=== PATIENT | female | born 1990 | race Caucasian/White ===

== ENCOUNTER → 2020-08-13 08:23 | Outpatient (CLI) | payer OTHER, SELFPAY ==
--- NOTE | 2020-08-13 08:38 | RAD_ITS ---
STUDY: X-RAY - ESOPHAGUS (BARIUM SWALLOW) WITH FLUOROSCOPY REASON FOR EXAM: Female, 29 years old. DYSPHAGIA -- feels like food gets stuck in thyroid area 6 months -- hx reflux meds have helped TECHNIQUE: AP view(s) of the esophagus were obtained following swallowing of barium. FLUOROSCOPY TIME (if supplied): (0:31) minutes/seconds COMPARISON: None. FINDINGS: There is no demonstrated esophageal foreign body. There is no demonstrated stricture or mucosal abnormality. Normal gastroesophageal junction, without a demonstrated hiatal hernia. The patient ingested a 12 mm tablet of barium without any difficulty. Normal visualized aortic arch and descending thoracic aorta. Normal visualized pulmonary parenchyma. Normal visualized osseous structures of the thorax. RAD/Esophagus Dual Contrast IMPRESSION: Normal plain film x-ray examination (barium swallow) of the esophagus. Electronically Signed: Jose Cantu MD at 9:09 EST , Service support ,
== END ==
PROVIDERS: PCP Family Medicine; Visit Provider Otolaryngology
DX: R13.10 Dysphagia, unspecified (principal)
CPT/HCPCS: 74221

== ENCOUNTER → 2023-01-02 | Outpatient (CLI) | payer OTHER, SELFPAY ==
[2023-01-05 05:07] LABS: Chlamydia By Nucleic Acid AMP Negative (Negative); Gonococcus By Nucleic Acid AMP Negative (Negative)
[2023-01-05 09:09] LABS: HPV APTIMA, High Risk Negative (Negative)
== END | disposition home or self-care (01) ==
LOC: LABSPEC 16:18
PROVIDERS: Obstetrics & Gynecology; PCP Nurse Practitioner Primary Care; Referring Provider Registered Nurse; Visit Provider Registered Nurse
DX: Z34.90 Encounter for supervision of normal pregnancy, unspecified, unspecified trimester (principal); Z3A.00 Weeks of gestation of pregnancy not specified
CPT/HCPCS: 87086; 87491; 87591; 87624; 88175; G0145

== ENCOUNTER → 2023-01-19 | Outpatient (CLI) | payer OTHER, SELFPAY ==
[2023-01-19 16:27] LABS: Absolute Lymphocyte Count 1.25 X10^3/uL (0.83-4.51); Absolute Neutrophil Count 5.1 X10^3/uL (2.0-7.7); Basophil# 0.04 X10^3/uL; Basophil% 0.6 % (0-1); Eosinophils% 4.2 % (0-5); Hematocrit 33.3 % (37-47); Hemoglobin 11.7 g/dL (12.0-15.0); Lymphocyte # 1.25 X10^3/ul (0.83-4.51); Lymphocyte % 17.5 % (19-41); Mean Corp Hgb Conc 35.1 g/dL (32-36); Mean Corpuscular Hgb 29.9 pg (27.0-32.0); Mean Corpuscular Volume 85.2 fL (81-99); Mean Platelet Vol. 10.7 fl (6.2-12.0); Monocyte# 0.42 X10^3/uL; Monocyte% 5.9 % (0-10); NRBC Flagged by Analyzer 0 % (0-5); Neutrophil # 5.12 X10^3/uL (2.7-7.7); Neutrophil % 71.5 % (47-70); Platelet Count 266 K/mm3 (150-450); RBC Distribution Width CV 12.4 % (11.6-14.6); RBC Distribution Width SD 38.3 fl (35.1-43.9); Red Blood Count 3.91 M/mm3 (4.2-5.4); White Blood Count 7.2 K/mm3 (4.4-11.0)
[2023-01-19 17:38] LABS: HIV - WCH Non-Reactive (Nonreactive); Hepatitis B Surface Antigen Non-Reactive (Nonreactive); Hepatitis C Antibody Non-Reactive (Nonreactive); Rubella IgG Reactive (Nonreactive); Syphilis Antibodies Non-reactive
== END | disposition home or self-care (01) ==
LOC: LABSPEC 15:18
PROVIDERS: PCP Nurse Practitioner Primary Care; Referring Provider Obstetrics & Gynecology; Visit Provider Obstetrics & Gynecology
DX: Z34.90 Encounter for supervision of normal pregnancy, unspecified, unspecified trimester (principal)
CPT/HCPCS: 36415; 85025; 86703; 86762; 86780; 86803; 86850; 86900; 86901; 87340

== ENCOUNTER → 2023-05-10 | Outpatient (CLI) | payer OTHER, SELFPAY ==
[2023-05-10 10:22] LABS: Absolute Lymphocyte Count 0.84 X10^3/uL (0.83-4.51); Absolute Neutrophil Count 9.1 X10^3/uL (2.0-7.7); Basophil# 0.03 X10^3/uL; Basophil% 0.3 % (0-1); Eosinophil# 0.14 X10^3/uL; Eosinophils% 1.3 % (0-5); Hematocrit 32.9 % (37-47); Hemoglobin 10.6 g/dL (12.0-15.0); Lymphocyte # 0.84 X10^3/ul (0.83-4.51); Lymphocyte % 7.8 % (19-41); Mean Corp Hgb Conc 32.2 g/dL (32-36); Mean Corpuscular Hgb 28.4 pg (27.0-32.0); Mean Corpuscular Volume 88.2 fL (81-99); Mean Platelet Vol. 11.1 fl (6.2-12.0); Monocyte# 0.61 X10^3/uL; Monocyte% 5.7 % (0-10); NRBC Flagged by Analyzer 0 % (0-5); Neutrophil # 9.12 X10^3/uL (2.7-7.7); Neutrophil % 84.4 % (47-70); Platelet Count 257 K/mm3 (150-450); RBC Distribution Width CV 12.6 % (11.6-14.6); RBC Distribution Width SD 40.2 fl (35.1-43.9); Red Blood Count 3.73 M/mm3 (4.2-5.4); White Blood Count 10.8 K/mm3 (4.4-11.0)
[2023-05-10 10:56] LABS: Glucose Challenge Gest 1H 50g 105 mg/dL (70-140)
[2023-05-10 12:36] LABS: HIV - WCH Non-Reactive (Nonreactive); Syphilis Antibodies Non-reactive
== END | disposition home or self-care (01) ==
LOC: LAB 09:08
PROVIDERS: PCP Nurse Practitioner Primary Care; Referring Provider Obstetrics & Gynecology; Visit Provider Obstetrics & Gynecology
DX: O09.90 Supervision of high risk pregnancy, unspecified, unspecified trimester (principal); Z3A.00 Weeks of gestation of pregnancy not specified
CPT/HCPCS: 36415; 82950; 85025; 86703; 86780

== ENCOUNTER → 2023-06-09 | Outpatient (CLI) | payer OTHER, SELFPAY ==
[2023-06-09 07:56] LABS: Absolute Lymphocyte Count 1.21 X10^3/uL (0.83-4.51); Absolute Neutrophil Count 7.9 X10^3/uL (2.0-7.7); Basophil# 0.03 X10^3/uL; Basophil% 0.3 % (0-1); Eosinophil# 0.24 X10^3/uL; Eosinophils% 2.4 % (0-5); Hematocrit 32.4 % (37-47); Hemoglobin 10.6 g/dL (12.0-15.0); Lymphocyte # 1.21 X10^3/ul (0.83-4.51); Lymphocyte % 11.9 % (19-41); Mean Corp Hgb Conc 32.7 g/dL (32-36); Mean Corpuscular Hgb 28.3 pg (27.0-32.0); Mean Corpuscular Volume 86.4 fL (81-99); Monocyte# 0.67 X10^3/uL; Monocyte% 6.6 % (0-10); NRBC Flagged by Analyzer 0 % (0-5); Neutrophil # 7.91 X10^3/uL (2.7-7.7); Neutrophil % 77.9 % (47-70); Platelet Count 222 K/mm3 (150-450); RBC Distribution Width CV 13.1 % (11.6-14.6); RBC Distribution Width SD 40.5 fl (35.1-43.9); Red Blood Count 3.75 M/mm3 (4.2-5.4); White Blood Count 10.2 K/mm3 (4.4-11.0)
== END | disposition home or self-care (01) ==
PROVIDERS: Referring Provider Registered Nurse; Visit Provider Registered Nurse
DX: O99.019 Anemia complicating pregnancy, unspecified trimester (principal); Z3A.26 26 weeks gestation of pregnancy
CPT/HCPCS: 36415; 85025

== ENCOUNTER → 2023-06-21 | Outpatient (CLI) | payer OTHER, SELFPAY ==
--- NOTE | 2023-06-21 09:27 | US_ITS ---
EXAM: US , LIMITED CLINICAL INDICATION: growth TECHNIQUE: Real-time limited ultrasound of the maternal uterus with image documentation. COMPARISON: No relevant prior studies available. FINDINGS: FETUS: There is an intrauterine gestation. GESTATIONAL AGE: Gestational age is 34 weeks 1 day. BLAINE: BLAINE 08/01/2023. EFW: Estimated weight is 2709 g. BPD: Biparietal diameter is 9.4 cm age 38 weeks 2 days, 99 percentile. HC: Head circumference is 33.5 cm age 38 weeks 3 days, 97th percentile. AC: Abdominal circumference is 31.7 cm age 35 weeks 4 days, 89th percentile. FL: Femur length is 6.7 cm age 34 weeks 2 days, 44th percentile. POSITION: The fetus is in cephalic position. HEART RATE: heart rate is 143 bpm. PLACENTA: Placenta is anterior. AMNIOTIC FLUID: RIDDHI is 21 cm. The largest fluid pocket is 7.0 x 3.2. CERVIX: Cervix measures 3.7 cm. US/OB Limited With Biometrics IMPRESSION: Intrauterine gestation with an average ultrasound age of 37 weeks 0 days and ultrasound estimated due date 07/12/2023. heart rate is 143 bpm. Electronically Signed: Dave Roblero MD at 23:54 EST ,
--- OUTSIDE RECORDS SUMMARY | 2023-06-21 10:43 | XMS RPT_ITS | CCD ---
Author Name Unknown Address [email or web address] [place] [address] Organization [facility] Care Team Providers Care Resident Caregiver Name Role Phone JOAN OLIVIER, JEFF Maddox Primary Care Physician Aurea PT, Valencia Unavailable Unavailable LOLY PAN Attending Ruthann FRANCO MD., DR. JEFF Maddox Primary Care Ruthann LAM PRIMARY CAREMD Primary Care Unavailable ROSALINDA MONTERO Attending Unavailable ZAK GARAY Referring Unavailabl e Medications Current Medications Medication Drug Class(es) Dates Sig (Normalized) Sig (Original) acetaminophen 250 mg / aspirin 250 mg / caffeine 65 mg oral tablet (1 source) Platelet Aggregation Inhibitor, Nonsteroidal Anti-inflammatory Drug, Central Nervous System Stimulant, Methylxanthine Start: 01-16-2020 take 1 tablet by mouth every six hours as needed for headache Excedrin Extra Strength oral tab (250/250/65) Dose = 1 tab(s), Oral, q6h, PRN for headache, 0 Refill(s) Start Date: 01/16/20 Status: Ordered Albuterol (Eqv-ProAir HFA) 90 mcg/inh inhalation aerosol (1 source) Start: 04-15-2021 take 1 dose by inhalation every four hours Albuterol (Eqv-ProAir HFA) 90 mcg/inh inhalation aerosol Dose = 2 puff(s), Inhalation, q4h, # 3 EA, 3 Refill(s), Pharmacy: [facility]/pharmacy #[id number], 164.2, cm, 04/15/21 16:39:00 EDT, Height, kg, 04/15/21 16:39:00 EDT, Dosing Weight Start Date: 04/15/21 Status: Ordered escitalopram 10 mg oral tablet (1 source) Serotonin Reuptake Inhibitor Start: 03-21-2022 End: 03-16-2023 escitalopram 10 mg oral tablet Dose : 10 mg = 1 tab(s), Oral, qDay, # 90 tab(s), 3 Refill(s), Pharmacy: [facility]/pharmacy #[id number], 161, cm, 03/21/22 16:37:00 EDT, Height Start Date: 03/21/22 Stop Date: 03/16/23 Status: Ordered montelukast 10 mg oral tablet (1 source) Leukotriene Receptor Antagonist Start: 07-23-2021 Singulair 10 mg oral tablet Dose : 10 mg = 1 tab(s), Oral, qDay, # 90 tab(s), 3 Refill(s), Pharmacy: [facility], 164.2, cm, 04/15/21 16:39:00 EDT, Height, kg, 04/15/21 16:39:00 EDT, Dosing Weight Start Date: 07/23/21 Status: Ordered Problems Problem Classification Problem Date Documented Da te Episodic/Chronic Anxiety disorders (4 sources) Generalized anxiety disorder; Translations: [Obsessive-compulsi ve disorder] Onset: 04-21-2022 03-21-2022 Chronic Results Test Name Value Interpretation Reference Range Facil ity Encounters Encounter Date Encounter Type Care Provider Facility Start: 03-14-2023 End: 03-14-2023 ambulatory MD [facility]IMARY [facility] Start: 04-21-2022 End: 04-26-2022 ambulatory LOLY RENE APRN-KOJO Facility:B Start: 04-21-2022 End: 04-25-2022 Outreach Lab LOLY RENE APRN-KOJO [facility] Payers Date Payer Category Payer Unknown [id number] 1990 Unknown [id number] 1990 Unknown [id number] Social History Date Type Detail Facility Start: 12-30-2019 Tobacco smoking status Never s moked tobacco (finding) [facility] Sex Assigned At Sex [facility] Progress note 08-09-2021 Note Date & Type Note Facility 08-09-2021 Note HNO ID: [id number] Author: Gita Ureña APRN.SIGN ERECTOR Service: ? Author Type: Nurse Practitioner Type: Progress Notes Filed: 08/09/2021 9:54 AM Note Text: Florina is a 30 year old who presents for an annual gynecologic exam without complaints. Menses: cycles every 25-30 days and 4 days of flow. 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 Comments: Sexual Activity: Yes; Male Contraception: Condom PAST MEDICAL HISTORY Diagnosis Date - Asthma PAST SURGICAL HISTORY Procedure Laterality Date - PAST SURGICAL HISTORY OF surgery on fingers for finger tips being cut off - PAST SURGICAL HISTORY OF Bilateral multiple breast lumpectomies FAMILY HISTORY Problem Relation Age of Onset - Asthma Father - Prostate Cancer Father SOCIAL HISTORY Social History Tobacco Use - Smoking status: Never Smoker - Smokeless tobacco: Never Used Vaping Use - Vaping Use: Never used Substance Use Topics - Alcohol use: No - Drug use: Never REVIEW OF SYSTEMS Abdomen: No abdominal pain, nausea, vomiting, diarrhea, or constipation. No bloating, early satiety, indigestion, or increased flatulence. Bladder: No dysuria, gross hematuria, urinary frequency, urinary urgency, or incontinence. Breast: No breast lumps, nipple d/c, overlying skin changes, redness or skin retraction and +fibroadenomos. Allergies and current medication updated:Yes EXAM: Ht 5' 4 (1.63m) Wt 154 lb (69.9kg) LMP 07/29/2021 BMI 26.42 kg/(m2). GENERAL: pleasant, female in no apparent distress HEENT: Normocephalic, atraumatic, mucus membranes moist and no lesions NECK: Supple, full range of motion, no adenopathy and thyroid normal DERMATOLOGY: Normal, without lesions, non-icteric and non-hirsute BREAST: soft, non-tender, symmetric, no dominant mass, normal nipple-areolar complex, no lymphadenopathy and no nipple discharge CHEST: Normal inspiratory effort ABDOMEN: soft, non-tender and no masses PELVIC: external genitalia normal, normal Bartholin's glands, urethra, [place]'s glands, no vulvar lesions, no cervical lesions, good vaginal support, physiologic discharge present, normal appearing perineal body and perianal region BIMANUAL: uterus normal size, shape and consistency, no adnexal masses and non-tender RECTOVAGINAL: deferred. NEURO: alert and oriented x3,exam grossly non-focal EXTREMITIES: normal ASSESSMENT/PLAN: 1) Health maintenance: Pap/HPV up to date. Mammogram starting age 40. Nutrition, exercise and routine health maintenance exams reviewed. Calcium/Vitamin D supplementation information provided. 2) Contraception: condoms. Contraceptive options reviewed and information provided. 3) STD screening: Declined STD check. 4) Follow up one year or sooner as needed Gita Ureña APRN.CNP [facility] Evaluation + Plan note Note Date & Type Note Facility Evaluation + Plan note Future Appointments Appointment Date:05/16/2022 04:30:00 PM Scheduled Provider:LOLY RENE Location:P [facility] Appointment Type:PC OV Follow Up [facility] Hospital course Narrative Note Date & Type Note Facility Hospital course Narrative No data available for this section [facility] Hospital Discharge instructions Note Date & Type Note Facility Hospital Discharge instructions No data available for this section [facility] Progress note Note Date & Type Note Facility Progress note No data available for this section [facility] Summary Purpose Family History No Family History Records FoundNo Family History Records FoundNo Family History Records Found Advance Directives No Advanced Directives Records FoundNo Advanced Directives Records FoundNo Advanced Directives Records Found Additional Source Comments INFORMATION SOURCE (unrecogn ized section and content) DATE CREATED AUTHOR AUTHOR'S ORGANIZ ATION 04/26/2022 [facility] ([place]) DATE CREATED AUTHOR AUTHOR'S ORGANIZ ATION 03/22/2023 [facility] Care Team (unrecognized sect ion and content) Care Team Personnel Name: Jyoti Villar Clerbuck [place] PT Position: P3 Scheduling - Gear Nicker Advanced Member Role: Other Name: JEFF FRANCO MD Position: P4 Physician - Primary Care Member Role: Primary Care Physician Address: Address: [address] [place] [id number] Care Team Related Persons Name: JARRED KULKARNI Address: Home [address] [place] [phone] Address: [address] [phone] FOR RECORDS PERTAINING TO PATIENTS WHO ARE OR HAVE BEEN ENROLLED IN A CHEMICAL DEPENDENCY/SUBSTANCEABUSE PROGRAM, SOME INFORMATION MAY BE OMITTED. This clinical summary was aggregated from multiple sources. Caution should be exercised in using it in the provision of clinical care. This summary normalizes information from multiple sources, and as a consequence, information in this document may materially change the coding, format and clinical context of patient data. In addition, data may be omitted in some cases. CLINICAL DECISIONS SHOULD BE BASED ON THE PRIMARY CLINICAL RECORDS. [facility] [employer] [facility]. provides no warranty or guarantee of the accuracy or completeness of information in this document.
== END | disposition home or self-care (01) ==
LOC: US 09:27
PROVIDERS: Referring Provider Obstetrics & Gynecology; Visit Provider Obstetrics & Gynecology
DX: O99.519 Diseases of the respiratory system complicating pregnancy, unspecified trimester (principal); J45.909 Unspecified asthma, uncomplicated; Z3A.00 Weeks of gestation of pregnancy not specified
CPT/HCPCS: 76816

== ENCOUNTER 2023-07-03 10:55 | Outpatient (CLI) | payer OTHER, SELFPAY ==
[2023-07-03] VITALS (7 sets, daily range): BP systolic 118–133; BP diastolic 74–87; PULSE 92–107; TEMP 37.4; O2SAT 97; BMI 37.8
--- OUTSIDE RECORDS SUMMARY | 2023-07-03 11:31 | XMS RPT_ITS | CCD ---
Author Name Unknown Address [address] [place] [address] Organization [facility] Care Team Providers Care Government Services Professional Name Role Phone JOAN OLIVIER, JEFF Maddox [...] q4h, # 3 EA, 3 Refill(s), Pharmacy: [facility]/pharmacy #[id number], 164.2, cm, 04/15/21 16:39:00 EDT, Height, kg, 04/15/21 16:39:00 EDT, Dosing Weight Start Date: 04/15/21 Status: Ordered escitalopram 10 mg oral tablet (1 source) Serotonin Reuptake Inhibitor Start: 03-21-2022 End: 03-16-2023 escitalopram 10 mg oral tablet Dose : 10 mg = 1 tab(s), Oral, qDay, # 90 tab(s), 3 Refill(s), Pharmacy: [facility]/pharmacy #[id number], 161, cm, 03/21/22 16:37:00 EDT, Height Start Date: 03/21/22 Stop Date: 03/16/23 Status: Ordered montelukast 10 mg oral tablet (1 source) Leukotriene Receptor Antagonist Start: 07-23-2021 Singulair 10 mg oral tablet Dose : 10 mg = 1 tab(s), Oral, qDay, # 90 tab(s), 3 Refill(s), [facility], 164.2, cm, 04/15/21 16:39:00 EDT, [...] End: 03-14-2023 ambulatory MD LAM [facility]IMARY [facility] Start: 04-21-2022 End: 04-26-2022 ambulatory LOLY RENE APRN-KOJO Facility:B Start: 04-21-2022 End: 04-25-2022 Outreach Lab LOLY RENE APRN-KOJO [facility] Payers Date Payer Category Payer Unknown [id number] 1990 Unknown [id number] 1990 Unknown [id number] Social History Date Type Detail Facility Start: 12-30-2019 Tobacco smoking status Never s moked tobacco (finding) [facility] Sex Assigned At Sex [facility] Progress note 08-09-2021 Note Date & Type Note Facility 08-09-2021 Note HNO ID: [id number] Author: Gita Ureña APRN.PROOF COINS INSPECTOR Service: ? 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: Sexual Activity: Yes; Male Contraception: [...] external genitalia normal, normal Bartholin's glands, urethra, [place]'s glands, no vulvar lesions, no cervical lesions, [...] or sooner as needed Gita Ureña APRN.CNP [facility] Evaluation + Plan note Note Date & Type Note Facility Evaluation + Plan note Future Appointments Appointment Date:05/16/2022 04:30:00 PM Scheduled Provider:LOLY RENE Location:P [facility] Appointment Type:PC OV Follow Up [facility] Hospital course Narrative Note Date & Type Note Facility Hospital course Narrative No data available for this section [facility] Hospital Discharge instructions Note Date & Type Note Facility Hospital Discharge instructions No data available for this section [facility] Progress note Note Date & Type Note Facility Progress note No data available for this section [facility] Summary Purpose Family History No Family History Records FoundNo Family History Records FoundNo Family History Records Found Advance Directives No Advanced Directives Records FoundNo Advanced Directives Records FoundNo Advanced Directives Records Found Additional Source Comments INFORMATION SOURCE (unrecogn ized section and content) DATE CREATED AUTHOR AUTHOR'S ORGANIZ ATION 04/26/2022 [facility] ([place]) DATE CREATED AUTHOR AUTHOR'S ORGANIZ ATION 03/22/2023 [facility] Care Team (unrecognized sect ion and content) Care Team Personnel Name: Jyoti Villar Clerbuck [place] PT Position: P3 Scheduling - Certified Performance Technologist Advanced Member Role: Other Name: JEFF FRANCO MD Position: P4 Physician - Primary Care Member Role: Primary Care Physician Address: Address: [address] [place] [id number] Care Team Related Persons Name: JARRED KULKARNI Address: Home [address] [place] [phone] Address: [address] [phone] FOR RECORDS PERTAINING TO PATIENTS WHO ARE [...] BE BASED ON THE PRIMARY CLINICAL RECORDS. [facility] [employer] [facility]. provides no warranty or guarantee of the accuracy or completeness of information in this document.
[2023-07-03 11:43] LABS: Protein, Urine (Random) 36.1 mg/dL (<11.9); Protein:Creat Ratio 242 mg/g CRE (0-200)
[2023-07-03 11:46] LABS: Hematocrit 31.3 % (37-47); Hemoglobin 10.3 g/dL (12.0-15.0); Mean Corp Hgb Conc 32.9 g/dL (32-36); Mean Corpuscular Hgb 28.5 pg (27.0-32.0); Mean Corpuscular Volume 86.7 fL (81-99); Platelet Count 189 K/mm3 (150-450); RBC Distribution Width CV 13.6 % (11.6-14.6); RBC Distribution Width SD 42.5 fl (35.1-43.9); Red Blood Count 3.61 M/mm3 (4.2-5.4); White Blood Count 8.5 K/mm3 (4.4-11.0)
[2023-07-03 11:59] LABS: AST(SGOT) 15 U/L (15-37); Alanine Aminotransfer ALT/SGPT 24 U/L (13-56); Creatinine, Serum 0.61 mg/dL (0.55-1.02); EST Glomerular Filtration Rate 121 mL/min (>60); Est Glom Filt Rate - Afr Amer 146 mL/min (>60); Estimated Creatinine Clearance 153.44 ml/min; Uric Acid 4.4 mg/dL (2.6-6.0)
--- NOTE | 2023-07-03 12:59 | OB.TRI.HP_ITS ---
HPI - General General Date of Admission: 07/03/23 HPI Narrative GASTON KULKARNI, is a 32 F who presents at 35.6 for elevated BP in office with trace proteins. denied headaches, RUQ pain but did have some occasional floaters/sparkles . Maternal Data Information BLAINE Calculator Estimated Delivery Date Method Current WG Current Estimate 08/01/23 LMP (Certain) 35w 6d PFSH PFSH Medical History Family history of breast cancer Home Medications albuterol sulfate 90 mcg/actuation aerosol inhaler 2 puff inhalation Q6H PRN shortness of breath or wheezing 12/27/22 [History Last Taken Unknown] montelukast 10 mg tablet (Singulair) 10 mg PO DAILY 12/27/22 [History Last Taken 07/02/23 20:00] multivitamin no.47-iron fum 27 mg-folate no.1 1 mg-dha 300 mg capsule (PNV-DHA) cap PO 12/27/22 [History Last Taken 07/02/23 20:00] famotidine 20 mg tablet (Pepcid) 20 mg PO DAILY #90 tabs 04/28/23 [Rx Last Taken Unknown] fluticasone 250 mcg-salmeterol 50 mcg/dose blistr powdr for inhalation (Advair Diskus) 1 inh inhalation BID 04/28/23 [History Last Taken 07/03/23 07:00] iron fum,pscplx 125 mg-folic acid 1 mg-vit C 40 mg-niacin 3 mg capsule (Integra F) 1 cap PO DAILY #30 caps 06/09/23 [Rx Last Taken 07/02/23 20:00] Allergy/AdvReac Type Severity Reaction Status Date / Time No Known Allergies Allergy Verified 07/03/23 11:50 Family History Grandmother Breast cancer, Onset Age: 60 Paternal Diabetes Maternal CAD (coronary artery disease) Maternal Father Prostate cancer, Onset Age: 57 Surgical History History of lumpectomy of both breasts [place] teeth extracted Social History adopted: No household members: significant other and other details: BF Mother current occupational status: employed 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 current occupational exposures/hazards: No pets and animals: Yes pets and animals: dog(s) history of recent travel: Yes (- November) out of state: Yes out of country: No sexually active: Yes Smoking Status: Never smoker alcohol intake: never substance use type: does not use well-balanced diet: about half the time caffeine: No eating out: 1-3 times/week during the past year weight has: remained stable what type of physical activity do you participate in: walking frequency: 1-2 times per week duration: 30-45 minutes/day hilaria/adventist: None seatbelt use: always do you feel safe at home: Yes additional 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 History 1 Elective abortions Hx Para 0 Spontaneous abortions Hx # Term Pregnancies Ectopic pregnancies Hx # Pregnancies Multiple births # of living children 0 Visit Details Expected Delivery Route/Plan Labor Preferences- CB/BF classes: yes labor support person: Juan Jose labor intervention preferences: [] pain management options preferred: epidural cut cord/dad catch: yes : yes PP control planned: discussed discussed possible routes of delivery and associated risks: [] special requests: [] Plans Covid status: unvax Flu vaccine: declines Tdap vaccine:given Rhogam: NA LARC form signed: yes movement and labor precautions reviewed. Problem list reviewed and updated with the most current plan of care details and appropriate orders placed. Relevant counseling for the gestational age provided. Continue routine care and follow up unless otherwise noted in visit notes/problem list details OB Flowsheet Initial Weight: 168 lb Date -?-?-?-?-?-?-?-?-?-?-?-?- EGA Weight BP Urine Prot -?-?-?-?-?-?-?-?-?-?-?-?- Glucose FHR FuHt Pres Dilation -?-?-?-?-?-?-?-?-?-?-?-?- Effaced St Visit Note 01/02/23 -?-?-?-?-?-?-?-?-?-?-?-?- 9w 6d 168 lb 8 oz (+8 oz) 132/79 -?-?-?-?-?-?-?-?-?-?-?-?- 165 -?--?-?-?-?-?-?-?-?-?-?-?- LC- CRL 28.9mm c /w LMP. BLAINE 08/01/2023 LC- CRL 28.9mm c/w LMP. BLAINE 08/01/2023. 01/31/23 -?-?-?-?-?-?-?-?-?-?-?-?- 14w 0d 174 lb 4 oz (+6 lb 4 oz) 124/78 Negative -?-?-?-?-?-?-?-?-?-?-?-?- Negative 153 -?-?-?-?-?-?-?-?-?-?-?-?- MH-NO VB. Nausea improving. Reviewed PN labs. Brief US to confirm FHT 02/27/23 -?-?-?-?-?-?-?-?-?-?-?-?- 17w 6d 181 lb (+13 lb) 117/73 Negative -?-?-?-?-?-?-?-?-?-?-?-?- Negative 150 -?-?-?-?-?-?-?-?-?-?-?-?- SM- no vb crampi ng nausea improving, having headaches. SM- no vb cramping nausea im proving, having headaches. discussed starting pepcid for nausea and heartburn, reviewed EDMOND treatment OTC 03/30/23 -?-?-?-?-?-?-?-?-?-?-?-?- 22w 2d 190 lb 2 oz (+22 lb 2 oz) 128/82 Negative -?-?-?-?-?-?-?-?-?-?-?-?- Negative 145 22 -?-?-?-?-?-?-?-?-?-?-?-?- KW- no vb/lof/ct x. good fm. feeling SOB and having increased coughing and using albuterol inhaler 3 times a week. encouraged chiropractor for hip pain. KW- no vb/lof/ctx. good fm. feeling SOB and having increased coughing and using albuterol inhaler 3 times a week, recommended seeing PCP for change in meds. encouraged chiropractor for hip pain. 04/28/23 -?-?-?-?-?-?-?-?-?-?-?-?- 26w 3d 196 lb (+28 lb) 108/76 Negative -?-?-?-?-?-?-?-?-?-?-?-?- Negative 140 27 -?-?-?-?-?-?-?-?-?-?-?-?- KW- no vb/lof/ct x. good fm. added Advair and feeling much better. Pepcid reordered. 28 week labs reviewed and ordered. 05/10/23 -?-?-?-?-?-?-?-?-?-?-?-?- 28w 1d 198 lb 4 oz (+30 lb 4 oz) 118/72 Trace -?-?-?-?-?-?-?-?-?-?-?-?- Negative 132 29 -?-?-?-?-?-?-?-?-?-?-?-?- MH-No VB, LOF. G ood FM. 28 wk labs, larc. Considering tdap 05/22/23 -?-?-?-?-?-?-?-?-?-?-?-?- 29w 6d 203 lb (+35 lb) 118/83 Negative -?-?-?-?-?-?-?-?-?-?-?-?- Negative 130 31 -?-?-?-?-?-?-?-?-?-?-?-?- SM- no vb lof go od fm n oregular ctx 06/09/23 -?-?-?-?-?-?-?-?-?-?-?-?- 32w 3d 208 lb 2 oz (+40 lb 2 oz) 107/77 Negative -?-?-?-?-?-?-?-?-?-?-?-?- Negative 150 32 -?-?-?-?-?-?-?-?-?-?-?-?- JV- asthma a lit tle worse and is working with pcp and now on advair. will order growth ultrasound. adding integra to medication list as hg did not change with otc iron. JV- asthma a little worse an d is working with pcp and now on advair. will order growth ultrasound. adding integra to medication list as hg did not change with otc iron. Discussed weight gain (40 lbs already) and healthy eating. ok to walk in 06/21/23 -?-?-?-?-?-?-?-?-?-?-?-?- 34w 1d 214 lb (+46 lb) 116/84 Negative -?-?-?-?-?-?-?-?-?-?-?-?- Negative 143 34 -?-?-?-?-?-?-?-?-?-?-?-?- LC- no vb/ctx/lo f. good fm. had growth scan today.asthma slightly better on advair. 07/03/23 -?-?-?-?-?-?-?-?-?-?-?-?- 35w 6d 218 lb 8 oz (+50 lb 8 oz) 142/90 Trace -?-?-?-?-?-?-?-?-?-?-?-?- Negative 144 37.5 -?-?-?-?-?-?-?-?-?-?-?-?- LC- no vb/ctx/lo f. good fm. elevated BP in office. having sparkle vision occassionally. no headaches. sending to for PEC labs/monitoring. Physical Exam Const alert, oriented x3 and no apparent distress Resp normal respiratory effort, normal air movement, no retractions and no use of accessory muscles Cardio regular rate and regular rhythm GI soft to palpation and non-tender Inspection: Palpation: soft Rectal Exam: deferred Extremity normal to inspection and full ROM Neuro Motor Exam: strength 5/5 throughout and muscle tone normal throughout Deep Tendon Reflexes: Rt Patellar (L4): 2+ and Lt Patellar (L4): 2+ NST FHR Rate Baby A Baseline: 135 Variability:: Moderate Accelerations:: 15 x 15 Decelerations:: None NST Reactive:: Yes FHR Category:: Category I Assessment & Plan (1) Elevated blood pressure reading: COMMENT: negative PEC labs. P:C 160. d/c home, c/w Dr. Gamez agreed not PEC today. PEC s/sx provided. PLAN: Patient presents for triage evaluation secondary to elevated BP in office FHT: Moderate variability reactive no decelerations category I tracing Combined Locks: no Contractions Assessment and plan: Reactive NST, reassuring maternal and status patient discharged to home to follow-up in office next week, PEC handout provided. See problem list details for additional plan information. Charges/Coding Procedures Urinary/Genital 52xxx-59xxx: 70778-50 non-stress test Interp Multi Select Codes Visit Charges Office Visit/Consults: 75076 OV L3 Est 20min Urinary/Genital Urinary/Genital CPT Codes: 73447-32 non-stress test Interp
== END 2023-07-03 12:31 | disposition home or self-care (01) ==
LOC: WPOUT 11:01 → WP 11:01
PROVIDERS: Referring Provider Registered Nurse; Visit Provider Registered Nurse
DX: O99.891 Other specified diseases and conditions complicating pregnancy (principal); R10.11 Right upper quadrant pain; R03.0 Elevated blood-pressure reading, without diagnosis of hypertension; Z3A.00 Weeks of gestation of pregnancy not specified
CPT/HCPCS: 36415; 59025; 59050; 82565; 82570; 84156; 84450; 84460; 84550; 85027; 87081; 99221; G0378

== ENCOUNTER 2023-07-13 18:15 | Inpatient (IN) | payer OTHER, SELFPAY ==
[2023-07-13] VITALS (29 sets, daily range): BP systolic 115–150; BP diastolic 66–93; PULSE 89–156; TEMP 36.7–37.1; O2SAT 85–99; BMI 38.4
[2023-07-13 16:00] LABS: Hematocrit 32.3 % (37-47); Hemoglobin 10.7 g/dL (12.0-15.0); Mean Corp Hgb Conc 33.1 g/dL (32-36); Mean Corpuscular Hgb 28.5 pg (27.0-32.0); Mean Corpuscular Volume 85.9 fL (81-99); Mean Platelet Vol. 12.6 fl (6.2-12.0); Platelet Count 193 K/mm3 (150-450); RBC Distribution Width CV 13.7 % (11.6-14.6); RBC Distribution Width SD 42.6 fl (35.1-43.9); Red Blood Count 3.76 M/mm3 (4.2-5.4); White Blood Count 9.2 K/mm3 (4.4-11.0)
[2023-07-13 16:12] LABS: AST(SGOT) 24 U/L (15-37); Alanine Aminotransfer ALT/SGPT 33 U/L (13-56); Creatinine, Serum 0.67 mg/dL (0.55-1.02); EST Glomerular Filtration Rate 109 mL/min (>60); Est Glom Filt Rate - Afr Amer 132 mL/min (>60); Uric Acid 4.4 mg/dL (2.6-6.0)
[2023-07-13 17:47] LABS: Protein:Creat Ratio 393 mg/g CRE (0-200)
--- OUTSIDE RECORDS SUMMARY | 2023-07-13 18:21 | XMS RPT_ITS | CCD ---
Author Name Unknown Address [address] [place] [address] Organization [facility] Care Team Providers Care Lapping Machine Tender Name Role Phone JOAN OLIVIER, JEFF Maddox [...] q4h, # 3 EA, 3 Refill(s), Pharmacy: [facility]/pharmacy #[id number], 164.2, cm, 04/15/21 16:39:00 EDT, Height, kg, 04/15/21 16:39:00 EDT, Dosing Weight Start Date: 04/15/21 Status: Ordered escitalopram 10 mg oral tablet (1 source) Serotonin Reuptake Inhibitor Start: 03-21-2022 End: 03-16-2023 escitalopram 10 mg oral tablet Dose : 10 mg = 1 tab(s), Oral, qDay, # 90 tab(s), 3 Refill(s), Pharmacy: [facility]/pharmacy #[id number], 161, cm, 03/21/22 16:37:00 EDT, Height Start Date: 03/21/22 Stop Date: 03/16/23 Status: Ordered montelukast 10 mg oral tablet (1 source) Leukotriene Receptor Antagonist Start: 07-23-2021 Singulair 10 mg oral tablet Dose : 10 mg = 1 tab(s), Oral, qDay, # 90 tab(s), 3 Refill(s), [facility], 164.2, cm, 04/15/21 16:39:00 EDT, [...] End: 03-14-2023 ambulatory MD [facility] Start: 04-21-2022 End: 04-26-2022 ambulatory LOLY RENE APRN-KOJO Facility:B Start: 04-21-2022 End: 04-25-2022 Outreach Lab LOLY RENE APRN-KOJO [facility] Payers Date Payer Category Payer Unknown [id number] 1990 Unknown [id number] 1990 Unknown [id number] Social History Date Type Detail Facility Start: 12-30-2019 Tobacco smoking status Never s moked tobacco (finding) [facility] Sex Assigned At Sex [facility] Progress note 08-09-2021 Note Date & Type Note Facility 08-09-2021 Note HNO ID: [id number] Author: Gita Ureña APRN.IT INFRASTRUCTURE MANAGER Service: ? 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 Hospital course Narrative Note Date & Type Note Facility Hospital course Narrative No data available for this section [facility] Hospital Discharge instructions Note Date & Type Note Facility Hospital Discharge instructions No data available for this section [facility] Progress note Note Date & Type Note Facility Progress note No data available for this section [facility] Summary Purpose Family History No Family History Records FoundNo Family History Records FoundNo Family History Records Found Advance Directives No Advanced Directives Records FoundNo Advanced Directives Records FoundNo Advanced Directives Records Found Additional Source Comments INFORMATION SOURCE (unrecogn ized section and content) DATE CREATED AUTHOR AUTHOR'S ORGANIZ ATION 04/26/2022 [facility] ([place]) DATE CREATED AUTHOR AUTHOR'S ORGANIZ ATION 03/22/[address] [facility] Care Team (unrecognized sect ion and content) Care Team Personnel Name: Jyoti Villar Cler[place] PT Position: P3 Scheduling - Licensed Guide Advanced Member Role: Other Name: JEFF FRANCO MD Position: P4 Physician - Primary Care Member Role: Primary Care Physician Address: Address: [address] [place] [id number] Care Team Related Persons Name: JARRED KULKARNI Address: Home [address] [place] [id number] Address: [address] [phone] FOR RECORDS PERTAINING TO PATIENTS WHO ARE [...] BE BASED ON THE PRIMARY CLINICAL RECORDS. [facility] [employer] [facility]. provides no warranty or guarantee of the accuracy or completeness of information in this document.
[2023-07-13] MEDS: Lactated Ringers 1,000 ML 50 ML IV (19:41)
[2023-07-13 19:49] LABS: Syphilis Antibodies Non-reactive
[2023-07-13] MEDS: 0.9% Normal Saline Single 100 ML IV.SOLN. INTRA-UTER (20:26)
--- NOTE | 2023-07-13 22:15 | HP.PCM.OB_ITS ---
HPI - General General Date of Admission: 07/13/23 HPI Narrative GASTON KULKARNI, is a 32 F who presents due to elevated bps, upon evaluation she has preeclampsia. co edema no vb lof admits good fm. no regular ctx Maternal Data Information BLAINE Calculator Estimated Delivery Date Method Current WG Current Estimate 08/01/23 LMP (Certain) 37w 2d PFSH PFSH Medical History (Updated 07/13/23 @ 22:[address] Lindsay Grijalva MD) Anxiety Asthma Family history of breast cancer Home Medications albuterol sulfate 90 mcg/actuation aerosol inhaler 2 puff inhalation Q6H PRN shortness of breath or wheezing 12/27/22 [History Last Taken Unknown] montelukast 10 mg tablet (Singulair) 10 mg PO DAILY 12/27/22 [History Last Taken 07/12/23 20:00 10 mg] multivitamin no.47-iron fum 27 mg-folate no.1 1 mg-dha 300 mg capsule (PNV-DHA) 1 cap PO DAILY 12/27/22 [History Last Taken 07/12/23 20:00 1 cap] famotidine 20 mg tablet (Pepcid) 20 mg PO DAILY #90 tabs 04/28/23 [Rx Last Taken 07/12/23 20:00 20 mg] fluticasone 250 mcg-salmeterol 50 mcg/dose blistr powdr for inhalation (Advair Diskus) 1 inh inhalation BID 04/28/23 [History Last Taken 07/13/23 08:00 1 inh] iron fum,pscplx 125 mg-folic acid 1 mg-vit C 40 mg-niacin 3 mg capsule (Integra F) 1 cap PO DAILY #30 caps 06/09/23 [Rx Last Taken 07/13/23 08:00 1 cap] Allergy/AdvReac Type Severity Reaction Status Date / Time No Known Allergies Allergy Verified 07/13/23 17:12 Family History Grandmother Breast cancer, Onset Age: 60 Paternal Diabetes Maternal CAD (coronary artery disease) Maternal Father Prostate cancer, Onset Age: 57 Surgical History (Updated 07/13/23 @ 18:37 by David López) History of lumpectomy of both breasts History of surgery [place] teeth extracted Social History adopted: No household members: significant other and other details: BF Mother current occupational status: employed 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 current occupational exposures/hazards: No pets and animals: Yes pets and animals: dog(s) history of recent travel: Yes (- November) out of state: Yes out of country: No sexually active: Yes Smoking Status: Never smoker alcohol intake: never substance use type: does not use well-balanced diet: about half the time caffeine: No eating out: 1-3 times/week during the past year weight has: remained stable what type of physical activity do you participate in: walking frequency: 1-2 times per week duration: 30-45 minutes/day hilaria/confucianism: None seatbelt use: always do you feel safe at home: Yes 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 History 1 Elective abortions Hx Para 0 Spontaneous abortions Hx # Term Pregnancies Ectopic pregnancies Hx # Pregnancies Multiple births # of living children 0 Visit Details Expected Delivery Route/Plan Labor Preferences- CB/BF classes: yes labor support person: Juan Jose labor intervention preferences: [] pain management options preferred: epidural cut cord/dad catch: yes : yes PP control planned: discussed discussed possible routes of delivery and associated risks: [] special requests: [] Plans Covid status: unvax Flu vaccine: declines Tdap vaccine:given Rhogam: NA LARC form signed: yes movement and labor precautions reviewed. Problem list reviewed and updated with the most current plan of care details and appropriate orders placed. Relevant counseling for the gestational age provided. Continue routine care and follow up unless otherwise noted in visit notes/problem list details OB Flowsheet Initial Weight: 168 lb Date -?-?--?-?-?-?-?-?-?-?-?-?- EGA Weight BP Urine Prot -?-?-?-?-?-?-?-?-?-?-?-?- Glucose FHR FuHt Pres Dilation -?-?-?-?-?-?-?-?-?-?-?-?- Effaced St Visit Note 01/02/23 -?-?-?-?-?-?-?-?-?-?-?-?- 9w 6d 168 lb 8 oz (+8 oz) 132/79 -?-?-?-?-?-?-?-?-?-?-?-?- 165 -?-?-?-?-?-?-?-?-?-?-?-?- LC- CRL 28.9mm c /w LMP. BLAINE 08/01/2023 LC- CRL 28.9mm c/w LMP. BLAINE 08/01/2023. 01/31/23 -?-?-?-?-?-?-?-?-?-?-?-?- 14w 0d 174 lb 4 oz (+6 lb 4 oz) 124/78 Negative -?-?-?-?-?-?-?-?-?-?-?-?- Negative 153 -?--?-?-?-?-?-?-?-?-?-?-?- MH-NO VB. Nausea improving. Reviewed PN labs. Brief US to confirm FHT 02/27/23 -?-?-?-?-?-?-?-?-?-?-?-?- 17w 6d 181 lb (+13 lb) 117/73 Negative -?-?-?-?-?-?-?-?-?-?-?-?- Negative 150 -?-?-?-?-?-?-?-?-?-?-?-?- SM- no vb crampi ng nausea improving, having headaches. SM- no vb cramping nausea im proving, having headaches. discussed starting pepcid for nausea and heartburn, reviewed EDMOND treatment OTC 03/30/23 -?-?-?-?-?-?-?-?-?-?-?-?- 22w 2d 190 lb 2 oz (+22 lb 2 oz) 128/82 Negative -?-?-?-?-?-?-?-?-?-?-?-?- Negative 145 22 -?-?-?-?-?-?-?-?-?-?-?-?- KW- no vb/lof/ct x. good fm. feeling SOB and having increased coughing and using albuterol inhaler 3 times a week. encouraged chiropractor for hip pain. KW- no vb/lof/ctx. good fm. feeling SOB and having increased coughing and using albuterol inhaler 3 times a week, recommended seeing PCP for change in meds. encouraged chiropractor for hip pain. 04/28/23 -?-?-?-?-?-?-?-?-?-?-?-?- 26w 3d 196 lb (+28 lb) 108/76 Negative -?-?-?-?-?-?-?-?-?-?-?-?- Negative 140 27 -?-?-?-?-?-?-?-?-?-?-?-?- KW- no vb/lof/ct x. good fm. added Advair and feeling much better. Pepcid reordered. 28 week labs reviewed and ordered. 05/10/23 -?-?-?-?-?-?-?-?-?-?-?-?- 28w 1d 198 lb 4 oz (+30 lb 4 oz) 118/72 Trace -?-?-?-?-?-?-?-?-?-?-?-?- Negative 132 29 -?-?-?-?-?-?-?-?-?-?-?-?- MH-No VB, LOF. G ood FM. 28 wk labs, larc. Considering tdap 05/22/23 -?-?-?-?-?-?-?-?-?-?-?-?- 29w 6d 203 lb (+35 lb) 118/83 Negative -?-?-?-?-?-?-?-?-?-?-?-?- Negative 130 31 -?-?-?-?-?-?-?-?-?-?-?-?- SM- no vb lof go od fm n oregular ctx 06/09/23 -?-?-?-?-?-?-?-?-?-?-?-?- 32w 3d 208 lb 2 oz (+40 lb 2 oz) 107/77 Negative -?-?-?-?-?-?-?-?-?-?-?-?- Negative 150 32 -?-?-?-?-?-?-?-?-?-?-?-?- JV- asthma a lit tle worse and is working with pcp and now on advair. will order growth ultrasound. adding integra to medication list as hg did not change with otc iron. JV- asthma a little worse an d is working with pcp and now on advair. will order growth ultrasound. adding integra to medication list as hg did not change with otc iron. Discussed weight gain (40 lbs already) and healthy eating. ok to walk in 06/21/23 -?-?-?-?-?--?-?-?-?-?-?-?- 34w 1d 214 lb (+46 lb) 116/84 Negative -?-?-?-?-?-?-?-?-?-?-?-?- Negative 143 34 -?-?-?-?-?-?-?-?-?-?-?-?- LC- no vb/ctx/lo f. good fm. had growth scan today.asthma slightly better on advair. 07/03/23 -?-?-?-?-?-?-?-?-?-?-?-?- 35w 6d 218 lb 8 oz (+50 lb 8 oz) 142/90 Trace -?-?-?-?-?-?-?-?-?-?-?-?- Negative 144 37.5 -?-?-?-?-?-?-?-?-?-?-?-?- LC- no vb/ctx/lo f. good fm. elevated BP in office. having sparkle vision occassionally. no headaches. sending to for PEC labs/monitoring. NST FHR Rate Baby A Baseline: 130 Variability:: Moderate Accelerations:: 15 x 15 Decelerations:: None NST Reactive:: Yes FHR Category:: Category I Uterine Activity:: irregular ROS Constitutional Constitutional: Reports systems reviewed and no addt'l complaints, except as documented Eyes Eyes: Denies change in vision ENT HEENT: Reports systems reviewed and no addt'l complaints, except as documented; Denies headache(s) Cardiovascular Cardiovascular: Reports systems reviewed and no addt'l complaints, except as documented; Denies chest pain or dyspnea Respiratory/Chest Respiratory/Chest: Reports systems reviewed and no addt'l complaints, except as documented Gastrointestinal Gastrointestinal: Reports systems reviewed and no addt'l complaints, except as documented; Denies abdominal pain Genitourinary Genitourinary: Reports systems reviewed and no addt'l complaints, except as documented, contractions Details: present (irregular) and movement Details: present; Denies dysuria or genital lesions Musculoskeletal Musculoskeletal: Reports systems reviewed and no addt'l complaints, except as documented Neurologic Neurologic: Reports systems reviewed and no addt'l complaints, except as documented Endocrine Endocrinology: Reports systems reviewed and no addt'l complaints, except as documented Vital Signs Vital Signs Vital Signs: 07/13/23 15:55 07/13/23 15:55 07/13/23 15:58 Temperature Temperature Source Pulse Rate 95 97 Blood Pressure 141/90 H BP Systolic 141 BP Diastolic 90 Pulse Ox 07/13/23 15:58 07/13/23 15:45 07/13/23 15:45 Temperature Temperature Source Tympanic Pulse Rate Blood Pressure BP Systolic BP Diastolic Pulse Ox 99 99 07/13/23 15:45 07/13/23 16:06 07/13/23 16:06 Temperature 98.1 F Temperature Source Pulse Rate 97 Blood Pressure 134/82 H BP Systolic 134 BP Diastolic 82 Pulse Ox 07/13/23 16:21 07/13/23 16:21 07/13/23 16:36 Temperature Temperature Source Pulse Rate 105 H Blood Pressure 132/85 H 131/89 H BP Systolic 132 131 BP Diastolic 85 89 Pulse Ox 07/13/23 16:36 07/13/23 16:52 07/13/23 16:52 Temperature Temperature Source Pulse Rate 99 100 Blood Pressure 135/82 H BP Systolic 135 BP Diastolic 82 Pulse Ox 07/13/23 17:06 07/13/23 17:06 07/13/23 17:38 Temperature Temperature Source Pulse Rate 109 H Blood Pressure 141/85 H 136/89 H BP Systolic 141 136 BP Diastolic 85 89 Pulse Ox 07/13/23 17:38 07/13/23 17:54 07/13/23 17:54 Temperature Temperature Source Pulse Rate 114 H 106 H Blood Pressure 145/84 H BP Systolic 145 BP Diastolic 84 Pulse Ox 07/13/23 18:08 07/13/23 18:08 07/13/23 18:23 Temperature Temperature Source Pulse Rate 116 H Blood Pressure 150/90 H 143/85 H BP Systolic 150 143 BP Diastolic 90 85 Pulse Ox 07/13/23 18:23 07/13/23 18:38 07/13/23 18:38 Temperature Temperature Source Pulse Rate 110 H 107 H Blood Pressure 142/92 H BP Systolic 142 BP Diastolic 92 Pulse Ox 07/13/23 18:53 07/13/23 18:53 07/13/23 19:08 Temperature Temperature Source Pulse Rate 111 H Blood Pressure 132/75 H 128/76 H BP Systolic 132 128 BP Diastolic 75 76 Pulse Ox 07/13/23 19:08 07/13/23 19:24 07/13/23 19:24 Temperature Temperature Source Pulse Rate 105 H 109 H Blood Pressure 141/81 H BP Systolic 141 BP Diastolic 81 Pulse Ox 07/13/23 19:24 07/13/23 19:24 07/13/23 19:24 Temperature Temperature Source Temporal Pulse Rate 105 H Blood Pressure BP Systolic BP Diastolic Pulse Ox 96 07/13/23 19:24 07/13/23 19:24 07/13/23 19:43 Temperature 98.7 F Temperature Source Pulse Rate 110 H Blood Pressure BP Systolic BP Diastolic Pulse Ox 98 07/13/23 19:43 07/13/23 19:48 07/13/23 19:48 Temperature Temperature Source Pulse Rate 108 H Blood Pressure BP Systolic BP Diastolic Pulse Ox 97 97 07/13/23 19:53 07/13/23 19:53 07/13/23 19:58 Temperature Temperature Source Pulse Rate 114 H 106 H Blood Pressure BP Systolic BP Diastolic Pulse Ox 97 07/13/23 19:58 07/13/23 20:03 07/13/23 20:03 Temperature Temperature Source Pulse Rate 111 H Blood Pressure BP Systolic BP Diastolic Pulse Ox 97 96 07/13/23 20:55 07/13/23 20:56 07/13/23 20:56 Temperature Temperature Source Temporal Pulse Rate 90 Blood Pressure 132/83 H BP Systolic 132 BP Diastolic 83 Pulse Ox 07/13/23 20:56 07/13/23 20:55 07/13/23 21:45 Temperature 98.4 F Temperature Source Pulse Rate 92 Blood Pressure BP Systolic BP Diastolic Pulse Ox 97 07/13/23 21:45 07/13/23 21:50 07/13/23 21:50 Temperature Temperature Source Pulse Rate 98 Blood Pressure 135/93 H BP Systolic 135 BP Diastolic 93 Pulse Ox 98 07/13/23 21:50 07/13/23 21:50 07/13/23 21:50 Temperature 98.2 F Temperature Source Temporal Pulse Rate Blood Pressure BP Systolic BP Diastolic Pulse Ox 98 Weight Weight: 223 lb 15.834 oz Body Mass Index (BMI) 38.4 Physical Exam Const alert, oriented x3, no apparent distress and healthy appearing HEENT normocephalic and moist oral mucous membranes Head and Scalp: atraumatic Neck full ROM, no lymphadenopathy, supple and thyroid normal General: trachea midline Lymph Lymphatic: no lymphadenopathy noted Chest inspection of chest normal Resp normal respiratory effort Cardio regular rate GI normal to inspection, nondistended, normoactive bowel sounds, soft to palpation and non-tender Inspection: gravid external exam normal Manual OB Exam: estimated gestational size appropriate, presentation cephalic, dilated, effaced and station Extremity normal to inspection General Extremity: Negative for edema Skin no rashes or lesions noted Neuro no focal motor deficits and deep tendon reflexes 2+ bilaterally Motor Exam: strength 5/5 throughout and clonus absent Psych mental status grossly normal Labs Labs Labs: Blood Type A POSITIVE Antibody Screen NEGATIVE Hct 32.3 % (37-47) L Hgb 10.7 g/dL (12.0-15.0) L Obstetrics Ultrasound Syphilis Total Ab Non-reactive Rubella IgG Antibody Reactive (Nonreactive) Hep Bs Antigen Non-Reactive (Nonreactive) Hepatitis C Antibody Non-Reactive (Nonreactive) Chlamydia DNA (NOREEN) Negative (Negative) N.gonorrhoeae DNA (NOREEN) Negative (Negative) HIV 1&2 Antibody Non-Reactive (Nonreactive) Glucose 1 Hr 50 gm 105 mg/dL (70-140) Assessment & Plan (1) Pre-eclampsia affecting puerperium: COMMENT: proceed with IOL pit/fb (2) Anemia affecting : COMMENT: rpt CBC in4 wks (3) Family history of congenital heart defect: COMMENT: nephew born with VSD, had surgery. offered echo. per MFM if murmur recommend echo after (4) Supervision of high-risk : QUALIFIERS: Trimester: second trimester Qualified Code(s): O09.92 - Supervision of high risk , unspecified, second trimester COMMENT: [id number], BLAINE 08/01/22 surprise BF Juan Jose (5) : QUALIFIERS: Weeks of gestation: 35 weeks Qualified Code(s): Z3A.35 - 35 weeks gestation of COMMENT: gbs negative. declined genetic & carrier testing. declines ntd screen. nl anatomy, 34wk nl growth (6) Abnormal Pap smear of cervix: COMMENT: 2020 epithelial cells (7) Anxiety: COMMENT: no meds, encouraged counseling; stable (8) Asthma: QUALIFIERS: Asthma severity: unspecified severity Asthma persistence: unspecified Asthma complication type: unspecified Qualified Code(s): J45.909 - Unspecified asthma, uncomplicated COMMENT: Referred to PCP 03/30 for increase in meds. on singulair and albuterol but not well controlled now PLAN: Plan Patient presents IOL, plan management for with fb and pitocin then AROM. Pain management: plans epidural. GBS negative. Management of any complications: preeclampsia I have reviewed the [facility] and made any clinically relevant updates.
[2023-07-13] MEDS: Oxytocin 15 Units/NS 250ml 15 UNITS/250 ML IV.SOLN 2 UNITS IV (22:45)
[2023-07-13] MEDS: LACTATED RINGERS 500 ML 999 ML IV (23:25)
[2023-07-14] VITALS (49 sets, daily range): BP systolic 103–138; BP diastolic 57–92; PULSE 93–140; RESP 16; TEMP 36.2–37.7; O2SAT 94–99
[2023-07-14] MEDS: fentaNYL-bupivacaine (epidural) 100 ML BAG EPIDURAL ×3 (00:41→10:11)
--- NOTE | 2023-07-14 02:07 | PCM.PN.BLA ---
Progress Note arom pink tinged fluid 5 cm internals placed, cat I tracing. pit per protocol.
[2023-07-14] MEDS: LACTATED RINGERS 500 ML 999 ML IV ×2 (02:16→11:39)
[2023-07-14] MEDS: Lactated Ringers 1,000 ML 200 ML IV ×2 (03:28→08:31)
--- NOTE | 2023-07-14 07:52 | PCM.PN.OB ---
Subjective Subjective comfortable with epidural Objective Data Objective Data Vital Signs: Vital Signs Temp Pulse BP Pulse Ox 98.3 F 118 H 138/75 H 97 07/14/23 07:23 07/14/23 07:23 07/14/23 07:23 07/14/23 07:23 Weight: 223 lb 15.834 oz Body Mass Index (BMI) 38.4 Intake & Output: Intake and Output for Last 24 Hours 07/12/23 07/13/23 07/14/23 23:59 23:59 23:59 Intake Total 688.17 / 688.17 1098.56 / 1098.56 Output Total 150 / 150 500 / 500 Balance 538.17 / 538.17 598.56 / 598.56 Lab / Micro Data 07/13/23 15:50 07/13/23 15:50 Labs: Laboratory Results - last 24 hr 07/13/23 15:50: WBC 9.2, RBC 3.76 L, Hgb 10.7 L, Hct 32.3 L, MCV 85.9, MCH 28.5, MCHC 33.1, RDW Std Deviation 42.6, RDW Coeff of Hemal 13.7, Plt Count 193, MPV 12.6 H, Creatinine 0.67, Est GFR (MDRD) Af Amer 132, Est GFR (MDRD) Non-Af 109, Uric Acid 4.4, AST 24, ALT 33, Syphilis Total Ab Non-reactive, Blood Type A POSITIVE, Antibody Screen NEGATIVE 07/13/23 17:25: U Random Total Protein 44.0 H, Urine Creatinine 112.00, Protein/Creatinin Ratio 393 H Physical Exam Const alert and no apparent distress Resp normal respiratory effort, normal air movement and no retractions Cardio regular rate and regular rhythm GI Inspection: gravid Extremity normal to inspection Skin no rashes or lesions noted NST FHR Rate Baby A Baseline: 140 Accelerations:: 15 x 15 Decelerations:: None NST Reactive:: Yes FHR Category:: Category I Uterine Activity:: q3-4 Assessment & Plan (1) Pre-eclampsia affecting puerperium: COMMENT: proceed with IOL pit/fb PLAN: BP stable. (2) Encounter for induction of labor: COMMENT: garcia bulb/pitocin currently at 20mu- reassuring maternal/ status PLAN: recheck in 2 hours.
[2023-07-14] MEDS: Ondansetron 4 MG/2 ML Vial IV ×2 (10:03→14:21)
[2023-07-14] MEDS: Methylergonovine 0.2 MG/ML Ampul 0.200000000000000011 MG IM (13:36)
[2023-07-14] MEDS: Oxytocin 15 Units/NS 250ml 15 UNITS/250 ML IV.SOLN 999 UNITS IV (13:40)
--- NOTE | 2023-07-14 13:49 | EX.PCM.OBRPT ---
Assessment & Plan (1) Encounter for induction of labor: COMMENT: garcia bulb/pitocin currently at 20mu- reassuring maternal/ status (2) Pre-eclampsia affecting puerperium: COMMENT: proceed with IOL pit/fb (3) Anemia affecting : COMMENT: rpt CBC in4 wks (4) Family history of congenital heart defect: COMMENT: nephew born with VSD, had surgery. offered echo. per MFM if murmur recommend echo after (5) Supervision of high-risk : QUALIFIERS: Trimester: second trimester Qualified Code(s): O09.92 - Supervision of high risk , unspecified, second trimester COMMENT: CDSS6W5, BLAINE 08/01/22 surprise BF Juan Jose (6) : QUALIFIERS: Weeks of gestation: 35 weeks Qualified Code(s): Z3A.35 - 35 weeks gestation of COMMENT: gbs negative. declined genetic & carrier testing. declines ntd screen. nl anatomy, 34wk nl growth (7) Abnormal Pap smear of cervix: COMMENT: 2020 epithelial cells (8) Anxiety: COMMENT: no meds, encouraged counseling; stable (9) Asthma: QUALIFIERS: Asthma severity: unspecified severity Asthma persistence: unspecified Asthma complication type: unspecified Qualified Code(s): J45.909 - Unspecified asthma, uncomplicated COMMENT: Referred to PCP 03/30 for increase in meds. on singulair and albuterol but not well controlled now Maternal Data Information BLAINE Calculator Estimated Delivery Date Method Current WG Current Estimate 08/01/23 LMP (Certain) 37w 3d Final BLAINE: 08/01/23 Gestational age: 37 weeks 3 days [place] Doctor Who Attended Delivery: Memo Piña Vaginal Delivery Maternal Presentation Maternal Presentation: Medically Indicated Induction Type of Induction: Pitocin and Amniotomy Medical Reason for Induction: Preeclampsia, eclampsia Operative Information Date of Procedure: 07/14/23 Pre-Operative Diagnosis: 37 weeks, pre-eclampsia, , failure to descend Post-Operative Diagnosis: 37 weeks, pre-eclampsia, , failure to descend Surgery / Procedure Performed: Vacuum Assisted Vaginal Delivery Type of Anesthesia: Epidural Drain: Garcia to straight drain Estimated Blood Loss: 500cc Time of Delivery: 13:28 Findings Description of Procedure: indings: Viable male , scores PENDING. Weight PENDING Details of delivery: This is a 32 year old woman who was admitted to labor and delivery for induction of labor at 37 weeks for pre-eclampsia. The decision was made to perform a vacuum extraction due to [pushing for 3 hours and making little progress with descent of the head. The risk benefits and alternatives of the procedure were discussed with the patient and verbal consent was obtained. The infant was noted to be at a +2 station x 3 hours, the cervix was completely dilated. The 's head was noted to be in the right occiput anterior presentation. The vacuum was placed in the correct placement in front of the posterior fontanelle. This was confirmed digitally. With the patient's next contraction, the vacuum was inflated and a gentle downward pressure was used to assist with bringing the baby's head to a +3 station. A small medolateral right episiotomy was performed. With 3 pull and 2 pop offs. The head was delivered atraumatically. No nuchal cord was noted. The anterior shoulder followed by the posterior shoulder were delivered without difficulty. The arm also delivering at the same time. The was handed off to the patient's chest. The infant was found to be vigorous and crying and moving of all 4 extremities. The mouth and nares were bulb suctioned. After 60 second delay the cord was clamped and cut and the infant was handed off to the awaiting nurses for further assessment after the baby stopped crying as vigorously and noted to have fluid in the lungs. The placenta was delivered with gentle traction and uterine massage. Inspection of the vagina cervix and perineum was performed. There were no lacerations to the vagina or to the cervix. The peritoneum was found to have a 3rd degree perineal laceration. The perineal laceration was closed using a 3-0 Vicryl in the usual sterile fashion. The patient tolerated the procedure well sponge lap and needle counts were correct x2 and she is now recovering in stable condition. Presentation: Vertex Amniotic Fluid Description: Clear Placental Delivery Description: Spontaneous Placenta Disposition: [facility] Cord Vessel Description: 3 Vessels Cord Entanglement: None Infant A Gender: Male Delayed Cord Clamping: Yes Post Vaginal Delivery Medications Given After Delivery: IV Pitocin and IM [place]her[place] Episiotomy Description: Right Mediolateral Laceration: 3rd degree Complication Complications: None Multi Select Codes Urinary/Genital Urinary/Genital CPT Codes: 18525 Vaginal Delivery global pkg (with vacuum extraction )
[2023-07-14] MEDS: Oxytocin 15 Units/NS 250ml 15 UNITS/250 ML IV.SOLN 83 UNITS IV (13:53)
[2023-07-14] MEDS: Acetaminophen 500 MG Tablet 1000 MG PO ×2 (14:26→21:40)
[2023-07-14] MEDS: 0.9% Saline Lock 10 ML Syringe IV (16:59)
[2023-07-14] MEDS: Senna/Docusate Sodium 1 Tablet PO (16:59)
--- NOTE | 2023-07-14 18:03 | DCINST_ITS ---
Discharge Instructions Diet Discharge Diet: No restrictions Activity Discharge Activity: Return to Normal Activity, May Not Drive (while taking narcotic pain medications.) and May Shower May resume sexual activity in: 4-6 weeks Dressing / Incision Call your doctor if your incision/area has: Continuous Slow Oozing, Sudden Increased Bleeding, Increased Pain/ Swelling, Increased Redness and Foul Smelling Discharge Follow Up Care Please Follow Up With: Tatiana Sue DO When: Call [phone] to make an appointment with your doctor in 6 weeks. If you had elevated blood pressure or 4th degree laceration, you will need to be seen in 2 weeks. Test Results: Test results from this visit will be discussed in further detail at your follow- up appointment, if applicable. Discharge Plan Admission Admit Date/Time: 07/13/23 18:15 Primary Reason for Your Visit: vaginal delivery Attending Provider: Tatiana Sue Primary Care Provider: ANNMARIE LUNA Discharge Orders/Prescriptions Prescriptions: New ibuprofen 800 mg tablet 800 mg PO Q8H PRN (Reason: pain) Qty: 30 0RF docusate sodium [Colace] 100 mg capsule 100 mg PO DAILY 30 Days Qty: 30 0RF Continued PNV-DHA 27 mg iron-1 mg -300 mg capsule 1 cap PO DAILY montelukast [Singulair] 10 mg tablet 10 mg PO DAILY albuterol sulfate 90 mcg/actuation HFA aerosol inhaler 2 puff inhalation Q6H PRN (Reason: shortness of breath or wheezing) fluticasone propion-salmeterol [Advair Diskus] 250-50 mcg/dose blister with device 1 inh inhalation BID famotidine [Pepcid] 20 mg tablet 20 mg PO DAILY Qty: 90 3RF Integra F 125-1-40-3 mg capsule 1 cap PO DAILY Qty: 30 6RF Rx Instructions: administer between meals Referrals / Follow Up: ANNMARIE LUNA CRNP [Primary Care Provider] - Disposition Disposition (needs filled in before D/C Order can be placed): Home, Self Care
[2023-07-14] MEDS: Naproxen 500 MG Tablet PO (18:32)
[2023-07-14] MEDS: Benzocaine/Lanolin/Aloe Vera 1 SPRAY EACH TOPICAL (19:25)
[2023-07-15 00:37] VITALS: BP 119/87; PULSE 84; RESP 16; TEMP 36.5
[2023-07-15 03:45] VITALS: BP 124/87; PULSE 88; RESP 18; TEMP 36.3
[2023-07-15] MEDS: Naproxen 500 MG Tablet PO ×2 (03:45→12:33)
[2023-07-15 10:01] VITALS: BP 122/86; PULSE 94; RESP 16; TEMP 36.3; O2SAT 98
--- NOTE | 2023-07-15 10:12 | PCM.PN.OB ---
Subjective Subjective Patient doing well without complaints. Tolerating PO. Ambulating and voiding without difficulty. Feeding well. Denies chest pain, shortness of breath, calf pain/swelling, fevers, chills, lightheadedness. Objective Data Objective Data Vital Signs: Vital Signs Temp Pulse Resp BP Pulse Ox O2 Del Method 97.4 F L 94 16 122/86 H 98 Room Air 07/15/23 10:07/15/23 10:07/15/23 10:07/15/23 10:07/15/23 10:07/15/23 10:01 Oxygen Delivery Method Room Air Weight: 223 lb 15.834 oz Body Mass Index (BMI) 38.4 Intake & Output: Intake and Output for Last 24 Hours 07/13/23 07/14/23 07/15/23 23:59 23:59 23:59 Intake Total 688.17 / 688.17 4998.68 / 4998.68 Output Total 150 / 150 2300 / 2300 Balance 538.17 / 538.17 2698.68 / 2698.68 Lab / Micro Data 07/13/23 15:50 07/13/23 15:50 Physical Exam Const alert, oriented x3 and no apparent distress Neck full ROM Chest inspection of chest normal Resp normal respiratory effort, normal air movement and no retractions Cardio regular rate and regular rhythm GI normal to inspection, nondistended, normoactive bowel sounds Uterus Palpation: uterus fundus firm Extremity full ROM Extremity Narrative: pedal edema, non pitting Skin no rashes or lesions noted Assessment & Plan (1) Status post vacuum-assisted vaginal delivery: (2) Anxiety: COMMENT: no meds, encouraged counseling; stable (3) Asthma: QUALIFIERS: Asthma severity: unspecified severity Asthma persistence: unspecified Asthma complication type: unspecified Qualified Code(s): J45.909 - Unspecified asthma, uncomplicated COMMENT: Referred to PCP 03/30 for increase in meds. on singulair and albuterol but not well controlled now PLAN: Plan s/p PPD # 1 1. routine post delivery care 2. breast feeding- support given 3. rh positive 4. rubella immune 5. desires d/c home today
[2023-07-15] MEDS: Senna/Docusate Sodium 1 Tablet PO (10:16)
[2023-07-15] MEDS: Acetaminophen 500 MG Tablet 1000 MG PO (10:17)
[2023-07-15] MEDS: Dibucaine 30 GM Tube 1 APPLIC TOPICAL (10:18)
== END 2023-07-15 14:05 | disposition home or self-care (01) | DRG 768 ==
LOC: WPOUT 18:19 → WP 18:19
PROVIDERS: Admitting Provider Obstetrics & Gynecology; PCP Nurse Practitioner Adult Health; Referring Provider Obstetrics & Gynecology; Visit Provider Obstetrics & Gynecology
DX: O14.94 Unspecified pre-eclampsia, complicating childbirth (principal); Z37.0 Single live birth; O70.20 Third degree perineal laceration during delivery, unspecified; J45.909 Unspecified asthma, uncomplicated; O99.52 Diseases of the respiratory system complicating childbirth; Z79.51 Long term (current) use of inhaled steroids; Z3A.37 37 weeks gestation of pregnancy
CPT/HCPCS: 59025; 59050; 82565; 82570; 84156; 84450; 84460; 84550; 85027; 86780; 86850; 86900; 86901; 99221; J7120; A4216; G0378; J2405

== ENCOUNTER → 2024-11-15 | Outpatient (CLI) | payer OTHER, SELFPAY ==
--- NOTE | 2024-11-15 09:07 | US_ITS ---
PROCEDURE: BREAST LIMITED UNILATERAL 11/15/2024 REASON FOR EXAM: LEFT BREAST LUMP TECHNIQUE: Targeted left breast ultrasound. COMPARISON: Prior outside sonogram dated September 05, 2023. FINDINGS: Left breast ultrasound was targeted to the outer lower quadrant of the left breast.. The palpable lump corresponds to a 2.3 cm x 2.6 cm 1.7 cm well-defined hypoechoic solid nodule at the 4 o'clock position of the breast at 6 cm from the nipple. A tissue clip marker is seen within it in keeping with history of prior biopsy. This most likely represents a fibroadenoma. US/Breast Limited Unilateral IMPRESSION: Impression: Well-defined hypoechoic 2.3 cm 2.6 cm 1.7 cm nodule at the 4 o'cloc k position of the breast at 6 cm from the nipple. A tissue clip marker is seen within it. This corresponds with the patient's pa lpable lump. This most likely represents a fibroadenoma. Birads: BI-RADS 2: BENIGN. RECOMMEND ANNUAL MAMMOGRAPHIC SCREENING. Reading Location: [place] [id number]
== END | disposition home or self-care (01) ==
LOC: OPBI 09:06
PROVIDERS: PCP Nurse Practitioner Adult Health; Referring Provider Nurse Practitioner Family; Visit Provider Nurse Practitioner Family
DX: N63.23 Unspecified lump in the left breast, lower outer quadrant (principal)
CPT/HCPCS: 76642

== ENCOUNTER 2024-12-17 11:04 | Day surgery (SDC) | payer OTHER, SELFPAY ==
[2024-12-17] VITALS (9 sets, daily range): BP systolic 108–120; BP diastolic 67–83; PULSE 86–97; RESP 16; TEMP 36.3–36.8; O2SAT 96–100; BMI 32.1
[2024-12-17] MEDS: Lactated Ringers 1,000 ML 15 ML IV (11:36)
[2024-12-17 11:59] LABS: Hematocrit 35.1 % (37-47); Hemoglobin 12.0 g/dL (12.0-15.0); Mean Corp Hgb Conc 34.2 g/dL (32-36); Mean Corpuscular Volume 81.8 fL (81-99); Mean Platelet Vol. 10.6 fl (6.2-12.0); Platelet Count 281 K/mm3 (150-450); RBC Distribution Width CV 12.8 % (11.6-14.6); RBC Distribution Width SD 38.0 fl (35.1-43.9); Red Blood Count 4.29 M/mm3 (4.2-5.4); White Blood Count 7.0 K/mm3 (4.4-11.0)
--- NOTE | 2024-12-17 12:05 | PRE.ANES_ITS ---
ASA Classification* ASA Classification ASA Classification: 3 Assessment & Plan Anesthesia* Anesthesia Assessment Anesthesia Assessment: Discussed sedation and/or anesthesia options, risks, benefits, and alternatives with patient/parents/legal guardian/POA. Questions invited. The patient/parents/legal guardian/POA seems to understand and agrees to proceed with anesthesia plan. Reviewed the physical assessment, medical history, allergy history and patient home medications list prior to surgery/procedure/anesthetic and documented any changes. Performed airway and anesthesia risk assessments. Anesthesia Type Anesthesia Type: MAC History Source History Obtained from:: Patient and Chart Anesthesia Focused Assessment* Temperature: 97.4 F Pulse Rate: 92 Blood Pressure: 120/83 Respiratory Rate: 16 Pulse Ox: 100 Oxygen Delivery Method: Room Air Airway Assessment Mouth opens: >3 cm Mallampati Score: II Teeth Condition: Intact Neck Range of motion (ROM): Full ROM Labs Anesthesia Preop lab: CBC WBC 7.0 K/mm3 (4.4-11.0) 12/17/24 11:12/17/24 RBC 4.29 M/mm3 (4.2-5.4) 12/17/24 11:25 12/17/24 Hgb 12.0 g/dL (12.0-15.0) 12/17/24 11:25 12/17/24 Hct 35.1 % (37-47) L 12/17/24 11:25 12/17/24 Plt Count 281 K/mm3 (150-450) 12/17/24 11:25 12/17/24 CHEMISTRY Creatinine 0.67 mg/dL (0.55-1.02) 07/13/23 15:50 07/13/23 COAG Urine Test Negative Negative 04/23/15 07:30 04/23/15 Pre-Assessment Diagnosis/Proposed Procedure Planned Operative Procedure(s): Dilation and Curettage, Suction Anesthesia History Anesthesia History - contact lens blocker and cutter: Anesthesia History - contact lens blocker and cutter Hx Hospitalization No 12/16/24 14:27 Any Problems With Anesthesia No 12/16/24 14:27 Cholinesterase deficiency No 12/16/24 14:27 You/Your Family Experience No 12/16/24 14:27 fever (hyperthermia) with Relationship Recent Exposure to Contagious No 12/17/24 11:38 Disease Does patient have nerve No 12/16/24 14:27 stimulator Patient instructed to have device shut off --Does patient have Pacemaker No 12/17/24 11:38 or ICD? When Was Last Pacemaker Check QUESTION #4 FULL TEXT: You/Your Family Experience fever (hyperthermia) with Anesthesia Last Oral Intake Last Oral intake: Last Oral Intake NPO since 21:00 12/17/24 11:38 Meds taken in AM with sips of Yes 12/17/24 11:38 water? Meds patient instructed to doxy 12/17/24 11:38 take am of surgery PONV PONV - contact lens blocker and cutter: PONV - contact lens blocker and cutter Female Yes 12/16/24 14:27 HX of Motion Sickness No 12/16/24 14:27 HX of N/V After Surgery No 12/16/24 14:27 Non-Smoker Yes 12/16/24 14:27 Duration of Surgery greater No 12/16/24 14:27 than 60 minutes Number of Risk Factors 2 12/16/24 14:27 PONV Score Moderate Risk 12/16/24 14:27 Height & Weight Height & Weight: Anesthesia: Height & Weight Height 5 ft 4 in 12/17/24 11:38 Weight: 85 kg 12/17/24 11:38 Body Mass Index (BMI) 32.1 12/17/24 11:38 Respiratory Assessment Respiratory Assessment - contact lens blocker and cutter: Respiratory Tract Infection Hx - contact lens blocker and cutter Hx Respiratory Tract Infection No 12/16/24 14:27 STOP Sleep Apnea STOP Sleep Apnea - contact lens blocker and cutter: STOP Sleep Apnea - contact lens blocker and cutter Hx Hypertension No 12/16/24 14:27 Hx Sleep Apnea No 12/16/24 14:27 CPAP No 12/16/24 14:27 BIPAP No 12/16/24 14:27 Do you snore loudly (louder No 12/16/24 14:27 than talking or can be heard Do you often feel tired/ No 12/16/24 14:27 fatigued/ sleepy during daytime? Has anyone observed you stop No 12/16/24 14:27 breathing during sleep? STOP Results Negative 12/16/24 14:27 QUESTION #5 FULL TEXT : Do you snore loudly (louder than talking or can be heard through closed doors)? 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 Specify any problems Hx of Preganancy in last 3 Yes 12/16/24 14:27 Months Nurse Filling Out Transfusion VCHRISTIN 12/16/24 14:27 & Questions: Date: 12/16/24 12/16/24 14:27 Time: 14:28 12/16/24 14:27 Patient unable to answer at this time (ie. confused, unrespo /Reproduction History /Reproductive History - contact lens blocker and cutter: /Reproductive Hx- contact lens blocker and cutter Hx Now Yes 12/16/24 14:27 Gestational Age (in weeks): EDC: Hx Hx Para Hx Section SAB No 12/16/24 14:27 Active Medications Active Medications: Current Medications Generic Name Dose Route Start Last Admin Trade Name Freq PRN Reason Stop Dose Admin Doxycycline Monohydrate 100 mg 12/17/24 15:45 12/17/24 11:35 Doxycycline 100 Mg Capsule PO 100 mg PREOP WAYNE Administration Lactated Ringer's 1,000 mls @ 15 mls/hr 12/17/24 11:15 12/17/24 11:36 IV 15 mls/hr .Q48H WAYNE Administration PFSH Medical History (Updated 12/16/24 @ 14:27 by Marcie Pierre) Anemia Non-smoker Status post vacuum-assisted vaginal delivery Asthma Anxiety Family history of breast cancer Home Medications ?Medication ?Instructions ?Recorded ?Last Taken ?Type albuterol sulfate 90 mcg/actuation 2 puff inhalation Q 6H PRN 12/27/22 Unknown History aerosol inhaler shortness of breath or wheez ing montelukast 10 mg tablet 10 mg PO DAILY 12/27/2211/18 History (Singulair) multivitamin no.47-iron fum 27 1 cap PO DAILY 11/29/24 12/16/24 History mg-folate no.1 1 mg-dha 300 mg capsule (PNV-DHA) fluticasone 100 mcg-salmeterol 50 1 inh inhalation BID #60 ea 12/13/24 12/13/24 Rx mcg/dose blistr powdr for inhalation (Wixela Inhub) escitalopram oxalate 10 mg tablet 10 mg PO DAILY 12/1612/15/24 History (Lexapro) Allergy/AdvReac Type Severity Reaction Status Date / Time No Known Allergies Allergy Verified 12/17/24 11:27 Family History Grandmother Breast cancer, Onset Age: 60 Paternal Diabetes Maternal CAD (coronary artery disease) Maternal Father Prostate cancer, Onset Age: 57 Surgical History History of surgery [place] teeth extracted History of lumpectomy of both breasts Social History adopted: No household members: significant other and other details: BF Mother housing: house number of children: 1 current occupational status: employed 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 current occupational exposures/hazards: No pets and animals: Yes pets and animals: dog(s) history of recent travel: No (- November) sexually active: Yes Smoking Status: Never smoker alcohol intake: never substance use type: does not use well-balanced diet: about half the time caffeine: Yes Type: carbonated beverages Number of servings: 2 eating out: 1-3 times/week during the past year weight has: remained stable what type of physical activity do you participate in: walking frequency: 1-2 times per week duration: 30-45 minutes/day hilaria/congregation: None seatbelt use: always do you feel safe at home: Yes additional social history: BF- [employer]- [employer] Review of Systems (Anesthesia) ROS Narrative System reviewed and no additional complaints, except as documented. Physical Exam Const alert and oriented x3 Neck full ROM Resp normal respiratory effort, normal air movement and clear to auscultation bilaterally Cardio regular rate and regular rhythm Skin Rashes: no rashes Neuro oriented x3 and moves all extremities
--- NOTE | 2024-12-17 12:30 | POC_PTH ---
PATIENT: GASTON KULKARNI LOC: [facility] U#:[id number] AGE/SX: 34/F ROOM: RE12/17/[address]: Dr. Tatiana Sue DO : 1990 BED: DIS: 12/17/2024 SPEC #: [id number] RECD: 12/17/24 15:37 STATUS: ADAMA JEFFREY #: [id number] LEON: 12/17/24 12:[address]: Tatiana Sue DEPT: SURGICAL PATHOLOGY RECD BY: Nabeel Hill ENTERED: 12/18/24 10:37 SP TYPE: PROD CONC OTHR DR: DELIO EDDY Tissues: A - Product of conception, NOS Procedures: Surgery Specimen Level IV HEADER OPERATION: Dilation and curettage, suction PRE-OP DIAGNOSIS: Missed TISSUE SUBMITTED: Products of conception MICROSCOPIC DIAGNOSIS A. Products of conception, dilation and curettage: * Inflamed and degenerating decidua with chorionic villi consistent with intrauterine products of conception MICROSCOPIC DESCRIPTION Slides are reviewed. GROSS DESCRIPTION A. Received in formalin labeled with the patient's name and date of . Designated as products of conception is a 46.3 g, 8.4 x 8.4 x 1.7 cm aggregate of lópez-purple to red soft tissue fragments, blood clot and papilliferous tissue fragments (suspicious for chorionic villi). parts are not present. Grain Unloader sections are submitted in 2 cassettes. MD 12/18/2024 CPT:21044
--- NOTE | 2024-12-17 12:44 | HP.PCM_ITS ---
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 Required: No Is patient in pain?: No Allergies No Known Allergies Allergy (Verified 12/13/24 08:46) Medications ?Medication ?Instructions ?Recorded ?Confirmed ?Type albuterol sulfate 90 mcg/actuation 2 puff inhalation Q6H PRN 12/27/2212/13 History aerosol inhaler shortness of breath or wheezing montelukast 10 mg tablet 10 mg PO DAILY 12/27/22 12/13/24 History (Singulair) multivitamin no.47-iron fum 27 cap PO 11/29/24 12/13/24 History mg-folate no.1 1 mg-dha 300 mg capsule (PNV-DHA) fluticasone 100 mcg-salmeterol 50 1 inh inhalation BID #60 ea 12/13/24 Rx mcg/dose blistr powdr for inhalation (Wixela Inhub) Last Menstrual Period: 10/08/24 : No Have you fallen in the past year?: No PFSH PFSH Medical History Status post vacuum-assisted vaginal delivery Asthma Anxiety Family history of breast cancer Surgical History History of surgery [place] teeth extracted History of lumpectomy of both breasts Family History Grandmother Breast cancer, Onset Age: 60 Paternal Diabetes Maternal CAD (coronary artery disease) MaternalFather Prostate cancer, Onset Age: 57 Social History adopted: No household members: significant other and other details: BF Mother housing: house number of children: 1 current occupational status: employed 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 current occupational exposures/hazards: No pets and animals: Yes pets and animals: dog(s) history of recent travel: No (- November) sexually active: Yes Smoking Status: Never smoker alcohol intake: never substance use type: does not use well-balanced diet: about half the time caffeine: Yes Type: carbonated beverages Number of servings: 2 eating out: 1-3 times/week during the past year weight has: remained stable what type of physical activity do you participate in: walking frequency: 1-2 times per week duration: 30-45 minutes/day hilaria/catholic: None seatbelt use: always do you feel safe at home: Yes additional 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 Date Name GA/Weeks Outcome Route Bth Weight Infant Gen Labor Lgth Anesthesia Del Locatn Provider FOB 07/14/23 Mac 37 live - full term vacuum 8lbs 9o z Male epidural [facility] Delivery Date: 07/14/23 Last Updated by: Barbara Cowan Anemia, Pre E [facility]-respiratory issues x5 days HPI *EST* NOB LMP 10/08, BLAINE 07/15 Details: GASTON KULKARNI is a 34 year old @ 9 weeks gestation who presents for a suction D&C due to missed . On exam, ultrasound is showing a 7-8 week fetus without heart tones. OB Visit BLAINE Calculator Estimated Delivery Date Method Current WG Current Estimate 07/15/25 LMP (Certain) 9w 3d Comments: HIV: Urine Culture: Sequential Screen: NIPT Screen: Estimated Due Date: 07/15/25 Initial Weight: Not Recorded Date -?-?-?-?-?-?-?-?-?-?-?-?- EGA Weight BP Urine Prot -?-?-?-?-?-?-?-?-?-?-?-?- Glucose FHR FuHt Pres Dilation -?-?-?-?-?-?-?-?-?-?-?-?- Effaced St Visit Note 12/13/24-?-?-?-?-?-?-?-?-?-?-?-?- 9w 3d 191 lb 2 oz 131/85 -?-?-?-?-?-?-?-?-?-?-?-?- -?-?-?-?-?-?-?-?-?-?-?-?- LC- no FHR, CRL at 8.1 weeks. JV consulted and confirmed SAB. consented for D&C, emotional support provided. Menstrual History Last Menstrual Period: 10/08/24 Antepartum Record Genetic Screening: Congenital Heart Defect: Other, Neural Tube Defect: Other, Hemoglobinopathy Or Carrier: Other, Cystic Fibrosis: Other, Chromosome Abnormal ity: Other, Fredrick-Sachs: Other, Hemophilia: Other, Intellectual Disability/Autism: Other, Recurrent Loss/Stillbirth: Other, Other Structural Defect: Other, Other Genetic Disease: Other and Maternal Metabolic Disorder: Other Infection History: Live with someone with TB or Exposed to TB: No, Patient or Partner has history of Genital Herpes: No, Rash or Viral illness since last mentrual period: No, Prior GBS-Infected child: No, History of STD: No, HIV Infection: No, History of Hepatitis: No, Recent travel outside of [place]: No, Concern for hepatitis exposure: No, Varicella immune: Yes (immune-virus) and Covid Vaccinated: No Medical History Medical History: Positive: Pulmonary (e.g.,TB,Asthma) (asthma) and Negative: Diabetes, Hypertension, Heart disease, Auto-immune disorder, Kidney disease/UTI, Neurologic/epilepsy, Psychiatric, Depression/ depression, Hepatitis/liver disease, Varicosities/phlebitis, Thyroid dysfunction, Trauma/domestic violence, History of blood transfusions, D (Rh) Sensitized, Seasonal allergies, Drug/latex allergies/reactions, Breast, Marketing Communications Leader surgery, Operations/hospitalizations, Anesthetic complications, History of abnormal pap, Uterine anomaly/miriam, Infertility, Anti-retroviral treatment, Relevant family history and Other ACOG First Trimester First Trimester: Desire for , Alcohol, Tobacco Cessation, Illicit/Recreational Drug/Substance Use, Intimate Partner Violence, Barriers to care, Unstable Housing, Communication Barriers, Environmental/Work Hazards, Anticipated Course of Care, Nurtrition and weight gain, Toxoplasmosis Precations, Use of Any medications, Sexual activity, Exercise, Dental Care, Sauna/Hot tub use, Seat Belt use, Childbirth classes/Hospital facilities, Travel, Indications for Ultrasound and Screening for Aneuploidy; Discussed Second Trimester Second Trimester: Signs and Symptoms of Labor, Selecting a care provider, Depression/Anxiety and Intimate Partner Violence; Discussed Tobacco Cessation Third Trimester Third Trimester: Pain Management Plans, Labor support person(s), Immediate Larc, Circumcision preference, Signs and Symptoms of Preeclampsia, Feeding No and Family Medical Leave or Disability Forms ROS Const Denies anorexia, Denies body aches, Denies chills, Denies excessive sweating, Denies fatigue, Denies headache(s) and Denies lethargy ENT Denies headache(s) GI Denies abdominal pain, Denies coffee ground emesis, Reports constipation, Denies cramping and Reports nausea Denies sexual dysfunction, Reports urinary frequency, Denies urinary incontinence, Denies urinary hesitancy, Denies urinary urgency, Denies vaginal discharge, Denies vaginal dryness, Denies vaginal odor and Denies vaginal pruritus Skin/Breast Details: breast discomfort Neuro No headache(s) Endo Denies cold intolerance, Denies deepening of the voice, Denies excessive sweating, Denies fatigue, Denies flushing, Denies heat intolerance, Denies polydipsia and Denies polyphagia Exam Const General: cooperative, healthy appearing, comfortable and no acute distress Neck Neck: normal visual inspection, full ROM and no lymphadenopathy Thyroid: thyroid normal Chest Chest palpation & inspection: normal inspection of the chest Breast inspection: normal inspection of the breasts and normal inspection of the axillae Resp Effort & Inspection: normal respiratory effort, able to speak in complete sentences and symmetric chest movement GI Inspection: normal to inspection Palpation: soft External Female Exam: normal external appearance and normal appearance of the urethra Urethra: normal appearance of the urethra Speculum Exam - Vagina: normal appearance of the vagina Speculum Exam - Cervix: normal appearance of the cervix Bimanual Exam- Vagina & Uterus: uterine size normal (consistent with dates of ) OB/External & Speculum: no bleeding Skin General: rashes and/or lesions noted Neuro General: patient alert, patient awake and patient oriented x3 Psych Appearance: grossly normal and well kempt Coding Level of Care Code OB Routine Diagnoses Missed with demise before 20 completed weeks of gestation O02.1 Supervision of high-risk O09.90 9 weeks gestation of Z3A.09 Weeks of gestation: 9 weeks Hx of pre-eclampsia in prior , currently O09.299 H/O delivery by vacuum extraction, currently O09.299 Cystocele with rectocele N81.10; N81.6 Asthma J45.909 CATRACHO (stress urinary incontinence, female) N39.3 Breast lump on left side at 4 o'clock position N63.23 Breast lump N63.0 Anxiety F41.9 Comment miscarriage management with NOB Assessment and Plan Assessment and Plan (1) Missed with demise before 20 completed weeks of gestation: Status: Acute Comment: After discussing the patient's diagnosis and treatment plan options, patient wishes to proceed with surgical management. I have discussed with the patient the risks, benefits, and alternatives of the procedure which include but are not limited to risks of anesthesia, bleeding, infection, possible damage to bowel, bladder, or surrounding vasculature which could lead to additional surgery to evaluate any complications. Patient agrees to procedure and wishes to proceed. ACOG/uptodate references given for additional information regarding procedure. consented for D&C - elephant basket provided for emotional support. declined genetic screening on embryo (2) Supervision of high-risk : Status: Acute Comment: , BLAINE 07/15/25, PC Morgan, CHIRAG Guerrero (3) : Status: Acute Qualifiers: Weeks of gestation: 9 weeks Qualified Code(s): Z3A.09 - 9 weeks gestation of Comment: discussed NIPT & Carrier testing-declined (4) Hx of pre-eclampsia in prior , currently : Status: Acute (5) H/O delivery by vacuum extraction, currently : Status: Acute (6) Cystocele with rectocele: Status: Acute (7) Asthma: Status: Acute Comment: rescue inhaler PRN, Wixela BID (8) CATRACHO (stress urinary incontinence, female): Status: Acute (9) Breast lump on left side at 4 o'clock position: Status: Acute (10) Breast lump: Status: Acute Comment: previous with clip (11) Anxiety: Status: Acute
--- NOTE | 2024-12-17 12:47 | PCM.DC ---
Discharge Instructions Diet Discharge Diet: No restrictions DC O2, CPAP, BIPAP needs Home O2 Discharge instructions: No Dressing / Incision Discharge Activity: Return to Normal Activity, May Shower and May Take a Tub Bath (after 1 week) May resume sexual activity in: 1-2 weeks Weight Bearing Status: Weight bearing as tolerated Lifting Restrictions: none Dressing / Incision Call your doctor if you observe: Fever of 101 or Higher, Using more than 1 pad per hour, Shortness of breath and Uncontrolled pain Follow Up Care Please Follow Up With: Tatiana Sue DO When: Call [phone] to schedule appointment. Test Results: Test results from this visit will be discussed in further detail at your follow-up appointment, if applicable. Discharge Plan Admission Primary Reason for Your Visit: suction D&C Attending Provider: Tatiana Sue Primary Care Provider: ANNMARIE LUNA Instructions Print Language: Mozambican Discharge Orders/Prescriptions Prescriptions: New ibuprofen 800 mg tablet 800 mg PO Q8H PRN (Reason: pain) Qty: 20 0RF oxycodone-acetaminophen [Percocet] 5-325 mg tablet 1 tab PO Q4H PRN (Reason: pain) 3 Days Qty: 5 0RF Continued montelukast [Singulair] 10 mg tablet 10 mg PO DAILY albuterol sulfate 90 mcg/actuation HFA aerosol inhaler 2 puff inhalation Q6H PRN (Reason: shortness of breath or wheezing) PNV-DHA 27 mg iron-1 mg -300 mg capsule 1 cap PO DAILY fluticasone propion-salmeterol [Wixela Inhub] 100-50 mcg/dose blister with device 1 inh inhalation BID Qty: 60 12RF escitalopram oxalate [Lexapro] 10 mg tablet 10 mg PO DAILY Referrals / Follow Up: ANNMARIE LUNA CRNP [Primary Care Provider] - Disposition Disposition (needs filled in before D/C Order can be placed): Home, Self Care
--- NOTE | 2024-12-17 13:41 | OP.PCM_ITS ---
Problems Associated Problem List Diagnoses (1) Missed with demise before 20 completed weeks of gestation: Multi Select Codes Urinary/Genital Urinary/Genital CPT Codes: 13133 Surg Trtmt missed Ab 1TM Operative Report (Standard) Operative Information Date of Procedure: 12/17/24 Pre-Operative Diagnosis: 9 weeks, measuring 8 weeks missed Post-Operative Diagnosis: 9 weeks, measuring 8 weeks missed Surgery/Procedure Performed: suction dilation and curettage rate quoting operator: No Type of Anesthesia: MAC/Supplemental RN Documented Start/Stop Times: Operation Date: 12/17/24 12:30 Case Time Into Pre-Op 12/17/24 11:09 Procedure Start Time: 13:51 Procedure Stop Time: 14:02 Select all DRAINS/GRAFTS/IMPLANTS that apply: None Special Medications: methergine Estimated Blood Loss: 30cc Specimen collected: Yes Description of specimen(s) removed: endometrial curetting's/products of conception Description of surgery: Patient was taken to the operating room and placed under MAC local anesthesia. She was prepped and draped in the normal sterile fashion the dorsal lithotomy position. Bladder was drained of clear urine and anterior lip of the cervix was grasped and the uterus sounded to 12cm. Cervix was progressively dilated to allow passage of a size 9 suction curette. Progressive passes were made removing the retained products of conception without complication. Sharp curettage confirmed complete removal of the retained products. All instruments were removed from the vagina and excellent hemostasis was noted and the patient was taken to recovery in stable condition. IM methergine was given to help contract the uterus. Surgical Findings: moderate amount of products of conception removed. Complications Complications: No Admit VTE Documentation VTE Present on Admission: No VTE Mechan Device Prophylaxis: SCD's VTE Pharm Prophylaxis ordered?: No
[2024-12-17] MEDS: Lidocaine 1% (20 ml mdv) 20 ML Vial (13:52)
--- NOTE | 2024-12-17 14:14 | PCM.POST.ANE ---
Anesthesia: Postop Eval I Current Vital Signs Temperature: 97.3 F Pulse Rate: 88 Blood Pressure: 116/77 Respiratory Rate: 16 Pulse Ox: 98 Oxygen Delivery Method: Room Air Assessment Airway patent: Yes Spontaneous unlabored respirations: Yes Mental status: Awake and Calm nausea: No Vomiting: No Anesthesia Complication: No Fluid Hydration Crystalloid volume administer (ml): 600 Total IV fluid infused: 600 Progress Note Anesthesia document: Postop Eval 1 completed: Yes
--- NOTE | 2024-12-17 15:37 | POSTOPAN2_ITS ---
Anesthesia Postop Eval I Sum Postop Eval Completion status Anesthesia document: Postop Eval 1 completed: Yes Anesthesia Postop Eval I Summary Anesthesia Postop Eval I Summary: Anesthesia Postop Eval I: Assessment Summary Airway patent Yes 12/17/24 14:15 FIELD TALENT QUALIFICATION SPECIALIST.SKOBY Spontaneous unlabored Yes 12/17/24 14:15 FIELD TALENT QUALIFICATION SPECIALIST.FREDDY respirations Mental status Awake,Calm 12/17/24 14:15 FIELD TALENT QUALIFICATION SPECIALIST.JOIOBKarol nausea No 12/17/24 14:15 FIELD TALENT QUALIFICATION SPECIALIST.JOIOBKarol Vomiting No 12/17/24 14:15 FIELD TALENT QUALIFICATION SPECIALIST.JOIOBKarol Anesthesia Postop Eval I: Fluid Summary Crystalloid volume administer 600 12/17/24 14:15 FIELD TALENT QUALIFICATION SPECIALIST.JOIOBY (ml) Colloids volume administered ( ml) Blood Product volume administered (ml) Total IV fluid infused 600 12/17/24 14:15 FIELD TALENT QUALIFICATION SPECIALIST.FREDDY Anesthesia Postop Eval I: Summary Notes Anesthesia Complication No 12/17/24 14:15 FIELD TALENT QUALIFICATION SPECIALIST.FREDDY Anesthesia Complication Comment: Post-operative progress note Anesthesia: Postop Eval II Evaluation Mental status: Awake and Calm Pain Level: 2 nausea: No Vomiting: No Complications Anesthesia Complication: No
--- NOTE | 2024-12-17 15:37 | PCM.POSTANE2 ---
Anesthesia Postop Eval I Sum Postop Eval Completion status Anesthesia document: Postop Eval 1 completed: Yes Anesthesia Postop Eval I Summary Anesthesia Postop Eval I Summary: Anesthesia Postop Eval I: Assessment Summary Airway patent Yes 12/17/24 14:15 SUPERINTENDENT GEOPHYSICAL LABORATORY.SKOBY Spontaneous unlabored Yes 12/17/24 14:15 SUPERINTENDENT GEOPHYSICAL LABORATORY.FREDDY respirations Mental status Awake,Calm 12/17/24 14:15 SUPERINTENDENT GEOPHYSICAL LABORATORY.JOIOBKarol nausea No 12/17/24 14:15 SUPERINTENDENT GEOPHYSICAL LABORATORY.JOIOBKarol Vomiting No 12/17/24 14:15 SUPERINTENDENT GEOPHYSICAL LABORATORY.JOIOBKarol Anesthesia Postop Eval I: Fluid Summary Crystalloid volume administer 600 12/17/24 14:15 SUPERINTENDENT GEOPHYSICAL LABORATORY.JOIOBY (ml) Colloids volume administered ( ml) Blood Product volume administered (ml) Total IV fluid infused 600 12/17/24 14:15 SUPERINTENDENT GEOPHYSICAL LABORATORY.FREDDY Anesthesia Postop Eval I: Summary Notes Anesthesia Complication No 12/17/24 14:15 SUPERINTENDENT GEOPHYSICAL LABORATORY.FREDDY Anesthesia Complication Comment: Post-operative progress note Anesthesia: Postop Eval II Evaluation Mental status: Awake and Calm Pain Level: 2 nausea: No Vomiting: No Complications Anesthesia Complication: No
== END 2024-12-17 15:51 | disposition home or self-care (01) ==
LOC: SDC 11:07 → AC 11:08
PROVIDERS: PCP Nurse Practitioner Adult Health; Referring Provider Obstetrics & Gynecology; Visit Provider Obstetrics & Gynecology
PROC: (CPT 59820; principal; 2024-12-17 12:15)
DX: O02.1 Missed abortion (principal); N81.10 Cystocele, unspecified; N81.6 Rectocele; J45.909 Unspecified asthma, uncomplicated; F41.9 Anxiety disorder, unspecified
CPT/HCPCS: 59820; 01965; 85027; 86850; 86900; 86901; 88305; J2405

== ENCOUNTER 2025-03-26 18:00 | Outpatient (RCR) | payer OTHER, SELFPAY ==
--- NOTE | 2024-11-27 14:36 | HP.PTEVAL_ITS ---
Patient's Visit Information Visit Information Visit Information: FLORINA KULKARNI is a 34 year old F referred to Physical Therapy by SONIDO Patterson with a diagnosis of N81.4 uterovaginal prolapse, M62.89 Other specified disorders of the muscle. Date of Evaluation: 11/27/24 Physical Therapist: Betty Grace Visit Plan Frequency: 1x/Week Duration: 3 Months Plan: Florina would benefit from skilled PT intervention to address her concerns and her control with holding back gas and managing bowel movements. She is currently 7 weeks so we will hold on internal vaginal exam until potentially later in her and with doctor approval. In the meantime, will work on pelvic floor strengthening and education regarding management of her prolapses. We will educate on proper breathing mechanics to help lessen pressure down thru her pelvic floor. We will also educate on techniques and splinting to manage her bowel movements. She is 7 weeks so no vaginal work. Add week 2 next visit. Check lumbar, pelvic alignment. Check breathing mechanics next visit and educate in pressure management. Subjective Subjective: She just found out she is 7 weeks . She had a 3rd degree tear with her first delivery. Baby born 2023. She had episiotomy and then she also tore. She did vacuum assisted delivery. She pushed for 3 hours. Sometimes if she sneezes she has gas escape at the same time. Getting up, coughing, sneezing, laughing, straining can also cause gas leakage (no urine leakage). Rox reported stage 2 cystocele and rectocele. She can't stop flatulence and she doesn't know it is happening until it happens. No urinary incontinence. She has a lot of steps where she lives. When she really has the urge for a bowel movement, she is really clenching to get there soon enough. Sometimes feels like something is coming out rectally if she has urgency. She always feels like she is wiping a lot after bowel movements. She feels like she has more frequent bowel movements 3-4 x day (used to be 1-2 x day). She doesn't think she is emptying completely all the time. She doesn't feel she can insert tampons anymore. Tampons hurt now when they are in. She used to wear a thong and she doesn't wear a thong anymore as it's more sensitive. More tender to touch with wiping. She isn't sure if she has hemorrhoids. 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 No pain with intercourse. No low back pain. Objective Objective: DID NOT COMPLETE AN INTERNAL VAGINAL EXAM DUE TO AT THIS TIME gaping introitus on exam, inability to see a contraction or anal wink no tenderness in pelvic floor palpation externally around perineal body, rectum with cues to perform a pelvic floor contraction, she was judith glutes She gave consent for internal rectal exam No tenderness with palpation rectally No evidence of tightness or restriction in sphincters No contraction felt with cues to contract rectally Goals Goal 1:: Florina will be able to hold back gas without any gas leakage. Goal Time Frame: 4-6 Weeks Goal 2:: Florina will be able to delay using the restroom by 5 minutes when she feels the urge to have a bowel movement without feeling uncomfortable or anxious about her ability to control. Goal Time Frame: 8-12 Weeks Goal 3:: Florina will be able to cough, sneeze, laugh without gas escaping and causing embarrassment. Goal Time Frame: 8-12 Weeks Goal 4:: Florina will be independent in splinting techniques for bowel movements to help her manage the rectocele. Goal Time Frame: 2 Weeks Rehabilitation Potential Physical Therapy Diagnosis: Rectocele, Cystocele Rehabilitation Potential: Good Anticipated Interventions Patient/Client Instruction: Educate patient on: Condition and Plan of Care For the Purpose of:: To improve muscle performance and motor function, To improve performance and independence with ADL's, To improve health and function, To improve self management and To improve tolerance to ADL's Therapeutic Exercise to Include: Strength training and Neuromotor development For the Purpose of:: To improve muscle performance and motor function, To improve health and function, To improve self management and To improve tolerance to ADL's Manual Therapy Techniques to Include: Trigger point massage and Mobilization For the Purpose of:: To improve health and function Text: Thank you for the opportunity to evaluate your patient. For Medicare and Medicare HMO plans, please review the plan of care and approve it. It will need to be FAXED BACK to us at [phone] for Medicare purposes. For Medicare only, by signing this I certify the plan of care. Please let me know if there are questions or concerns regarding this plan of care. Physician S ignature: Date:
--- NOTE | 2025-03-26 19:06 | HP.PTDCSUM_ITS ---
Discharge Summary D/C summary: It has been my pleasure to treat FLORINA KULKARNI referred by Rox Reese, ZOE- C, with the diagnosis of N81.4 uterovaginal prolapse, M62.89 Other specified disorders of the muscle for a total of 9 visit(s). Discharge Date: 03/26/25 Please see the following information for a summary of their discharge status. Subjective Subjective: She is able to hold back gas now and she doesn't struggle with any leaking with coughing, sneezing, standing up, etc. 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 She feels ready for discharge. She plans to continue the exercises at home. She is pleased with her results in PT. Overall Improvement % Improvement: 70 Objective Objective/Function: Overall Florina did well in PT. Her symptoms with leaking gas improved and her ability to hold her bowel movements during her work day accomplished. No significant change in her rectocele or cystocele but likely due to third degree tear with delivery. Her pelvic floor contraction ability remains limited but improved. She is knowledgeable in how to manage and lessen pressure down thru her pelvic floor with functional activities to allow for management of her prolapses. Goals Goal 1:: Florina will be able to hold back gas without any gas leakage. Goal Progress: Goal Met Goal 2:: Florina will be able to delay using the restroom by 5 minutes when she feels the urge to have a bowel movement without feeling uncomfortable or anxious about her ability to control. Goal Progress: Goal Met Goal 3:: Florina will be able to cough, sneeze, laugh without gas escaping and causing embarrassment. Goal Progress: Goal Met Goal 4:: Florina will be independent in splinting techniques for bowel movements to help her manage the rectocele. Goal Progress: Goal Met Plan Plan: D/C from PT and closing her chart. D/C Information Discharge Comments: Florina met her PT goals 100%. d/c sentence: If there are questions or concerns regarding this patient's physical therapy, please feel free to call me at [phone]. Thank you for the referral of this patient. Sincerely, Betty Grace Balance/Gait/Functional tests Improvement % Improvement: 70
== END 2025-03-26 19:00 | disposition home or self-care (01) ==
LOC: PT 18:00
PROVIDERS: PCP Nurse Practitioner Adult Health; Referring Provider Nurse Practitioner Family; Visit Provider Nurse Practitioner Family
DX: M62.89 Other specified disorders of muscle (principal); N39.3 Stress incontinence (female) (male); N81.4 Uterovaginal prolapse, unspecified
CPT/HCPCS: 97110; 97112; 97140; 97162; 97530

== ENCOUNTER → 2025-05-26 | Outpatient (CLI) | payer OTHER, SELFPAY ==
[2025-05-26 17:40] LABS: hCG Titer Quant., Serum 9388 mIU/mL (<9 non-preg)
--- OUTSIDE RECORDS SUMMARY | 2025-05-26 17:45 | XMS RPT_ITS | CCD ---
Author Organization [facility] Care Team Providers Care Digester Cook Name Role Phone JOAN OLIVIER, JEFF Maddox Primary Care Physician [phone] Aurea PT, Valencia Unavailable Unavailable ANJU RETAIL CASHIER-PAPER NOVELTY MAKER, LOLY Attending Ruthann FRANCO MD., DR. JEFF Maddox Primary Care Ruthann Rene MIXER OPERATOR RAW SALT, MIXER OPERATOR RAW SALT-C Loly Primary Care Provider Anju MIXER OPERATOR RAW SALT, MIXER OPERATOR RAW SALT-C Loly Referring Provider [phone] BENNETT Haro Attending Provider [phone] NO PRIMARY CARE, Primary Care Unavailable ROSALINDA MONTERO Attending Unavailable LINDSAY GARAY Referring Unavailabl elvie Rene MIXER OPERATOR RAW SALT, MIXER OPERATOR RAW SALT-C Loly Primary Care Provider Anju MIXER OPERATOR RAW SALT, MIXER OPERATOR RAW SALT-C Loly Referring Provider [phone] Krupa ENRIQUEZ, MIXER OPERATOR RAW SALT-C Aline Attending Provider [phone] Dr. Lindsay Garay Attending Provider [phone] BENNETT Manuel Attending Provider [phone] Anju MIXER OPERATOR RAW SALT, MIXER OPERATOR RAW SALT-C Loly Primary Care Provider Anju MIXER OPERATOR RAW SALT, MIXER OPERATOR RAW SALT-C Loly Referring Provider [phone] Krupa MIXER OPERATOR RAW SALT, MIXER OPERATOR RAW SALT-C Aline Attending Provider [phone] Dr. Tatiana Sue Attending Provider [phone] Care Physician, Ebony Primary Primary Care Provider Unavailable BENNETT Haro Attending Provider [phone] Anju MIXER OPERATOR RAW SALT, MIXER OPERATOR RAW SALT-C Loly Primary Care Provider Anju MIXER OPERATOR RAW SALT, MIXER OPERATOR RAW SALT-C Loly Referring Provider [phone] Dr. Lindsay Garay Attending Provider [phone] BENNETT Haro Referring Provider BENNETT Haro Other Provider DELIO TREJO Primary Care Provider Dr. Lindsay Garay Admit Provider [phone] Dr. Lindsay Garay Referring Provider [phone] Dr. Lindsay Garay Other Provider [phone] Tatiana Sue Referring Provider [phone] Dr. Tatiana Sue Other Provider Unavailable Primary Care Provider UnavailEDWARD Garcia Attending Unavailable EDWARD BARRY Admitting Unavailable Jeff Franco Primary Care Provider [phone] JEFF FRANCO Primary Care Unavailab le NAUMJEFF CARMICHAEL Primary Care Unavailab le MAST PORTER MARINA, NOEMI Primary Care Provider [phone] MAST NOEMI KEBEDE Referring Provider [phone] Hugh MIXER OPERATOR RAW SALT-CRox Attending Provider [phone] Hugh MIXER OPERATOR RAW SALT-CRox Referring Provider [phone] Luz Maria Haro CNM Attending Provider [phone] Dr. Tatiana Sue DO Attending Provider Dr. Tatiana Sue DO Referring Provider Dr. Tatiana Sue DO Other Provider [phone] MAST RETAIL CASHIER-PAPER NOVELTY MAKER, NOEMI Primary Care Physician [phone] MAST RETAIL CASHIER-PAPER NOVELTY MAKER, NOEMI Primary Care Unavailabl elvie ZELAYA RETAIL CASHIER-PAPER NOVELTY MAKER, BEATRICE Saldivar Attending Tatiana Mann Referring Unavailabl e Tatiana Sue Attending Unavailabl e Tatiana Sue Consulting Unavailabl e MAST, NOEMI Primary Care Unavailable Tatiana Sue Referring Unavailabl e Tatiana Sue Attending Unavailabl e MAST, NOEMI Primary Care Unavailable Rox Reese Attending Unavailable MAST, NOEMI Primary Care Unavailable Rox Reese Referring Unavailable Rox Reese Attending Unavailable MAST, NOEMI Primary Care Unavailable Rox Reese Referring Unavailable Luz Maria Haro Attending Unavailable MAST, NOEMI Primary Care Unavailable MAST, NOEMI Referring Unavailable Rox Reese Attending Unavailable MAST, NOEMI Primary Care Unavailable MAST, NOEMI Referring Unavailable MAST, NOEMI Referring Unavailable Tatiana Sue Attending Unavailabl e MAST, NOEMI Primary Care Unavailable MAST PORTER MARINA, NOEMI Primary Care Physician Dr. Tatiana Sue DO Attending Physician Dr. Tatiana Sue DO Nurse Practitioner MAST NOEMI KEBEDE Referring Provider [phone] Rox Chakrbaorty Attending Physician [phone] Rox Chakraborty Referring Provider [phone] Medications Current Medications Medication Drug Class(es) Dates [...] 0 Refill(s) Start Date: 01/16/20 Status: Ordered [id number] 200 actuat albuterol 0.09 mg/actuat metered dose inhaler (12 sources) beta2-Adrenergic Agonist Start: 12-27-2022 Start: 12-27-2022 take 1 puff(s) by in halation every six hours Albuterol Sulfate Active 2 PUFF INHALATION EVERY 6 HOURS December 26, 2022 11:00pm albuterol sulfat e 90 mcg/actuation aebs Inhale as instructed. 0 Active Comment on above: Inhale as instructed . Albuterol (Eqv-ProAir HFA) 90 mcg/inh inhalation aerosol (1 source) Start: 04-15-20 take 1 dose by inhalation every four hours Albuterol (Eqv-ProAir HFA) 90 mcg/inh inhalation aerosol Dose = 2 puff(s), Inhalation, q4h, # 3 EA, 3 Refill(s), [id number], 164.2, cm, 04/15/21 16:39:00 EDT, Height, kg, 04/15/21 16:39:00 EDT, Dosing Weight Start Date: 04/15/21 Status: Ordered doxycycline hyclate 100 mg oral tablet (1 source) Tetracycline-class Drug Start: 01-21-20 End: 01-31-20 doxycycline hyclate 100 mg oral tablet Dose : 100 mg = 1 tab(s), Oral, BID, X 10 day(s), # 20 tab(s), 0 Refill(s), 01/30/25 6:15:00 PM EDT, Pharmacy: [id number], Persistent fever Headache, 163, cm, 01/20/25 11:21:00 EDT, Height, 84.3, kg, 01/20/25 11:21:00 EDT, Dosing Weight Start Date: 01/20/25 Stop Date: 01/30/25 Status: Ordered Quantity: 20.0 Unit: tab(s) Repeat number: 1 Indications: Headache, unspecified; Fever, unspecified; escitalopram 10 mg oral tablet (20 sources) Serotonin Reuptake Inhibitor Start: 12-17-19 take 1 tablet by mouth once daily Start: 07-24-2023 End: 11-29-2024 take 1 tablet by mouth once daily Escitalopram Oxalate (Lexapro) 20 mg tablet Discontinued 20 mg PO DAILY 90 October 31, 2024 10:02am November 29, 2024 3:04pm Start: 03-21-2022 End: 03-16-2023 escitalopram 10 mg oral tabl et Dose : 10 mg = 1 tab(s), Oral, qDay, # 90 tab(s), 3 Refill(s), [id number], 161, cm, 03/21/22 16:37:00 EDT, Height Start Date: 03/21/22 Stop Date: 03/16/23 Status: Ordered furosemide 20 mg oral tablet (2 sources) Loop Diuretic Start: 07-17-2023 End: 07-22-2023 take 1 tablet by mouth once daily furosemide (Lasix) 20 MG tablet Take 1 tablet (20 mg) by mouth daily for 5 days. 5 tablet 0 07/17/2023 07/22/2023 Active montelukast 10 mg oral tablet (16 sources) Leukotriene Receptor Antagonist Start: 07-23-2021 End: 02-27-2025 take 1 tablet by mouth once daily Montelukast Sodi um (SINGULAIR PO) Take by mouth. 0 Active Multivitamins with Vitamin B Complex, Vitamin C, Minerals and L-Methylfolate oral capsule (1 source) Start: 04-03-2023 take 1 capsule by mouth once daily Multivitamins with Vitamin B Complex, Vitamin C, Minerals and L-Methylfolate oral capsule Dose = 1 cap(s), Oral, Daily, 0 Refill(s) Start Date: 04/03/23 Status: Ordered Repeat number: 1 Vit-Fe Fumarate-FA ( 1+1 PO) (2 sources) Vit-Fe Fumarate-FA ( 1+1 PO) Take by mouth. 0 Active Completed/Discontinued Medications Medication Drug Class(es) Dates Sig (Normalized) Sig (Original) acetaminophen 325 mg / oxyCODONE hydrochloride 5 mg oral tablet (13 sources) Opioid Agonist Start: 12-17-2024 End: 12-30-2024 Oxycodone-Acetaminoph en (Percocet) 5-325 mg tablet Discontinued 1 {tbl} PO Q4H as needed for pain 5 3 0 December 17, 2024 December 30, 2024 10:23am Status post dilation and curettage Other specified postprocedural states Start: 04-23-2015 End: 12-27-2022 Oxycodone-Acetaminophen 1 TA BLET tablet Discontinued 1 - 2 {tbl} PO EVERY 6 HOURS NEEDED as needed for Pain April 23, 2015 1:00am December 27, 2022 9:45am Start: 04-23-2015 End: 12-27-2022 take 1 tablet by mouth every six hours as needed Oxycodone-Acetaminophen Discontinued 1 - 2 TABLET PO EVERY 6 HOURS NEEDED April 23, 2015 12:00am December 27, 2022 8:45am amoxicillin 500 mg oral tablet (14 sources) Penicillin-class Antibacterial Start: 01-31-2024 End: 10-16-2024 take 1 tablet by mouth three times daily Amoxicillin 500 mg tablet Discontinued 500 mg PO THREE TIMES A DAY January 31, 2024 12:00am October 16, 2024 10:00am Start: 04-19-2023 End: 04-26-2023 take 1 tablet by mouth three times daily Amoxicillin 500 mg tablet Discontinued 500 mg PO THREE TIMES A DAY 7 April 19, 2023 12:00am April 25, 2023 1:00am April 26, 2023 1:04am ascorbic acid 40 mg / ferrous fumarate 62.5 mg / folic acid 1 mg / niacin 3 mg / polysaccharide iron complex 62.5 mg oral capsule (8 sources) Nicotinic Acid, Vitamin C Start: 06-09-2023 End: 08-21-2023 Iron Fum,Ps Ihlzdr-Kv-Bqs C-B3 (Integra F) 125-1-40-3 mg capsule Discontinued 1 NMA PO DAILY 16 12June 09, 2023 1:00am August 21, 2023 4:11pm administer between meals docusate sodium 100 mg oral capsule (6 sources) Start: 07-14-2023 End: 08-21-2023 take 1 capsule by mouth once daily Docusate Sodium (Colace) 100 mg capsule Discontinued 100 mg PO DAILY 30 July 14, 2023 1:00am August 21, 2023 4:11pm Norgestimate-Ethinyl Estradiol (10 sources) Progestin, Estrogen Start: 04-20-2015 End: 12-27-2022 Norgestimate-Ethiny l Estradiol (Sprintec 28 Day Tablet) 1 EACH tablet Discontinued 1 NMA PO DAILY April 20, 2015 1:00am December 27, 2022 9:45am Start: 04-20-2015 End: 12-27-2022 Norgestimate-Ethinyl Estradi ol (Sprintec 28 Day Tablet) 1 EACH tablet Discontinued 1 EACH PO DAILY April 20, 2015 12:00am December 27, 2022 8:45am Start: 04-20-2015 End: 12-27-2022 Norgestimate-Ethinyl Estradi ol (Sprintec 28 Day Tablet) 1 EACH tablet Discontinued 1 EACH PO DAILY April 20, 2015 1:00am December 27, 2022 9:45am famotidine 20 mg oral tablet (18 sources) Histamine-2 Receptor Antagonist Start: 02-27-2023 End: 08-21-2023 take 1 tablet by mouth once daily Famotidine (Pepcid) 20 mg tablet Discontinued 20 mg PO DAILY 90 April 28, 2023 10:44am August 21, 2023 4:11pm fluticasone propionate 0.05 mg/actuat metered dose nasal spray (1 source) Corticosteroid Start: 04-18-2023 End: 05-02-2023 take 1 dose nasal route twice daily Flonase 50 mcg/inh nasal spray Dose = 1 spray(s), Nostril, each, BID, # 16 gram(s), 0 Refill(s), Pharmacy: [id number], Rhinosinusitis, 162.6, cm, 04/18/23 9:03:00 EDT, Height, kg, 04/18/23 9:03:00 EDT, Dosing Weight Start Date: 04/18/23 Stop Date: 05/02/23 Status: Ordered Quantity: 16.0 Unit: g Repeat number: 1 Indications: Chronic sinusitis, unspecified; Fluticasone Propion-Salmeterol (19 sources) Corticosteroid, beta2-Adrenergic Agonist Start: 12-13-2024 End: 12-30-2024 Fluticasone Propion-Salmeterol (Wixela Inhub) 100-50 mcg/dose blister with device Discontinued 1 NMA INHALATION TWICE A DAY 60 December 13, 2024 9:02am December 30, 2024 10:22am Start: 12-13-2024 Fluticasone Pr opion-Salmeterol (Wixela Inhub) 100-50 mcg/dose blister with device Active 1 NMA INHALATION TWICE A DAY 60 December 13, 2024 9:02am Start: 12-13-2024 Fluticasone Pr opion-Salmeterol (Wixela Inhub) 100-50 mcg/dose blister with device Active 1 NMA INHALATION TWICE A DAY December 13, 2024 9:02am Start: 11-29-2024 End: 12-13-2024 Fluticasone Propion-Salmeter ol (Wixela Inhub) 100-50 mcg/dose blister with device Discontinued 1 NMA INHALATION TWICE A DAY November 29, 2024 12:00am December 13, 2024 9:02am Start: 04-28-2023 End: 08-21-2023 Fluticasone Propion-Salmeter ol (Advair Diskus) 250-50 mcg/dose blister with device Discontinued 1 NMA INHALATION TWICE A DAY April 28, 2023 1:00am August 21, 2023 4:11pm Start: 04-28-2023 Fluticasone Pr opion-Salmeterol (Advair Diskus) 250-50 mcg/dose blister with device Active 1 INH INHALATION TWICE A DAY April 28, 2023 12:00am take 2 puff(s) by in halation in the morning fluticasone-salmeterol (Advair) 115-21 MCG/ACT inhaler Inhale 2 puffs in the morning and 2 puffs in the evening. Rinse mouth with water after use to reduce aftertaste and incidence of candidiasis. Do not swallow.. 0 Active ibuprofen 800 mg oral tablet (11 sources) Nonsteroidal Anti-inflammatory Drug Start: 12-17-2024 End: 12-30-2024 take 1 tablet by mouth every eight hours as needed for pain Ibuprofen 800 mg tablet Discontinued 800 mg PO Q8H as needed for pain 20 0 December 17, 2024 12:00am December 30, 2024 10:22am Start: 07-14-2023 End: 08-21-2023 take 1 tablet by mouth every eight hours as needed for pain Ibuprofen 800 mg tablet Discontinued 800 mg PO Q8H as needed for pain 30 0 July 14, 2023 1:00am August 21, 2023 4:11pm ibuprofen 800 MG tablet Take 400 mg by mouth every 6 hours as needed for mild pain (1-3). 0 Active Multivit 32-Ugup-Yxzres 1-Dh a (Pnv-Dha) 27 mg iron-1 mg -300 mg capsule (14 sources) Start: 11-29-2024 End: 12-30-2024 Multivit 31-Cjyc-Rjnvkm 1-Dh a (Pnv-Dha) 27 mg iron-1 mg -300 mg capsule Discontinued 1 NMA PO DAILY November 29, 2024 12:00am December 30, 2024 10:23am Start: 11-29-2024 Multivit 47-Ir on-Folate 1-Dha (Pnv-Dha) 27 mg iron-1 mg -300 mg capsule Active 1 NMA PO DAILY November 29, 2024 12:00am Start: 11-29-2024 Multivit 47-Ir on-Folate 1-Dha (Pnv-Dha) 27 mg iron-1 mg -300 mg capsule Active NMA PO November 29, 2024 12:00am Start: 12-27-2022 End: 10-16-2024 Multivit 88-Rkhy-Jldxsn 1-Dh a (Pnv-Dha) 27 mg iron-1 mg -300 mg capsule Discontinued 1 NMA PO DAILY December 27, 2022 12:00am October 16, 2024 10:00am Start: 12-27-2022 End: 10-16-2024 Multivit 73-Zchp-Gzcxns 1-Dh a (Pnv-Dha) 27 mg iron-1 mg -300 mg capsule Discontinued 1 NMA PO DAILY December 27, 2022 12:00am October 16, 2024 10:00am Start: 12-27-2022 take 1 capsule by mo [facility] once daily Multivit 57-Eznp-Ewxjpk 1-Dha (Pnv-Dha) 27 mg iron-1 mg -300 mg capsule Active 1 CAP PO DAILY December 26, 2022 11:00pm Start: 12-27-2022 Multivit 47-Ir on-Folate 1-Dha (Pnv-Dha) 27 mg iron-1 mg -300 mg capsule Active CAP PO December 26, 2022 11:00pm Start: 12-27-2022 Multivit 47-Ir on-Folate 1-Dha (Pnv-Dha) 27 mg iron-1 mg -300 mg capsule Active CAP PO December 27, 2022 12:00am Problems Active Problems Problem Classification Problem Date Documented Da te Episodic/Chronic Anxiety disorders (20 sources) Generalized anxiety disorder; Translations: [Obsessive-compulsiv e disorder] Onset: 04-21-2022 03-21-2022 Chronic Comment on above: lexapro no meds, encouraged counseling; stable Asthma (20 sources) Asthma; Translations: [Unspecified asthma, uncomplicated] 01-02-2023 Chronic Comment on above: Referred to PCP 03/19 for increase in meds. on singulair and albuterol but not well controlled now rescue inhaler PRN, Wixela BID Genitourinary symptoms and ill-defined conditions (13 sources) Female stress incontinence; Translations: [Stress incontinence (female) (male)] Onset: 03-28-2025 10-16-2024 Chronic Hypertension complicating ; childbirth and the puerperium (7 sources) pre-eclampsia; Translations: [Unspecified pre-eclampsia, complicating the puerperium] 07-14-2023 Episodic Comment on above: proceed with IOL pit /fb Other bone disease and musculoskeletal deformities (1 source) Costal chondritis 03-04-2024 Episodic Other circulatory disease (6 sources) Elevated blood pressure; Translations: [Elevated blood-pressure reading, without diagnosis of hypertension] 07-13-2023 Episodic Comment on above: negative PEC labs. P :C 242. d/c home, c/w Dr. Gamez agreed not PEC today. PEC s/sx provided. Other circulatory disease (1 source) Elevated blood-pressure reading, without diagnosis of hypertension; Translations: [Elevated blood pressure reading without diagnosis of hypertension] 07-03-2023 Episodic Other complications of (9 sources) Anemia of ; Translations: [Anemia complicating , unspecified trimester] 05-10-2023 Chronic Comment on above: rpt CBC in4 wks Other complications of (12 sources) Anemia complicating , unspecified trimester; Translations: [Anemia of mother, unspecified as to episode of care or not applicable] 05-22-2023 Chronic Other complications of (17 sources) High risk ; Translations: [Supervision of high risk , unspecified, unspecified trimester] 12-27-2022 Episodic Comment on above: [id number], BLAINE 08/01/22 surprise BF Macartaustin , BLAINE 07/15/25, P C Morgan, BF Cesar Other complications of (7 sources) History of pre-eclampsia; Translations: [Supervision of with other poor reproductive or obstetric history, unspecified trimester] 11-29-2024 Episodic Other complications of (7 sources) H/O: previous delivery by vacuum extraction; Translations: [Supervision of with other poor reproductive or obstetric history, unspecified trimester] 11-29-2024 Episodic Other complications of (8 sources) Missed miscarriage; Translations: [Missed ] 12-13-2024 Episodic Comment on above: consented for D&C af ter r/b/a reviewed by JV. elephant basket provided for emotional support. declined genetic screening on embryo Other connective tissue disease (1 source) Muscle pain 03-04-2024 Episodic Other connective tissue disease (1 source) Other specified disorders of muscle; Translations: [Other specified disorders of muscle] Onset: 03-28-2025 Episodic Other lower respiratory disease (1 source) Cough 04-03-2023 Episodic Other lower respiratory disease (1 source) Dyspnea 04-03-2023 Episodic Other and delivery including normal (20 sources) ; Translations: [Encounter for supervision of normal , unspecified, unspecified trimester] 01-02-2023 Episodic Comment on above: garcia bulb/pitocincu rrently at 20mu- reassuring maternal/ status gbs negative. declin ed genetic & carrier testing. declines ntd screen. 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 offered echo. per MFM if murmur recommend echo after Residual codes; unclassified (20 sources) Family history of other congenital malformations, deformations and chromosomal abnormalities; Translations: [Family history of congenital anomalies] 02-27-2023 Episodic Residual codes; unclassified (6 sources) History of past delivery; Translations: [Personal history of other complications of , childbirth and the puerperium] 07-14-2023 Episodic Comment on above: VAVD 3 degree lac LC /JV. 37 wk. 07/14/23 Boy Mac to [facility] NICU resp issues X 5 days. Residual codes; unclassified (1 source) Personal history of other complications of , childbirth and the puerperium; Translations: [Personal history of other genital system and obstetric disorders] 07-15-2023 Episodic Unclassified (2 sources) Follow-up; Translations: [ Follow-up] Onset: 07-17-2023 Unclassified (2 sources) NEGATIVE MEDICAL HISTORY Onset: 08-09-2021 08-09-2021 Unclassified (4 sources) M62.89 - Other specified disorders of muscle,N39.3 - Stress incontinence (female) (male),N81.4 - Uterovaginal prolapse, unspecified Unclassified (2 sources) Pelvic floor dysfunction in female Unclassified (2 sources) Stress incontinence of urine Past or Other Problems Problem Classification Problem Date Documented Date Episodic/Chronic Nonmalignant breast conditions (20 sources) Breast lump; Translations: [Unspecified lump in the left breast, lower outer quadrant] Onset: 11-21-2024 08-22-2023 Episodic Comment on above: previous with clip Other complications of (20 sources) Supervision of high risk , unspecified, unspecified trimester; Translations: [Supervision of unspecified high-risk ] Onset: 12-13-2024 01-02-2023 Episodic Other complications of (1 source) Missed ; Translations: [Missed ] Onset: 12-27-2024 Episodic Other complications of (1 source) Supervision of with other poor reproductive or obstetric history, unspecified trimester; Translations: [Supervision of with other poor reproductive or obstetric history, unspecified trimester] Onset: 12-13-2024 Episodic Residual codes; unclassified (1 source) Other specified postprocedural states; Translations: [Other specified postprocedural states] Onset: 12-27-2024 Episodic Results Test Name Value Interpretation Reference Range Facility PT D/C Summary (1) 025 PT D/C Summary (1) [facility] Physical Therapy [facility] [place] [address] / REHABILITATION SERVICES DISCHARGE SUMMARY MR#: [id number] Acct: [id number] Name: GASTON MANZO Rep #: [id number] : 1990 34 From: Betty Grace Referring Dr.: SONIDO Reese Status: REG RCR Insurance: [facility] SELF PAY INSURANCE Discharge Summary D/C summary: It has been my pleasure to treat GASTON MANZO referred by SONIDO Patterson, with the diagnosis of N81.4 uterovaginal prolapse, M62.89 Other specified disorders of the muscle for a total of 9 visit(s). Discharge Date: 03/26/25 Please see the following information for a summary of their discharge status. Subjective Subjective: She is able to hold back gas now and she doesn't struggle with any leaking with coughing, sneezing, standing up, etc. 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 She feels ready for discharge. She plans to continue the exercises at home. She is pleased with her results in PT. Overall Improvement % Improvement: 70 Objective Objective/Function: Overall Gaston did well in PT. Her symptoms with leaking gas improved and her ability to hold her bowel movements during her work day accomplished. No significant change in her rectocele or cystocele but likely due to third degree tear with delivery. Her pelvic floor contraction ability remains limited but improved. She is knowledgeable in how to manage and lessen pressure down thru her pelvic floor with functional activities to allow for management of her prolapses. Goals Goal 1:: Gaston will be able to hold back gas without any gas leakage. Goal Progress: Goal Met Goal 2:: Gaston will be able to delay using the restroom by 5 minutes when she feels the urge to have a bowel movement without feeling uncomfortable or anxious about her ability to control. Goal Progress: Goal Met Goal 3:: Gaston will be able to cough, sneeze, laugh without gas escaping and causing embarrassment. Goal Progress: Goal Met Goal 4:: Gaston will be independent in splinting techniques for bowel movements to help her manage the rectocele. Goal Progress: Goal Met Plan Plan: D/C from PT and closing her chart. D/C Information Discharge Comments: Gaston met her PT goals 100%. d/c sentence: If there are questions or concerns regarding this patient's physical therapy, please feel free to call me at [phone]. Thank you for the referral of this patient. Sincerely, Betty Grace Balance/Gait/Functio nal tests Improvement % Improvement: 70 03/26/25 190 CC: SONIDO Reese; DELIO EDDY MG Signed Normal [facility] LMERLYon 01-21-2025 Lyme Total Antibody CHRISSY Negative Normal Negative A [facility] Comment on above: Result Comment: Lyme antibodies not detected. Reflex testing is not indicated. No laboratory evidence of infection with B. burgdorferi (Lyme disease). Negative results may occur in patients recently infected (less than or equal to 14 days) with B. burgdorferi. If recent infection is suspected, repeat testing on a new sample collected in 7 to 14 days is recommended. Performed At: [facility] [address] [id number] Rama Santos PhD Ph:[phone] Performed By: #### G FR, MONO, CMP, ANEU, [id number], ADIFF, CBC #### [address] [address] .Auto Diffon 01-20-2025 Basophil, Absolute 0.0 10 3/mcL Normal 0.0-0.3 [facility] Comment on above: Performed By: #### G FR, MONO, CMP, ANEU, [id number], ADIFF, CBC #### [address] [address] Basophils/100 WBC (Bld) 0.8 % Normal 0.0-2.5 [facility] Comment on above: Performed By: #### G FR, MONO, CMP, ANEU, [id number], ADIFF, CBC #### [place] [id number] Eosinophil, Absolute 0.3 10 3/mcL Normal 0.0-0.7 [facility] Comment on above: Performed By: #### G FR, MONO, CMP, ANEU, [id number], ADIFF, CBC #### [address] [address] Eosinophils/100 WBC (Bld) 5.7 % Normal 0.0-6.0 [facility] Comment on above: Performed By: #### G FR, MONO, CMP, ANEU, [id number], ADIFF, CBC #### [address] [address] Lymphocyte, Absolute 1.9 10 3/mcL Normal 0.9-4.3 [facility] Comment on above: Performed By: #### G FR, MONO, CMP, ANEU, [id number], ADIFF, CBC #### [address] [address] Lymphocytes/100 WBC (Bld) 32.6 % Normal 20.0-40.0 [facility] Comment on above: Performed By: #### G FR, MONO, CMP, ANEU, [id number], ADIFF, CBC #### [address] [address] Monocyte, Absolute 0.6 10 3/mcL Normal 0.1-1.4 [facility] Comment on above: Performed By: #### G FR, MONO, CMP, ANEU, [id number], ADIFF, CBC #### [address] [address] Monocytes/100 WBC (Bld) 10.3 % Normal 2.0-13.0 [facility] Comment on above: Performed By: #### G FR, MONO, CMP, ANEU, [id number], ADIFF, CBC #### [address] [address] Neutrophils/100 WBC (Bld) 50.6 % Normal 50.0-75.0 [facility] Comment on above: Performed By: #### G FR, MONO, CMP, ANEU, [id number], ADIFF, CBC #### [address] [address] .GFRon 01-20-2025 Estimated Glomerular Filtration Rate 109 ml/min/1.73sqm Normal [facility] Comment on above: Result Comment: Stages of Chronic Kidney Disease (CKD) Stage Description eGFR(ml/min/1.73 sq.m.) CKD 1 Normal kidney function or >=90 normal kindney function with possible kidney damage (ex. Proteinuria) CKD 2 Kidney damage with mild loss 60-89 of kidney function CKD 3a Mild to moderate loss of kidney 45-59 function CKD 3b Moderate to severe loss of 30-44 of kindey function CKD 4 Severe loss of kidney function 15-29 CKD 5 Kidney failure <15 Note: (go live 2024) the eGFR calculation was updated to the 2020 CKD-EPI creatinine equation without a race factor to calculate the eGFR results. Performed By: #### G FR, MONO, CMP, ANEU, [id number], ADIFF, CBC #### [place] [address] .NEUABSon 01-20-2025 Neutrophil, Absolute 2.9 10 3/mcL Normal 2.3-8.1 [facility] Comment on above: Performed By: #### G FR, MONO, CMP, ANEU, 486805, ADIFF, CBC #### [place] [address] CBCon 01-20-2025 Erythrocyte distribution width (RBC) [Ratio] 13.3 % Normal 11.5-15.5 [facility] Comment on above: Performed By: #### G FR, MONO, CMP, ANEU, 490874, ADIFF, CBC #### [place] [address] Hematocrit (Bld) [Volume fraction] 37.6 % Normal 34.0-46.0 [facility] Comment on above: Performed By: #### G FR, MONO, CMP, ANEU, [id number], ADIFF, CBC #### [place] [address] Hgb 12.6 G/dL Normal 12.0-16.0 [facility] Comment on above: Performed By: #### G FR, MONO, CMP, ANEU, 657243, ADIFF, CBC #### [address] [address] MCH (RBC) [Entitic mass] 27.3 pg Normal 27.0-33.0 [facility] Comment on above: Performed By: #### G FR, MONO, CMP, ANEU, [id number], ADIFF, CBC #### [address] [address] MCHC 33.4 G/dL Normal 32.0-36.0 [facility] Comment on above: Performed By: #### G FR, MONO, CMP, ANEU, [id number], ADIFF, CBC #### [place] [address] MCV (RBC) [Entitic vol] 81.8 fL Normal 80.0-99.0 [facility] Comment on above: Performed By: #### G FR, MONO, CMP, ANEU, 005981, ADIFF, CBC #### [place] [address] Platelet 255 10 3/mcL Normal 150-450 [facility] Comment on above: Performed By: #### G FR, MONO, CMP, ANEU, [id number], ADIFF, CBC #### [place] [address] Platelet mean volume (Bld) [Entitic vol] 8.7 fL Normal 6.6-10.5 [facility] Comment on above: Performed By: #### G FR, MONO, CMP, ANEU, 889347, ADIFF, CBC #### [address] [address] RBC 4.60 10 6/mcL Normal 4.10-5.30 [facility] Comment on above: Performed By: #### G FR, MONO, CMP, ANEU, [id number], ADIFF, CBC #### [place] [address] WBC 5.8 10 3/mcL Normal 4.5-10.8 [facility] Comment on above: Performed By: #### G FR, MONO, CMP, ANEU, 817212, ADIFF, CBC #### [address] [address] CMPon 01-20-2025 Albumin Level 3.7 G/dL Normal 3.5-5.0 [facility] Comment on above: Performed By: #### G FR, MONO, CMP, ANEU, 997614, ADIFF, CBC #### [place] [address] Albumin/Globulin [Mass ratio] 0.9 {ratio} Low 1.1-2.5 [facility] Comment on above: Performed By: #### G FR, MONO, CMP, ANEU, 328937, ADIFF, CBC #### [place] [address] ALP [Catalytic activity/Vol] 105 U/L Normal 40-135 [facility] Comment on above: Performed By: #### G FR, MONO, CMP, ANEU, 458956, ADIFF, CBC #### [place] [address] ALT [Catalytic activity/Vol] 46 U/L Normal 14-59 [facility] Comment on above: Performed By: #### G FR, MONO, CMP, ANEU, 706349, ADIFF, CBC #### [place] [address] AST [Catalytic activity/Vol] 14 U/L Normal 10-40 [facility] Comment on above: Performed By: #### G FR, MONO, CMP, ANEU, 411994, ADIFF, CBC #### [place] [address] Bili Total 0.3 mg/dL Normal 0.2-1.0 [facility] Comment on above: Result Comment: Use of this assay is not recommended for patients undergoing treatment with eltrombopag due to the potential for falsely elevated results. Performed By: #### G FR, MONO, CMP, ANEU, [id number], ADIFF, CBC #### [place] [address] BUN/Creatinine Ratio 14 ratio Normal 7-27 [facility] Comment on above: Performed By: #### G FR, MONO, CMP, ANEU, [id number], ADIFF, CBC #### [address] [address] Calcium [Mass/Vol] 8.9 mg/dL Normal 8.4-10.2 [facility] Comment on above: Performed By: #### G FR, MONO, CMP, ANEU, 463231, ADIFF, CBC #### [address] [address] Chloride [Moles/Vol] 105 mmol/L Normal 98-107 [facility] Comment on above: Performed By: #### G FR, MONO, CMP, ANEU, 470483, ADIFF, CBC #### [place] [address] CO2 [Moles/Vol] 24 mmol/L Normal 22-29 [facility] Comment on above: Performed By: #### G FR, MONO, CMP, ANEU, 023319, ADIFF, CBC #### [address] [address] Creatinine [Mass/Vol] 0.74 mg/dL Normal 0.51-0.95 [facility] Comment on above: Performed By: #### G FR, MONO, CMP, ANEU, 336045, ADIFF, CBC #### [address] [address] Electrolyte Balance 10.0 mEq/L Normal 4.0-15.0 [facility] Comment on above: Performed By: #### G FR, MONO, CMP, ANEU, 225725, ADIFF, CBC #### [address] [address] Globulin 3.9 G/dL Normal 2.7-4.4 [facility] Comment on above: Performed By: #### G FR, MONO, CMP, ANEU, 263178, ADIFF, CBC #### [address] [address] Glucose [Mass/Vol] 115 mg/dL High 70-105 [facility] Comment on above: Performed By: #### G FR, MONO, CMP, ANEU, 214452, ADIFF, CBC #### [address] [address] Potassium [Moles/Vol] 4.0 mmol/L Normal 3.5-5.1 [facility] Comment on above: Performed By: #### G FR, MONO, CMP, ANEU, 549615, ADIFF, CBC #### [address] [address] Sodium [Moles/Vol] 139 mmol/L Normal 136-145 [facility] Comment on above: Performed By: #### G FR, MONO, CMP, ANEU, 416685, ADIFF, CBC #### [address] [address] Total Protein 7.6 G/dL Normal 6.4-8.2 [facility] Comment on above: Performed By: #### G FR, MONO, CMP, ANEU, 329948, ADIFF, CBC #### [address] [address] Urea nitrogen [Mass/Vol] 10 mg/dL Normal 7-18 [facility] Comment on above: Performed By: #### G FR, MONO, CMP, ANEU, 150243, ADIFF, CBC #### [address] [address] LABORATORYOrdered By: SYSTEM SYSTEM on 01-20-2025 Albumin BCP dye [Mass/Vol] 3.7 G/dL Normal 3.5 - 5.0 G/dL AO ADM SS Albumin/Globulin [Mass ratio] 0.9 {ratio} Low 1.1 - 2.5 ratio AO ADM SS ALP [Catalytic activity/Vol] 105 U/L Normal 40 - 135 U/L AO ADM SS ALT With P-5'-P [Catalytic activity/Vol] 46 U/L Normal 14 - 59 U/L AO ADM SS AST With P-5'-P [Catalytic activity/Vol] 14 U/L Normal 10 - 40 U/L AO ADM SS Basophils (Bld) [#/Vol] 0.0 103/mcL Normal 0.0 - 0.3 10^3/mcL AO Workflow SS Basophils/100 WBC (Bld) 0.8 % Normal 0.0 - 2.5 % AO Workflow SS Bilirubin [Mass/Vol] 0.3 mg/dL Normal 0.2 - 1 .0 mg/dL AO ADM SS Comment on above: Interpretive Data: U se of this assay is not recommended for patients undergoing treatment with eltrombopag due to the potential for falsely elevated results. Calcium [Mass/Vol] 8.9 mg/dL Normal 8.4 - 10. 2 mg/dL AO ADM SS Chloride [Moles/Vol] 105 mmol/L Normal 98 - 10 7 mmol/L AO ADM SS CO2 [Moles/Vol] 24 mmol/L Normal 22 - 29 mmol/L AO ADM SS Creatinine [Mass/Vol] 0.74 mg/dL Normal 0.51 - 0.95 mg/dL AO ADM SS Electrolyte Balance 10.0 mEq/L Normal 4.0 - 15 .0 mEq/L AO ADM SS Eosinophil, Absolute 0.3 103/mcL Normal 0.0 - 0 .7 10^3/mcL AO Workflow SS Eosinophils/100 WBC (Bld) 5.7 % Normal 0.0 - 6.0 % AO Workflow SS Erythrocyte distribution width (RBC) [Ratio] 13.3 % Normal 11.5 - 15.5 % AO Workflow SS Estimated Glomerular Filtration Rate 109 ml/min/1.73sqm Invalid Interpretation Code AO Chemistry S Comment on above: Interpretive Data: Stages of Chronic Kidney Disease (CKD) Stage Description eGFR(ml/min/1.73 sq.m.) CKD 1 Normal kidney function or >=90 normal kindney function with possible kidney damage (ex. Proteinuria) CKD 2 Kidney damage with mild loss 60-89 of kidney function CKD 3a Mild to moderate loss of kidney 45-59 function CKD 3b Moderate to severe loss of 30-44 of kindey function CKD 4 Severe loss of kidney function 15-29 CKD 5 Kidney failure <15 Note: (go live 2024) the eGFR calculation was updated to the 2020 CKD-EPI creatinine equation without a race factor to calculate the eGFR results. Globulin 3.9 G/dL Normal 2.7 - 4.4 G/dL AO ADM SS Glucose [Mass/Vol] 115 mg/dL High 70 - 105 mg/dL AO ADM SS Hematocrit (Bld) [Volume fraction] 37.6 % Normal 34.0 - 46.0 % AO Workflow SS Hemoglobin (Bld) [Mass/Vol] 12.6 G/dL Normal 12.0 - 16.0 G/dL AO Workflow SS Lymphocytes (Bld) [#/Vol] 1.9 103/mcL Normal 0.9 - 4.3 10^3/mcL AO Workflow SS Lymphocytes/100 WBC (Bld) 32.6 % Normal 20.0 - 40.0 % AO Workflow SS MCH (RBC) [Entitic mass] 27.3 pg Normal 27. 0 - 33.0 pg AO Workflow SS MCHC 33.4 G/dL Normal 32.0 - 36.0 G/dL AO Workflow SS MCV (RBC) [Entitic vol] 81.8 fL Normal 80.0 - 99.0 fL AO Workflow SS Monocytes (Bld) [#/Vol] 0.6 103/mcL Normal 0.1 - 1.4 10^3/mcL AO Workflow SS Monocytes/100 WBC (Bld) 10.3 % Normal 2.0 - 13.0 % AO Workflow SS Neutrophils (Bld) [#/Vol] 2.9 103/mcL Normal 2.3 - 8.1 10^3/mcL AO Workflow SS Neutrophils/100 WBC (Bld) 50.6 % Normal 50.0 - 75.0 % AO Workflow SS Platelet mean volume (Bld) [Entitic vol] 8.7 fL Normal 6.6 - 10.5 fL AO Workflow SS Platelets (Bld) [#/Vol] 255 103/mcL Normal 150 - 450 10^3/mcL AO Workflow SS Potassium [Moles/Vol] 4.0 mmol/L Normal 3.5 - 5.1 mmol/L AO ADM SS Protein [Mass/Vol] 7.6 G/dL Normal 6.4 - 8.2 G/dL AO ADM SS RBC (Bld) [#/Vol] 4.60 106/mcL Normal 4.10 - 5.3 0 10^6/mcL AO Workflow SS Sodium [Moles/Vol] 139 mmol/L Normal 136 - 145 mmol/L AO ADM SS Urea nitrogen [Mass/Vol] 10 mg/dL Normal 7 - 18 mg/d L AO ADM SS Urea nitrogen/Creatinine [Mass ratio] 14 ratio Normal 7 - 27 ratio AO ADM SS WBC (Bld) [#/Vol] 5.8 103/mcL Normal 4.5 - 10.8 10^3/mcL AO Workflow SS LABORATORYOrdered By: Jareth foss on 01-20-2025 Heterophile Ab LA Ql (S) Negative (01/20/25 12:13 PM) Normal AO Rapid Testing SS MONOon 01-20-2025 Mononucleosis Negative Normal Negative [facility] Comment on above: Performed By: #### G FR, MONO, CMP, ANEU, [id number], ADIFF, CBC #### [place] [id number] [place], [place] [address] Registered Dental Assistant Office Visit Reporton 12-30-2024 Registered Dental Assistant Office Visit Report [facility] [address], [address] [place] [address] OFFICE VISIT Date of Service: 12/30/24 MR#: [id number] Acct: [id number] Name: GASTON MANZO LORI Rep #: [id number] : 1990 Provider: Dr. 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 Payment Required: No Is patient in pain?: No Allergies No Known Allergies Allergy (Verified 12/30/24 10:18) Medications ???Medication ???Instructions ???Recorded ???Confirmed ???Type albuterol sulfate 90 mcg/actuation 2 puff inhalation Q6H PRN 12/30/24 History aerosol inhaler shortness of breath or wheezing montelukast 10 mg tablet 10 mg PO DAILY 12/27/22 12/30/24 H istory (Singulair) escitalopram oxalate 10 mg tablet 10 mg PO DAILY 12/16/24 12/30/24 History (Lexapro) Post menopausal: No Patient : No : No PFSH Medical History Anemia Non-smoker Status post vacuum-assisted vaginal delivery Asthma Anxiety Family history of breast cancer Surgical History History of surgery [place] teeth extracted History of lumpectomy of both breasts Family History Grandmother Breast cancer, Onset Age: 60 Paternal Diabetes Maternal CAD (coronary artery disease) Maternal Father Prostate cancer, Onset Age: 57 Social History adopted: No household members: significant other and other details: BF Mother housing: house number of children: 1 current occupational status: employed 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 current occupational exposures/hazards: No pets and animals: Yes pets and animals: dog(s) history of recent travel: No (- November) sexually active: Yes Smoking Status: Never smoker alcohol intake: never substance use type: does not use well-balanced diet: about half the time caffeine: Yes Type: carbonated beverages Number of servings: 2 eating out: 1-3 times/week during the past year weight has: remained stable what type of physical activity do you participate in: walking frequency: 1-2 times per week duration: 30-45 minutes/day hilaria/islam: None seatbelt use: always do you feel safe at home: Yes additional social history: - [employer]- 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 pathology is unavailable to review at this time. She stopped bleeding over the last 24 hours. Her and her are still deciding when to try again. History 2 Elective abortions Hx Para 1 Spontaneous abortions 1 Hx # Term Pregnancies 1 Ectopic pregnancies Hx # Pregnancies Multiple births # of living children 1 Past Pregnancies Del. Date Name GA/Weeks Outcome Route Bth Weight Gen Labor Lgth Anesthesia Del Locatn Provider FOB 07/14/23 Mac 37 live - full term vacuum 8lbs 9oz Male epidural KIERSTEN Rubio/KEENAN Ingram 12/17/24 8 spontaneous Delivery Date: 07/14/23 Last Updated by: aBrbara Saldivar Camryn Anemia, Pre E ACH-respiratory issues x5 days Delivery Date: 12/17/24 Last Updated by: STEVE Grace C w/KEENAN...9wks measuring at 8weeks ROS ENT ENT: Reports system reviewed and no additional complaints, except as documented Cardio Card: Reports system reviewed and no additional complaints, except as documented Resp Resp: Denies cough, dyspnea or dyspnea on exertion GI GI: Denies abdominal pain, bloating or change in bowel habits : Denies vaginal odor or vaginal pruritus Musc Musc: Reports system reviewed and no additional complaints, except as documented Exam Const General: cooperative, healthy appearing and comfortable Resp Effort Inspection: normal respiratory effort Extrem General: no edema Coding Level of Care Code Off vis,est,level 3 Diagnoses Status post dilation and curettage Z98.890 Assessment and Plan Assessment and Plan (1) Status post dilation and curettage: Status: Acute Comment: 12/17/24 JV: endy Rubio Plan: ok to resume exercise, swimming, physical therapy, and intercourse call when has another pos test for quants and early ultrasound. 12/30/24 1101 Date Tatiana Sue DO [facility] Signature: Date (if applicable) CC: Normal [facility] CBC-Complete Blood Cnt No Di ffon 12-17-2024 Erythrocyte distribution width (RBC) [Ratio] 12.8 % Normal 11.6-14.6 [facility] Comment on above: Performed By: #### B TSPAT, L100.0500 #### [facility] [address] [place], [place], [id number] Hematocrit (Bld) [Volume fraction] 35.1 % Low 37-47 [facility] Comment on above: Performed By: #### B TSPAT, L100.0500 #### [facility] [address] [place], [place], [id number] Hemoglobin (Bld) [Mass/Vol] 12.0 g/dL Normal 12.0-15.0 [facility] Comment on above: Performed By: #### B TSPAT, L100.0500 #### [facility] [address] [place], [address] MCH (RBC) [Entitic mass] 28.0 pg Normal 27.0-32.0 [facility] Comment on above: Performed By: #### B TSPAT, L100.0500 #### [facility] [address] [place], [address] MCHC (RBC) [Mass/Vol] 34.2 g/dL Normal 32-36 [facility] Comment on above: Performed By: #### B TSPAT, L100.0500 #### [facility] [address] [place], [address] MCV (RBC) [Entitic vol] 81.8 fL Normal 81-99 [facility] Comment on above: Performed By: #### Jacobo TSPAT, L100.0500 #### [facility] [address] [place], [address] Platelet mean volume (Bld) [Entitic vol] 10.6 fL Normal 6.2-12.0 [facility] Comment on above: Performed By: #### B TSPAT, L100.0500 #### [facility] [address] [place], [address] Platelets (Bld) [#/Vol] 281 10*3/uL Normal 150-450 [facility] Comment on above: Performed By: #### B TSPAT, L100.0500 #### [facility] [address] [place], [address] RBC (Bld) [#/Vol] 4.29 10*6/uL Normal 4.2-5.4 [facility] Comment on above: Performed By: #### B TSPAT, L100.0500 #### [facility] [address] [place], [address] RDW SD 38.0 fl Normal 35.1-43.9 [facility] Comment on above: Performed By: #### B TSPAT, L100.0500 #### [facility] [address] [place], [address] WBC (Bld) [#/Vol] 7.0 10*3/uL Normal 4.4-11.0 [facility] Comment on above: Performed By: #### B TSPAT, L100.0500 #### [facility] [address] [place], [address] Discharge Instructionon 07-0 Discharge Instruction [facility] Medical Records Department [address] [place] [address] Instructions for Home/Discharge Instructions 12/17/24 1247 MR#: [id number] Acct: [id number] Name: GASTON MANZO Rep #: [id number] : 1990 34 From: Tatiana Sue DO PCP: DELIO EDDY Status:REG [facility] Discharge Instructions Diet Discharge Diet: No restrictions DC O2, CPAP, BIPAP needs Home O2 Discharge instructions: No Dressing / Incision Discharge Activity: Return to Normal Activity, May Shower and May Take a Tub Bath (after 1 week) May resume sexual activity in: 1-2 weeks Weight Bearing Status: Weight bearing as tolerated Lifting Restrictions: none Dressing / Incision Call your doctor if you observe: Fever of 101 or Higher, Using more than 1 pad per hour, Shortness of breath and Uncontrolled pain Follow Up Care Please Follow Up With: Tatiana Sue DO When: Call [phone] to schedule appointment. Test Results: Test results from this visit will be discussed in further detail at your follow-up appointment, if applicable. Discharge Plan Admission Primary Reason for Your Visit: suction D C Attending Provider: Tatiana Sue Primary Care Provider: NOEMI TREJO Print Language: Czech Discharge Orders/Prescriptions Prescriptions: New ibuprofen 800 mg tablet 800 mg PO Q8H PRN (Reason: pain) Qty: 20 0RF oxycodone-acetaminop hen [Percocet] 5-325 mg tablet 1 tab PO Q4H PRN (Reason: pain) 3 Days Qty: 5 0RF Continued montelukast [Singulair] 10 mg tablet 10 mg PO DAILY albuterol sulfate 90 mcg/actuation HFA aerosol inhaler 2 puff inhalation Q6H PRN (Reason: shortness of breath or wheezing) PNV-DHA 27 mg iron-1 mg -300 mg capsule 1 cap PO DAILY fluticasone propion-salmeterol [Wixela Inhub] 100-50 mcg/dose blister with device 1 inh inhalation BID Qty: 60 12RF escitalopram oxalate [Lexapro] 10 mg tablet 10 mg PO DAILY Referrals / Follow Up: NOEMI TREJO CRNP [Primary Care Provider] - Disposition Disposition (needs filled in before D/C Order can be placed): Home, Self Care 12/17/24 1250 Tatiana Sue DO CC: DELIO EDDY Signed Normal [facility] Erythrocyte distribution wid th ratioOrdered By: Tatiana Bey on 12-17-2024 Erythrocyte distribution width (RBC) [Ratio] 12.8 % 11.6-14.6 [facility] Erythrocyte distribution wid th standard deviationOrdered By: Tatiana Bey on 12-17-2024 Erythrocyte distribution width (RBC) [Ratio] 38.0 fl 35.1-43.9 [facility] Hematocrit Auto (Bld) [Volum e fraction]Ordered By: Tatiana Bey on 12-17-2024 Hematocrit (Bld) [Volume fraction] 35.1 % Low 37-47 [facility] Hemoglobin measurementOrdere d By: Tatiana Bey on 12-17-2024 Hemoglobin (Bld) [Mass/Vol] 12.0 g/dL 12.0-15.0 [facility] MCV (mean corpuscular volume ) determinationOrdered By: Tatiana Bey on 12-17-2024 MCV (RBC) [Entitic vol] 81.8 fL 81-99 [facility] MR/POSTOP.ANEotf 12-17-2024 MR/POSTOP.[facility] Medical Records Department [address] [place] [address] Anesthesia Postop Eval I 12/17/24 1414 MR#: [id number] Acct: [id number] Name: JEOVANYlCintGASTON LORI Rep #: [id number] : 1990 34 From: Amada Louis CRNA PCP: DELIO EDDY Status:REG SDC Y Race: C Location: [place] [address] Anesthesia: Postop Eval I Current Vital Signs Temperature: 97.3 F Pulse Rate: 88 Blood Pressure: 116/77 Respiratory Rate: 16 Pulse Ox: 98 Oxygen Delivery Method: Room Air Assessment Airway patent: Yes Spontaneous unlabored respirations: Yes Mental status: Awake and Calm nausea: No Vomiting: No Anesthesia Complication: No Fluid Hydration Crystalloid volume administer (ml): 600 Total IV fluid infused: 600 Progress Note Anesthesia document: Postop Eval 1 completed: Yes 12/17/24 1415 Date Amada Louis HEEL SEWER Cosigner Signature: Date CC: Signed Normal [facility]/[id number] 12-17-2024 [facility] Medical Records Department [facility] [place] [address] Anesthesia Postop Eval II 12/17/24 1537 MR#: [id number] Acct: [id number] Name: JEOVANYLAI JaramilloGASTONKELLY SANDOVAL Rep #: [id number] : 1990 34 From: Alirio Betancourt MD PCP: DELIO EDDY Status:REG SDC Y Race: C Location: [place] [address] Anesthesia Postop Eval I Sum Postop Eval Completion status Anesthesia document: Postop Eval 1 completed: Yes Anesthesia Postop Eval I Summary Anesthesia Postop Eval I Summary: Anesthesia Postop Eval I: Assessment Summary Airway patent Yes 12/17/24 14:15 HEEL [email or web address] Spontaneous unlabored Yes 12/17/24 14:15 HEEL [email or web address] respirations Mental status Awake,Calm 12/17/24 14:15 HEEL [email or web address].SKOBY nausea No 12/17/24 14:15 HEEL SEWER.SKOBY Vomiting No 12/17/24 14:15 HEEL [email or web address].SKOBY Anesthesia Postop Eval I: Fluid Summary Crystalloid volume administer 600 12/17/24 14:15 HEEL [email or web address].SKOBY (ml) Colloids volume administered ( ml) Blood Product volume administered (ml) Total IV fluid infused 600 12/17/24 14:15 HEEL [email or web address].SKOBY Anesthesia Postop Eval I: Summary Notes Anesthesia Complication No 12/17/24 14:15 HEEL [email or web address].SKOBY Anesthesia Complication Comment: Post-operative progress note Anesthesia: Postop Eval II Evaluation Mental status: Awake and Calm Pain Level: 2 nausea: No Vomiting: No Complications Anesthesia Complication: No 12/17/24 1537 Date Alirio Betancourt MD Cosigner Signature: Date CC: Signed Normal [facility] Mean corpuscular hemoglobin (MCH) determinationOrdered By: Tatiana Bey on 12-17-2024 MCH (RBC) [Entitic mass] 28.0 pg 27.0-32.0 [facility] Mean corpuscular hemoglobin concentration (MCHC) determinationOrdered By: Tatiana Bey on 12-17-2024 MCHC (RBC) [Mass/Vol] 34.2 g/dL 32-36 [facility] Mean platelet volume determi nationOrdered By: Tatiana Bey on 12-17-2024 Platelet mean volume (Bld) [Entitic vol] 10.6 fL 6.2-12.0 [facility] Operative Reporton Operative Report [facility] Medical Records Department [address] [place] [address] Operative Report 12/17/24 1341 MR#: [id number] Acct: [id number] Name: GASTON MANZO Rep #: [id number] : 1990 34 From: Tatiana Sue DO PCP: DELIO EDDY Status:REG [facility] Location: [place] [address]- Problems Associated Problem List Diagnoses (1) Missed with demise before 20 completed weeks of gestation: Multi Select Codes Urinary/Genital Urinary/Genital CPT Codes: 57025 Surg Trtmt missed Ab 1TM Operative Report (Standard) Operative Information Date of Procedure: 12/17/24 Pre-Operative Diagnosis: 9 weeks, measuring 8 weeks missed Post-Operative Diagnosis: 9 weeks, measuring 8 weeks missed Surgery/Procedure Performed: suction dilation and curettage financial sales assistant: No Type of Anesthesia: MAC/Supplemental RN Documented Start/Stop Times: Operation Date: 12/17/24 12:30 Case Time Into Pre-Op 12/17/24 11:09 Procedure Start Time: 13:51 Procedure Stop Time: 14:02 Select all DRAINS/GRAFTS/IMPLAN TS that apply: None Special Medications: methergine Estimated Blood Loss: 30cc Specimen collected: Yes Description of specimen(s) removed: endometrial curetting's/products of conception Description of surgery: Patient was taken to the operating room and placed under MAC local anesthesia. She was prepped and draped in the normal sterile fashion the dorsal lithotomy position. Bladder was drained of clear urine and anterior lip of the cervix was grasped and the uterus sounded to 12cm. Cervix was progressively dilated to allow passage of a size 9 suction curette. Progressive passes were made removing the retained products of conception without complication. Sharp curettage confirmed complete removal of the retained products. All instruments were removed from the vagina and excellent hemostasis was noted and the patient was taken to recovery in stable condition. IM methergine was given to help contract the uterus. Surgical Findings: moderate amount of products of conception removed. Complications Complications: No Admit VTE Documentation VTE Present on Admission: No VTE Mechan Device Prophylaxis: SCD's VTE Pharm Prophylaxis ordered?: No 12/17/24 9512 Cosigner Signature (if applicable): CC: Dr. Tatiana Sue DO; DELIO EDDY Signed Normal [facility] Platelet countOrdered By: Clint Bey on 12-17-2024 Platelets (Bld) [#/Vol] 281 10*3/uL 150-450 [facility] RBC Auto (Bld) [#/Vol]Ordere d By: Tatiana Bey on 12-17-2024 RBC (Bld) [#/Vol] 4.29 10*6/uL 4.2-5.4 [facility] Surgery Specimen Level Ryan 12-17-2024 Surgery Specimen Level IV Patient Age/Sex Location Account Attending Physician GASTON MANZO 34/F [facility] [id number] Abelino Prado Specimen: [id number] Received: 12/17/24 Status: ADAMA Kumar Num: [id number] Spec Type: PROD CONC Subm Dr: Dr. Tatiana Sue DO HEADER OPERATION: Dilation and curettage, suction PRE-OP DIAGNOSIS: Missed TISSUE SUBMITTED: Products of conception MICROSCOPIC DIAGNOSIS A. Products of conception, dilation and curettage: * Inflamed and degenerating decidua with chorionic villi consistent with intrauterine products of conception MICROSCOPIC DESCRIPTION Slides are reviewed. GROSS DESCRIPTION A. Received in formalin labeled with the patient's name and date of . Designated as products of conception is a 46.3 g, 8.4 x 8.4 x 1.7 cm aggregate of rich-purple to red soft tissue fragments, blood clot and papilliferous tissue fragments (suspicious for chorionic villi). parts are not present. Instructor Apparel Manufacture sections are submitted in 2 cassettes. IN 12/18/2024 [facility]:[id number] Patient Age/Sex Location Account Attending Physician GASTON MANZO 34/ [facility] [id number] Abelino Prado Signed (signature on file) Dr. Shazia Holcomb, DO 12/27/24 1601 Normal [facility] Comment on above: Performed By: #### P SUIV #### [facility] Laboratory [address] [place], [place], [address] Type AND Screen - PAT ONLYon 12-17-2024 Ab SCREEN GEL Negative Normal [facility] Comment on above: Order Comment: Reaso n for Laboratory Test PRE-OP [id number] Yes N N S Dilation and Curettage, Suction Performed By: #### B TSPAT, L100.0500 #### [facility] [address] [place], [place], [address] White blood cell (WBC) count Ordered By: Tatiana Bey on 12-17-2024 WBC (Bld) [#/Vol] 7.0 10*3/uL 4.4-11.0 [facility] Registered Dental Assistant Office Visit Reporton 12-13-2024 Registered Dental Assistant Office Visit Report [facility] [address], [address] [place] [address] OFFICE VISIT Date of Service: 12/13/24 MR#: [id number] Acct: [id number] Name: GASTON MANZO LORI Rep #: [id number] : 1990 Provider: BENNETT velazquez Age/Sex: 34/F [place] [facility] [place]: Signed Intake Vital Signs 04/30/25 09:56 12/13/24 08:48 Height 5 ft 4 in 5 ft 4 in Weight: 184 lb 8 oz 191 lb 2 oz BMI 31.6 32.8 BP 121/83 H 131/85 H Intake Visit Reasons: *EST* NOB LMP 10/08, BLAINE 07/15 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 Payment Required: No Is patient in pain?: No Allergies No Known Allergies Allergy (Verified 12/13/24 08:46) Medications ???Medication ???Instructions ???Recorded ???Confirmed ???Type albuterol sulfate 90 mcg/actuation 2 puff inhalation Q6H PRN 12/13/24 History aerosol inhaler shortness of breath or wheezing montelukast 10 mg tablet 10 mg PO DAILY 12/27/22 12/13/24 H istory (Singulair) multivitamin no.47-iron fum 27 cap PO 11/29/24 12/13/24 History mg-folate no.1 1 mg-dha 300 mg capsule (PNV-DHA) fluticasone 100 mcg-salmeterol 50 1 inh inhalation BID #60 ea 12/1312/13/24 Rx mcg/dose blistr powdr for inhalation (Wixela Inhub) Last Menstrual Period: 10/08/24 : No Have you fallen in the past year?: No PFSH PFSH Medical History Status post vacuum-assisted vaginal delivery Asthma Anxiety Family history of breast cancer Surgical History History of surgery [place] teeth extracted History of lumpectomy of both breasts Family History Grandmother Breast cancer, Onset Age: 60 Paternal Diabetes Maternal CAD (coronary artery disease) Maternal Father Prostate cancer, Onset Age: 57 Social History adopted: No household members: significant other and other details: BF Mother housing: house number of children: 1 current occupational status: employed 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 current occupational exposures/hazards: No pets and animals: Yes pets and animals: dog(s) history of recent travel: No (- November) sexually active: Yes Smoking Status: Never smoker alcohol intake: never substance use type: does not use well-balanced diet: about half the time caffeine: Yes Type: carbonated beverages Number of servings: 2 eating out: 1-3 times/week during the past year weight has: remained stable what type of physical activity do you participate in: walking frequency: 1-2 times per week duration: 30-45 minutes/day hilaria/islam: None seatbelt use: always do you feel safe at home: Yes 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 Date Name GA/Weeks Outcome Route Bth Weight Gen Labor Lgth Anesthesia Del Locatn Provider FOB 07/14/23 Mac 37 live - full term vacuum 8lbs 9oz Male epidural [facility] L C/[facility]V [facility] Delivery Date: 07/14/23 Last Updated by: Barbara Cowan Anemia, Pre E ACH-respiratory issues x5 days HPI *EST* NOB LMP 10/08, BLAINE 07/15 Details: GASTON MANZO is a 34 year old who presents for New OB visit. OB Visit BLAINE Calculator Estimated Delivery Date Method Current WG Current Estimate 07/15/25 LMP (Certain) 9w 3d Comments: HIV: Urine Culture: Sequential Screen: NIPT Screen: Estimated Due Date: 07/15/25 Initial Weight: Not Recorded Date -???-???-???-???-??? -???-???-???-???-??? -???-???- EGA Weight BP Urine Prot -???-???-???-???-??? -???-???-???-???-??? -???-???- Glucose FHR FuHt Pres Dilation -???-???-???-???-??? -???-???-???-???-??? -???-???- Effaced St Visit Note 12/13/24 -???-???-???-???-??? -???-???-???-???-??? -???-???- 9w 3d 191 lb 2 oz 131/85 -???-???-???-???-??? -???-???-???-???-??? -???-???- -???-???-???-???-??? -???-???-???-???-??? -???-???- LC- no FHR, CRL at 8.1 weeks. JV consulted and confirmed SAB. consented for D C, emotional support provided. Menstrual History Last Menstrual Period: 10/08/24 Antepartum Record Genetic Screening: Congenital Heart Defect: Other, Neural Tube Defect: Other, Hemoglobinopathy Or Carrier: Other, Cystic Fibrosis: Other, Chromosome Abnormality: Other, Fredrick-Sachs: Other, Hemophilia: Other, Intellectual Disability/Autism: Other, Recurrent Loss/Stillbirth: Other, Other Structural Defect: Other, Other Genetic Disease: Other and Maternal Metabolic Disorder: Other Infection History: Live with someone with (more content not included)... Normal [facility] Inital Evaluation (1) - PTon 11-27-2024 Inital Evaluation (1) - PT [facility] Physical Therapy Health[address] [place] [address] / REHABILITATION SERVICES INITIAL EVALUATION MR#: [id number] Acct: [id number] Name: GASTON MANZO Rep #: [id number] : 1990 34 From: Betty Grace Referring Dr.: SONIDO Patterson Status: REG RCR Insurance: [facility] SELF PAY INSURANCE Patient's Visit Information Visit Information Visit Information: GASTON MANZO is a 34 year old F referred to Physical Therapy by SONIDO Patterson with a diagnosis of N81.4 uterovaginal prolapse, M62.89 Other specified disorders of the muscle. Date of Evaluation: 11/27/24 Physical Therapist: Betty Grace Visit Plan Frequency: 1x/Week Duration: 3 Months Plan: Gaston would benefit from skilled PT intervention to address her concerns and her control with holding back gas and managing bowel movements. She is currently 7 weeks so we will hold on internal vaginal exam until potentially later in her and with doctor approval. In the meantime, will work on pelvic floor strengthening and education regarding management of her prolapses. We will educate on proper breathing mechanics to help lessen pressure down thru her pelvic floor. We will also educate on techniques and splinting to manage her bowel movements. She is 7 weeks so no vaginal work. Add week 2 next visit. Check lumbar, pelvic alignment. Check breathing mechanics next visit and educate in pressure management. Subjective Subjective: She just found out she is 7 weeks . She had a 3rd degree tear with her first delivery. Baby born 2023. She had episiotomy and then she also tore. She did vacuum assisted delivery. She pushed for 3 hours. Sometimes if she sneezes she has gas escape at the same time. Getting up, coughing, sneezing, laughing, straining can also cause gas leakage (no urine leakage). Rox reported stage 2 cystocele and rectocele. She can't stop flatulence and she doesn't know it is happening until it happens. No urinary incontinence. She has a lot of steps where she lives. When she really has the urge for a bowel movement, she is really clenching to get there soon enough. Sometimes feels like something is coming out rectally if she has urgency. She always feels like she is wiping a lot after bowel movements. She feels like she has more frequent bowel movements 3-4 x day (used to be 1-2 x day). She doesn't think she is emptying completely all the time. She doesn't feel she can insert tampons anymore. Tampons hurt now when they are in. She used to wear a thong and she doesn't wear a thong anymore as it's more sensitive. More tender to touch with wiping. She isn't sure if she has hemorrhoids. 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 No pain with intercourse. No low back pain. Objective Objective: DID NOT COMPLETE AN INTERNAL VAGINAL EXAM DUE TO AT THIS TIME gaping introitus on exam, inability to see a contraction or anal wink no tenderness in pelvic floor palpation externally around perineal body, rectum with cues to perform a pelvic floor contraction, she was judith glutes She gave consent for internal rectal exam No tenderness with palpation rectally No evidence of tightness or restriction in sphincters No contraction felt with cues to contract rectally Goals Goal 1:: Gaston will be able to hold back gas without any gas leakage. Goal Time Frame: 4-6 Weeks Goal 2:: Gaston will be able to delay using the restroom by 5 minutes when she feels the urge to have a bowel movement without feeling uncomfortable or anxious about her ability to control. Goal Time Frame: 8-12 Weeks Goal 3:: Gaston will be able to cough, sneeze, laugh without gas escaping and causing embarrassment. Goal Time Frame: 8-12 Weeks Goal 4:: Gaston will be independent in splinting techniques for bowel movements to help her manage the rectocele. Goal Time Frame: 2 Weeks Rehabilitation Potential Physical Therapy Diagnosis: Rectocele, Cystocele Rehabilitation Potential: Good Anticipated Interventions Patient/Client Instruction: Educate patient on: Condition and Plan of Care For the Purpose of:: To improve muscle performance and motor function, To improve performance and independence with ADL's, To improve health and function, To improve self management and To improve tolerance to ADL's Therapeutic Exercise to Include: Strength training and Neuromotor development For the Purpose of:: To improve muscle performance and motor function, To improve health and function, To improve self management and To improve tolerance to ADL's Manual Therapy Techniques to Include: Trigger point massage and Mobilization For the Purpose of:: To improve health and function Text: Thank you for the opportunity to evaluate your patient. For Medicar (more content not included)... Normal [facility] Breast Limited Unilateralon 11-15-2024 Breast Limited Unilateral [facility] Services [address] [place] [address] Breast Limited Unilateral MR#: [id number] Acct: [id number] Name: GASTON MANZO LORI Rep #: [id number] : 1990 F 34 From: Jose moss MD PCP: DELIO EDDY Status: REG CLI Study: Breast Limited Unilateral Date of Exam: Exam# [id number] Ordering Dr: Rox Reese PROCEDURE: BREAST LIMITED UNILATERAL 11/15/2024 REASON FOR EXAM: LEFT BREAST LUMP TECHNIQUE: Targeted left breast ultrasound. COMPARISON: Prior outside sonogram dated September 05, 2023. FINDINGS: Left breast ultrasound was targeted to the outer lower quadrant of the left breast.. The palpable lump corresponds to a 2.3 cm x 2.6 cm 1.7 cm well-defined hypoechoic solid nodule at the 4 o'clock position of the breast at 6 cm from the nipple. A tissue clip marker is seen within it in keeping with history of prior biopsy. This most likely represents a fibroadenoma. US/Breast Limited Unilateral IMPRESSION: Impression: Well-defined hypoechoic 2.3 cm 2.6 cm 1.7 cm nodule at the 4 o'clock position of the breast at 6 cm from the nipple. A tissue clip marker is seen within it. This corresponds with the patient's palpable lump. This most likely represents a fibroadenoma. Birads: BI-RADS 2: BENIGN. RECOMMEND ANNUAL MAMMOGRAPHIC SCREENING. Reading Location: [facility] CC: SONIDO Reese; DELIO EDDY Machine Stripper Cutter: Signed Normal [facility] Registered Dental Assistant Office Visit Reporton 10-16-2024 Registered Dental Assistant Office Visit Report [facility] [address], [address] [place] [address] OFFICE VISIT Date of Service: 10/16/24 MR#: [id number] Acct: [id number] Name: GASTON MANZO LORI Rep #: [id number] : 1990 Provider: SONIDO Reyes Age/Sex: 34/F [place] 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: Annual Vice President Payment Required: No Is patient in pain?: No Allergies No Known Allergies Allergy (Verified 10/16/24 09:54) Medications ???Medication ???Instructions ???Recorded ???Confirmed ???Type albuterol sulfate 90 mcg/actuation 2 puff inhalation Q6H PRN 10/16/24 History aerosol inhaler shortness of breath or wheezing montelukast 10 mg tablet 10 mg PO DAILY 12/27/22 10/16/24 H istory (Singulair) escitalopram oxalate 20 mg tablet 20 mg PO DAILY #90 tabs 08/05/24 10/16/24 Rx (Lexapro) Is last menstrual period known: Yes Last Menstrual Period: 10/09/24 Post menopausal: No PFSH Medical History Asthma Anxiety Family history of breast cancer Surgical History History of surgery [place] teeth extracted History of lumpectomy of both breasts Family History Grandmother Breast cancer, Onset Age: 60 Paternal Diabetes Maternal CAD (coronary artery disease) Maternal Father Prostate cancer, Onset Age: 57 Social History adopted: No household members: significant other and other details: BF Mother current occupational status: employed 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 current occupational exposures/hazards: No pets and animals: Yes pets and animals: dog(s) history of recent travel: Yes (- November) out of state: Yes out of country: No sexually active: Yes Smoking Status: Never smoker alcohol intake: never substance use type: does not use well-balanced diet: about half the time caffeine: No eating out: 1-3 times/week during the past year weight has: remained stable what type of physical activity do you participate in: walking frequency: 1-2 times per week duration: 30-45 minutes/day hilaria/islam: None seatbelt use: always do you feel safe at home: Yes additional social history: BF- [employer]- 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 Date Name GA/Weeks Outcome Route Bth Weight Infant Gen Labor Lgth Anesthesia Del Garrickatilya Provider FOB 07/14/23 Mac 37 live - full term vacuum 8lbs 9oz Male epidural [facility] Delivery Date: 07/14/23 Last Updated by: Barbara Cowan Anemia, Pre E ACH-respiratory issues x5 days HPI Encounter for routine gynecological examination Details: GASTON MANZO is a 34 year old who presents for annual exam. She reports no issues or concerns today. She does have history of breast lump; biopsy prior at [facility] that were benign with clip placed. She re ports she feels like a tampon does not fit in vagina after having children. Does feel stool trapping. She reports urinary incontinence with coughing, sneezing. Has done kegals at home. Last PAP: 2022- Normal History of abnormal PAP: None Last mammogram: Patient states had in 08/2023, breast US, biopsies followed non concerning lumps History of abnormal mammogram: yes Colon cancer screening: None. Other preventative health care screenings: PCP: Noemi Trejo Female Reproductive History Last Menstrual Period: 10/09/24 Cycle Length: 21-35 Bleeding Duration: 5 Questions: metorrhagia: No, sexually active: Yes, dyspareunia: No and PCB: No ROS Const Constitutional: Denies chills, fatigue, fever(s), headache(s) or weight loss Eyes Eyes: Denies change in vision ENT ENT: Denies dizziness Resp Resp: Denies cough GI GI: Denies abdominal pain, constipation or nausea : Reports prolapse symptoms and urinary incontinence; Denies difficulty voiding, dysuria, hematuria, nipple discharge, pelvic pain, urinary frequency, urinary urgency, vaginal discharge, vaginal dryness, vaginal odor or vaginal pruritus Skin Skin/Breast: Reports breast mass (clip in place.); Denies alopecia, rash, breast pain, breast skin changes or nipple discharge Neuro (more content not included)... Normal [facility] DBT Breast - bilateral diagn ostic for implanton 09-05-2023 [facility] DIAG W TRINI BILon 2023 [facility] OPAL May TRINI TOREY * * *Final Report* * * DATE OF EXAM: Sep 05 2023 12:01PM WRW 0627 - [facility] OPAL May TRINI TOREY / PROCEDURE REASON: N63.0, N63.23 * * * * Physician Interpretation * * * * RESULT: #[id number] - [facility] OPAL May TRINI TOREY #[id number] - [facility] US BREAST LTD LT BILATERAL DIGITAL DIAGNOSTIC MAMMOGRAM TOMOSYNTHESIS WITH CAD: 09/05/2023 HISTORY: Lump lt dr found 2 wks ago pt had multiple 3 sx on rt 1 sx lt breast 1 bx lt no paid discomfort post pardom 7 wks N63.0, N63.23 N63.0. RESULT: TECHNIQUE: The study was acquired using full field digital technology and interpreted from soft copy. Digital Breast Tomosynthesis (DBT) images were obtained and used to assist in the interpretation of this examination. Current study was also evaluated with a Computer Aided Detection (CAD). No prior exams were available for comparison. The breasts are extremely dense, which lowers the sensitivity of mammography. There is a 3 cm round focal asymmetry in the left breast at 3 o'clock middle depth. This correlates as palpated. There is a biopsy clip associated with the focal asymmetry. No other significant masses, calcifications, or other findings are seen in either breast. IMPRESSION: INCOMPLETE: NEEDS ADDITIONAL IMAGING EVALUATION The 3 cm round focal asymmetry in the left breast is indeterminate. An ultrasound is recommended. LIMITED ULTRASOUND OF LEFT BREAST: 09/05/2023 RESULT: No prior exams were available for comparison. Color flow and real-time ultrasound of the left breast upper outer quadrant were performed. Rich scale images of the real-time examination were reviewed. There is a stable benign 2.7 cm x 2.6 cm x 1.7 cm oval mass with a circumscribed margin in the left breast at 3 o'clock middle depth. This oval mass is hypoechoic. This correlates as palpated and with mammography findings. There is an associated biopsy clip. IMPRESSION: BENIGN FINDING There is no sonographic evidence of malignancy. The stable 2.7 cm x 2.6 cm x 1.7 cm oval mass in the left breast is benign. Daniel gongora/ana:09/05/2023 12:49:20 Multiple national specialty organizations have released breast cancer screening guidelines for women at average risk for developing breast cancer - guidelines that are based on both evidence and opinion, yet differ on when to start and how often to screen for breast cancer. With representation from Breast Imaging, Internal Medicine, Women's Health, Family Medicine, and Medical/Surgical Oncology, the [facility] has carefully reviewed the data and reached the following consensus: 1) All women should engage in shared decision-making with their providers to decide when to start and how often to screen; 2) All women should have the opportunity to start screening mammography at age 40; 3) For women ages 45-55, we recommend annual screening mammograms; 4) For women ages 55 and over, we support both the transition from an annual to a biennial interval if this aligns more with patient's values and preferences, or continuation with annual screening; 5) All women should discuss with their providers when to stop screening mammograms. Lockstitch Front Edge Tape Sewer(s): Kelly Greene, [facility]; RT Alise(R)(M), [facility] OVERALL STUDY BIRADS: 2 Benign finding Machine Stripper Cutter: Ana Transcribe Date/Time: Sep 05 2023 11:35A Dictated by: DANIEL ESPINO MD This examination was interpreted and the report reviewed and electronically signed by: DANIEL ESPNIO MD on Sep 05 2023 12:49PM EST [id number] CN Normal [facility] US BREAST LTD LTon 09-04 [facility] US BREAST LTD LT * * *Final Report* * * DATE OF EXAM: Sep 05 2023 12:10PM WRU [id number] - [facility] US BREAST LTD LT / PROCEDURE REASON: n63.0 * * * * Physician Interpretation * * * * #[id number] - [facility] DIAG W TRINI TOREY #[id number] - [facility] US BREAST LTD LT BILATERAL DIGITAL DIAGNOSTIC MAMMOGRAM TOMOSYNTHESIS WITH CAD: 09/05/2023 HISTORY: Lump lt dr found 2 wks ago pt had multiple 3 sx on rt 1 sx lt breast 1 bx lt no paid discomfort post pardom 7 wks N63.0, N63.23 N63.0. RESULT: TECHNIQUE: The study was acquired using full field digital technology and interpreted from soft copy. Digital Breast Tomosynthesis (DBT) images were obtained and used to assist in the interpretation of this examination. Current study was also evaluated with a Computer Aided Detection (CAD). No prior exams were available for comparison. The breasts are extremely dense, which lowers the sensitivity of mammography. There is a 3 cm round focal asymmetry in the left breast at 3 o'clock middle depth. This correlates as palpated. There is a biopsy clip associated with the focal asymmetry. No other significant masses, calcifications, or other findings are seen in either breast. IMPRESSION: INCOMPLETE: NEEDS ADDITIONAL IMAGING EVALUATION The 3 cm round focal asymmetry in the left breast is indeterminate. An ultrasound is recommended. LIMITED ULTRASOUND OF LEFT BREAST: 09/05/2023 RESULT: No prior exams were available for comparison. Color flow and real-time ultrasound of the left breast upper outer quadrant were performed. Rich scale images of the real-time examination were reviewed. There is a stable benign 2.7 cm x 2.6 cm x 1.7 cm oval mass with a circumscribed margin in the left breast at 3 o'clock middle depth. This oval mass is hypoechoic. This correlates as palpated and with mammography findings. There is an associated biopsy clip. IMPRESSION: BENIGN FINDING There is no sonographic evidence of malignancy. The stable 2.7 cm x 2.6 cm x 1.7 cm oval mass in the left breast is benign. Daniel gongora/ana:09/05/2023 12:49:20 Multiple national specialty organizations have released breast cancer screening guidelines for women at average risk for developing breast cancer - guidelines that are based on both evidence and opinion, yet differ on when to start and how often to screen for breast cancer. With representation from Breast Imaging, Internal Medicine, Women's Health, Family Medicine, and Medical/Surgical Oncology, the [facility] has carefully reviewed the data and reached the following consensus: 1) All women should engage in shared decision-making with their providers to decide when to start and how often to screen; 2) All women should have the opportunity to start screening mammography at age 40; 3) For women ages 45-55, we recommend annual screening mammograms; 4) For women ages 55 and over, we support both the transition from an annual to a biennial interval if this aligns more with patient's values and preferences, or continuation with annual screening; 5) All women should discuss with their providers when to stop screening mammograms. Lockstitch Front Edge Tape Sewer(s): Kelly Greene, [facility]; RT Alise(Rajni)(Hollie), [facility] OVERALL STUDY BIRADS: 2 Benign finding Machine Stripper Cutter: Ana Transcribe Date/Time: Sep 05 2023 11:35A Dictated by : DANIEL ESIPNO MD This examination was interpreted and the report reviewed and electronically signed by: DANIEL ESPINO MD on Sep 05 2023 12:49PM EST [id number] CN Normal [facility] US Breast - left limitedon 0 09-05-2023 [facility] ECG 12-LEADon 07-18-2023 ECG 12-LEAD IMPRESSION: Sinus rhythm Electronically Signed On 07-18-2023 11:28:30 EST by Roma Reid Normal [facility] CBC (HEMOGRAM)on 07-17-2023 Erythrocyte distribution width (RBC) [Ratio] 14.8 % High 11.5-14.5 [facility] Comment on above: Performed By: #### L [id number] #### Sales Agent [employer] Insurance: ML MAYNARD ([id number]) [facility]) [address] [place] [address] ERYTHROCYTE MEAN CORPUSCULAR HEMOGLOBIN CONCENTRATION (G/DL) BY AUTOMATED 33.6 % Normal 32.0-36.0 [facility] Comment on above: Performed By: #### L [id number] #### Sales Agent [employer] Insurance: ML MAYNARD ([id number]) [facility] ([facility]) [address] [place] [address] Hematocrit (Bld) [Volume fraction] 27.3 % Low 35.0-47.0 [facility] Comment on above: Performed By: #### L [id number] #### Sales Agent [employer] Insurance: ML MAYNARD ([id number]) [facility]) [address] [place] [address] Hemoglobin (Bld) [Mass/Vol] 9.2 g/dL Low 11.7-16.0 [facility] Comment on above: Performed By: #### L [id number] #### Sales Agent [employer] Insurance: ML MAYNARD ([id number]) [facility] ([facility]) [address] [place] [address] MCH (RBC) [Entitic mass] 29.2 pg Normal 26.0-34.0 [facility] Comment on above: Performed By: #### L [id number] #### Sales Agent [employer] Insurance: ML MAYNARD ([id number]) [facility] ([facility]) [address] [place] [address] MCV (RBC) [Entitic vol] 86.9 fL Normal 80.0-98.0 [facility] Comment on above: Performed By: #### L [id number] #### Sales Agent [employer] Insurance: ML MAYNARD ([id number]) [facility] ([facility]) [address] [place] [address] Platelet mean volume (Bld) [Entitic vol] 9.4 fL Normal 7.4-12.4 [facility] Comment on above: Performed By: #### L [id number] #### Sales Agent [employer] Insurance: ML MAYNARD ([id number]) [facility] ([facility]) [address] [place] [address] Platelets (Bld) [#/Vol] 220 10*3/uL Normal 140-440 [facility] Comment on above: Performed By: #### L [id number] #### Sales Agent [employer] Insurance: ML MAYNARD ([id number]) [facility]) [address] [place] [address] RBC (Bld) [#/Vol] 3.14 10*6/uL Low 3.8-5.20 [facility] Comment on above: Performed By: #### L [id number] #### Sales Agent [employer] Insurance: ML MAYNARD ([id number]) [facility]) [address] [place] [address] WBC (Bld) [#/Vol] 9.8 10*3/uL Normal 3.6-10.7 [facility] Comment on above: Performed By: #### L [id number] #### Sales Agent [employer] Insurance: ML MAYNARD ([id number]) [facility] ([facility]) [address] [place] [address] CBC panel Auto (Bld)Ordered By: Radha Sorto on 07-17-2023 Erythrocyte distribution width (RBC) [Ratio] 14.8 % High 11.5 - 14.5 % [facility] Hematocrit (Bld) [Volume fraction] 27.3 % Low 35.0 - 47.0 % [facility] Hemoglobin (Bld) [Mass/Vol] 9.2 g/dL Low 11.7 - 16.0 g/dL [facility] Interpretation and review of laboratory results Abnormal [facility] MCH (RBC) [Entitic mass] 29.2 pg 26. 0 - 34.0 pg [facility] MCHC (RBC) [Mass/Vol] 33.6 % 32.0 - 36.0 % [facility] MCV (RBC) [Entitic vol] 86.9 fL 80.0 - 98.0 fL [facility] Platelet mean volume (Bld) [Entitic vol] 9.4 fL 7.4 - 12.4 fL [facility] Platelets (Bld) [#/Vol] 220 10*3/uL 140 - 440 10*3/uL [facility] RBC (Bld) [#/Vol] 3.14 10*6/uL Low 3.8 - 5.20 10*6/uL [facility] WBC (Bld) [#/Vol] 9.8 10*3/uL 3.6 - 10.7 10*3/uL [facility] COMPREHENSIVE METABOLIC PANE Eric 07-17-2023 Albumin [Mass/Vol] 3.7 g/dL Normal 3.5-5.0 [facility] Comment on above: Performed By: #### L [id number] #### Sales Agent [employer] Insurance: ML MAYNARD ([id number]) [facility] ([facility]) [address] [place] [address] ALP [Catalytic activity/Vol] 200 U/L High 38-126 [facility] Comment on above: Performed By: #### L [id number] #### Sales Agent [employer] Insurance: ML MAYNARD ([id number]) [facility] ([facility]) [address] [place] [address] [place] ALT [Catalytic activity/Vol] 49 U/L High 0-34 [facility] Comment on above: Performed By: #### L [id number] #### Sales Agent [employer] Insurance: ML MAYNARD ([id number]) [facility] ([facility]) [address] [place] [address] Anion gap [Moles/Vol] 8 mmol/L Normal 3-13 [facility] Comment on above: Performed By: #### L [id number] #### Sales Agent Marine Insurance: ML MAYNARD ([id number]) [facility] ([facility]) [address] [place] [address] [place] AST [Catalytic activity/Vol] 56 U/L High 15-46 [facility] Comment on above: Performed By: #### L [id number] #### Sales Agent [employer] Insurance: ML MAYNARD ([id number]) [facility] ([facility]) [address] [place] [address] Bilirubin [Mass/Vol] 0.5 mg/dL Normal 0.2-1.3 [facility] Comment on above: Performed By: #### L [id number] #### Sales Agent Marine Insurance: ML MAYNARD ([id number]) [facility] ([facility]) [address] [place] [address] [place] Calcium [Mass/Vol] 9.5 mg/dL Normal 8.4-10.4 [facility] Comment on above: Performed By: #### L [id number] #### Sales Agent [employer] Insurance: ML MAYNARD ([id number]) [facility]) [address] [place] [address] [place] Chloride [Moles/Vol] 108 mmol/L High 98-107 [facility] Comment on above: Performed By: #### L [id number] #### Sales Agent [employer] Insurance: ML MAYNARD ([id number]) [facility] ([facility]) [address] [place] [address] [place] CO2 [Moles/Vol] 23 mmol/L Normal 22-30 [facility] Comment on above: Performed By: #### L [id number] #### Sales Agent [employer] Insurance: ML MAYNARD ([id number]) [facility] ([facility]) [address] [place] [address] Creatinine [Mass/Vol] 0.72 mg/dL Normal 0.52-1.04 [facility] Comment on above: Performed By: #### L [id number] #### Sales Agent [employer] Insurance: ML MAYNARD ([id number]) [facility] ([facility]) [address] [place] [address] GLOMERULAR FILTRATION RATE ML/MIN/1.73 SQ M.PREDICTED >90.0 Normal >60.0 [facility] Comment on above: Result Comment: Calc ulation based on the Chronic Kidney Disease Epidemiology Collaboration (CKD-EPI) equation refit without adjustment for race Performed By: #### L [id number] #### Sales Agent [employer] Insurance: ML MAYNARD ([id number]) [facility] ([facility]) [address] [place] [address] Glucose [Mass/Vol] 99 mg/dL Normal 70-100 [facility] Comment on above: Performed By: #### L [id number] #### Sales Agent Marine Insurance: ML MAYNARD ([id number]) [facility] ([facility]) [address] [place] [address] [place] Potassium [Moles/Vol] 3.9 mmol/L Normal 3.5-5.1 [facility] Comment on above: Performed By: #### L [id number] #### Sales Agent [employer] Insurance: ML MAYNARD ([id number]) [facility] ([facility]) [address] [place] [address] Protein [Mass/Vol] 6.7 g/dL Normal 6.3-8.2 [facility] Comment on above: Performed By: #### L [id number] #### Sales Agent [employer] Insurance: ML MAYNARD ([id number]) [facility] ([facility]) [address] [place] [address] [place] Sodium [Moles/Vol] 139 mmol/L Normal 135-145 [facility] Comment on above: Performed By: #### L [id number] #### Sales Agent Marine Insurance: ML MAYNARD ([id number]) [facility] ([facility]) [address] [place] [address] [place] Urea nitrogen [Mass/Vol] 10 mg/dL Normal 7-17 [facility] Comment on above: Performed By: #### L [id number] #### Sales Agent [employer] Insurance: ML MAYNARD ([id number]) [facility] ([facility]) [address] [place] [address] CREATININE, URINE, RANDOMon 07-17-2023 CREATININE, URINE 74.9 mg/dL Normal No Range [facility] Comment on above: Performed By: #### L [id number], [id number] #### Sales Agent [employer] Insurance: ML MAYNARD ([id number]) [facility] ([facility]) [address] [place] [address] Comprehensive metabolic 1998 panelon 07-17-2023 Albumin [Mass/Vol] 3.7 g/dL 3.5 - 5.0 g/dL [facility] ALP [Catalytic activity/Vol] 200 U/L High 38 - 126 U/L [facility] ALT [Catalytic activity/Vol] 49 U/L High 0 - 34 U/L [facility] Anion gap [Moles/Vol] 8 mmol/L 3 - 13 mmol/L [facility] AST [Catalytic activity/Vol] 56 U/L High 15 - 46 U/L [facility] Bilirubin [Mass/Vol] 0.5 mg/dL 0.2 - 1 .3 mg/dL [facility] Calcium [Mass/Vol] 9.5 mg/dL 8.4 - 10. 4 mg/dL [facility] Chloride [Moles/Vol] 108 mmol/L High 98 - 10 7 mmol/L [facility] CO2 [Moles/Vol] 23 mmol/L 22 - 30 mmol/L [facility] Creatinine [Mass/Vol] 0.72 mg/dL 0.52 - 1.04 mg/dL [facility] GFR/1.73 sq M.predicted MDRD (S/P/Bld) [Vol rate/Area] - PINF [facility] Comment on above: Calculation based on the Chronic Kidney Disease Epidemiology Collaboration (CKD-EPI) equation refit without adjustment for race Glucose [Mass/Vol] 99 mg/dL 70 - 100 mg/dL [facility] Interpretation and review of laboratory results Abnormal [facility] Potassium [Moles/Vol] 3.9 mmol/L 3.5 - 5.1 mmol/L [facility] Protein [Mass/Vol] 6.7 g/dL 6.3 - 8.2 g/dL [facility] Sodium [Moles/Vol] 139 mmol/L 135 - 145 mmol/L [facility] Urea nitrogen [Mass/Vol] 10 mg/dL 7 - 17 mg/d L [facility] Creatinine (U) [Mass/Vol]on 07-17-2023 CREATININE, URINE 74.9 mg/dL No Range [facility] - Urinalysison Protein (U) [Mass/Vol] 17 mg/dL High 0 - 12 mg/dL [facility] No Panel Informationon 07-17 Interpretation and review of laboratory results Abnormal [facility] PROTEIN, URINE, RANDOMon Protein (U) [Mass/Vol] 17 mg/dL High 0-12 [facility] Comment on above: Performed By: #### L [id number], [id number] #### Sales Agent [employer] Insurance: ML MAYNARD ([id number]) [facility] ([facility]) [address] [place] [address] Progress Noteon 07-17-2023 Progress Note Attestation signed by Edward Barry DO at 07/17/2023 10:40 PM Hospital Care (Independent): I independently saw and evaluated the patient. I agree with the findings and plan of care as documented in the resident's note. Given increased swelling and associated discomfort, history of preeclampsia without severe features, will plan to dc home with Lasix 20mg PO x 5 days. Return precautions provided to the patient. She will hopefully be returning home later this week as her baby is improving. Department of Obstetrics and Gynecology Labor and Delivery Triage Note CHIEF COMPLAINT: Palpitations, Swelling PreE HISTORY OF PRESENT ILLNESS: The patient is a 32 y.o. OB History 1 Para 1 Term 1 AB Living 1 SAB IAB Ectopic Multiple Live Births 1 Patient presents with a chief complaint as above. Patient is PPD#3 from a VAVD complicated by a 3rd degree laceration in [place]. Reports complicated by PreEwoSF, states she never received magnesium and is not on BP meds. Reports light lochia. Denies EDMOND, vision changes, chest pain, SOB, RUQ pain. States she came in for palpitations, swelling, and feeling like her BP is elevated. PAST MEDICAL HISTORY: Past Medical History: Diagnosis Date Preeclampsia, severe, third trimester PAST SURGICAL HISTORY: TONGUE AND QUARTER STITCHER is required. Please contact your telecommunications administrator to configure this SmartLink. SOCIAL HISTORY: Social History Socioeconomic History Marital status: Not on file Spouse name: Not on file Number of children: Not on file Years of education: Not on file Highest education level: Not on file Occupational History Not on file Tobacco Use Smoking status: Never Smokeless tobacco: Never Substance and Sexual Activity Alcohol use: Not Currently Drug use: Not Currently Sexual activity: Not on file Other Topics Concern Not on file Social History Narrative Not on file Social Determinants of Health Financial Resource Strain: Not on file Food Insecurity: Not on file Transportation Needs: Not on file Physical Activity: Not on file Stress: Not on file Social Connections: Not on file Intimate Partner Violence: Not on file Housing Stability: Not on file MEDICATIONS: No current facility-administere d medications for this encounter. CARE: Complicated by: PreEwoSF VAVD 3rd Degree Lac REVIEW OF SYSTEMS: Pertinent items are noted in HPI. APPEARANCE: Pain: no PHYSICAL EXAM: Vital Signs: Elevated BPs/Respirations normal effort Vitals: 07/17/23 1522 07/17/23 1524 07/17/23 1632 BP: 140/88 140/88 134/90 BP Location: Left arm Patient Position: Sitting Pulse: 100 Resp: 16 Temp: 37 ?C (98.6 ?F) TempSrc: Oral SpO2: 98% Heart: S1 and S2 normal, no murmur, click, gallop or rub Lungs: clear, equal breath sounds. No accessory muscle use. Abdomen: soft, nontender, no organomegaly or masses LE Edema: trace, nontender, b/l calves 44.5cm RESULTS: GENERAL LABS: Recent Results (from the past 24 hour(s)) Protein, urine, random Collection Time: 07/17/23 4:15 PM Result Value Ref Range TOTAL PROTEIN, UR 17 (H) 0 - 12 mg/dL Creatinine, urine, random Collection Time: 07/17/23 4:15 PM Result Value Ref Range CREATININE, URINE 74.9 No Range mg/dL Comprehensive metabolic panel Collection Time: 07/17/23 4:23 PM Result Value Ref Range SODIUM 139 135 - 145 mmol/L POTASSIUM 3.9 3.5 - 5.1 mmol/L CHLORIDE 108 (H) 98 - 107 mmol/L CARBON DIOXIDE 23 22 - 30 mmol/L ANION GAP 8 3 - 13 mmol/L UREA NITROGEN 10 7 - 17 mg/dL CREATININE 0.72 0.52 - 1.04 mg/dL GLUCOSE 99 70 - 100 mg/dL CALCIUM 9.5 8.4 - 10.4 mg/dL AST (SGOT) 56 (H) 15 - 46 U/L ALT 49 (H) 0 - 34 U/L ALKALINE PHOSPHATASE 200 (H) 38 - 126 U/L ALBUMIN 3.7 3.5 - 5.0 g/dL BILIRUBIN, TOTAL 0.5 0.2 - 1.3 mg/dL TOTAL PROTEIN 6.7 6.3 - 8.2 g/dL eGFR >90.0 >60.0 mL/min/1.73m*2 CBC Collection Time: 07/17/23 4:23 PM Result Value Ref Range Auto WBC 9.8 3.6 - 10.7 10*3/uL RBC 3.14 (L) 3.8 - 5.20 10*6/uL Hemoglobin 9.2 (L) 11.7 - 16.0 g/dL Hematocrit 27.3 (L) 35.0 - 47.0 % MCV 86.9 80.0 - 98.0 fL MCH 29.2 26.0 - 34.0 pg MCHC 33.6 32.0 - 36.0 % RDW 14.8 (H) 11.5 - 14.5 % Platelets 220 140 - 440 10*3/uL MPV 9.4 7.4 - 12.4 fL ECG 12 lead Collection Time: 07/17/23 5:33 PM Result Value Ref Range Heart Rate 75 bpm QRSD Interval 86 ms QT Interval 367 ms QTC Interval 410 ms P [place] 24 degrees QRS [place] -1 degrees T Wave [place] 29 degrees MD Interval 156 ms TRIAGE COURSE: Pt presented with above. Bps mild range while in triage. Physical exam benign. CBC wnl. CMP demonstrated elevated AST and ALT, less than 2x upper limit of normal. EKG demonstrated s (more content not included)... Normal [facility] Basophil percentageOrdered B y: Lindsay Garay on 07-13-2023 Hemoglobin (Bld) [Mass/Vol] 10.7 g/dL 12.0-15.0 [facility] WBC (Bld) [#/Vol] 9.2 10*3/uL 4.4-11.0 [facility] Determination of erythrocyte mean corpuscular volume (MCV)Ordered By: Lindsay Garay on 07-13-2023 MCV (RBC) [Entitic vol] 85.9 fL 81-99 [facility] Erythrocyte distribution wid th ratioOrdered By: Lindsay Garay on 07-13-2023 Erythrocyte distribution width (RBC) [Ratio] 13.7 % 11.6-14.6 [facility] Erythrocyte distribution wid th standard deviationOrdered By: Lindsay Garay on 07-13-2023 Erythrocyte distribution width (RBC) [Entitic vol] 42.6 fL 35.1-43.9 [facility] Hematocrit Auto (Bld) [Volum e fraction]Ordered By: Lindsay Garay on 07-13-2023 Hematocrit (Bld) [Volume fraction] 32.3 % 37-47 [facility] Laboratory - Chemistry and C hemistry - challengeOrdered By: Lindsay Garay on 07-13-2023 ALT [Catalytic activity/Vol] 33 U/L 13-56 [facility] Laboratory - Hematology and Cell countsOrdered By: Lindsay Garay on 07-13-2023 MCH (RBC) [Entitic mass] 28.5 pg 27.0-32.0 [facility] MCHC (RBC) [Mass/Vol] 33.1 g/dL 32-36 [facility] Platelets (Bld) [#/Vol] 193 10*3/uL 150-450 [facility] No Panel InformationOrdered By: Lindsay Garay on 07-13-2023 Estimated GFR (MDRD) Amer 132 mL/min >60 [facility] Comment on above: GFR Calc Estimated GFR (MDRD) Non-Af Amer 109 mL/min >60 [facility] Comment on above: Non- GFR Calc Platelet mean volume Philipp-Ec ker (Bld) [Entitic vol]Ordered By: Lindsay Garay on 07-13-2023 Platelet mean volume (Bld) [Entitic vol] 12.6 fL 6.2-12.0 [facility] RBC Auto (Bld) [#/Vol]Ordere d By: Lindsay Garay on 07-13-2023 RBC (Bld) [#/Vol] 3.76 10*6/uL 4.2-5.4 [facility] Serum Treponema species anti body detectionOrdered By: Lindsay Garay on 07-13-2023 Treponema sp Ab Ql (S) Non-Reactive [facility] Serum or plasma creatinine m easurement (mass/volume)Ordered By: Lindsay Garay on 07-13-2023 Creatinine [Mass/Vol] 0.67 mg/dL 0.55-1.02 [facility] Comment on above: The validity of the calculated GFR & GFRAA in patients over 70 years has not been determined. Clinical correlation is essential. Serum or plasma uric acid me asurement (mass/volume)Ordered By: Lindsay Garay on 07-13-2023 Urate [Mass/Vol] 4.4 mg/dL 2.6-6.0 [facility] Comment on above: The drugs N-Acetylcy steine and Metamizole may falsely depress this assay. Thin prep Papanicolaou smear with manual screeningOrdered By: Lindsay Garay on 07-13-2023 Protein (U) [Mass/Vol] 44.0 mg/dL 0.0-11.8 [facility] Thin prep Papanicolaou smear with manual screening 24 U/L 15-37 [facility] Urine creatinine measurement (mass/volume)Ordered By: Lindsay Garay on 07-13-2023 Creatinine (U) [Mass/Vol] 112.00 mg/dL NO RANGE EST. [facility] Urine protein/creatinine mas s ratioOrdered By: Lindsay Garay on 07-13-2023 Protein/Creatinine (U) [Mass ratio] 393 mg/g CRE 0-200 [facility] Basophil percentageOrdered B y: Luz Maria Haro on 07-03-2023 WBC (Bld) [#/Vol] 8.5 10*3/uL 4.4-11.0 [facility] Blood erythrocytes count (nu mber/volume)Ordered By: Luz Maria Haro on 07-03-2023 RBC (Bld) [#/Vol] 3.61 10*6/uL 4.2-5.4 [facility] Blood hemoglobin measurement (mass/volume)Ordered By: Luz Maria Haro on 07-03-2023 Hemoglobin (Bld) [Mass/Vol] 10.3 g/dL 12.0-15.0 [facility] Blood platelet mean volumeOr dered By: Luz Maria Haro on 07-03-2023 Platelet mean volume (Bld) [Entitic vol] 12.0 fL 6.2-12.0 [facility] Determination of erythrocyte mean corpuscular volume (MCV)Ordered By: Luz Maria Haro on 07-03-2023 MCV (RBC) [Entitic vol] 86.7 fL 81-99 [facility] Hematocrit Auto (Bld) [Volum e fraction]Ordered By: Luz Maria Haro on 07-03-2023 Hematocrit (Bld) [Volume fraction] 31.3 % 37-47 [facility] Laboratory - Chemistry and C hemistry - challengeOrdered By: Luz Maria Haro on 07-03-2023 ALT [Catalytic activity/Vol] 24 U/L 13-56 [facility] Laboratory - Chemistry and C hemistry - challengeon 07-03-2023 Glucose Ql (U) Negative [facility] Laboratory - Hematology and Cell countsOrdered By: Luz Maria Haro on 07-03-2023 Erythrocyte distribution width (RBC) [Entitic vol] 42.5 fL 35.1-43.9 [facility] Erythrocyte distribution width (RBC) [Ratio] 13.6 % 11.6-14.6 [facility] MCH (RBC) [Entitic mass] 28.5 pg 27.0-32.0 [facility] Laboratory - Urinalysison Protein Ql (U) Trace [facility] Comment on above: Office Urine Protein previously reported as Negative MCHC Auto (RBC) [Mass/Vol]Or dered By: Luz Maria Haro on 07-03-2023 MCHC (RBC) [Mass/Vol] 32.9 g/dL [facility] No Panel InformationOrdered By: Luz Maria Haro on 07-03-2023 Group B Streptococcus Culture Group B Beta Streptococcus is not isolated. [facility] Estimated Creatinine Clearance Calc 153.44 ml/min [facility] Estimated GFR (MDRD) Amer 146 mL/min >60 [facility] Comment on above: GFR Calc Estimated GFR (MDRD) Non-Af Amer 121 mL/min >60 [facility] Comment on above: Non- GFR Calc Platelets bldOrdered By: Sarah Haro on 07-03-2023 Platelets (Bld) [#/Vol] 189 10*3/uL 150-450 [facility] Serum or plasma creatinine m easurement (mass/volume)Ordered By: Luz Maria Haro on 07-03-2023 Creatinine [Mass/Vol] 0.61 mg/dL 0.55-1.02 [facility] Comment on above: The validity of the calculated GFR & GFRAA in patients over 70 years has not been determined. Clinical correlation is essential. Serum or plasma uric acid me asurement (mass/volume)Ordered By: Luz Maria Haro on 07-03-2023 Urate [Mass/Vol] 4.4 mg/dL 2.6-6.0 [facility] Comment on above: The drugs N-Acetylcy steine and Metamizole may falsely depress this assay. Thin prep Papanicolaou smear with manual screeningOrdered By: Luz Maria Haro on 07-03-2023 Thin prep Papanicolaou smear with manual screening 15 U/L [facility] Urine creatinine measurement (mass/volume)Ordered By: Luz Maria Haro on 07-03-2023 Creatinine (U) [Mass/Vol] 149.00 mg/dL NO RANGE EST. [facility] Urine protein measurement (m ass/volume)Ordered By: Luz Maria Haro on 07-03-2023 Protein (U) [Mass/Vol] 36.1 mg/dL 0.0-11.8 [facility] Urine protein/creatinine mas s ratioOrdered By: Luz Maria Haro on 07-03-2023 Protein/Creatinine (U) [Mass ratio] 242 mg/g CRE 0-200 [facility] Laboratory - Chemistry and C hemistry - challengeon 06-21-2023 Glucose Ql (U) Negative [facility] Laboratory - Urinalysison Protein Ql (U) Negative [facility] Absolute lymphocyte countOrd ered By: Luz Maria Haro on 06-09-2023 Lymphocytes Auto (Unsp spec) [#/Vol] 1.21 10*3/uL 0.83-4.51 [facility] Basophil percentageOrdered B y: Luz Maria Haro on 06-09-2023 Basophils/100 WBC (Bld) 0.3 % 0-1 [facility] Eosinophils/100 WBC (Bld) 2.4 % 0-5 [facility] Neutrophils (Bld) [#/Vol] 7.9 10*3/uL 2.0-7.7 [facility] Neutrophils/100 WBC (Bld) 77.9 % 47-70 [facility] WBC (Bld) [#/Vol] 10.2 10*3/uL 4.4-11.0 [facility] Blood erythrocytes count (nu mber/volume)Ordered By: Luz Maria Haro on 06-09-2023 RBC (Bld) [#/Vol] 3.75 10*6/uL 4.2-5.4 [facility] Blood hemoglobin measurement (mass/volume)Ordered By: Luz Maria Haro on 06-09-2023 Hemoglobin (Bld) [Mass/Vol] 10.6 g/dL 12.0-15.0 [facility] Blood lymphocytes/100 leukoc ytesOrdered By: Luz Maria Haro on 06-09-2023 Lymphocytes/100 WBC (Bld) 11.9 % 19-41 [facility] Blood monocytes/100 leukocyt esOrdered By: Luz Maria Haro on 06-09-2023 Monocytes/100 WBC (Bld) 6.6 % 0-10 [facility] Blood platelet mean volumeOr dered By: Luz Maria Haro on 06-09-2023 Platelet mean volume (Bld) [Entitic vol] 11.0 fL 6.2-12.0 [facility] Determination of erythrocyte mean corpuscular volume (MCV)Ordered By: Luz Maria Haro on 06-09-2023 MCV (RBC) [Entitic vol] 86.4 fL 81-99 [facility] Hematocrit Auto (Bld) [Volum e fraction]Ordered By: Luz Maria Haro on 06-09-2023 Hematocrit (Bld) [Volume fraction] 32.4 % 37-47 [facility] Laboratory - Chemistry and C hemistry - challengeon 06-09-2023 Glucose Ql (U) Negative [facility] Laboratory - Hematology and Cell countsOrdered By: Luz Maria Haro on 06-09-2023 Erythrocyte distribution width (RBC) [Entitic vol] 40.5 fL 35.1-43.9 [facility] Erythrocyte distribution width (RBC) [Ratio] 13.1 % 11.6-14.6 [facility] Immature granulocytes/100 WBC (Bld) 0.900 % 0.0-0.9 [facility] Comment on above: IG% - Immature Granu locytes (promyelocytes, myelocytes and metamyelocytes) > 1% indicates that a LEFT SHIFT is Present. MCH (RBC) [Entitic mass] 28.3 pg 27.0-32.0 [facility] Nucleated RBC/100 WBC (Bld) [Ratio] 0 % 0-5 [facility] Laboratory - Urinalysison Protein Ql (U) Negative [facility] MCHC Auto (RBC) [Mass/Vol]Or dered By: Luz Maria Haro on 06-09-2023 MCHC (RBC) [Mass/Vol] 32.7 g/dL 32-36 [facility] Platelets bldOrdered By: Sarah Haro on 06-09-2023 Platelets (Bld) [#/Vol] 222 10*3/uL 150-450 [facility] Laboratory - Chemistry and C hemistry - challengeon 05-22-2023 Glucose Ql (U) Negative [facility] Laboratory - Urinalysison Protein Ql (U) Negative [facility] Absolute lymphocyte countOrd ered By: Tatiana Bey on 05-10-2023 Lymphocytes Auto (Unsp spec) [#/Vol] 0.84 10*3/uL 0.83-4.51 [facility] Basophil percentageOrdered B y: Tatiana Bey on 05-10-2023 Basophils/100 WBC (Bld) 0.3 % 0-1 [facility] Eosinophils/100 WBC (Bld) 1.3 % 0-5 [facility] Neutrophils (Bld) [#/Vol] 9.1 10*3/uL 2.0-7.7 [facility] Neutrophils/100 WBC (Bld) 84.4 % 47-70 [facility] WBC (Bld) [#/Vol] 10.8 10*3/uL 4.4-11.0 [facility] Blood erythrocytes count (nu mber/volume)Ordered By: Tatiana Bey on 05-10-2023 RBC (Bld) [#/Vol] 3.73 10*6/uL 4.2-5.4 [facility] Blood hemoglobin measurement (mass/volume)Ordered By: Tatiana Bey on 05-10-2023 Hemoglobin (Bld) [Mass/Vol] 10.6 g/dL 12.0-15.0 [facility] Blood lymphocytes/100 leukoc ytesOrdered By: Tatiana Bey on 05-10-2023 Lymphocytes/100 WBC (Bld) 7.8 % 19-41 [facility] Blood monocytes/100 leukocyt esOrdered By: Tatiana Bey on 05-10-2023 Monocytes/100 WBC (Bld) 5.7 % 0-10 [facility] Blood platelet mean volumeOr dered By: Tatiana Bey on 05-10-2023 Platelet mean volume (Bld) [Entitic vol] 11.1 fL 6.2-12.0 [facility] Determination of erythrocyte mean corpuscular volume (MCV)Ordered By: Tatiana Bey on 05-10-2023 MCV (RBC) [Entitic vol] 88.2 fL 81-99 [facility] Gestational diabetes screen 1-hour screen with 50g oral glucose loadOrdered By: Tatiana Bey on 05-10-2023 Glucose 1 Hr post 50 g glucose PO [Mass/Vol] 105 mg/dL 70-140 [facility] HIV 1 and HIV-2 antibody ass ay with HIV-1 p24 antigen detectionOrdered By: Tatiana Bey on 05-10-2023 HIV 1+2 Ab+HIV1 p24 Ag IA Ql Non-Reactive Nonreactive [facility] Hematocrit Auto (Bld) [Volum e fraction]Ordered By: Tatiana Bey on 05-10-2023 Hematocrit (Bld) [Volume fraction] 32.9 % 37-47 [facility] Laboratory - Chemistry and C hemistry - challengeon 05-10-2023 Glucose Ql (U) Negative [facility] Laboratory - Hematology and Cell countsOrdered By: Tatiana Bey on 05-10-2023 Erythrocyte distribution width (RBC) [Entitic vol] 40.2 fL 35.1-43.9 [facility] Erythrocyte distribution width (RBC) [Ratio] 12.6 % 11.6-14.6 [facility] Immature granulocytes/100 WBC (Bld) 0.500 % 0.0-0.9 [facility] Comment on above: IG% - Immature Granu locytes (promyelocytes, myelocytes and metamyelocytes) > 1% indicates that a LEFT SHIFT is Present. MCH (RBC) [Entitic mass] 28.4 pg 27.0-32.0 [facility] Nucleated RBC/100 WBC (Bld) [Ratio] 0 % 0-5 [facility] Laboratory - Urinalysison Protein Ql (U) Trace [facility] MCHC Auto (RBC) [Mass/Vol]Or dered By: Tatiana Bey on 05-10-2023 MCHC (RBC) [Mass/Vol] 32.2 g/dL 32-36 [facility] Platelets bldOrdered By: Mariam Bey on 05-10-2023 Platelets (Bld) [#/Vol] 257 10*3/uL 150-450 [facility] Serum Treponema species anti body detectionOrdered By: Tatiana Bey on 05-10-2023 Treponema sp Ab Ql (S) Non-Reactive [facility] Laboratory - Chemistry and C hemistry - challengeon 04-28-2023 Glucose Ql (U) Negative [facility] Laboratory - Urinalysison Protein Ql (U) Negative [facility] Laboratory - Chemistry and C hemistry - challengeon 03-30-2023 Glucose Ql (U) Negative [facility] Laboratory - Urinalysison Protein Ql (U) Negative [facility] Laboratory - Chemistry and C hemistry - challengeon 02-27-2023 Glucose Ql (U) Negative [facility] Laboratory - Urinalysison Protein Ql (U) Negative [facility] Laboratory - Chemistry and C hemistry - challengeon 01-31-2023 Glucose Ql (U) Negative [facility] Laboratory - Urinalysison Protein Ql (U) Negative [facility] Absolute lymphocyte countOrd ered By: Lindsay Garay on 01-19-2023 Lymphocytes Auto (Unsp spec) [#/Vol] 1.25 10*3/uL 0.83-4.51 [facility] Basophil percentageOrdered B y: Lindsay Garay on 01-19-2023 Basophils/100 WBC (Bld) 0.6 % 0-1 [facility] Eosinophils/100 WBC (Bld) 4.2 % 0-5 [facility] Neutrophils (Bld) [#/Vol] 5.1 10*3/uL 2.0-7.7 [facility] Neutrophils/100 WBC (Bld) 71.5 % 47-70 [facility] WBC (Bld) [#/Vol] 7.2 10*3/uL 4.4-11.0 [facility] Blood erythrocytes count (nu mber/volume)Ordered By: Lindsay Garay on 01-19-2023 RBC (Bld) [#/Vol] 3.91 10*6/uL 4.2-5.4 [facility] Blood hemoglobin measurement (mass/volume)Ordered By: Lindsay Garay on 01-19-2023 Hemoglobin (Bld) [Mass/Vol] 11.7 g/dL 12.0-15.0 [facility] Blood lymphocytes/100 leukoc ytesOrdered By: Lindsay Garay on 01-19-2023 Lymphocytes/100 WBC (Bld) 17.5 % 19-41 [facility] Blood monocytes/100 leukocyt esOrdered By: Lindsay Garay on 01-19-2023 Monocytes/100 WBC (Bld) 5.9 % 0-10 [facility] Blood platelet mean volumeOr dered By: Lindsay Garay on 01-19-2023 Platelet mean volume (Bld) [Entitic vol] 10.7 fL 6.2-12.0 [facility] Determination of erythrocyte mean corpuscular volume (MCV)Ordered By: Lindsay Garay on 01-19-2023 MCV (RBC) [Entitic vol] 85.2 fL 81-99 [facility] HIV 1 and HIV-2 antibody ass ay with HIV-1 p24 antigen detectionOrdered By: Lindsay Garay on 01-19-2023 HIV 1+2 Ab+HIV1 p24 Ag IA Ql Non-Reactive Nonreactive [facility] Hematocrit Auto (Bld) [Volum e fraction]Ordered By: Lindsay Garay on 01-19-2023 Hematocrit (Bld) [Volume fraction] 33.3 % 37-47 [facility] Laboratory - Hematology and Cell countsOrdered By: Lindsay Garay on 01-19-2023 Erythrocyte distribution width (RBC) [Entitic vol] 38.3 fL 35.1-43.9 [facility] Erythrocyte distribution width (RBC) [Ratio] 12.4 % 11.6-14.6 [facility] Immature granulocytes/100 WBC (Bld) 0.300 % 0.0-0.9 [facility] Comment on above: IG% - Immature Granu locytes (promyelocytes, myelocytes and metamyelocytes) > 1% indicates that a LEFT SHIFT is Present. MCH (RBC) [Entitic mass] 29.9 pg 27.0-32.0 [facility] Nucleated RBC/100 WBC (Bld) [Ratio] 0 % 0-5 [facility] MCHC Auto (RBC) [Mass/Vol]Or dered By: Lindsay Garay on 01-19-2023 MCHC (RBC) [Mass/Vol] 35.1 g/dL 32-36 [facility] No Panel InformationOrdered By: Lindsay Garay on 01-19-2023 Hepatitis B Surface Antigen Non-Reactive Nonreactive [facility] Hepatitis C Antibody Non-Reactive Nonreactive [facility] Comment on above: Non Reactive: < 0.8 Equivocal: >/= 0.8 to < 1.0 Reactive: >/= 1.0The CDC recommends that a reactive/equivocal HCV antibody result be followed up by the HCV Nucleic Acid Amplificationtest (240285) Rubella IgG Antibody Reactive Nonreactive [facility] Comment on above: Antibody Results Int erpretation of Immune Status Non Reactive Presumed Non-Immune Equivocal Equivocal Reactive Presumed Immune Platelets bldOrdered By: Hiram Garay on 01-19-2023 Platelets (Bld) [#/Vol] 266 10*3/uL 150-450 [facility] Serum Treponema species anti body detectionOrdered By: Lindsay Garay on 01-19-2023 Treponema sp Ab Ql (S) Non-Reactive [facility] Cervical or vagninal specime n microscopic examination by cytology stain (reported asOrdered By: Luz Maria Haro on 01-02-2023 Cytology report Cyto stain Doc (Cvx/Vag) Comment . [facility] Comment on above: The Pap smear is a s creening test designed to aid in thedetection of premalignant and malignant conditions of theuterine cervix. It is not a diagnostic procedure andshould not be used as the sole means of detecting cervicalcancer. Both false-positive and false-negative reports dooccur. Chlamydia trachomatis rRNA d etection by probe and target amplification methodOrdered By: Lindsay Garay on 01-02-2023 C. trachomatis rRNA NOREEN+probe Ql (Unsp spec) Negative Negative [facility] Culture, urineOrdered By: Royal Garay on 01-02-2023 Bacteria identified Cx Nom (U) Culture exhibits no growth. [facility] Detection in cervical specim en of any of human papilloma virus (HPV) 16, 18, 31, 33,Ordered By: Luz Maria Haro on 01-02-2023 HPV 16+18+31+33+35+39+45+51+ 52+56+58+59+66+68 DNA Probe+sig amp Ql (Cvx) Negative Negative [facility] Comment on above: This nucleic acid am plification test detects fourteen high-risk HPV types (16,18,31,33,35,39,45,51,52,56,58,59,66,68)without differentiation. Laboratory - CytologyOrdered By: Luz Maria Haro on 01-02-2023 Planer Operator / Grader Cyto stain Nom (Cvx/Vag) [ID] Comment . [facility] Comment on above: Lashae Gregg, [employer] hnologist (ASCP) Laboratory - Microbiology an d Antimicrobial susceptibilityOrdered By: Lindsay Garay on 01-02-2023 N. gonorrhoeae DNA NOREEN+probe Ql (Unsp spec) Negative Negative [facility] Comment on above: Performed at: =G - [address] [id number] Director: Odalis Ruvalcaba MD, Phone: [phone] Laboratory - Miscellaneous t estsOrdered By: Luz Maria Haro on 01-02-2023 Service comment (Unsp spec) [Interp] Comment . [facility] Comment on above: This liquid based Th inPrep(R) pap test was screened withthe use of an image guided system. Service comment (Unsp spec) [Interp] . . [facility] Liquid-based cerv Pap + CT/G C by NOREEN w reflex to high-risk HPV for ASCUSOrdered By: Luz Maria Haro on 01-02-2023 Cytology report Cyto stain.thin prep Doc (Cvx/Vag) Comment . [facility] Comment on above: Criteria not met, HP V Genotype not performed.Performed at: - [facility] [id number] Director: Odalis Ruvalcaba MD, Phone: [phone] at: = - [facility] [id number] Director: Odalis Ruvalcaba MD, Phone: [phone] No Panel InformationOrdered By: Luz Maria Haro on 01-02-2023 Pathology report final diagnosis Narrative Comment . [facility] Comment on above: NEGATIVE FOR INTRAEP ITHELIAL LESION OR MALIGNANCY. FT4on 04-21-2022 Free T4 [Mass/Vol] 1.04 ng/dL Normal 0.76-1.46 [facility] ([place] Comment on above: Performed By: #### T MICHAEL JOYNER, FT4 #### [address] [address] LABORATORYOrdered By: Lilia Butterfield on 04-21-2022 Free T4 [Mass/Vol] 1.04 ng/dL Invalid Interpretation Code 0.76 - 1.46 ng/dL AO ADM SS TSH Qn 0.94 m[IU]/L Invalid Interpretation Code 0.36 - 3.74 mcIU/mL AO ADM SS Vit. D 25-Hydroxy 38.4 ng/mL Invalid Interpretation Code AO ADM SS TSHon 04-21-2022 TSH Qn 0.94 m[IU]/L Normal 0.36-3.74 [facility] ([place] Comment on above: Performed By: #### T MICHAEL JOYNER, FT4 #### [address] [address] VIDHon 04-21-2022 Vit. D 25-Hydroxy 38.4 ng/mL Normal [facility] ([place] Comment on above: Result Comment: Inte rpretive Values Based on Total 25(OH) Vitamin D: Deficient <20 ng/mL Insufficient 20 - <30 ng/mL Sufficient 30-100 ng/mL Performed By: #### T MICHAEL JOYNER, FT4 #### [address] [address] Vital Signs Date Time Vital Sign Value Performing Clinician Serena chicas 12-30-2024 10: Body height 162.56 cm NOEMI MAST PORTER MARINA Work Phone: [facility] 12-30-2024 10: Body mass index (BMI) [Ratio] 32.6 kg/m2 NOEMI MAST PORTER MARINA Work Phone: [facility] 12-30-2024 10: Body weight 86.29 kg NOEMI MAST PORTER MARINA Work Phone: [facility] 12-30-2024 10:18-0400 Diastolic blood pressure 81 mm[Hg] NOEMI MAST PORTER MARINA Work Phone: [facility] 12-30-2024 10:18-0400 Systolic blood pressure 118 mm[Hg] NOEMI MAST PORTER MARINA Work Phone: [facility] 12-17-2024 15:50-0400 Body temperature 97.8 [degF] NOEMI MAST PORTER MARINA Work Phone: [facility] 12-17-2024 15:50-0400 Diastolic blood pressure 67 mm[Hg] NOEMI MAST PORTER MARINA Work Phone: [facility] 12-17-2024 15:50-0400 Heart rate 97 /min NOEMI MAST PORTER MARINA Work Phone: [facility] 12-17-2024 15:50-0400 Respiratory rate 16 /min NOEMI MAST PORTER MARINA Work Phone: [facility] 12-17-2024 15:50-0400 SaO2% (BldA) [Mass fraction] 96 % NOEMI MAST PORTER MARINA Work Phone: [facility] 12-17-2024 15:50-0400 Systolic blood pressure 110 mm[Hg] NOEMI MAST PORTER MARINA Work Phone: [facility] 12-17-2024 11:38-0400 Body height 162.56 cm NOEMI MAST PORTER MARINA Work Phone: [facility] 12-17-2024 11:38-0400 Body mass index (BMI) [Ratio] 32.1 kg/m2 NOEMI MAST PORTER MARINA Work Phone: [facility] 12-17-2024 11:38-0400 Body weight 85 kg NOEMI MAST PORTER MARINA Work Phone: [facility] 12-13-2024 08:48-0400 Body height 162.56 cm NOEMI MAST PORTER MARINA Work Phone: [facility] 12-13-2024 08:48-0400 Body mass index (BMI) [Ratio] 32.8 kg/m2 NOEMI MAST PORTER MARINA Work Phone: [facility] 12-13-2024 08:48-0400 Body weight 86.69 kg NOEMI MAST PORTER MARINA Work Phone: [facility] 12-13-2024 08:48-0400 Diastolic blood pressure 85 mm[Hg] NOEMI MAST PORTER MARINA Work Phone: [facility] 12-13-2024 08:48-0400 Systolic blood pressure 131 mm[Hg] NOEMI MAST PORTER MARINA Work Phone: [facility] 10-16-2024 09:56-0400 Body height 162.56 cm NOEMI MAST PORTER MARINA Work Phone: [facility] 10-16-2024 09:56-0400 Body mass index (BMI) [Ratio] 31.6 kg/m2 NOEMI MAST PORTER MARINA Work Phone: [facility] 10-16-2024 09:56-0400 Body weight 83.68 kg NOEMI MAST PORTER MARINA Work Phone: [facility] 10-16-2024 09:56-0400 Diastolic blood pressure 83 mm[Hg] NOEMI MAST PORTER MARINA Work Phone: [facility] 10-16-2024 09:56-0400 Systolic blood pressure 121 mm[Hg] NOEMI MAST PORTER MARINA Work Phone: [facility] 07-17-2023 17:47-0500 Diastolic blood pressure 81 mm[Hg] Edward Tamirisa DO Work Phone: [facility] 07-17-2023 17:47-0500 Heart rate 77 /min Edward Tamirisa DO Work Phone: [employer] 07-17-2023 17:47-0500 Systolic blood pressure 134 mm[Hg] Edward Tamirisa DO Work Phone: [facility] 07-17-2023 17:25-0500 SaO2% (BldA) [Mass fraction] 99 % Edward Tamirisa DO Work Phone: [facility] 07-17-2023 15:22-0500 Body temperature 98.6 [degF] Edward Tamirisa DO Work Phone: [facility] 07-17-2023 15:22-0500 Respiratory rate 16 /min Edward Tamirisa DO Work Phone: [facility] 07-15-2023 10:01-0500 Body temperature 97.4 [degF] MIXER OPERATOR [employer] Loly Seffens MIXER OPERATOR [employer] Work Phone: [facility] 07-15-2023 10:01-0500 Diastolic blood pressure 86 mm[Hg] MIXER OPERATOR [employer] Loly Seffens MIXER OPERATOR [employer] Work Phone: [facility] 07-15-2023 10:01-0500 Heart rate 94 /min MIXER OPERATOR [employer] Loly Seffens MIXER OPERATOR [employer] Work Phone: [facility] 07-15-2023 10:01-0500 Respiratory rate 16 /min MIXER OPERATOR [employer] Loly Seffens MIXER OPERATOR [employer] Work Phone: [facility] 07-15-2023 10:01-0500 SaO2% (BldA) [Mass fraction] 98 % M[employer]ER OPERATOR [employer] Loly Seffens MIXER OPERATOR [employer] Work Phone: [facility] 07-15-2023 10:01-0500 Systolic blood pressure 122 mm[Hg] MIXER OPERATOR [employer] Loly Seffens MIXER OPERATOR [employer] Work Phone: [facility] 07-13-2023 17:19-0500 Body height 162.56 cm MIXER OPERATOR [employer] Loly Seffens MIXER OPERATOR [employer] Work Phone: [facility] 07-13-2023 17:19-0500 Body mass index (BMI) [Ratio] 38.4 kg/m2 [employer] O[employer] Loly Seffens MIXER OPERATOR [employer] Work Phone: [facility] 07-13-2023 17:19-0500 Body weight 101.6 kg MIXER OPERATOR [employer] Loly Seffens MIXER OPERATOR [employer] Work Phone: [facility] 07-03-2023 12:27-0500 Diastolic blood pressure 77 mm[Hg] MIXER OPERATOR [employer] Loly Seffens MIXER OPERATOR [employer] Work Phone: [facility] 07-03-2023 12:27-0500 Heart rate 92 /min MIXER OPERATOR [employer] Loly Seffens MIXER OPERATOR [employer] Work Phone: [facility] 07-03-2023 12:27-0500 Systolic blood pressure 118 mm[Hg] MIXER OPERATOR [employer] Loly Seffens MIXER OPERATOR [employer] Work Phone: [facility] 07-03-2023 11:50-0500 Body height 162.56 cm MIXER OPERATOR [employer] Loly Seffens MIXER OPERATOR [employer] Work Phone: [facility] 07-03-2023 11:50-0500 Body mass index (BMI) [Ratio] 37.8 kg/m2 M[employer] O[employer] Loly Seffens MIXER OPERATOR [employer] Work Phone: [facility] 07-03-2023 11:50-0500 Body weight 99.79 kg MIXER OPERATOR [employer] Loly Seffens MIXER OPERATOR [employer] Work Phone: [facility] 07-03-2023 11:15-0500 Body temperature 99.3 [degF] MIXER OPERATOR [employer] Loly Seffens MIXER OPERATOR [employer] Work Phone: [facility] 07-03-2023 11:15-0500 SaO2% (BldA) [Mass fraction] 97 % M[employer]ER OPERATOR [employer] Loly Seffens MIXER OPERATOR RAW SALT Work Phone: [facility] 07-03-2023 10:27-0500 Diastolic blood pressure 90 mm[Hg] MIXER OPERATOR RAW SALT-C Loly Seffens MIXER OPERATOR RAW SALT Work Phone: [facility] 07-03-2023 10:27-0500 Systolic blood pressure 142 mm[Hg] MIXER OPERATOR RAW SALT-C Loly Seffens MIXER OPERATOR RAW SALT Work Phone: [facility] 07-03-2023 09:43-0500 Body mass index (BMI) [Ratio] 37.5 kg/m2 MIXER OPERATOR RAW SALT-C Loly Seffens MIXER OPERATOR RAW SALT Work Phone: [facility] 07-03-2023 09:43-0500 Body weight 99.1 kg MIXER OPERATOR RAW SALT-C Loly Seffens MIXER OPERATOR RAW SALT Work Phone: [facility] 06-21-2023 10:33-0500 Body height 162.56 cm MIXER OPERATOR RAW SALT-C Loly Seffens MIXER OPERATOR RAW SALT Work Phone: [facility] 06-21-2023 10:33-0500 Body mass index (BMI) [Ratio] 36.7 kg/m2 MIXER OPERATOR RAW SALT-C Loly Seffens MIXER OPERATOR RAW SALT Work Phone: [facility] 06-21-2023 10:33-0500 Body weight 97.06 kg MIXER OPERATOR RAW SALT-C Loly Seffens MIXER OPERATOR RAW SALT Work Phone: [facility] 06-21-2023 10:33-0500 Diastolic blood pressure 84 mm[Hg] MIXER OPERATOR RAW SALT-C Loly Seffens MIXER OPERATOR RAW SALT Work Phone: [facility] 06-21-2023 10:33-0500 Systolic blood pressure 116 mm[Hg] MIXER OPERATOR RAW SALT-C Loly Seffens MIXER OPERATOR RAW SALT Work Phone: [facility] 06-09-2023 09:49-0500 Body mass index (BMI) [Ratio] 35.7 kg/m2 MIXER OPERATOR RAW SALT-C Loly Seffens MIXER OPERATOR RAW SALT Work Phone: [facility] 06-09-2023 09:49-0500 Body weight 94.4 kg MIXER OPERATOR RAW SALT-C Loly Seffens MIXER OPERATOR RAW SALT Work Phone: [facility] 06-09-2023 09:49-0500 Diastolic blood pressure 77 mm[Hg] MIXER OPERATOR RAW SALT-C Loly Seffens MIXER OPERATOR RAW SALT Work Phone: [facility] 06-09-2023 09:49-0500 Systolic blood pressure 107 mm[Hg] MIXER OPERATOR RAW SALT-C Loly Seffens MIXER OPERATOR RAW SALT Work Phone: [facility] 05-22-2023 08:03-0500 Body mass index (BMI) [Ratio] 34.8 kg/m2 MIXER OPERATOR RAW SALT-C Loly Seffens MIXER OPERATOR RAW SALT Work Phone: [facility] 05-22-2023 08:03-0500 Body weight 92.07 kg MIXER OPERATOR RAW SALT-C Loly Seffens MIXER OPERATOR RAW SALT Work Phone: [facility] 05-22-2023 08:03-0500 Diastolic blood pressure 83 mm[Hg] MIXER OPERATOR RAW SALT-C Loly Seffens MIXER OPERATOR RAW SALT Work Phone: [facility] 05-22-2023 08:03-0500 Systolic blood pressure 118 mm[Hg] MIXER OPERATOR RAW SALT-C Loly Seffens MIXER OPERATOR RAW SALT Work Phone: [facility] 05-10-2023 09:41-0500 Body height 162.56 cm MIXER OPERATOR RAW SALT-C Loly Seffens MIXER OPERATOR RAW SALT Work Phone: [facility] 05-10-2023 09:39-0500 Body mass index (BMI) [Ratio] 34 kg/m2 MIXER OPERATOR RAW SALT-C Loly Seffens MIXER OPERATOR RAW SALT Work Phone: [facility] 05-10-2023 09:39-0500 Body weight 89.92 kg MIXER OPERATOR RAW SALT-C Loly Seffens MIXER OPERATOR RAW SALT Work Phone: [facility] 05-10-2023 09:39-0500 Diastolic blood pressure 72 mm[Hg] MIXER OPERATOR RAW SALT-C Loly Seffens MIXER OPERATOR RAW SALT Work Phone: [facility] 05-10-2023 09:39-0500 Respiratory rate 16 /min MIXER OPERATOR RAW SALT-C Loly Seffens MIXER OPERATOR RAW SALT Work Phone: [facility] 05-10-2023 09:39-0500 Systolic blood pressure 118 mm[Hg] MIXER OPERATOR RAW SALT-C Loly Seffens MIXER OPERATOR RAW SALT Work Phone: [facility] 04-28-2023 09:26-0500 Body mass index (BMI) [Ratio] 33.6 kg/m2 MIXER OPERATOR RAW SALT-C Loly Seffens MIXER OPERATOR RAW SALT Work Phone: [facility] 04-28-2023 09:26-0500 Body weight 88.9 kg MIXER OPERATOR RAW SALT-C Loly Seffens MIXER OPERATOR RAW SALT Work Phone: [facility] 04-28-2023 09:26-0500 Diastolic blood pressure 76 mm[Hg] MIXER OPERATOR RAW SALT-C Loly Seffens MIXER OPERATOR RAW SALT Work Phone: [facility] 04-28-2023 09:26-0500 Systolic blood pressure 108 mm[Hg] MIXER OPERATOR RAW SALT-C Loly Seffens MIXER OPERATOR RAW SALT Work Phone: [facility] 03-30-2023 08:09-0400 Body mass index (BMI) [Ratio] 32.6 kg/m2 MIXER OPERATOR RAW SALT-C Loly Seffens MIXER OPERATOR RAW SALT Work Phone: [facility] 03-30-2023 08:09-0400 Body weight 86.23 kg MIXER OPERATOR RAW SALT-C Loly Seffens MIXER OPERATOR RAW SALT Work Phone: [facility] 03-30-2023 08:09-0400 Diastolic blood pressure 82 mm[Hg] MIXER OPERATOR RAW SALT-C Loly Seffens MIXER OPERATOR RAW SALT Work Phone: [facility] 03-30-2023 08:09-0400 Systolic blood pressure 128 mm[Hg] MIXER OPERATOR RAW SALT-C Loly Seffens MIXER OPERATOR RAW SALT Work Phone: [facility] 02-27-2023 14:04-0400 Body mass index (BMI) [Ratio] 31 kg/m2 MIXER OPERATOR RAW SALT-C Loly Seffens MIXER OPERATOR RAW SALT Work Phone: [facility] 02-27-2023 14:04-0400 Body weight 82.1 kg MIXER OPERATOR RAW SALT-C Loly Seffens MIXER OPERATOR RAW SALT Work Phone: [facility] 02-27-2023 14:04-0400 Diastolic blood pressure 73 mm[Hg] MIXER OPERATOR RAW SALT-C Loly Seffens MIXER OPERATOR RAW SALT Work Phone: [facility] 02-27-2023 14:04-0400 Systolic blood pressure 117 mm[Hg] MIXER OPERATOR RAW SALT-C Loly Seffens MIXER OPERATOR RAW SALT Work Phone: [facility] 01-31-2023 08:08-0400 Body mass index (BMI) [Ratio] 29.9 kg/m2 MIXER OPERATOR RAW SALT-C Loly Seffens MIXER OPERATOR RAW SALT Work Phone: [facility] 01-31-2023 08:08-0400 Body weight 79.03 kg MIXER OPERATOR RAW SALT-C Loly Seffens MIXER OPERATOR RAW SALT Work Phone: [facility] 01-31-2023 08:08-0400 Diastolic blood pressure 78 mm[Hg] MIXER OPERATOR RAW SALT-C Loly Seffens MIXER OPERATOR RAW SALT Work Phone: [facility] 01-31-2023 08:08-0400 Systolic blood pressure 124 mm[Hg] MIXER OPERATOR RAW SALT-C Loly Seffens MIXER OPERATOR RAW SALT Work Phone: [facility] 01-02-2023 13:34-0400 Body height 162.56 cm MIXER OPERATOR RAW SALT-C Loly Seffens MIXER OPERATOR RAW SALT Work Phone: [facility] 01-02-2023 13:31-0400 Body mass index (BMI) [Ratio] 28.9 kg/m2 MIXER OPERATOR RAW SALT-C Loly Seffens MIXER OPERATOR RAW SALT Work Phone: [facility] 01-02-2023 13:31-0400 Body weight 76.43 kg MIXER OPERATOR RAW SALT-C Loly Seffens MIXER OPERATOR RAW SALT Work Phone: [facility] 01-02-2023 13:31-0400 Diastolic blood pressure 79 mm[Hg] MIXER OPERATOR RAW SALT-C Loly Seffens MIXER OPERATOR RAW SALT Work Phone: [facility] 01-02-2023 13:31-0400 Systolic blood pressure 132 mm[Hg] MIXER OPERATOR RAW SALT-C Loly Seffens MIXER OPERATOR RAW SALT Work Phone: [facility] Encounters Encounter Date Encounter Type Care Provider Facility Start: 03-26-2025 End: 03-26-2025 ambulatory Rox Reese Facility:[facility] Start: 03-26-2025 End: 03-26-2025 Discharged Recurring Rox Reese MIXER OPERATOR RAW SALT-C -Physical Therapy Work Phone: Start: 01-20-2025 End: 01-20-2025 ambulatory NOEMI TREJO APRN-PAPER NOVELTY MAKER Facility:[facility] Start: 01-20-2025 End: 01-20-2025 Patient encounter procedure BEATRICE Yariel ZELAYA RETAIL CASHIER-PAPER NOVELTY MAKER [facility] Start: 12-30-2024 End: 12-30-[address] Tatiana Sue DO -[facility] Work Phone: Start: 12-30-2024 End: 12-30-2024 ambulatory NOEMI MAST PORTER MARINA Work Phone: -[facility] Start: 12-27-2024 Encounter for other preprocedural examination Tatiana Sue [facility] Start: 12-25-2024 Registered Recurring Rox HEAD -Physical Therapy Work Phone: Start: 12-17-2024 ambulatory Tatiana Caceres cility:[facility] Start: 12-17-2024 Non-patient / Non-visit Dr. Clint Sue DO -[facility] Start: 12-17-2024 End: 12-17-2024 Admission to same day surgery center Dr. Tatiana Sue DO [facility] Start: 12-17-2024 End: 12-17-2024 ambulatory NOEMI MAST PORTER MARINA Work Phone: -[facility] Start: 12-13-2024 End: 12-13-2024 Patient encounter procedure Luz Maria Haro CN -[facility] Work Phone: Start: 12-13-2024 End: 12-13-2024 ambulatory NOEMI MAST PORTER MARINA Work Phone: [facility] Work Phone: Start: 12-11-2024 Registered Recurring Rox HEAD -Physical Therapy Work Phone: Start: 11-15-2024 End: 11-15-2024 ambulatory NOEMI MAST PORTER MARINA Work Phone: [facility] Work Phone: Start: 11-15-2024 End: 11-15-2024 Patient encounter procedure Rox Barkman MIXER OPERATOR RAW SALT-C -Outpatient [facility] Work Phone: Start: 11-15-2024 End: 11-15-2024 ambulatory Rox Reese Facility:[facility] Start: 10-16-2024 End: 10-16-2024 Patient encounter procedure Rox Reese MIXER OPERATOR RAW SALT-C -[facility] Work Phone: Start: 10-16-2024 End: 10-16-2024 Patient encounter status Rox Reese MIXER OPERATOR RAW SALT-C [facility] Start: 10-16-2024 End: 10-16-2024 ambulatory Rox Reese Facility:[facility] Start: 09-05-2023 End: 09-05-2023 ambulatory JEFF DEJESUSOME FLOYDAMOL Facility:[facility] Start: 09-05-2023 End: 09-05-2023 Subsequent hospital visit by physician [facility] Work Phone: Radiology Start: 07-17-2023 End: 07-17-2023 ambulatory [facility] Start: 07-17-2023 End: 07-17-2023 Subsequent [facility] Start: 07-15-2023 Non-patient / Non-visit MIXER OPERATOR RAW SALT-C C marisol Rene MIXER OPERATOR RAW SALT Work Phone: [facility] Start: 07-14-2023 Non-patient / Non-visit MIXER OPERATOR RAW SALT-C Joanne Rene MIXER OPERATOR RAW SALT Work Phone: [facility] Start: 07-13-2023 Non-patient / Non-visit MIXER OPERATOR RAW SALT-C C marisol Lewisns MIXER OPERATOR RAW SALT Work Phone: [facility] Start: 07-13-2023 End: 07-15-2023 Evaluation and management of inpatient MIXER OPERATOR RAW SALT-C Loly Rene MIXER OPERATOR RAW SALT Work Phone: [facility] Work Phone: Start: 07-03-2023 Non-patient / Non-visit MIXER OPERATOR RAW SALT-C Joanne marisol Rene MIXER OPERATOR RAW SALT Work Phone: [facility] Start: 07-03-2023 End: 07-03-2023 ambulatory MIXER OPERATOR RAW SALT-C Loly Rene MIXER OPERATOR RAW SALT Work Phone: [facility] Work Phone: Start: 07-03-2023 End: 07-03-2023 Patient encounter procedure MIXER OPERATOR RAW SALT-C Loly Rene MIXER OPERATOR RAW SALT [facility] Work Phone: Start: 07-03-2023 End: 07-03-2023 Patient encounter procedure MIXER OPERATOR RAW SALT-C Loly Rene MIXER OPERATOR RAW SALT Work Phone: [facility] Work Phone: Start: 06-21-2023 End: 06-21-2023 Patient encounter procedure MIXER OPERATOR RAW SALT-C Loly Rene MIXER OPERATOR RAW SALT Work Phone: [facility] Work Phone: Start: 06-21-2023 End: 06-21-2023 ambulatory MIXER OPERATOR RAW SALT-C Loly Rene MIXER OPERATOR RAW SALT Work Phone: [facility] Work Phone: Start: 06-21-2023 End: 06-21-2023 Patient encounter procedure MIXER OPERATOR RAW SALT-C Loly Rene MIXER OPERATOR RAW SALT Work Phone: [facility] Work Phone: Start: 06-09-2023 End: 06-09-2023 Patient encounter procedure MIXER OPERATOR RAW SALT-C Loly Rene MIXER OPERATOR RAW SALT Work Phone: [facility] Work Phone: Start: 06-09-2023 End: 06-09-2023 Patient encounter procedure MIXER OPERATOR RAW SALT-C Loly Rene MIXER OPERATOR RAW SALT Work Phone: [facility]Laboratory Work Phone: Start: 05-22-2023 End: 05-22-2023 Patient encounter procedure MIXER OPERATOR RAW SALT-C Loly Seffens MIXER OPERATOR RAW SALT Work Phone: [facility] Work Phone: Start: 05-10-2023 End: 05-10-2023 ambulatory MIXER OPERATOR RAW SALT-C Loly Seffens MIXER OPERATOR RAW SALT Work Phone: [facility] Work Phone: Start: 05-10-2023 End: 05-10-2023 Patient encounter procedure MIXER OPERATOR RAW SALT-C Loly Seffens MIXER OPERATOR RAW SALT Work Phone: [facility] Work Phone: Start: 04-28-2023 End: 04-28-2023 Patient encounter procedure MIXER OPERATOR RAW SALT-C Loly Seffens MIXER OPERATOR RAW SALT Work Phone: [facility] Work Phone: Start: 03-30-2023 End: 03-30-2023 Patient encounter procedure MIXER OPERATOR RAW SALT-C Loly Seffens MIXER OPERATOR RAW SALT Work Phone: [facility] Work Phone: Start: 03-14-2023 End: 03-14-2023 ambulatory MD PRIMARY CARE [facility] Start: 02-27-2023 End: 02-27-2023 Patient encounter procedure MIXER OPERATOR RAW SALT-C Loly Seffens MIXER OPERATOR RAW SALT Work Phone: [facility] Work Phone: Start: 01-31-2023 End: 01-31-2023 Patient encounter procedure MIXER OPERATOR RAW SALT-C Loly Seffens MIXER OPERATOR RAW SALT Work Phone: [facility] Work Phone: Start: 01-19-2023 End: 01-19-2023 Patient encounter procedure MIXER OPERATOR RAW SALT-C Loly Seffens MIXER OPERATOR RAW SALT Work Phone: [facility] Work Phone: Start: 01-02-2023 End: 01-02-2023 ambulatory MIXER OPERATOR RAW SALT-C Loly miguel a MIXER OPERATOR RAW SALT Work Phone: [facility] Work Phone: Start: 01-02-2023 End: 01-02-2023 Patient encounter procedure MIXER OPERATOR RAW SALT-C Loly Semiguel a MIXER OPERATOR RAW SALT Work Phone: [facility] Spec[facility] Work Phone: Start: 01-02-2023 End: 01-02-2023 Patient encounter procedure MIXER OPERATOR RAW SALT-C Loly Anju MIXER OPERATOR RAW SALT Work Phone: [facility] Work Phone: Start: 04-21-2022 End: 04-26-2022 ambulatory LOLY RENE RETAIL CASHIER-PAPER NOVELTY MAKER Facility:[facility] Start: 04-21-2022 End: 04-25-2022 Outreach Lab LOLY ANJU RETAIL CASHIER-PAPER NOVELTY MAKER [facility] Procedures Date Procedure Procedure Detail Performing Clinician Start: 12-17-2024 Dilation and curetta ge of uterus NOEMI MAST PORTER MARINA Work Phone: Start: 11-15-2024 Ultrasonography of breast NOEMI MAST PORTER MARINA Work Phone: Start: 09-05-2023 Us breast uni real t laurie with image limited Tatiana Sue Work Phone: Start: 09-05-2023 Digital breast tomosynthesis bilateral Tatiana Sue Work Phone: Start: 07-17-2023 Ecg routine ecg w/le ast 12 lds trcg only w/o i&r Laverne Centeno MD Work Phone: Start: 07-17-2023 End: 07-17-2023 Comprehensive metabolic panel Laverne Centeno MD Work Phone: Start: 07-03-2023 Group B Streptococcu s Culture MIXER OPERATOR RAW SALT-C Loly Rene MIXER OPERATOR RAW SALT Work Phone: Start: 06-21-2023 Ultrasound scan for growth MIXER OPERATOR RAW SALT-C Loly Rene MIXER OPERATOR RAW SALT Work Phone: Start: 01-02-2023 Urine culture MIXER OPERATOR RAW SALT-C Evelyn Rene MIXER OPERATOR RAW SALT Work Phone: H/O: surgery Status post dila tion and curettage NOEMI JOENP Work Phone: Comment on above: 12/17/24 JV: suction D &C H/O: surgery Status post dila tion and curettage Dr. Tatiana Sue DO Plan of Treatment Date Care Activity Detail Author Start: 2051 RSV Immunization aged 60 or older (1 - 1-dose 60+ series) RSV Immunization aged 60 or older (1 - 1-dose 60+ series) [facility] Start: 10-16-2041 Zoster Vaccines (1 of 2) Zoster Vaccines (1 of 2) [facility] Start: 05-22-2033 Urine microalbumin profile DTaP,Tdap,Td Vaccine (2 - Td or Tdap) [facility] Start: 07-07-2025 Screening for malignant neoplasm of cervix [facility] Start: 12-17-2024 Anesthesia incomplete/missed ANES INCOMPL/MISSED AB PX [facility] Start: 12-17-2024 Tx missed first trimester surgical CARE OF MISCARRIAGE [facility] Start: 12-17-2024 Patient discharge [facility] Start: 12-17-2024 Ambulation without limitation [facility] Start: 12-17-2024 Medical regimen orders management [facility] Start: 12-17-2024 Medication education [facility] Start: 12-17-2024 Procedure discontinued [facility] Start: 12-17-2024 Taking patient vital signs [facility] Start: 12-17-2024 Vital signs measurements [facility] Start: 12-17-2024 [facility] Start: 10-16-2024 Patient referral [facility] Work Phone: Start: 07-15-2023 Patient discharge [facility] Start: 07-14-2023 Administration of medication [facility] Start: 07-14-2023 Application of ice collar, cap or bag [facility] Start: 07-14-2023 Catheterization of vein [facility] Start: 07-14-2023 Introduction of urinary catheter [facility] Start: 07-14-2023 Measuring intake and output [facility] Start: 07-14-2023 Notification of physician [facility] Start: 07-14-2023 Procedure discontinued [facility] Start: 07-14-2023 Provision of activity privileges [facility] Start: 07-14-2023 Vital signs measurements [facility] Start: 07-14-2023 [facility] Start: 07-13-2023 Admission procedure [facility] Start: 07-03-2023 Nonstress test [facility] Start: 07-03-2023 Obstetric monitoring [facility] Start: 07-03-2023 Vital signs measurements [facility] Start: 07-03-2023 End: 07-03-2023 [facility] Start: 07-03-2023 Patient discharge [facility] Start: 06-19-2023 Depression Assessment Depression Assessment [facility] Start: 02-17-2023 Covid-19 Vaccine ( season) Covid-19 Vaccine ( season) [facility] Start: 02-17-2023 Influenza vaccination Influenza Vaccine (#1) [facility] Start: 10-16-2021 Screening for malignant neoplasm of cervix [facility] Start: 10-16-2012 Screening for malignant neoplasm of cervix Pap Smear [facility] Start: 10-16-2010 DTaP/Tdap/Td Vaccines (1 - Tdap) DTaP/Tdap/Td Vaccines (1 - Tdap) [facility] Start: 10-16-2010 Hepatitis B Vaccine (1 of 3 - 19+ 3-dose series) Hepatitis B Vaccine (1 of 3 - 19+ 3-dose series) [facility] Start: 10-16-2009 Hepatitis C screening Hepatitis C Screening [facility] Start: 10-16-2009 HIV screening HIV Screening [facility] Start: 2003 Depression Screening Depression Screening [facility] Start: 10-16-1992 MMR Vaccines (1 of 1 - Standard series) MMR Vaccines (1 of 1 - Standard series) [facility] Start: 10-16-1992 Varicella vaccination Varicella Vaccines (1 of 2 - 2-dose childhood series) [facility] Start: 04-17-1992 COVID-19 Vaccine (#1) COVID-19 Vaccine (#1) [facility] Start: 1991 Hepatitis B Vaccines (1 of 3 - 3-dose series) Hepatitis B Vaccines (1 of 3 - 3-dose series) [facility] Start: 1991 HIV screening HIV Screening [facility] CBC W Auto Different ial panel - Blood [facility] CBC W Auto Different ial panel - Blood [facility] CBC W Auto Different ial panel - Blood [facility] Chlamydia deoxyribon ucleic acid detection [facility] Comprehensive metabo lic 2000 panel - Serum or Plasma [facility] ECG 12 lead ECG 12 lead CV E CG STAT 07/17/2023 5:33 PM EST [facility] Work Phone: Hepatitis B surface antigen measurement [facility] Hepatitis C antibody measurement [facility] Hepatitis C antibody measurement [facility] HIV 1+2 Ab+HIV1 p24 Ag [Presence] in Serum or Plasma by Immunoassay [facility] MG Breast - bilatera l Diagnostic [facility] Patient Education [facility] Work Phone: Patient referral [facility] Work Phone: Protein/Creatinine [ Ratio] in Urine [facility] Protein/Creatinine [ Ratio] in Urine [facility] Rubella IgG measurement [facility] Rubella IgG measurement [facility] Serologic test for syphilis [facility] Streptococcus agalac tiae [Presence] in Unspecified specimen by Organism specific culture [facility] Treponema sp Ab [Pre sence] in Serum [facility] Immunizations Immunization Date Immunization Notes Care Provider Thee paulson 05-22-2023 tetanus toxoid, redu delfino diphtheria toxoid, and acellular pertussis vaccine, adsorbed MIXER OPERATOR RAW SALT-C Loly Rene NP Work Phone: [facility] Payers Date Payer Category Payer Private Health Insurance [id number] [id number] Self-pay [id number] 2019 Unknown [id number] 2019 Unknown [id number] 2014 Unknown [id number] 1991 Unknown [id number] [id number] 1991 Unknown [id number] [id number]. [id number] 1991 Unknown [id number] 2.16. [id number] Unknown [id number] 2.16.8 [id number] Unknown [id number] 2.16.8 [id number] Unknown [id number] 2.16.8 [id number] Unknown [id number] 2.16.8 [id number] Unknown [id number] 2.16.8 [id number] Unknown [id number] 2.16.8 [id number] Unknown [id number] [id number] Social History Date Type Detail Facility Start: 12-30-2019 End: 12-16-2024 Tobacco smoking status Never smoked tobacco (finding) [facility] Assigned At [facility] Start: 01-02-2023 End: 07-13-2023 Tobacco smoking status SCIS Unknown if ever smoked [facility] Start: 1990 Sex Assigned At Female [facility] Start: 07-07-2020 End: 07-17-2023 Tobacco use and exposure Smokeless tobacco non-user [facility] Start: 07-17-2023 Alcohol intake Ex-drinker (finding) [facility] Start: 07-07-2020 End: 07-17-2023 History of Social function [facility] Start: 07-07-2020 End: 07-17-2023 Tobacco use panel [facility] Start: 1990 Sex Assigned At Not on file [facility] Start: 08-09-2021 Alcohol intake Current non-drinker of alcohol (finding) [facility] Do you belong to any clubs or organizations such as spiritism groups, unions, [employer] or athletic groups, or school groups? Yes [facility] Are you now , , , , never or living with a partner? Never [facility] Do you feel stress - tense, restless, nervous, or anxious, or unable to sleep at night because your mind is troubled all the time - these days [OSQ] Rather much [facility] National Score (1-10 0), lower number is lower risk Not on file [facility] Start: 07-07-2020 Education 18 [facility] Start: 08-09-2021 Gender identity Identifies as female gender (finding) [facility] Start: 07-13-2020 Sexual orientation Heterosexual (finding) [facility] Start: 01-26-2015 Sex Female (finding) [facility] Goals Date Patient Goal Desired Activity /State Mental Status Date Assessment Result Facility 12-17-2024 Cognitive function Voice/Name [facility] Work Phone: Clinical Notes 01-02-2023 to 03-26-2025 Note Date & Type Note Facility 03-26-2025 Discharge summary Note Date/Time March 26, 2025 7:07pm [facility] [address] [place] [address]. [address] [place] [address] / REHABILITATION SERVICES DISCHARGE SUMMARY MR#: [id number] Acct: [id number] Name: GASTON MANZO Rep #: [id number] : 1990 34 From: Betty Grace Referring Dr.: SONIDO Reese Status: REG RCR Insurance: [facility] SELF PAY INSURANCE Discharge Summary D/C summary: It has been my pleasure to treat GASTON MANZO referred by SONIDO Patterson, with the diagnosis of N81.4 uterovaginal prolapse, M62.89 Other specified disorders of the muscle for a total of 9 visit(s). Discharge Date: 03/26/25 Please see the following information for a summary of their discharge status. Subjective Subjective: She is able to hold back gas now and she doesn't struggle with any leaking with coughing, sneezing, standing up, etc. 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 She feels ready for discharge. She plans to continue the exercises at home. She is pleased with her results in PT. Overall Improvement % Improvement: 70 Objective Objective/Function: Overall Gaston did well in PT. Her symptoms with leaking gasimproved and her ability to hold her bowel movements during her work day accomplished. No significant change in her rectocele or cystocele but likely due to third degree tear with delivery. Her pelvic floor contraction ability remains limited but improved. She is knowledgeable in how to manage and lessen pressure down thru her pelvic floor with functional activities to allow for management of her prolapses. Goals Goal 1:: Gaston will be able to hold back gas without any gas leakage. Goal Progress: Goal Met Goal 2:: Gaston will be able to delay using the restroom by 5 minutes when she feels the urge to have a bowel movement without feeling uncomfortable or anxiousabout her ability to control. Goal Progress: Goal Met Goal 3:: Gaston will be able to cough, sneeze, laugh without gas escaping and causing embarrassment. Goal Progress: Goal Met Goal 4:: Gaston will be independent in splinting techniques for bowel movements to help her manage the rectocele. Goal Progress: Goal Met Plan Plan: D/C from PT and closing her chart. D/C Information Discharge Comments: Gaston met her PT goals 100%. d/c sentence: If there are questions or concerns regarding this patient's physical therapy, please feel free to call me at [phone]. Thank you for the referral of thispatient. Sincerely, Betty Grace Balance/Gait/Functional tests Improvement % Improvement: 70 <Electronically signed by Betty Grace> 03/26/25 6732 CC: SONIDO Reese; DELIO EDDY ~ MG Signed [facility] Work Phone: 1(144) 954-504610-08-2025 Discharge summary [facility] [address] [place] [address] / REHABILITATION SERVICES DISCHARGE SUMMARY MR#: [id number] Acct: [id number] Name: GASTON MANZO Rep #: [id number] : 1990 34 From: Betty Grace Referring Dr.: SONIDO Reese Status: REG RCR Insurance: [facility] SELF PAY INSURANCE Discharge Summary D/C summary: It has been my pleasure to treat GASTON MANZO referred by JUAN Patterson, with the diagnosis of N81.4 uterovaginal prolapse, M62.89 Other specified disorders of the muscle for a total of 9 visit(s). Discharge Date: 03/26/25 Please see the following information for a summary of their discharge status. Subjective Subjective: She is able to hold back gas now and she doesn't struggle with any leaking with coughing, sneezing, standing up, etc. 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 She feels ready for discharge. She plans to continue the exercises at home. She is pleased with her results in PT. Overall Improvement % Improvement: 70 Objective Objective/Function: Overall Gaston did well in PT. Her symptoms with leaking gasimproved and her ability to hold her bowel movements during her work day accomplished. No significant change in her rectocele or cystocele but likely due to third degree tear with delivery. Her pelvic floor contraction ability remains limited but improved. She is knowledgeable in how to manage and lessen pressure down thru her pelvic floor with functional activities to allow for management of her prolapses. Goals Goal 1:: Gaston will be able to hold back gas without any gas leakage. Goal Progress: Goal Met Goal 2:: Gaston will be able to delay using the restroom by 5 minutes when she feels the urge to have a bowel movement without feeling uncomfortable or anxiousabout her ability to control. Goal Progress: Goal Met Goal 3:: Gaston will be able to cough, sneeze, laugh without gas escaping and causing embarrassment. Goal Progress: Goal Met Goal 4:: Gaston will be independent in splinting techniques for bowel movements to help her manage the rectocele. Goal Progress: Goal Met Plan Plan: D/C from PT and closing her chart. D/C Information Discharge Comments: Gaston met her PT goals 100%. d/c sentence: If there are questions or concerns regarding this patient's physical therapy, please feel free to call me at [phone]. Thank you for the referral of thispatient. Sincerely, Betty Grace Balance/Gait/Functional tests Improvement % Improvement: 70 03/26/25 1907 CC: MIXER OPERATOR RAW SALT-C Rox Reese; DELIO EDDY ~ MG Signed [facility]08-04-2025 Evaluation + Plan note Diagnostic Tests Pending * Lyme Disease Serology w/Reflex 01/20/25 [facility] 07-01-2025 Consult note [facility] Medical Records Department [address] [place] [address] Anesthesia Postop Eval II 12/17/24 1537 MR#: [id number] Acct: [id number] Name: GASTON MANZO LORI Rep #:[id number] : 1990 34 From: Alirio Betancourt MD PCP: DELIO EDDY Status:REG SDC Y Race: C Location: [facility]- Anesthesia Postop Eval I Sum Postop Eval Completion status Anesthesia document: Postop Eval 1 completed: Yes Anesthesia Postop Eval I Summary Anesthesia Postop Eval I Summary: Anesthesia Postop Eval I: Assessment Summary Airway patent Yes 12/17/24 14:15 [email or web address] Spontaneous unlabored Yes 12/17/24 14:15 [email or web address] respirations Mental status Awake,Calm 12/17/24 14:15 [email or web address] nausea No 12/17/24 14:15 [email or web address] Vomiting No 12/17/24 14:15 [email or web address] Anesthesia Postop Eval I: Fluid Summary Crystalloid volume administer 600 12/17/24 14:15 [email or web address] (ml) Colloids volume administered ( ml) Blood Product volume administered (ml) Total IV fluid infused 600 12/17/24 14:15 [email or web address] Anesthesia Postop Eval I: Summary Notes Anesthesia Complication No 12/17/24 14:15 [email or web address] Anesthesia Complication Comment: Post-operative progress note Anesthesia: Postop Eval II Evaluation Mental status: Awake and Calm Pain Level: 2 nausea: No Vomiting: No Complications Anesthesia Complication: No 12/17/24 1537 D> Date _ Alirio Betancourt MD Cosigner Signature: Date CC: ~ Signed [facility]07-01-2025 Discharge summary Author Tatiana Bey [facility] Note Date/Time December 17, 2024 12:50 pm [facility] Medical Records Department [address] [place] [address] Instructions for Home/Discharge Instructions 12/17/24 1247 MR#: [id number] Acct: [id number] Name: JEOVANYClintGASTON LORI Rep #:[id number] : 1990 34 From: Tatiana Sue DO PCP: DELIO EDDY Status:REG SDC Discharge Instructions Diet Discharge Diet: No restrictions DC O2, CPAP, BIPAP needs Home O2 Discharge instructions: No Dressing / Incision Discharge Activity: Return to Normal Activity, May Shower and May Take a Tub Bath (after 1 week) May resume sexual activity in: 1-2 weeks Weight Bearing Status: Weight bearing as tolerated Lifting Restrictions: none Dressing / Incision Call your doctor if you observe: Fever of 101 or Higher, Using more than 1 pad per hour, Shortness of breath and Uncontrolled pain Follow Up Care Please Follow Up With: Tatiana Sue DO When: Call [phone] to schedule appointment. Test Results: Test results from this visit will be discussed in further detail at your follow- up appointment, if applicable. Discharge Plan Admission Primary Reason for Your Visit: suction D&C Attending Provider: Tatiana Sue Primary Care Provider: NOEMI TREJO Instructions Print Language: Czech Discharge Orders/Prescriptions Prescriptions: New ibuprofen 800 mg tablet 800 mg PO Q8H PRN (Reason: pain) Qty: 20 0RF oxycodone-acetaminophen [Percocet] 5-325 mg tablet 1 tab PO Q4H PRN (Reason: pain) 3 Days Qty: 5 0RF Continued montelukast [Singulair] 10 mg tablet 10 mg PO DAILY albuterol sulfate 90 mcg/actuation HFA aerosol inhaler 2 puff inhalation Q6H PRN (Reason: shortness of breath or wheezing) PNV-DHA 27 mg iron-1 mg -300 mg capsule 1 cap PO DAILY fluticasone propion-salmeterol [Wixela Inhub] 100-50 mcg/dose blister with device 1 inh inhalation BID Qty: 60 12RF escitalopram oxalate [Lexapro] 10 mg tablet 10 mg PO DAILY Referrals / Follow Up: NOEMI TREJO CRNP [Primary Care Provider] - Disposition Disposition (needs filled in before D/C Order can be placed): Home, Self Care 12/17/24 1250<Electronically signed by Tatiana Sue DO>Tatiana Sue DO CC: DELIO EDDY ~ Signed [facility] Work Phone: 1(131) 132-573307-01-2025 History and physical note Author Tatiana Bey [facility] Note Date/Time December 17, 2024 12:47 pm [facility] Medical Records Department [address] [place] [address] [place] [address] History & Physical Exam 12/17/24 1244 MR#: [id number] Acct: [id number] Name: GASTON MANZO Rep #:[id number] : 1990 34 From: Tatiana Sue DO PCP: DELIO EDDY Status:REG [facility] Location: [place] [address] History and Physical Date of Admission: 12/17/24 Intake Vital Signs 10/16/2508:56 12/14/2507:48 Height 5 ft 4 in 5 ft 4 in Weight: 184 lb 8 oz 191 lb 2 oz BMI 31.6 32.8 BP 121/83 H 131/85 H Intake Visit Reasons: *EST* NOB LMP 10/08, BLAINE 07/15 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 Payment Required: No Is patient in pain?: No Allergies No Known Allergies Allergy (Verified 12/13/24 08:46) Medications ?Medication ?Instructions ?Recorded ?Confirmed ?Type albuterol sulfate 90 mcg/actuation 2 puff inhalation Q6H PRN 12/27/2212/13 History aerosol inhaler shortness of breath or wheezing montelukast 10 mg tablet 10 mg PO DAILY 12/27/22 12/13/24 History (Singulair) multivitamin no.47-iron fum 27 cap PO 11/29/24 12/13/24 History mg-folate no.1 1 mg-dha 300 mg capsule (PNV-DHA) fluticasone 100 mcg-salmeterol 50 1 inh inhalation BID #60 ea 12/13/24 Rx mcg/dose blistr powdr for inhalation (Wixela Inhub) Last Menstrual Period: 10/08/24 : No Have you fallen in the past year?: No PFSH PFSH Medical History Status post vacuum-assisted vaginal delivery Asthma Anxiety Family history of breast cancer Surgical History History of surgery [place] teeth extracted History of lumpectomy of both breasts Family History Grandmother Breast cancer, Onset Age: 60 Paternal Diabetes Maternal CAD (coronary artery disease) MaternalFather Prostate cancer, Onset Age: 57 Social History adopted: No household members: significant other and other details: Mother housing: house number of children: 1 current occupational status: employed 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 current occupational exposures/hazards: No pets and animals: Yes pets and animals: dog(s) history of recent travel: No (- November) sexually active: Yes Smoking Status: Never smoker alcohol intake: never substance use type: does not use well-balanced diet: about half the time caffeine: Yes Type: carbonated beverages Number of servings: 2 eating out: 1-3 times/week during the past year weight has: remained stable what type of physical activity do you participate in: walking frequency: 1-2 times per week duration: 30-45 minutes/day hilaria/islam: None seatbelt use: always do you feel safe at home: Yes 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 Date Name GA/Weeks Outcome Route Bth Weight Infant Gen Labor Lgth Anesthesia Del Locatn Provider FOB 07/14/23 Mac 37 live - full term vacuum 8lbs 9o z Male epidural WC LC/JV Macarthy Delivery Date: 07/14/23 Last Updated by: Barbara Cowan Anemia, Pre E ACH-respiratory issues x5 days HPI *EST* NOB LMP 10/08, BLAINE 07/15 Details: GASTON MANZO is a 34 year old @ 9 weeks gestation who presents for a suction D&C due to missed . On exam, ultrasound is showing a 7-8 week fetus without heart tones. OB Visit BLAINE Calculator Estimated Delivery Date Method Current WG Current Estimate 07/15/25 LMP (Certain) 9w 3d Comments: HIV: Urine Culture: Sequential Screen: NIPT Screen: Estimated Due Date: 07/15/25 Initial Weight: Not Recorded Date -?-?-?-?-?-?-?-?-?-?-?-?- EGA Weight BP Urine Prot -?-?-?-?-?-?-?-?-?-?-?-?- Glucose FHR FuHt Pres Dilation -?-?-?-?-?-?-?-?-?-?-?-?- Effaced St Visit Note 12/13/24-?-?-?-?-?-?-?-?-?-?-?-?- 9w 3d 191 lb 2 oz 131/85 -?-?-?-?-?-?-?-?-?-?-?-?- -?-?-?-?-?-?-?-?-?-?-?-?- LC- no FHR, CRL at 8.1 weeks. JV consulted and confirmed SAB. consented for D&C, emotional support provided. Menstrual History Last Menstrual Period: 10/08/24 Antepartum Record Genetic Screening: Congenital Heart Defect: Other, Neural Tube Defect: Other, Hemoglobinopathy Or Carrier: Other, Cystic Fibrosis: Other, Chromosome Abnormality: Other, Fredrick-Sachs: Other, Hemophilia: Other, Intellectual Disability/Autism: Other, Recurrent Loss/Stillbirth: Other, Other Structural Defect: Other, Other Genetic Disease: Other and Maternal Metabolic Disorder: Other Infection History: Live with someone with TB or Exposed to TB: No, Patient or Partner has history of Genital Herpes: No, Rash or Viral illness since last mentrual period: No, Prior GBS-Infected child: No, History of STD: No, HIV Infection: No, History of Hepatitis: No, Recent travel outside of [place]: No, Concern for hepatitis exposure: No, Varicella immune: Yes (immune-virus) and Covid Vaccinated: No Medical History Medical History: Positive: Pulmonary (e.g.,TB,Asthma) (asthma) and Negative: Diabetes, Hypertension, Heart disease, Auto-immune disorder, Kidney disease/UTI,Neurologic/epilepsy, Psychiatric, Depression/ depression, Hepatitis/liver disease, Varicosities/phlebitis, Thyroid dysfunction, Trauma/domestic violence, History of blood transfusions, D (Rh) Sensitized, Seasonal allergies, Drug/latex allergies/reactions, Breast, Disabilities Services Officer surgery, Operations/hospitalizations, Anesthetic complications, History of abnormal pap, Uterine anomaly/miriam, Infertility, Anti-retroviral treatment, Relevant family history and Other ACOG First Trimester First Trimester: Desire for , Alcohol, Tobacco Cessation, Illicit/Recreational Drug/Substance Use, Intimate Partner Violence, Barriers to care, Unstable Housing, Communication Barriers, Environmental/Work Hazards, Anticipated Course of Care, Nurtrition and weight gain, Toxoplasmosis Precations, Use of Any medications, Sexual activity, Exercise, Dental Care, Sauna/Hot tub use, Seat Belt use, Childbirth classes/Hospital facilities, Travel, Indications for Ultrasound and Screening for Aneuploidy; Discussed Second Trimester Second Trimester: Signs and Symptoms of Labor, Selecting a care provider, Depression/Anxiety and Intimate Partner Violence; Discussed Tobacco Cessation Third Trimester Third Trimester: Pain Management Plans, Labor support person(s), Immediate Larc, Circumcision preference, Signs and Symptoms of Preeclampsia, Infant Feeding No and Family Medical Leave or Disability Forms ROS Const Denies anorexia, Denies body aches, Denies chills, Denies excessive sweating, Denies fatigue, Denies headache(s) and Denies lethargy ENT Denies headache(s) GI Denies abdominal pain, Denies coffee ground emesis, Reports constipation, Deniescramping and Reports nausea Denies sexual dysfunction, Reports urinary frequency, Denies urinary incontinence, Denies urinary hesitancy, Denies urinary urgency, Denies vaginal discharge, Denies vaginal dryness, Denies vaginal odor and Denies vaginal pruritus Skin/Breast Details: breast discomfort Neuro No headache(s) Endo Denies cold intolerance, Denies deepening of the voice, Denies excessive sweating, Denies fatigue, Denies flushing, Denies heat intolerance, Denies polydipsia and Denies polyphagia Exam Const General: cooperative, healthy appearing, comfortable and no acute distress Neck Neck: normal visual inspection, full ROM and no lymphadenopathy Thyroid: thyroid normal Chest Chest palpation & inspection: normal inspection of the chest Breast inspection: normal inspection of the breasts and normal inspection of theaxillae Resp Effort & Inspection: normal respiratory effort, able to speak in complete sentences and symmetric chest movement GI Inspection: normal to inspection Palpation: soft External Female Exam: normal external appearance and normal appearance of the urethra Urethra: normal appearance of the urethra Speculum Exam - Vagina: normal appearance of the vagina Speculum Exam - Cervix: normal appearance of the cervix Bimanual Exam- Vagina & Uterus: uterine size normal (consistent with dates of ) OB/External & Speculum: no bleeding Skin General: rashes and/or lesions noted Neuro General: patient alert, patient awake and patient oriented x3 Psych Appearance: grossly normal and well kempt Coding Level of Care Code OB Routine Diagnoses Missed with demise before 20 completed weeks of gestation O02.1 Supervision of high-risk O09.90 9 weeks gestation of Z3A.09 Weeks of gestation: 9 weeks Hx of pre-eclampsia in prior , currently O09.299 H/O delivery by vacuum extraction, currently O09.299 Cystocele with rectocele N81.10; N81.6 Asthma J45.909 CATRACHO (stress urinary incontinence, female) N39.3 Breast lump on left side at 4 o'clock position N63.23 Breast lump N63.0 Anxiety F41.9 Comment miscarriage management with NOB Assessment and Plan Assessment and Plan (1) Missed with demise before 20 completed weeks of gestation: Status: Acute Comment: After discussing the patient's diagnosis and treatment plan options, patient wishes to proceed with surgical management. I have discussed with the patient the risks, benefits, and alternatives of the procedure which include but are notlimited to risks of anesthesia, bleeding, infection, possible damage to bowel, bladder, or surrounding vasculature which could lead to additional surgery to evaluate any complications. Patient agrees to procedure and wishes to proceed. ACOG/uptodate references given for additional information regarding procedure. consented for D&C - elephant basket provided for emotional support. declined genetic screening on embryo (2) Supervision of high-risk : Status: Acute Comment: , BLAINE 07/15/25, HEBER Mora, CHIRAG Guerrero (3) : Status: Acute Qualifiers: Weeks of gestation: 9 weeks Qualified Code(s): Z3A.09 - 9 weeks gestation of Comment: discussed NIPT & Carrier testing-declined (4) Hx of pre-eclampsia in prior , currently : Status: Acute (5) H/O delivery by vacuum extraction, currently : Status: Acute (6) Cystocele with rectocele: Status: Acute (7) Asthma: Status: Acute Comment: rescue inhaler PRN, Wixela BID (8) CATRACHO (stress urinary incontinence, female): Status: Acute (9) Breast lump on left side at 4 o'clock position: Status: Acute (10) Breast lump: Status: Acute Comment: previous with clip (11) Anxiety: Status: Acute 12/17/24 5867 <Electronically signed by Tatiana Sue DO> Cosigner Signature (if applicable): CC: Dr. Tatiana Sue, DO; DELIO EDDY~ Signed [facility] Work Phone: 1(329) 116-942507-01-2025 Consult note Author Alirio Betancourt [facility] Note Date/Time December 17, 2024 12:18 pm [facility] Medical Records Department [address] [place] [address] Pre-Anesthesia Evaluation 12/17/24 1205 MR#: [id number] Acct: [id number] Name: GASTON MANZO Rep #:[id number] : 1990 34 From: Alirio Betancourt MD PCP: DELIO EDDY Status:REG SDC Y Race: C Location: [place] [address] Alirio Betancourt MD on 12/17/24 at 1218 Addendum We discussed plan for MAC, with GA available as backup. Patient understands. 12/17/24 1218 <Electronically signed by Alirio Betancourt M D> Date _ Alirio Betancourt MD cc: ~* Signed ASA Classification* ASA Classification ASA Classification: 3 Assessment & Plan Anesthesia* Anesthesia Assessment Anesthesia Assessment: Discussed sedation and/or anesthesia options, risks, benefits, and alternatives with patient/parents/legal guardian/POA. Questions invited. The patient/parents/legal guardian/POA seems to understand and agrees to proceedwith anesthesia plan. Reviewed the physical assessment, medical history, allergy history and patient home medications list prior to surgery/procedure/anesthetic and documented any changes. Performed airway and anesthesia risk assessments. Anesthesia Type Anesthesia Type: MAC History Source History Obtained from:: Patient and Chart Anesthesia Focused Assessment* Temperature: 97.4 F Pulse Rate: 92 Blood Pressure: 120/83 Respiratory Rate: 16 Pulse Ox: 100 Oxygen Delivery Method: Room Air Airway Assessment Mouth opens: >3 cm Mallampati Score: II Teeth Condition: Intact Neck Range of motion (ROM): Full ROM Labs Anesthesia Preop lab: CBC WBC 7.0 K/mm3 (4.4-11.0) 12/17/24 11:25 12/17/24 RBC 4.29 M/mm3 (4.2-5.4) 12/17/24 11:12/17/24 Hgb 12.0 g/dL (12.0-15.0) 12/17/24 11:25 12/17/24 Hct 35.1 % (37-47) L 12/17/24 11:25 12/17/24 Plt Count 281 K/mm3 (150-450) 12/17/24 11:25 12/17/24 CHEMISTRY Creatinine 0.67 mg/dL (0.55-1.02) 07/13/23 15:50 07/13/23 COAG Urine Test Negative Negative 04/23/15 07:30 04/23/15 Pre-Assessment Diagnosis/Proposed Procedure Planned Operative Procedure(s): Dilation and Curettage, Suction Anesthesia History 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 When Was Last Pacemaker Check QUESTION #4 FULL TEXT: You/Your Family Experience fever (hyperthermia) with Anesthesia Last Oral Intake Last Oral intake: Last Oral Intake NPO since 21:00 12/17/24 11:38 Meds taken in AM with sips of Yes 12/17/24 11:38 water? 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 Female Yes 12/16/24 14:27 HX of Motion Sickness No 12/16/24 14:27 HX of N/V After Surgery No 12/16/24 14:27 Non-Smoker Yes 12/16/24 14:27 Duration of Surgery greater No 12/16/24 14:27 than 60 minutes Number of Risk Factors 2 12/16/24 14:27 PONV Score Moderate Risk 12/16/24 14:27 Height & Weight Height & Weight: Anesthesia: Height & Weight Height 5 ft 4 in 12/17/24 11:38 Weight: 85 kg 12/17/24 11:38 Body Mass Index (BMI) 32.1 12/17/24 11:38 Respiratory Assessment Respiratory Assessment - timber treating tank operator: Respiratory Tract Infection Hx - timber treating tank operator Hx Respiratory Tract Infection No 12/16/24 14:27 STOP Sleep Apnea STOP Sleep Apnea - timber treating tank operator: STOP Sleep Apnea - timber treating tank operator Hx Hypertension No 12/16/24 14:27 Hx Sleep Apnea No 12/16/24 14:27 CPAP No 12/16/24 14:27 BIPAP No 12/16/24 14:27 Do you snore loudly (louder No 12/16/24 14:27 than talking or can be heard Do you often feel tired/ No 12/16/24 14:27 fatigued/ sleepy during daytime? Has anyone observed you stop No 12/16/24 14:27 breathing during sleep? STOP Results Negative 12/16/24 14:27 QUESTION #5 FULL TEXT : Do you snore loudly (louder than talking or can be heard through closed doors)? 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 Specify any problems Hx of Preganancy in last 3 Yes 12/16/24 14:27 Months Nurse Filling Out Transfusion VCHRISTIN 12/16/24 14:27 & Questions: Date: 12/16/24 12/16/24 14:27 Time: 14:28 12/16/24 14:27 Patient unable to answer at this time (ie. confused, unrespo /Reproduction History /Reproductive History - timber treating tank operator: /Reproductive Hx- timber treating tank operator Hx Now Yes 12/16/24 14:27 Gestational Age (in weeks): EDC: Hx Hx Para Hx Section SAB No 12/16/24 14:27 Active Medications Active Medications: Current Medications Generic Name Dose Route Start Last Admin Trade Name Freq PRN Reason Stop Dose Admin Doxycycline Monohydrate 100 mg 12/17/24 15:45 12/17/24 11:35 Doxycycline 100 Mg Capsule PO 100 mg PREOP WAYNE Administration Lactated Ringer's 1,000 mls @ 15 mls/hr 12/17/24 11:15 12/17/24 11:36 IV 15 mls/hr .Q48H WAYNE Administration PFSH Medical History (Updated 12/16/24 @ 14:27 by Marcie Pierre) Anemia Non-smoker Status post vacuum-assisted vaginal delivery Asthma Anxiety Family history of breast cancer Home Medications ?Medication ?Instructions ?Recorded ?Last Taken ?Type albuterol sulfate 90 mcg/actuation 2 puff inhalation Q 6H PRN 12/27/22 Unknown History aerosol inhaler shortness of breath or wheez ing montelukast 10 mg tablet 10 mg PO DAILY 12/27/2211/18 History (Singulair) multivitamin no.47-iron fum 27 1 cap PO DAILY 11/29/24 12/16/24 History mg-folate no.1 1 mg-dha 300 mg capsule (PNV-DHA) fluticasone 100 mcg-salmeterol 50 1 inh inhalation BID #60 ea 12/13/24 12/13/24 Rx mcg/dose blistr powdr for inhalation (Wixela Inhub) escitalopram oxalate 10 mg tablet 10 mg PO DAILY 12/1612/15/24 History (Lexapro) Allergy/AdvReac Type Severity Reaction Status Date / Time No Known Allergies Allergy Verified 12/17/24 11:27 Family History Grandmother Breast cancer, Onset Age: 60 Paternal Diabetes Maternal CAD (coronary artery disease) Maternal Father Prostate cancer, Onset Age: 57 Surgical History History of surgery [place] teeth extracted History of lumpectomy of both breasts Social History adopted: No household members: significant other and other details: BF Mother housing: house number of children: 1 current occupational status: employed 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 current occupational exposures/hazards: No pets and animals: Yes pets and animals: dog(s) history of recent travel: No (- November) sexually active: Yes Smoking Status: Never smoker alcohol intake: never substance use type: does not use well-balanced diet: about half the time caffeine: Yes Type: carbonated beverages Number of servings: 2 eating out: 1-3 times/week during the past year weight has: remained stable what type of physical activity do you participate in: walking frequency: 1-2 times per week duration: 30-45 minutes/day hilaria/islam: None seatbelt use: always do you feel safe at home: Yes additional social history: BF- [employer]- 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 Physical Exam Const alert and oriented x3 Neck full ROM Resp normal respiratory effort, normal air movement and clear to auscultation bilaterally Cardio regular rate and regular rhythm Skin Rashes: no rashes Neuro oriented x3 and moves all extremities 12/17/24 1218 <Electronically signed by Alirio Roca> Date _ Alirio Betancourt MD Cosigner Signature: Date CC: ~ Signed [facility] Work Phone: 1(926) 812-711107-01-2025 Consult note [facility] Medical Records Department [address] [place] [address] Anesthesia Postop Eval I 12/17/24 1414 MR#: [id number] Acct: [id number] Name: GASTON MANZO Rep #:[id number] : 1990 34 From: Amada eng HEEL SEWER PCP: DELIO EDDY Status:[facility] [place] Race: C Location: [address] Anesthesia: Postop Eval I Current Vital Signs Temperature: 97.3 F Pulse Rate: 88 Blood Pressure: 116/77 Respiratory Rate: 16 Pulse Ox: 98 Oxygen Delivery Method: Room Air Assessment Airway patent: Yes Spontaneous unlabored respirations: Yes Mental status: Awake and Calm nausea: No Vomiting: No Anesthesia Complication: No Fluid Hydration Crystalloid volume administer (ml): 600 Total IV fluid infused: 600 Progress Note Anesthesia document: Postop Eval 1 completed: Yes 12/17/24 1415 raul HEEL SEWER> Date _ Amada Louis HEEL SEWER Cosigner Signature: Date CC: ~ Signed [facility]07-01-2025 Procedure note [facility] Medical Records Department [address] [place] [address] Operative Report 12/17/24 1341 MR#: [id number] Acct: [id number] Name: GASTON MANZO Rep #:[id number] : 1990 34 From: Tatiana Sue DO PCP: DELIO EDDY Status:[facility] Location: [place] [address] Problems Associated Problem List Diagnoses (1) Missed with demise before 20 completed weeks of gestation: Multi Select Codes Urinary/Genital Urinary/Genital CPT Codes: 17391 Surg Trtmt missed Ab 1TM Operative Report (Standard) Operative Information Date of Procedure: 12/17/24 Pre-Operative Diagnosis: 9 weeks, measuring 8 weeks missed Post-Operative Diagnosis: 9 weeks, measuring 8 weeks missed Surgery/Procedure Performed: suction dilation and curettage financial sales assistant: No Type of Anesthesia: MAC/Supplemental RN Documented Start/Stop Times: Operation Date: 12/17/24 12:30 Case Time Into Pre-Op 12/17/24 11:09 Procedure Start Time: 13:51 Procedure Stop Time: 14:02 Select all DRAINS/GRAFTS/IMPLANTS that apply: None Special Medications: methergine Estimated Blood Loss: 30cc Specimen collected: Yes Description of specimen(s) removed: endometrial curetting's/products of conception Description of surgery: Patient was taken to the operating room and placed under MAC local anesthesia. She was prepped and draped in the normal sterile fashion the dorsal lithotomy position. Bladder was drained of clear urine and anterior lip of the cervix wasgrasped and the uterus sounded to 12cm. Cervix was progressively dilated to allow passage of a size 9 suction curette. Progressive passes were made removing the retained products of conception without complication. Sharp curettage confirmed complete removal of the retained products. All instruments were removed from the vagina and excellent hemostasis was notedand the patient was taken to recovery in stable condition. IM methergine was given to help contract the uterus. Surgical Findings: moderate amount of products of conception removed. Complications Complications: No Admit VTE Documentation VTE Present on Admission: No VTE Mechan Device Prophylaxis: SCD's VTE Pharm Prophylaxis ordered?: No 12/17/24 1402 Cosigner Signature (if applicable): CC: Dr. Tatiana Sue DO; DELIO EDDY~ Signed [facility]07-01-2025 Evaluation note* Diagnosis Onset Date Resolution Status Admit Date Missed with demise before 20 completed weeks of gestation acute December 17, 2024 1 1:04am Status post dilation and curettage acute December 30, 2024 10:11am [facility] Work Phone: 1(253) 329-700007-01-2025 Discharge summary [facility] Medical Records Department [address] [place] [address] Instructions for Home/Discharge Instructions 12/17/24 1247 MR#: [id number] Acct: [id number] Name: GASTON MANZO LORI Rep #:[id number] : 1990 34 From: Tatiana Sue DO PCP: DELIO EDDY Status:REG SDC Discharge Instructions Diet Discharge Diet: No restrictions DC O2, CPAP, BIPAP needs Home O2 Discharge instructions: No Dressing / Incision Discharge Activity: Return to Normal Activity, May Shower and May Take a Tub Bath (after 1 week) May resume sexual activity in: 1-2 weeks Weight Bearing Status: Weight bearing as tolerated Lifting Restrictions: none Dressing / Incision Call your doctor if you observe: Fever of 101 or Higher, Using more than 1 pad per hour, Shortness of breath and Uncontrolled pain Follow Up Care Please Follow Up With: Tatiana Sue DO When: Call [phone] to schedule appointment. Test Results: Test results from this visit will be discussed in further detail at your follow- up appointment, if applicable. Discharge Plan Admission Primary Reason for Your Visit: suction D&C Attending Provider: Tatiana Sue Primary Care Provider: NOEMI TREJO Instructions Print Language: Czech Discharge Orders/Prescriptions Prescriptions: New ibuprofen 800 mg tablet 800 mg PO Q8H PRN (Reason: pain) Qty: 20 0RF oxycodone-acetaminophen [Percocet] 5-325 mg tablet 1 tab PO Q4H PRN (Reason: pain) 3 Days Qty: 5 0RF Continued montelukast [Singulair] 10 mg tablet 10 mg PO DAILY albuterol sulfate 90 mcg/actuation HFA aerosol inhaler 2 puff inhalation Q6H PRN (Reason: shortness of breath or wheezing) PNV-DHA 27 mg iron-1 mg -300 mg capsule 1 cap PO DAILY fluticasone propion-salmeterol [Wixela Inhub] 100-50 mcg/dose blister with device 1 inh inhalation BID Qty: 60 12RF escitalopram oxalate [Lexapro] 10 mg tablet 10 mg PO DAILY Referrals / Follow Up: NOEMI TREJO CRNP [Primary Care Provider] - Disposition Disposition (needs filled in before D/C Order can be placed): Home, Self Care 12/17/24 1250Jennifer Merna Bey DO CC: DELIO EDDY ~ Signed [facility]07-01-2025 History and physical note [facility] Medical Records Department [address] [place] [address] History & Physical Exam 12/17/24 1244 MR#: [id number] Acct: [id number] Name: GASTON MANZO Rep #:[id number] : 1990 34 From: Tatiana Sue DO PCP: DELIO EDDY Status:[facility] Location: [address] History and Physical Date of Admission: 12/17/24 Intake Vital Signs 10/16/2508:56 12/14/2507:48 Height 5 ft 4 in 5 ft 4 in Weight: 184 lb 8 oz 191 lb 2 oz BMI 31.6 32.8 BP 121/83 H 131/85 H Intake Visit Reasons: *EST* NOB LMP 10/08, BLAINE 07/15 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 Payment Required: No Is patient in pain?: No Allergies No Known Allergies Allergy (Verified 12/13/24 08:46) Medications ?Medication ?Instructions ?Recorded ?Confirmed ?Type albuterol sulfate 90 mcg/actuation 2 puff inhalation Q6H PRN 12/27/2212/13 History aerosol inhaler shortness of breath or wheezing montelukast 10 mg tablet 10 mg PO DAILY 12/27/22 12/13/24 History (Singulair) multivitamin no.47-iron fum 27 cap PO 11/29/24 12/13/24 History mg-folate no.1 1 mg-dha 300 mg capsule (PNV-DHA) fluticasone 100 mcg-salmeterol 50 1 inh inhalation BID #60 ea 12/13/24 Rx mcg/dose blistr powdr for inhalation (Wixela Inhub) Last Menstrual Period: 10/08/24 : No Have you fallen in the past year?: No PFSH PFSH Medical History Status post vacuum-assisted vaginal delivery Asthma Anxiety Family history of breast cancer Surgical History History of surgery [place] teeth extracted History of lumpectomy of both breasts Family History Grandmother Breast cancer, Onset Age: 60 Paternal Diabetes Maternal CAD (coronary artery disease) MaternalFather Prostate cancer, Onset Age: 57 Social History adopted: No household members: significant other and other details: BF Mother housing: house number of children: 1 current occupational status: employed 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 current occupational exposures/hazards: No pets and animals: Yes pets and animals: dog(s) history of recent travel: No (- November) sexually active: Yes Smoking Status: Never smoker alcohol intake: never substance use type: does not use well-balanced diet: about half the time caffeine: Yes Type: carbonated beverages Number of servings: 2 eating out: 1-3 times/week during the past year weight has: remained stable what type of physical activity do you participate in: walking frequency: 1-2 times per week duration: 30-45 minutes/day hilaria/islam: None seatbelt use: always do you feel safe at home: Yes 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 Date Name GA/Weeks Outcome Route Bth Weight Infant Gen Labor Lgth Anesthesia Del Locatn Provider FOB 07/14/23 Mac 37 live - full term vacuum 8lbs 9o z Male epidural [facility] Delivery Date: 07/14/23 Last Updated by: Barbara Cowan Anemia, Pre E ACH-respiratory issues x5 days HPI *EST* NOB LMP 10/08, BLAINE 07/15 Details: GASTON MANZO is a 34 year old @ 9 weeks gestation who presents for a suction D&C due to missed . On exam, ultrasound is showing a 7-8 week fetus without heart tones. OB Visit BLAINE Calculator Estimated Delivery Date Method Current WG Current Estimate 07/15/25 LMP (Certain) 9w 3d Comments: HIV: Urine Culture: Sequential Screen: NIPT Screen: Estimated Due Date: 07/15/25 Initial Weight: Not Recorded Date -?-?-?-?-?-?-?-?-?-?-?-?- EGA Weight BP Urine Prot -?-?-?-?-?-?-?-?-?-?-?-?- Glucose FHR FuHt Pres Dilation -?-?-?-?-?-?-?-?-?-?-?-?- Effaced St Visit Note 12/13/24-?-?-?-?-?-?-?-?-?-?-?-?- 9w 3d 191 lb 2 oz 131/85 -?-?-?-?-?-?-?-?-?-?-?-?- -?-?-?-?-?-?-?-?-?-?-?-?- LC- no FHR, CRL at 8.1 weeks. JV consulted and confirmed SAB. consented for D&C, emotional support provided. Menstrual History Last Menstrual Period: 10/08/24 Antepartum Record Genetic Screening: Congenital Heart Defect: Other, Neural Tube Defect: Other, Hemoglobinopathy Or Carrier: Other, Cystic Fibrosis: Other, Chromosome Abnormality: Other, Fredrick-Sachs: Other, Hemophilia: Other, Intellectual Disability/Autism: Other, Recurrent Loss/Stillbirth: Other, Other Structural Defect: Other, Other Genetic Disease: Other and Maternal Metabolic Disorder: Other Infection History: Live with someone with TB or Exposed to TB: No, Patient or Partner has history of Genital Herpes: No, Rash or Viral illness since last mentrual period: No, Prior GBS-Infected child: No, History of STD: No, HIV Infection: No, History of Hepatitis: No, Recent travel outside of [place]: No, Concern for hepatitis exposure: No, Varicella immune: Yes (immune-virus) and Covid Vaccinated: No Medical History Medical History: Positive: Pulmonary (e.g.,TB,Asthma) (asthma) and Negative: Diabetes, Hypertension, Heart disease, Auto-immune disorder, Kidney disease/UTI,Neurologic/epilepsy, Psychiatric, Depression/ depression, Hepatitis/liver disease, Varicosities/phlebitis, Thyroid dysfunction, Traum a/domestic violence, History of blood transfusions, D (Rh) Sensitized, Seasonal allergies, Drug/latex allergies/reactions, Breast, Disabilities Services Officer surgery, Operations/hospitalizations, Anesthetic complications, History of abnormal pap, Uterine anomaly/miriam, Infertility, Anti-retroviral treatment, Relevant family history and Other ACOG First Trimester First Trimester: Desire for , Alcohol, Tobacco Cessation, Illicit/Recreational Drug/Substance Use, Intimate Partner Violence, Barriers to care, Unstable Housing, Communication Barriers, Environmental/Work Hazards, Anticipated Course of Care, Nurtrition and weight gain, Toxoplasmosis Precations, Use of Any medications, Sexual activity, Exercise, Dental Care, Sauna/Hot tub use, Seat Belt use, Childbirth classes/Hospital facilities, Travel, Indications for Ultrasound and Screening for Aneuploidy; Discussed Second Trimester Second Trimester: Signs and Symptoms of Labor, Selecting a care provider, Depression/Anxiety and Intimate Partner Violence; Discussed Tobacco Cessation Third Trimester Third Trimester: Pain Management Plans, Labor support person(s), Immediate Larc, Circumcision preference, Signs and Symptoms of Preeclampsia, Infant Feeding No and Family Medical Leave or Disability Forms ROS Const Denies anorexia, Denies body aches, Denies chills, Denies excessive sweating, Denies fatigue, Denies headache(s) and Denies lethargy ENT Denies headache(s) GI Denies abdominal pain, Denies coffee ground emesis, Reports constipation, Deniescramping and Reports nausea Denies sexual dysfunction, Reports urinary frequency, Denies urinary incontinence, Denies urinary hesitancy, Denies urinary urgency, Denies vaginal discharge, Denies vaginal dryness, Denies vaginal odor and Denies vaginal pruritus Skin/Breast Details: breast discomfort Neuro No headache(s) Endo Denies cold intolerance, Denies deepening of the voice, Denies excessive sweating, Denies fatigue, Denies flushing, Denies heat intolerance, Denies polydipsia and Denies polyphagia Exam Const General: cooperative, healthy appearing, comfortable and no acute distress Neck Neck: normal visual inspection, full ROM and no lymphadenopathy Thyroid: thyroid normal Chest Chest palpation & inspection: normal inspection of the chest Breast inspection: normal inspection of the breasts and normal inspection of theaxillae Resp Effort & Inspection: normal respiratory effort, able to speak in complete sentences and symmetric chest movement GI Inspection: normal to inspection Palpation: soft External Female Exam: normal external appearance and normal appearance of the urethra Urethra: normal appearance of the urethra Speculum Exam - Vagina: normal appearance of the vagina Speculum Exam - Cervix: normal appearance of the cervix Bimanual Exam- Vagina & Uterus: uterine size normal (consistent with dates of ) OB/External & Speculum: no bleeding Skin General: rashes and/or lesions noted Neuro General: patient alert, patient awake and patient oriented x3 Psych Appearance: grossly normal and well kempt Coding Level of Care Code OB Routine Diagnoses Missed with demise before 20 completed weeks of gestation O02.1 Supervision of high-risk O09.90 9 weeks gestation of Z3A.09 Weeks of gestation: 9 weeks Hx of pre-eclampsia in prior , currently O09.299 H/O delivery by vacuum extraction, currently O09.299 Cystocele with rectocele N81.10; N81.6 Asthma J45.909 CATRACHO (stress urinary incontinence, female) N39.3 Breast lump on left side at 4 o'clock position N63.23 Breast lump N63.0 Anxiety F41.9 Comment miscarriage management with NOB Assessment and Plan Assessment and Plan (1) Missed with demise before 20 completed weeks of gestation: Status: Acute Comment: After discussing the patient's diagnosis and treatment plan options, patient wishes to proceed withsurgical management. I have discussed with the patient the risks, benefits, and alternatives of theprocedure which include but are notlimited to risks of anesthesia, bleeding, infection, possible damage to bowel, bladder, or surrounding vasculature which could lead to additional surgery to evaluate any complications. Patient agrees to procedure and wishes to proceed. ACOG/uptodate references given for additional information regarding procedure. consented for D&C - elephant basket provided for emotional support. declined genetic screening on embryo (2) Supervision of high-risk : Status: Acute Comment: , BLAINE 07/15/25, PC Morgan, CHIRAG Guerrero (3) : Status: Acute Qualifiers: Weeks of gestation: 9 weeks Qualified Code(s): Z3A.09 - 9 weeks gestation of Comment: discussed NIPT & Carrier testing-declined (4) Hx of pre-eclampsia in prior , currently : Status: Acute (5) H/O delivery by vacuum extraction, currently : Status: Acute (6) Cystocele with rectocele: Status: Acute (7) Asthma: Status: Acute Comment: rescue inhaler PRN, Wixela BID (8) CATRACHO (stress urinary incontinence, female): Status: Acute (9) Breast lump on left side at 4 o'clock position: Status: Acute (10) Breast lump: Status: Acute Comment: previous with clip (11) Anxiety: Status: Acute 12/17/24 1247 Cosigner Signature (if applicable): CC: Dr. Tatiana Sue DO; DELIO EDDY~ Signed [facility]07-01-2025 [facility] Medical Records Department [address] [place] [address] History Physical Exam 12/17/24 1244 MR#: [id number] Acct: [id number] Name: GASTON MANZO Rep #: [id number] : 1990 34 From: Tatiana Sue DO PCP: DELIO EDDY Status[place] Location: [place] [address] History and Physical Date of Admission: 12/17/24 Intake Vital Signs 10/16/2508:56 12/14/2507:48 Height 5 ft 4 in 5 ft 4 in Weight: 184 lb 8 oz 191 lb 2 oz BMI 31.6 32.8 BP 121/83 H 131/85 H Intake Visit Reasons: *EST* NOB LMP 10/08, BLAINE 07/15 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 Payment Required: No Is patient in pain?: No Allergies No Known Allergies Allergy (Verified 12/13/24 08:46) Medications ???Medication ???Instructions ???Recorded ???Confirmed ???Type albuterol sulfate 90 mcg/actuation 2 puff inhalation Q6H PRN 12/27/22 12/13/24 Histor y aerosol inhaler shortness of breath or wheezing montelukast 10 mg tablet 10 mg PO DAILY 12/27/22 12/13/24 History (Singulair) multivitamin no.47-iron fum 27 cap PO 11/29/24 12/13/24 History mg-folate no.1 1 mg-dha 300 mg capsule (PNV-DHA) fluticasone 100 mcg-salmeterol 50 1 inh inhalation BID #60 ea 12/13/24 12/13/24 Rx mcg/dose blistr powdr for inhalation (Wixela Inhub) Last Menstrual Period: 10/08/24 : No Have you fallen in the past year?: No PFSH PFSH Medical History Status post vacuum-assisted vaginal delivery Asthma Anxiety Family history of breast cancer Surgical History History of surgery [place] teeth extracted History of lumpectomy of both breasts Family History Grandmother Breast cancer, Onset Age: 60 Paternal Diabetes Maternal CAD (coronary artery disease) MaternalFather Prostate cancer, Onset Age: 57 Social History adopted: No household members: significant other and other details: BF Mother housing: house number of children: 1 current occupational status: employed 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 current occupational exposures/hazards: No pets and animals: Yes pets and animals: dog(s) history of recent travel: No (- November) sexually active: Yes Smoking Status: Never smoker alcohol intake: never substance use type: does not use well-balanced diet: about half the time caffeine: Yes Type: carbonated beverages Number of servings: 2 eating out: 1-3 times/week during the past year weight has: remained stable what type of physical activity do you participate in: walking frequency: 1-2 times per week duration: 30-45 minutes/day hilaria/islam: None seatbelt use: always do you feel safe at home: Yes 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 Date Name GA/Weeks Outcome Route Bth Weight Gen Labor Lgth Anesthesia Del Locatn Provider FOB 07/14/23 Mac 37 live - full term vacuum 8lbs 9oz Male ep idural [facility] LC/[facility] [place] [facility] Delivery Date: 07/14/23 Last Updated by: Barbara Cowan Anemia, Pre E ACH-respiratory issues x5 days HPI *EST* NOB LMP 10/08, BLAINE 07/15 Details: GASTON MANZO is a 34 year old @ 9 weeks gestation who presents for a suction D C due to missed . On exam, ultrasound is showing a 7-8 week fetus without heart tones. OB Visit BLAINE Calculator Estimated Delivery Date Method Current WG Current Estimate 07/15/25 LMP (Certain) 9w 3d Comments: HIV: Urine Culture: Sequential Screen: NIPT Screen: Estimated Due Date: 07/15/25 Initial Weight: Not Recorded Date -???-???-???-???-???-???-???-???-???-???-???-???- EGA Weight BP Urine Prot -???-???-???-???-???-???-???-???-???-???-???-???- Glucose FHR FuHt Pres Dilation -???-???-???-???-???-???-???-???-???-???-???-???- Effaced St Visit Note 12/13/24-???-???-???-???-???-???-???-???-???-???-???-???- 9w 3d 191 lb 2 oz 131/85 -???-???-???-???-???-???-???-???-???-???-???-???- -???-???-???-???-???-???-???-???-???-???-???-???- LC- no FHR, CRL at 8.1 weeks. JV consulted and confirmed SAB. consented for D C, emotional support provided. Menstrual History Last Menstrual Period: 10/08/24 Antepartum Record Genetic Screening: Congenital Heart Defect: Other, Neural Tube Defect: Other, Hemoglobinopathy Or Carrier: Other, Cystic Fibrosis: Other, Chromosome Abnormality: Other, Fredrick- Sachs: Other, Hemophilia: Other, Intellectual Disability/Autism: Other, Recurrent Loss/Stillbirth: Other, Other (more content not included)...[facility]07-01-2025 Consult note [facility] Medical Records Department [address] [place] [address] Pre-Anesthesia Evaluation 12/17/24 1205 MR#: [id number] Acct: [id number] Name: GASTON MANZO Rep #:[id number] : 1990 34 From: Alirio Betancourt MD PCP: DELIO EDDY Status:REG SDC Y Race: C Location: [place] [id number] Alirio Betancourt MD on 12/17/24 at 1218 Addendum We discussed plan for MAC, with GA available as backup. Patient understands. 12/17/24 1218 D> Date _ Alirio Betancourt MD cc: ~* Signed ASA Classification* ASA Classification ASA Classification: 3 Assessment & Plan Anesthesia* Anesthesia Assessment Anesthesia Assessment: Discussed sedation and/or anesthesia options, risks, benefits, and alternatives with patient/parents/legal guardian/POA. Questions invited. The patient/parents/legal guardian/POA seems to understand and agrees to proceedwith anesthesia plan. Reviewed the physical assessment, medical history, allergy history and patient home medications list prior to surgery/procedure/anesthetic and documented any changes. Performed airway and anesthesia risk assessments. Anesthesia Type Anesthesia Type: MAC History Source History Obtained from:: Patient and Chart Anesthesia Focused Assessment* Temperature: 97.4 F Pulse Rate: 92 Blood Pressure: 120/83 Respiratory Rate: 16 Pulse Ox: 100 Oxygen Delivery Method: Room Air Airway Assessment Mouth opens: >3 cm Mallampati Score: II Teeth Condition: Intact Neck Range of motion (ROM): Full ROM Labs Anesthesia Preop lab: CBC WBC 7.0 K/mm3 (4.4-11.0) 12/17/24 11:12/17/24 RBC 4.29 M/mm3 (4.2-5.4) 12/17/24 11:12/17/24 Hgb 12.0 g/dL (12.0-15.0) 12/17/24 11:12/17/24 Hct 35.1 % (37-47) L 12/17/24 11:25 12/17/24 Plt Count 281 K/mm3 (150-450) 12/17/24 11:25 12/17/24 CHEMISTRY Creatinine 0.67 mg/dL (0.55-1.02) 07/13/23 15:50 07/13/23 COAG Urine Test Negative Negative 04/23/15 07:30 04/23/15 Pre-Assessment Diagnosis/Proposed Procedure Planned Operative Procedure(s): Dilation and Curettage, Suction Anesthesia History 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 When Was Last Pacemaker Check QUESTION #4 FULL TEXT: You/Your Family Experience fever (hyperthermia) with Anesthesia Last Oral Intake Last Oral intake: Last Oral Intake NPO since 21:00 12/17/24 11:38 Meds taken in AM with sips of Yes 12/17/24 11:38 water? 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 Female Yes 12/16/24 14:27 HX of Motion Sickness No 12/16/24 14:27 HX of N/V After Surgery No 12/16/24 14:27 Non-Smoker Yes 12/16/24 14:27 Duration of Surgery greater No 12/16/24 14:27 than 60 minutes Number of Risk Factors 2 12/16/24 14:27 PONV Score Moderate Risk 12/16/24 14:27 Height & Weight Height & Weight: Anesthesia: Height & Weight Height 5 ft 4 in 12/17/24 11:38 Weight: 85 kg 12/17/24 11:38 Body Mass Index (BMI) 32.1 12/17/24 11:38 Respiratory Assessment Respiratory Assessment - timber treating tank operator: Respiratory Tract Infection Hx - timber treating tank operator Hx Respiratory Tract Infection No 12/16/24 14:27 STOP Sleep Apnea STOP Sleep Apnea - timber treating tank operator: STOP Sleep Apnea - timber treating tank operator Hx Hypertension No 12/16/24 14:27 Hx Sleep Apnea No 12/16/24 14:27 CPAP No 12/16/24 14:27 BIPAP No 12/16/24 14:27 Do you snore loudly (louder No 12/16/24 14:27 than talking or can be heard Do you often feel tired/ No 12/16/24 14:27 fatigued/ sleepy during daytime? Has anyone observed you stop No 12/16/24 14:27 breathing during sleep? STOP Results Negative 12/16/24 14:27 QUESTION #5 FULL TEXT : Do you snore loudly (louder than talking or can be heard through closeddoors)? 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 Specify any problems Hx of Preganancy in last 3 Yes 12/16/24 14:27 Months Nurse Filling Out Transfusion VCHRISTIN 12/16/24 14:27 & Questions: Date: 12/16/24 12/16/24 14:27 Time: 14:28 12/16/24 14:27 Patient unable to answer at this time (ie. confused, unrespo /Reproduction History /Reproductive History - timber treating tank operator: /Reproductive Hx- timber treating tank operator Hx Now Yes 12/16/24 14:27 Gestational Age (in weeks): EDC: Hx Hx Para Hx Section SAB No 12/16/24 14:27 Active Medications Active Medications: Current Medications Generic Name Dose Route Start Last Admin Trade Name Freq PRN Reason Stop Dose Admin Doxycycline Monohydrate 100 mg 12/17/24 15:45 12/17/24 11:35 Doxycycline 100 Mg Capsule PO 100 mg PREOP WAYNE Administration Lactated Ringer's 1,000 mls @ 15 mls/hr 12/17/24 11:15 12/17/24 11:36 IV 15 mls/hr .Q48H WAYNE Administration PFSH Medical History (Updated 12/16/24 @ 14:27 by Marcie Pierre) Anemia Non-smoker Status post vacuum-assisted vaginal delivery Asthma Anxiety Family history of breast cancer Home Medications ?Medication ?Instructions ?Recorded ?Last Taken ?Type albuterol sulfate 90 mcg/actuation 2 puff inhalation Q 6H PRN 12/27/22 Unknown History aerosol inhaler shortness of breath or wheez ing montelukast 10 mg tablet 10 mg PO DAILY 12/27/2211/18 History (Singulair) multivitamin no.47-iron fum 27 1 cap PO DAILY 11/29/24 12/16/24 History mg-folate no.1 1 mg-dha 300 mg capsule (PNV-DHA) fluticasone 100 mcg-salmeterol 50 1 inh inhalation BID #60 ea 12/13/24 12/13/24 Rx mcg/dose blistr powdr for inhalation (Wixela Inhub) escitalopram oxalate 10 mg tablet 10 mg PO DAILY 12/1612/15/24 History (Lexapro) Allergy/AdvReac Type Severity Reaction Status Date / Time No Known Allergies Allergy Verified 12/17/24 11:27 Family History Grandmother Breast cancer, Onset Age: 60 Paternal Diabetes Maternal CAD (coronary artery disease) Maternal Father Prostate cancer, Onset Age: 57 Surgical History History of surgery [place] teeth extracted History of lumpectomy of both breasts Social History adopted: No household members: significant other and other details: BF Mother housing: house number of children: 1 current occupational status: employed 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 current occupational exposures/hazards: No pets and animals: Yes pets and animals: dog(s) history of recent travel: No (- November) sexually active: Yes Smoking Status: Never smoker alcohol intake: never substance use type: does not use well-balanced diet: about half the time caffeine: Yes Type: carbonated beverages Number of servings: 2 eating out: 1-3 times/week during the past year weight has: remained stable what type of physical activity do you participate in: walking frequency: 1-2 times per week duration: 30-45 minutes/day hilaria/islam: None seatbelt use: always do you feel safe at home: Yes additional 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 Physical Exam Const alert and oriented x3 Neck full ROM Resp normal respiratory effort, normal air movement and clear to auscultation bilaterally Cardio regular rate and regular rhythm Skin Rashes: no rashes Neuro oriented x3 and moves all extremities 12/17/24 1218 D> Date _ Alirio Betancourt MD Cosigner Signature: Date CC: ~ Signed [facility]05-30-2025 Radiology Diagnostic study note [facility] Imaging Services [address], [place] [id number] Breast Limited Unilateral MR#: [id number] Acct: [id number] Name: GASTON MANZO Rep #: [id number] : 1990 F 34 From: Tremayne Cantu MD PCP: DELIO EDDY Status: REG CLI Study:Breast Limited Unilateral Date of Exam: 11/15/24 Exam# [id number] Ordering Dr: Rox Reese MIXER OPERATOR RAW SALT-C PROCEDURE: BREAST LIMITED UNILATERAL 11/15/2024 REASON FOR EXAM: LEFT BREAST LUMP TECHNIQUE: Targeted left breast ultrasound. COMPARISON: Prior outside sonogram dated September 05, 2023. FINDINGS: Left breast ultrasound was targeted to the outer lower quadrant of the left breast.. The palpable lump corresponds to a 2.3 cm x 2.6 cm 1.7 cm well-defined hypoechoic solid nodule at the 4 o'clock position of the breast at 6 cm from the nipple. A tissue clip marker is seen within it in keeping with history of prior biopsy. This most likely represents a fibroadenoma. US/Breast Limited Unilateral IMPRESSION: Impression: Well-defined hypoechoic 2.3 cm 2.6 cm 1.7 cm nodule at the 4 o'clockposition of the breast at 6 cm from the nipple. A tissue clip marker is seen within it. This corresponds with the patient's palpable lump. This most likely represents a fibroadenoma. Birads: BI-RADS 2: BENIGN. RECOMMEND ANNUAL MAMMOGRAPHIC SCREENING. 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: Signed [facility]04-30-2025 Evaluation note* Diagnosis Onset Date Resolution Status Admit Date Breast lump acute October 16, 025 9:53am Cystocele with rectocele acute October 16, 2024 9:53am CATRACHO (stress urinary incontinence, female) acute September 9:53am Encounter for routine gynecological examination noneactive October 16, 2024 9:53am [facility] Work Phone: 1(880) 273-370404-30-2025 Evaluation note* Diagnosis Onset Date Resolution Status Admit Date Breast lump acute October 16 025 9:53am Cystocele with rectocele acute October 16, 2024 9:53am CATRACHO (stress urinary incontinence, female) acute September 9:53am Encounter for routine gynecological examination noneactive October 16, 2024 9:53am Anxiety acute December 13 8:45am Asthma acute December 13 8:45am Breast lump acute December 13 8:45am Breast lump on left side at 4 o'clock position acute December 13, 2024 8:45am Cystocele with rectocele acute December 13, 2024 8:45am H/O delivery by vacuum extraction, currently acute J une 2024 8:45am Hx of pre-eclampsia in prior , currently acute Ju 2024 8:45am acute December 13 8:45am CATRACHO (stress urinary incontinence, female) acute December 13, 2024 8:45am Supervision of high-risk acute December 13, 2024 8:45am [facility] Work Phone: 1(114) 591-597404-30-2025 Evaluation note* Diagnosis Onset Date Resolution Status Admit Date Breast lump acute October 16, 2 025 9:53am Cystocele with rectocele acute October 16, 2024 9:53am CATRACHO (stress urinary incontinence, female) acute September 9:53am Encounter for routine gynecological examination noneactive October 16, 2024 9:53am Anxiety acute December 13 8:45am Asthma acute December 13 8:45am Breast lump acute December 13 8:45am Breast lump on left side at 4 o'clock position acute December 13, 2024 8:45am Cystocele with rectocele acute December 13, 2024 8:45am H/O delivery by vacuum extraction, currently acute J [facility] 2024 8:45am Hx of pre-eclampsia in prior , currently acute Ju ks 2024 8:45am Missed with demise before 20 completed weeks of gestation acute December 13 8:45am acute December 13 8:45am CATRACHO (stress urinary incontinence, female) acute December 13, 2024 8:45am Supervision of high-risk acute December 13, 2024 8:45am Missed with demise before 20 completed weeks of gestation acute December 17 11:04am [facility] Work Phone: 1([phone]) 909-526704-30-2025 Evaluation note* Diagnosis Onset Date Resolution Status Admit Date Breast lump acute October 16, 2 025 9:53am Cystocele with rectocele acute October 16, 2024 9:53am CATRACHO (stress urinary incontinence, female) acute September 9:53am Encounter for routine gynecological examination noneactive October 16, 2024 9:53am Anxiety acute December 13 8:45am Asthma acute December 13 8:45am Breast lump acute December 13 8:45am Breast lump on left side at 4 o'clock position acute December 13, 2024 8:45am Cystocele with rectocele acute December 13, 2024 8:45am Missed with demise before 20 completed weeks of gestation acute December 13 8:45am CATRACHO (stress urinary incontinence, female) acute December 13, 2024 8:45am H/O delivery by vacuum extraction, currently inactive J une 2024 8:45am Hx of pre-eclampsia in prior , currently inactive Ju ne 2024 8:45am inactive December 13 8:45am Supervision of high-risk inactive December 13, 2024 8:45am Missed with demise before 20 completed weeks of gestation acute December 17 11:04am [facility] [employer] [facility] Work Phone: 1(538) 584-703603-19-2024 NoteHNO ID: [id number] Author: KELLY GREENE RDMS Service: ? Author Type: Chemical Instrumentation Officer Type: Progress Notes Filed: 09/05/2023 14:10 Note Text: Radiology Service Progress Note PATIENT NAME: Gaston Manzo DATE OF SERVICE: September 05, 2023 TIME: 2:10 PM PATIENT IDENTITY VERIFICATION COMPLETED USING TWO (2) IDENTIFIERS: Name and Date of confirmed by patient verbally. FALL SCREENING: Has the patient had 2 falls in the last year or 1 fall with injury or currently using an Ambulatory Assistive Device (Walker, Cane, Wheelchair, Crutches, etc.)? No PATIENT GENDER DATA: Female. status: : No status: NO. PATIENT RELEVANT IMPLANT DATA REVIEWED: Not Applicable PATIENT PRESENTS WITH AN IMPLANTABLE OR ATTACHED WINDOWS 7 DEPLOYMENT LEAD: No RADIOLOGY DEPARTMENT: Ultrasound PERIPHERAL IV DATA: Not applicable SIGNED BY: Kelly Greene RDMS RVT September 05, 2023 2:10 [facility]03-19-2024 NoteHNO ID: [id number] Author: STANFORD WAGNER Mammo Tech Service: ? Author Type: Immigration Consultant Type: Progress Notes Filed: 09/05/2023 12:01 Note Text: Radiology Service Progress Note PATIENT NAME: Gaston Manzo DATE OF SERVICE: September 05, 2023 TIME: 12:01 PM PATIENT IDENTITY VERIFICATION COMPLETED USING TWO (2) IDENTIFIERS: Name and Date of confirmed by patient verbally. FALL SCREENING: Has the patient had 2 falls in the last year or 1 fall with injury or currently using an Ambulatory Assistive Device (Walker, Cane, Wheelchair, Crutches, etc.)? No PATIENT GENDER DATA: Female. status: : No status: NO. PATIENT RELEVANT IMPLANT DATA REVIEWED: Not Applicable PATIENT PRESENTS WITH AN IMPLANTABLE OR ATTACHED WINDOWS 7 DEPLOYMENT LEAD: No RADIOLOGY DEPARTMENT: Mammography PERIPHERAL IV DATA: Not applicable SIGNED BY: Fatou Carreroo Stephany September 05, 2023 12:01 [facility]03-19-2024 History of Present illness Narrative* Kelly Greene RDMS - 09/05/2023 1:00 PM EDT Radiology Service Progress Note PATIENT NAME: Gaston Manzo DATE OF SERVICE: September 05, 2023 TIME: 2:10 PM PATIENT IDENTITY VERIFICATION COMPLETED USING TWO (2) IDENTIFIERS: Name and Date of confirmedby patient verbally. FALL SCREENING: Has the patient had 2 falls in the last year or 1 fall with injury or currently using an Ambulatory Assistive Device (Walker, Cane, Wheelchair, Crutches, etc.)? No PATIENT GENDER DATA: Female. status: : No status: NO. PATIENT RELEVANT IMPLANT DATA REVIEWED: Not Applicable PATIENT PRESENTS WITH AN IMPLANTABLE OR ATTACHED WINDOWS 7 DEPLOYMENT LEAD: No RADIOLOGY DEPARTMENT: Ultrasound PERIPHERAL IV DATA: Not applicable SIGNED BY: Kelly Greene RDMS RVT September 05, 2023 2:10 PM [facility] History of Present illness Narrative* Stanford Wagner Mammo Stephany - 09/05/2023 11:30 AM EDT Radiology Service Progress Note PATIENT NAME: Gaston Manzo DATE OF SERVICE: September 05, 2023 TIME: 12:01 PM PATIENT IDENTITY VERIFICATION COMPLETED USING TWO (2) IDENTIFIERS: Name and Date of confirmedby patient verbally. FALL SCREENING: Has the patient had 2 falls in the last year or 1 fall with injury or currently using an Ambulatory Assistive Device (Walker, Cane, Wheelchair, Crutches, etc.)? No PATIENT GENDER DATA: Female. status: : No status: NO. PATIENT RELEVANT IMPLANT DATA REVIEWED: Not Applicable PATIENT PRESENTS WITH AN IMPLANTABLE OR ATTACHED WINDOWS 7 DEPLOYMENT LEAD: No RADIOLOGY DEPARTMENT: Mammography PERIPHERAL IV DATA: Not applicable SIGNED BY: Maria Elena Carrero September 05, 2023 12:01 PM [facility]01[facility]29[facility] History of Present illness Narrative* Laverne Centeno MD - 07/17/2023 5:35 PM EST Images from the original note were not included. Department of Obstetrics and Gynecology Labor and Delivery Triage Note CHIEF COMPLAINT: Palpitations, Swelling PreE HISTORY OF PRESENT ILLNESS: The patient is a 32 y.o. OB History 1 Para 1 Term 1 AB Living 1 SAB IAB Ectopic Multiple Live Births 1 Patient presents with a chief complaint as above. Patient is PPD#3 from a VAVD complicated by a 3rddegree laceration in [place]. Reports complicated by PreEwoSF, states she never received magnesium and is not on BP meds. Reports light lochia. Denies EDMOND, vision changes, chest pain, SOB, RUQ pain. States she came in for palpitations, swelling, and feeling like her BP is elevated. PAST MEDICAL HISTORY: Past Medical History: Diagnosis Date Preeclampsia, severe, third trimester PAST SURGICAL HISTORY: TONGUE AND QUARTER STITCHER is required. Please contact your telecommunications administrator to configure this SmartLink. SOCIAL HISTORY: Social History Socioeconomic History Marital status: Not on file Spouse name: Not on file Number of children: Not on file Years of education: Not on file Highest education level: Not on file Occupational History Not on file Tobacco Use Smoking status: Never Smokeless tobacco: Never Substance and Sexual Activity Alcohol use: Not Currently Drug use: Not Currently Sexual activity: Not on file Other Topics Concern Not on file Social History Narrative Not on file Social Determinants of Health Financial Resource Strain: Not on file Food Insecurity: Not on file Transportation Needs: Not on file Physical Activity: Not on file Stress: Not on file Social Connections: Not on file Intimate Partner Violence: Not on file Housing Stability: Not on file MEDICATIONS: No current facility-administered medications for this encounter. CARE: Complicated by: PreEwoSF VAVD 3rd Degree Lac REVIEW OF SYSTEMS: Pertinent items are noted in HPI. APPEARANCE: Pain: no PHYSICAL EXAM: Vital Signs: Elevated BPs/Respirations normal effort Vitals: 07/17/23 1522 07/17/23 1524 07/17/23 1632 BP: 140/88 140/88 134/90 BP Location: Left arm Patient Position: Sitting Pulse: 100 Resp: 16 Temp: 37 C (98.6 F) TempSrc: Oral SpO2: 98% Heart: S1 and S2 normal, no murmur, click, gallop or rub Lungs: clear, equal breath sounds. No accessory muscle use. Abdomen: soft, nontender, no organomegaly or masses LE Edema: trace, nontender, b/l calves 44.5cm RESULTS: GENERAL LABS: Recent Results (from the past 24 hour(s)) Protein, urine, random Collection Time: 07/17/23 4:15 PM Result Value Ref Range TOTAL PROTEIN, UR 17 (H) 0 - 12 mg/dL Creatinine, urine, random Collection Time: 07/17/23 4:15 PM Result Value Ref Range CREATININE, URINE 74.9 No Range mg/dL Comprehensive metabolic panel Collection Time: 07/17/23 4:23 PM Result Value Ref Range SODIUM 139 135 - 145 mmol/L POTASSIUM 3.9 3.5 - 5.1 mmol/L CHLORIDE 108 (H) 98 - 107 mmol/L CARBON DIOXIDE 23 22 - 30 mmol/L ANION GAP 8 3 - 13 mmol/L UREA NITROGEN 10 7 - 17 mg/dL CREATININE 0.72 0.52 - 1.04 mg/dL GLUCOSE 99 70 - 100 mg/dL CALCIUM 9.5 8.4 - 10.4 mg/dL AST (SGOT) 56 (H) 15 - 46 U/L ALT 49 (H) 0 - 34 U/L ALKALINE PHOSPHATASE 200 (H) 38 - 126 U/L ALBUMIN 3.7 3.5 - 5.0 g/dL BILIRUBIN, TOTAL 0.5 0.2 - 1.3 mg/dL TOTAL PROTEIN 6.7 6.3 - 8.2 g/dL eGFR >90.0 >60.0 mL/min/1.73m*2 CBC Collection Time: 07/17/23 4:23 PM Result Value Ref Range Auto WBC 9.8 3.6 - 10.7 10*3/uL RBC 3.14 (L) 3.8 - 5.20 10*6/uL Hemoglobin 9.2 (L) 11.7 - 16.0 g/dL Hematocrit 27.3 (L) 35.0 - 47.0 % MCV 86.9 80.0 - 98.0 fL MCH 29.2 26.0 - 34.0 pg MCHC 33.6 32.0 - 36.0 % RDW 14.8 (H) 11.5 - 14.5 % Platelets 220 140 - 440 10*3/uL MPV 9.4 7.4 - 12.4 fL ECG 12 lead Collection Time: 07/17/23 5:33 PM Result Value Ref Range Heart Rate 75 bpm QRSD Interval 86 ms QT Interval 367 ms QTC Interval 410 ms P [place] 24 degrees QRS [place] -1 degrees T Wave [place] 29 degrees MD Interval 156 ms TRIAGE COURSE: Pt presented with above. Bps mild range while in triage. Physical exam benign. CBC wnl. CMP demonstrated elevated AST and ALT, less than 2x upper limit of normal. EKG demonstrated sinus rhythm. Counseled patient on normal PP changes regarding swelling and advised patient to elevate legs and to wearcompression socks. Discussed with Dr. Barry and 20mg Lasix ordered for 5 day course. Provided triage return precautions and advised patient to keep her next OB appt. IMPRESSION: Preeclampsia-without severe features DISCUSSED WITH [facility] PROVIDER: Dr. Asha Yan DISPOSITION: Discharge to Home Associated attestation - Edward Barry DO - 07/17/2023 10:40 PM EST Hospital Care (Independent): I independently saw and evaluated the patient. I agree with the findings and plan of care as documented in the resident's note. Given increased swelling and associated discomfort, history of preeclampsia without severe features, will plan to dc home with Lasix 20mg PO x5 days. Return precautions provided to the patient. She will hopefully be returning home later thisweek as her baby is improving. documented in [facility]01-27-2024 Progress note Author Luz Maria Haro [facility] July 15, 2023 10:14am Note Date/Time July 15, 2023 1 0:15am [facility] Medical Records Department [address] [place] [address] Progress Note - OBGYN 07/15/23 1012 MR#: [id number] Acct: [id number] Name: GASTON MANZO Rep #:[id number] : 1990 32 From: Luz Maria Haro CNM PCP: NOEMI TREJO Status:ADM IN Location: [place] [id number] Subjective Subjective Patient doing well without complaints. Tolerating PO. Ambulating and voiding without difficulty. Feeding well. Denies chest pain, shortness of breath, calf pain/swelling, fevers, chills, lightheadedness. Objective Data Objective Data Vital Signs: Vital Signs Temp Pulse Resp BP Pulse Ox O2 Del Method 97.4 F L 94 16 122/86 H 98 Room Air 07/15/23 10:01 07/15/23 10:01 07/15/23 10:01 07/15/23 10:07/15/23 10:07/15/23 10:01 Oxygen Delivery Method Room Air Weight: 223 lb 15.834 oz Body Mass Index (BMI) 38.4 Intake & Output: Intake and Output for Last 24 Hours 07/13/23 07/14/23 07/15/23 23:59 23:59 23:59 Intake Total 688.17 / 688.17 4998.68 / 4998.68 Output Total 150 / 150 2300 / 2300 Balance 538.17 / 538.17 2698.68 / 2698.68 Lab / Micro Data 07/13/23 15:50 07/13/23 15:50 Physical Exam Const alert, oriented x3 and no apparent distress Neck full ROM Chest inspection of chest normal Resp normal respiratory effort, normal air movement and no retractions Cardio regular rate and regular rhythm GI normal to inspection, nondistended, normoactive bowel sounds Uterus Palpation: uterus fundus firm Extremity full ROM Extremity Narrative: pedal edema, non pitting Skin no rashes or lesions noted Assessment & Plan (1) Status post vacuum-assisted vaginal delivery: (2) Anxiety: COMMENT: no meds, encouraged counseling; stable (3) Asthma: QUALIFIERS: Asthma severity: unspecified severity Asthma persistence: unspecified Asthma complication type: unspecified Qualified Code(s): J45.909 - Unspecified asthma, uncomplicated COMMENT: Referred to PCP 03/30 for increase in meds. on singulair and albuterol but not well controlled now PLAN: Plan s/p PPD # 1 1. routine post delivery care 2. breast feeding- support given 3. rh positive 4. rubella immune 5. desires d/c home today 07/15/23 1014 <Electronically signed by Luz Maria Haro CNM> Cosigner Signature (if applicable): CC: ~ Signed [facility] Work Phone: 1(982) 558-681401-26-2024 Discharge summary Author Tatiana Bey [facility] July 14, 2023 6:14pm Note Date/Time July 14, 2023 6 :03pm [facility] Medical Records Department [address] [place] [address] Instructions for Home/Discharge Instructions 07/14/23 1803 MR#: [id number] Acct: [id number] Name: GASTON MANZO LORI Rep #:[id number] : 1990 32 From: Tatiana Sue DO PCP: NOEMI TREJO Status:ADM IN Discharge Instructions Diet Discharge Diet: No restrictions Activity Discharge Activity: Return to Normal Activity, May Not Drive (while taking narcotic pain medications.) and May Shower May resume sexual activity in: 4-6 weeks Dressing / Incision Call your doctor if your incision/area has: Continuous Slow Oozing, Sudden Increased Bleeding, Increased Pain/ Swelling, Increased Redness and Foul Smelling Discharge Follow Up Care Please Follow Up With: Tatiana Sue DO When: Call [phone] to make an appointment with your doctor in 6 weeks. If you had elevated blood pressure or 4th degree laceration, you will need to be seen in 2 weeks. Test Results: Test results from this visit will be discussed in further detail at your follow- up appointment, if applicable. Discharge Plan Admission Admit Date/Time: 07/13/23 18:15 Primary Reason for Your Visit: vaginal delivery Attending Provider: Tatiana Sue Primary Care Provider: NOEMI TREJO Discharge Orders/Prescriptions Prescriptions: New ibuprofen 800 mg tablet 800 mg PO Q8H PRN (Reason: pain) Qty: 30 0RF docusate sodium [Colace] 100 mg capsule 100 mg PO DAILY 30 Days Qty: 30 0RF Continued PNV-DHA 27 mg iron-1 mg -300 mg capsule 1 cap PO DAILY montelukast [Singulair] 10 mg tablet 10 mg PO DAILY albuterol sulfate 90 mcg/actuation HFA aerosol inhaler 2 puff inhalation Q6H PRN (Reason: shortness of breath or wheezing) fluticasone propion-salmeterol [Advair Diskus] 250-50 mcg/dose blister with device 1 inh inhalation BID famotidine [Pepcid] 20 mg tablet 20 mg PO DAILY Qty: 90 3RF Integra F 125-1-40-3 mg capsule 1 cap PO DAILY Qty: 30 6RF Rx Instructions: administer between meals Referrals / Follow Up: NOEMI TREJO CRNP [Primary Care Provider] - Disposition Disposition (needs filled in before D/C Order can be placed): Home, Self Care 07/14/231813<Electronically signed by Tatiana Sue DO>Tatiana Sue DO CC: DELIO EDDY ~ Signed [facility] Work Phone: 1(141) 852-928301-26-2024 Procedure [facility] 07-14-2023 Progress note Author Luz Maria Haro [facility] July 14, 2023 7:58am Note Date/Time July 14, 2023 7 :56am [facility] Medical Records Department [address] [place] [address] Progress Note - OBGYN 07/14/23 0752 MR#: [id number] Acct: [id number] Name: GASTON MANZO Rep #:[id number] : 1990 32 From: Luz Maria Haro CNM PCP: NOEMI TREJO Status:ADM IN Location: [id number] Subjective Subjective comfortable with epidural Objective Data Objective Data Vital Signs: Vital Signs Temp Pulse BP Pulse Ox 98.3 F 118 H 138/75 H 97 07/14/23 07:23 07/14/23 07:23 07/14/23 07:23 07/14/23 07:23 Weight: 223 lb 15.834 oz Body Mass Index (BMI) 38.4 Intake & Output: Intake and Output for Last 24 Hours 07/12/23 07/13/23 07/14/23 23:59 23:59 23:59 Intake Total 688.17 / 688.17 1098.56 / 1098.56 Output Total 150 / 150 500 / 500 Balance 538.17 / 538.17 598.56 / 598.56 Lab / Micro Data 07/13/23 15:50 07/13/23 15:50 Labs: Laboratory Results - last 24 hr 07/13/23 15:50: WBC 9.2, RBC 3.76 L, Hgb 10.7 L, Hct 32.3 L, MCV 85.9, MCH 28.5,MCHC 33.1, RDW Std Deviation 42.6, RDW Coeff of Hemal 13.7, Plt Count 193, MPV 12.6 H, Creatinine 0.67, Est GFR (MDRD) Af Amer 132, Est GFR (MDRD) Non-Af 109, Uric Acid 4.4, AST 24, ALT 33, Syphilis Total Ab Non-reactive, Blood Type A POSITIVE, Antibody Screen NEGATIVE 07/13/23 17:25: U Random Total Protein 44.0 H, Urine Creatinine 112.00, Protein/Creatinin Ratio 393 H Physical Exam Const alert and no apparent distress Resp normal respiratory effort, normal air movement and no retractions Cardio regular rate and regular rhythm GI Inspection: gravid Extremity normal to inspection Skin no rashes or lesions noted NST FHR Rate Baby A Baseline: 140 Accelerations:: 15 x 15 Decelerations:: None NST Reactive:: Yes FHR Category:: Category I Uterine Activity:: q3-4 Assessment & Plan (1) Pre-eclampsia affecting puerperium: COMMENT: proceed with IOL pit/fb PLAN: BP stable. (2) Encounter for induction of labor: COMMENT: garcia bulb/pitocin currently at 20mu- reassuring maternal/ status PLAN: recheck in 2 hours. 07/14/23 5869 <Electronically signed by Luz Maria Haro CNM> Cosigner Signature (if applicable): CC: ~ Signed [facility] Work Phone: 1(843) 711-551701-26-2024 Progress note Author Lindsayotf Juradomichele [facility] July 14, 2023 2:07am Note Date/Time July 14, 2023 2 :07am [facility] Medical Records Department [address] [place] [address] Progress Note 07/14/23206 MR#: [id number] Acct: [id number] Name: GASTON MANZO LORI Rep #:[id number] : 1990 32 From: Lindsay bautista MD PCP: NOEMI TREJO Status:ADM IN Location: [id number] Progress Note arom pink tinged fluid 5 cm internals placed, cat I tracing. pit per protocol. 07/14/23206 <Electronically signed by Lindsay Garay MD> Lindsay Garay MD Cosigner Signature (if applicable): CC: ~ Signed [facility] Work Phone: 1([phone]) 153-266801-26-2024 History and physical note Author Lindsay Adrienmichele [facility] July 13, 2023 10:18pm Note Date/Time July 13, 2023 1 0:18pm [facility] Medical Records Department [address] [place] [address] H&P Exam - SITE SAFETY MANAGER 07/13/23 2215 MR#: [id number] Acct: [id number] Name: GASTON MANZO LORI Rep #:[id number] : 1990 32 From: Lindsay bautista MD PCP: NOEMI TREJO Status:ADM IN Location: [id number] HPI - General General Date of Admission: 07/13/23 HPI Narrative GASTON MANZO, is a 32 F who presents due to elevated bps, upon evaluation she has preeclampsia. co edema no vb lof admits good fm. no regular ctx Maternal Data Information BLAINE Calculator Estimated Delivery Date Method Current WG Current Estimate 08/01/23 LMP (Certain) 37w 2d PFSH PFSH Medical History (Updated 07/13/23 @ 22:[address] Lindsay Garay MD) Anxiety Asthma Family history of breast cancer Home Medications albuterol sulfate 90 mcg/actuation aerosol inhaler 2 puff inhalation Q6H PRN shortness of breath or wheezing 12/27/22 [History Last Taken Unknown] montelukast 10 mg tablet (Singulair) 10 mg PO DAILY 12/27/22 [History Last Taken 07/12/23 20:00 10 mg] multivitamin no.47-iron fum 27 mg-folate no.1 1 mg-dha 300 mg capsule (PNV-DHA)1 cap PO DAILY 12/27/22 [History Last Taken 07/12/23 20:00 1 cap] famotidine 20 mg tablet (Pepcid) 20 mg PO DAILY #90 tabs 04/28/23 [Rx Last Taken 07/12/23 20:00 20 mg] fluticasone 250 mcg-salmeterol 50 mcg/dose blistr powdr for inhalation (Advair Diskus) 1 inh inhalation BID 04/28/23 [History Last Taken 07/13/23 08:00 1 inh] iron fum,pscplx 125 mg-folic acid 1 mg-vit C 40 mg-niacin 3 mg capsule (Integra F) 1 cap PO DAILY #30 caps 06/09/23 [Rx Last Taken 07/13/23 08:00 1 cap] Allergy/AdvReac Type Severity Reaction Status Date / Time No Known Allergies Allergy Verified 07/13/23 17:12 Family History Grandmother Breast cancer, Onset Age: 60 Paternal Diabetes Maternal CAD (coronary artery disease) Maternal Father Prostate cancer, Onset Age: 57 Surgical History (Updated 07/13/23 @ 18:37 by David López) History of lumpectomy of both breasts History of surgery [place] teeth extracted Social History adopted: No household members: significant other and other details: BF Mother current occupational status: employed 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 current occupational exposures/hazards: No pets and animals: Yes pets and animals: dog(s) history of recent travel: Yes (- November) out of state: Yes out of country: No sexually active: Yes Smoking Status: Never smoker alcohol intake: never substance use type: does not use well-balanced diet: about half the time caffeine: No eating out: 1-3 times/week during the past year weight has: remained stable what type of physical activity do you participate in: walking frequency: 1-2 times per week duration: 30-45 minutes/day hilaria/islam: None seatbelt use: always do you feel safe at home: Yes additional social history: BF- [employer]- 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 History 1 Elective abortions Hx Para 0 Spontaneous abortions Hx # Term Pregnancies Ectopic pregnancies Hx # Pregnancies Multiple births # of living children 0 Visit Details Expected Delivery Route/Plan Labor Preferences- CB/BF classes: yes labor support person: Juan Jose labor intervention preferences: [] pain management options preferred: epidural cut cord/dad catch: yes : yes PP control planned: discussed discussed possible routes of delivery and associated risks: [] special requests: [] Plans Covid status: unvax Flu vaccine: declines Tdap vaccine:given Rhogam: NA LARC form signed: yes movement and labor precautions reviewed. Problem list reviewed and updated with the most current plan of care details and appropriate orders placed. Relevant counseling for the gestational age provided. Continue routine care and follow up unless otherwise noted in visit notes/problem list details OB Flowsheet Initial Weight: 168 lb Date -?-?-?-?-?-?-?-?-?-?-?-?- EGA Weight BP Urine Prot -?-?-?-?-?-?-?-?-?-?-?-?- Glucose FHR FuHt Pres Dilation -?-?-?-?-?-?-?-?-?-?-?-?- Effaced St Visit Note 01/02/23 -?-?-?-?-?-?-?-?-?-?-?-?- 9w 6d 168 lb 8 oz (+8 oz) 132/79 -?-?-?-?-?-?-?-?-?-?-?-?- 165 -?-?-?-?-?-?-?-?-?-?-?-?- LC- CRL 28.9mm c /w LMP. BLAINE 08/01/2023 LC- CRL 28.9mm c/w LMP. BLAINE 08/01/2023. 01/31/23 -?-?-?-?-?-?-?-?-?-?-?-?- 14w 0d 174 lb 4 oz (+6 lb 4 oz) 124/78 Negative -?-?-?-?-?-?-?-?-?-?-?-?- Negative 153 -?-?-?-?-?-?-?-?-?-?-?-?- MH-NO VB. Nausea improving. Reviewed PN labs. Brief US to confirm FHT 02/27/23 -?-?-?-?-?-?-?-?-?-?-?-?- 17w 6d 181 lb (+13 lb) 117/73 Negative -?-?-?-?-?-?-?-?-?-?-?-?- Negative 150 -?-?-?-?-?-?-?-?-?-?-?-?- SM- no vb crampi ng nausea improving, having headaches. SM- no vb cramping nausea im proving, having headaches. discussed starting pepcid for nausea and heartburn, reviewed EDMOND treatment OTC 03/30/23 -?-?-?-?-?-?-?-?-?-?-?-?- 22w 2d 190 lb 2 oz (+22 lb 2 oz) 128/82 Negative -?-?-?-?-?-?-?-?-?-?-?-?- Negative 145 22 -?-?-?-?-?-?-?-?-?-?-?-?- KW- no vb/lof/ct x. good fm. feeling SOB and having increased coughing and using albuterol inhaler 3 times a week. encouraged chiropractor for hip pain. KW- no vb/lof/ctx. good fm. feeling SOB and having increased coughing and using albuterol inhaler 3 times a week, recommended seeing PCP for change in meds. encouraged chiropractor for hip pain. 04/28/23 -?-?-?-?-?-?-?-?-?-?-?-?- 26w 3d 196 lb (+28 lb) 108/76 Negative -?-?-?-?-?-?-?-?-?-?-?-?- Negative 140 27 -?-?-?-?-?-?-?-?-?-?-?-?- KW- no vb/lof/ct x. good fm. added Advair and feeling much better. Pepcid reordered. 28 week labs reviewed and ordered. 05/10/23 -?-?-?-?-?-?-?-?-?-?-?-?- 28w 1d 198 lb 4 oz (+30 lb 4 oz) 118/72 Trace -?-?-?-?-?-?-?-?-?-?-?-?- Negative 132 29 -?-?-?-?-?-?-?-?-?-?-?-?- MH-No VB, LOF. G ood FM. 28 wk labs, larc. Considering tdap 05/22/23 -?-?-?-?-?-?-?-?-?-?-?-?- 29w 6d 203 lb (+35 lb) 118/83 Negative -?-?-?-?-?-?-?-?-?-?-?-?- Negative 130 31 -?-?-?-?-?-?-?-?-?-?-?-?- SM- no vb lof go od fm n oregular ctx 06/09/23 -?-?-?-?-?-?-?-?-?-?-?-?- 32w 3d 208 lb 2 oz (+40 lb 2 oz) 107/77 Negative -?-?-?-?-?-?-?-?-?-?-?-?- Negative 150 32 -?-?-?-?-?-?-?-?-?-?-?-?- JV- asthma a lit tle worse and is working with pcp and now on advair. will order growth ultrasound. adding integra to medication list as hg did not change with otc iron. JV- asthma a little worse an d is working with pcp and now on advair. will order growth ultrasound. adding integra to medication list as hg did not change with otc iron. Discussed weight gain (40 lbs already) and healthy eating. ok to walk in 06/21/23 -?-?-?-?-?-?-?-?-?-?-?-?- 34w 1d 214 lb (+46 lb) 116/84 Negative -?-?-?-?-?-?-?-?-?-?-?-?- Negative 143 34 -?-?-?-?-?-?-?-?-?-?-?-?- LC- no vb/ctx/lo f. good fm. had growth scan today.asthma slightly better on advair. 07/03/23 -?-?-?-?-?-?-?-?-?-?-?-?- 35w 6d 218 lb 8 oz (+50 lb 8 oz) 142/90 Trace -?-?-?-?-?-?-?-?-?-?-?-?- Negative 144 37.5 -?-?-?-?-?-?-?-?-?-?-?-?- LC- no vb/ctx/lo f. good fm. elevated BP in office. having sparkle vision occassionally. no headaches. sending to for PEC labs/monitoring. NST FHR Rate Baby A Baseline: 130 Variability:: Moderate Accelerations:: 15 x 15 Decelerations:: None NST Reactive:: Yes FHR Category:: Category I Uterine Activity:: irregular ROS Constitutional Constitutional: Reports systems reviewed and no addt'l complaints, except as documented Eyes Eyes: Denies change in vision ENT HEENT: Reports systems reviewed and no addt'l complaints, except as documented; Denies headache(s) Cardiovascular Cardiovascular: Reports systems reviewed and no addt'l complaints, except as documented; Denies chest pain or dyspnea Respiratory/Chest Respiratory/Chest: Reports systems reviewed and no addt'l complaints, except as documented Gastrointestinal Gastrointestinal: Reports systems reviewed and no addt'l complaints, except as documented; Denies abdominal pain Genitourinary Genitourinary: Reports systems reviewed and no addt'l complaints, except as documented, contractions Details: present (irregular) and movement Details: present; Denies dysuria or genital lesions Musculoskeletal Musculoskeletal: Reports systems reviewed and no addt'l complaints, except as documented Neurologic Neurologic: Reports systems reviewed and no addt'l complaints, except as documented Endocrine Endocrinology: Reports systems reviewed and no addt'l complaints, except as documented Vital Signs Vital Signs Vital Signs: 07/13/23 15:55 07/13/23 15:55 07/13/23 15:58 Temperature Temperature Source Pulse Rate 95 97 Blood Pressure 141/90 H BP Systolic 141 BP Diastolic 90 Pulse Ox 07/13/23 15:58 07/13/23 15:45 07/13/23 15:45 Temperature Temperature Source Tympanic Pulse Rate Blood Pressure BP Systolic BP Diastolic Pulse Ox 99 99 07/13/23 15:45 07/13/23 16:06 07/13/23 16:06 Temperature 98.1 F Temperature Source Pulse Rate 97 Blood Pressure 134/82 H BP Systolic 134 BP Diastolic 82 Pulse Ox 07/13/23 16:21 07/13/23 16:21 07/13/23 16:36 Temperature Temperature Source Pulse Rate 105 H Blood Pressure 132/85 H 131/89 H BP Systolic 132 131 BP Diastolic 85 89 Pulse Ox 07/13/23 16:36 07/13/23 16:52 07/13/23 16:52 Temperature Temperature Source Pulse Rate 99 100 Blood Pressure 135/82 H BP Systolic 135 BP Diastolic 82 Pulse Ox 07/13/23 17:06 07/13/23 17:06 07/13/23 17:38 Temperature Temperature Source Pulse Rate 109 H Blood Pressure 141/85 H 136/89 H BP Systolic 141 136 BP Diastolic 85 89 Pulse Ox 07/13/23 17:38 07/13/23 17:54 07/13/23 17:54 Temperature Temperature Source Pulse Rate 114 H 106 H Blood Pressure 145/84 H BP Systolic 145 BP Diastolic 84 Pulse Ox 07/13/23 18:08 07/13/23 18:08 07/13/23 18:23 Temperature Temperature Source Pulse Rate 116 H Blood Pressure 150/90 H 143/85 H BP Systolic 150 143 BP Diastolic 90 85 Pulse Ox 07/13/23 18:23 07/13/23 18:38 07/13/23 18:38 Temperature Temperature Source Pulse Rate 110 H 107 H Blood Pressure 142/92 H BP Systolic 142 BP Diastolic 92 Pulse Ox 07/13/23 18:53 07/13/23 18:53 07/13/23 19:08 Temperature Temperature Source Pulse Rate 111 H Blood Pressure 132/75 H 128/76 H BP Systolic 132 128 BP Diastolic 75 76 Pulse Ox 07/13/23 19:08 07/13/23 19:24 07/13/23 19:24 Temperature Temperature Source Pulse Rate 105 H 109 H Blood Pressure 141/81 H BP Systolic 141 BP Diastolic 81 Pulse Ox 07/13/23 19:24 07/13/23 19:24 07/13/23 19:24 Temperature Temperature Source Temporal Pulse Rate 105 H Blood Pressure BP Systolic BP Diastolic Pulse Ox 96 07/13/23 19:24 07/13/23 19:24 07/13/23 19:43 Temperature 98.7 F Temperature Source Pulse Rate 110 H Blood Pressure BP Systolic BP Diastolic Pulse Ox 98 07/13/23 19:43 07/13/23 19:48 07/13/23 19:48 Temperature Temperature Source Pulse Rate 108 H Blood Pressure BP Systolic BP Diastolic Pulse Ox 97 97 07/13/23 19:53 07/13/23 19:53 07/13/23 19:58 Temperature Temperature Source Pulse Rate 114 H 106 H Blood Pressure BP Systolic BP Diastolic Pulse Ox 97 07/13/23 19:58 07/13/23 20:03 07/13/23 20:03 Temperature Temperature Source Pulse Rate 111 H Blood Pressure BP Systolic BP Diastolic Pulse Ox 97 96 07/13/23 20:55 07/13/23 20:56 07/13/23 20:56 Temperature Temperature Source Temporal Pulse Rate 90 Blood Pressure 132/83 H BP Systolic 132 BP Diastolic 83 Pulse Ox 07/13/23 20:56 07/13/23 20:55 07/13/23 21:45 Temperature 98.4 F Temperature Source Pulse Rate 92 Blood Pressure BP Systolic BP Diastolic Pulse Ox 97 07/13/23 21:45 07/13/23 21:50 07/13/23 21:50 Temperature Temperature Source Pulse Rate 98 Blood Pressure 135/93 H BP Systolic 135 BP Diastolic 93 Pulse Ox 98 07/13/23 21:50 07/13/23 21:50 07/13/23 21:50 Temperature 98.2 F Temperature Source Temporal Pulse Rate Blood Pressure BP Systolic BP Diastolic Pulse Ox 98 Weight Weight: 223 lb 15.834 oz Body Mass Index (BMI) 38.4 Physical Exam Const alert, oriented x3, no apparent distress and healthy appearing HEENT normocephalic and moist oral mucous membranes Head and Scalp: atraumatic Neck full ROM, no lymphadenopathy, supple and thyroid normal General: trachea midline Lymph Lymphatic: no lymphadenopathy noted Chest inspection of chest normal Resp normal respiratory effort Cardio regular rate GI normal to inspection, nondistended, normoactive bowel sounds, soft to palpation and non-tender Inspection: gravid external exam normal Manual OB Exam: estimated gestational size appropriate, presentation cephalic, dilated, effaced and station Extremity normal to inspection General Extremity: Negative for edema Skin no rashes or lesions noted Neuro no focal motor deficits and deep tendon reflexes 2+ bilaterally Motor Exam: strength 5/5 throughout and clonus absent Psych mental status grossly normal Labs Labs Labs: Blood Type A POSITIVE Antibody Screen NEGATIVE Hct 32.3 % (37-47) L Hgb 10.7 g/dL (12.0-15.0) L Obstetrics Ultrasound Syphilis Total Ab Non-reactive Rubella IgG Antibody Reactive (Nonreactive) Hep Bs Antigen Non-Reactive (Nonreactive) Hepatitis C Antibody Non-Reactive (Nonreactive) Chlamydia DNA (NOREEN) Negative (Negative) N.gonorrhoeae DNA (NOREEN) Negative (Negative) HIV 1&2 Antibody Non-Reactive (Nonreactive) Glucose 1 Hr 50 gm 105 mg/dL (70-140) Assessment & Plan (1) Pre-eclampsia affecting puerperium: COMMENT: proceed with IOL pit/fb (2) Anemia affecting : COMMENT: rpt CBC in4 wks (3) Family history of congenital heart defect: COMMENT: nephew born with VSD, had surgery. offered echo. per MFM if murmur recommend echo after (4) Supervision of high-risk : QUALIFIERS: Trimester: second trimester Qualified Code(s): O09.92 - Supervision of high risk , unspecified, second trimester COMMENT: [id number], BLAINE 08/01/22 surprise BF Juan Jose (5) : QUALIFIERS: Weeks of gestation: 35 weeks Qualified Code(s): Z3A.35 - 35 weeks gestation of COMMENT: gbs negative. declined genetic & carrier testing. declines ntd screen. nl anatomy, 34wk nl growth (6) Abnormal Pap smear of cervix: COMMENT: 2020 epithelial cells (7) Anxiety: COMMENT: no meds, encouraged counseling; stable (8) Asthma: QUALIFIERS: Asthma severity: unspecified severity Asthma persistence: unspecified Asthma complication type: unspecified Qualified Code(s): J45.909 - Unspecified asthma, uncomplicated COMMENT: Referred to PCP 03/30 for increase in meds. on singulair and albuterol but not well controlled now PLAN: Plan Patient presents IOL, plan management for with fb and pitocin then AROM. Pain management: plans epidural. GBS negative. Management of any complications: preeclampsia I have reviewed the [facility] and made any clinically relevant updates. 07/13/232217 <Electronically signed by Lindsay Garay MD> Cosigner Signature (if applicable): CC: Dr. Lindsay Garay MD; DELIO EDDY~ Signed [facility] Work Phone: 1(790) 361-111007-17-2023 NotePap Smear Specimen AdequacyJuly 2022 4:29pmComment.Satisfactory for evaluation. Endocervical and/or squamous metaplasticcells (endocervical component)are present.[facility] INTERFACED A#[id number] Health – The Jewish HospitalComment on above:Satisfactory for evaluation. Endocervical and/or squamous metaplasticcells (endocervical component)are present.Consult note Author Amada Louis [facility] Note Date/Time December 17, 2024 2:15p m [facility] Medical Records Department [address] [place] [address] Anesthesia Postop Eval I 12/17/24 1414 MR#: [id number] Acct: [id number] Name: GASTON MANZO LORI Rep #:[id number] : 1990 34 From: Amada eng HEEL SEWER PCP: DELIO EDDY Status:REG [facility] [place] Race: C Location: [place] [address] Anesthesia: Postop Eval I Current Vital Signs Temperature: 97.3 F Pulse Rate: 88 Blood Pressure: 116/77 Respiratory Rate: 16 Pulse Ox: 98 Oxygen Delivery Method: Room Air Assessment Airway patent: Yes Spontaneous unlabored respirations: Yes Mental status: Awake and Calm nausea: No Vomiting: No Anesthesia Complication: No Fluid Hydration Crystalloid volume administer (ml): 600 Total IV fluid infused: 600 Progress Note Anesthesia document: Postop Eval 1 completed: Yes 12/17/24 1415 <Electronically signed by Amada carter HEEL SEWER> Date _ Amada Louis HEEL SEWER Cosigner Signature: Date CC: ~ Signed [facility] Work Phone: Consult note Author Alirio Betancourt [facility] Note Date/Time December 17, 2024 3:51p [facility] Medical Records Department [address] [place] [address] Anesthesia Postop Eval II 12/17/24 1537 MR#: [id number] Acct: [id number] Name: GASTON MANZO LORI Rep #:[id number] : 1990 34 From: Alirio Betancourt MD PCP: DELIO EDDY Status:REG SDC Y Race: C Location: [place] [address] Anesthesia Postop Eval I Sum Postop Eval Completion status Anesthesia document: Postop Eval 1 completed: Yes Anesthesia Postop Eval I Summary Anesthesia Postop Eval I Summary: Anesthesia Postop Eval I: Assessment Summary Airway patent Yes 12/17/24 14:15 HEEL SEWER.JOIOBY Spontaneous unlabored Yes 12/17/24 14:15 HEEL [email or web address] respirations Mental status Awake,Calm 12/17/24 14:15 HEEL [email or web address] nausea No 12/17/24 14:15 HEEL [email or web address] Vomiting No 12/17/24 14:15 HEEL [email or web address] Anesthesia Postop Eval I: Fluid Summary Crystalloid volume administer 600 12/17/24 14:15 HEEL [email or web address] (ml) Colloids volume administered ( ml) Blood Product volume administered (ml) Total IV fluid infused 600 12/17/24 14:15 HEEL [email or web address] Anesthesia Postop Eval I: Summary Notes Anesthesia Complication No 12/17/24 14:15 HEEL [email or web address] Anesthesia Complication Comment: Post-operative progress note Anesthesia: Postop Eval II Evaluation Mental status: Awake and Calm Pain Level: 2 nausea: No Vomiting: No Complications Anesthesia Complication: No 12/17/24 1537 <Electronically signed by Alirio Roca> Date _ Alirio Betancourt MD Cosigner Signature: Date CC: ~ Signed [facility] Work Phone: [phone] + Plan note Future Appointments Appointment Date:05/16/2022 04:30:00 PM Scheduled Provider:LOLY RENE Location:[employer] [facility] Appointment Type:PC OV Follow Up [facility] Evaluation note* Diagnosis Onset Date Resolution Status Abnormal Pap smear of cervix acute Anxiety acute Asthma acute acute Supervision of high-risk [facility] Work Phone: [phone] note* Diagnosis Onset Date Resolution Status Abnormal Pap smear of cervix acute Anxiety acute Asthma acute acute Supervision of high-risk acute Abnormal Pap smear of cervix acute Anxiety acute Asthma acute Family history of congenital heart defect acute acute Supervision of high-risk acute Abnormal Pap smear of cervix acute Anxiety acute Asthma acute Family history of congenital heart defect acute acute Supervision of high-risk acute Abnormal Pap smear of cervix acute Anxiety acute Asthma acute Family history of congenital heart defect acute acute Supervision of high-risk acute Anxiety acute Family history of congenital heart defect acute acute Supervision of high-risk [facility] Work Phone: evaluation note* Diagnosis Onset Date Resolution Status Abnormal Pap smear of cervix acute Anxiety acute Asthma acute Family history of congenital heart defect acute acute Supervision of high-risk acute Abnormal Pap smear of cervix acute Anxiety acute Asthma acute Family history of congenital heart defect acute acute Supervision of high-risk acute Abnormal Pap smear of cervix acute Anxiety acute Asthma acute Family history of congenital heart defect acute acute Supervision of high-risk acute Anxiety acute Family history of congenital heart defect acute acute Supervision of high-risk acute Abnormal Pap smear of cervix acute Anemia affecting a cute Anxiety acute Asthma acute Family history of congenital heart defect acute acute Supervision of high-risk acute Abnormal Pap smear of cervix acute Anemia affecting a cute Anxiety acute Asthma acute Family history of congenital heart defect acute acute Supervision of high-risk acute Abnormal Pap smear of cervix acute Anemia affecting a cute Anxiety acute Asthma acute Family history of congenital heart defect acute acute Supervision of high-risk acute [facility] Work Phone: Evaluation note* Diagnosis Onset Date Resolution Status Abnormal Pap smear of cervix acute Anxiety acute Asthma acute Family history of congenital heart defect acute acute Supervision of high-risk acute Abnormal Pap smear of cervix acute Anxiety acute Asthma acute Family history of congenital heart defect acute acute Supervision of high-risk acute Anxiety acute Family history of congenital heart defect acute acute Supervision of high-risk acute Abnormal Pap smear of cervix acute Anemia affecting a cute Anxiety acute Asthma acute Family history of congenital heart defect acute acute Supervision of high-risk acute Abnormal Pap smear of cervix acute Anemia affecting a cute Anxiety acute Asthma acute Family history of congenital heart defect acute acute Supervision of high-risk acute Abnormal Pap smear of cervix acute Anemia affecting a cute Anxiety acute Asthma acute Family history of congenital heart defect acute acute Supervision of high-risk acute Abnormal Pap smear of cervix acute Anemia affecting a cute Anxiety acute Asthma acute Family history of congenital heart defect acute acute Supervision of high-risk [facility] Work Phone: Evaluation note* Diagnosis Onset Date Resolution Status Abnormal Pap smear of cervix acute Anxiety acute Asthma acute Family history of congenital heart defect resolved resolved Supervision of high-risk resolved Abnormal Pap smear of cervix acute Anxiety acute Asthma acute Family history of congenital heart defect resolved resolved Supervision of high-risk resolved Anxiety acute Family history of congenital heart defect resolved resolved Supervision of high-risk resolved Abnormal Pap smear of cervix acute Anxiety acute Asthma acute Anemia affecting r esolved Family history of congenital heart defect resolved resolved Supervision of high-risk resolved Abnormal Pap smear of cervix acute Anxiety acute Asthma acute Anemia affecting r esolved Family history of congenital heart defect resolved resolved Supervision of high-risk resolved Abnormal Pap smear of cervix acute Anxiety acute Asthma acute Anemia affecting r esolved Family history of congenital heart defect resolved resolved Supervision of high-risk resolved Abnormal Pap smear of cervix acute Anxiety acute Asthma acute Anemia affecting r esolved Family history of congenital heart defect resolved resolved Supervision of high-risk resolved Elevated blood pressure reading resolved Abnormal Pap smear of cervix acute Anxiety acute Asthma acute Status post vacuum-assisted vaginal delivery acute Anemia affecting r esolved Encounter for induction of labor resolved Family history of congenital heart defect resolved Pre-eclampsia affecting puerperium resolved resolved Supervision of high-risk resolved [facility] Work Phone: Hospital course Narrative No data available for this section [facility] Discharge instructions No data available for this section [facility] Discharge instructions Additional Instructions follow up as wayne with [facility] Work Phone: Progress note No data available for this section [facility] Reason for referral (narrative)No reason for referral [facility]: Summary Purpose Family History Relationship Condition Age at Onset Recorded Date/T laurie grandmother Malignant neoplasm of breast 60 Diabetes mellitus Unknown Coronary artery disease Unknown father Malignant neoplasm of prostate 57 Advance Directives Advance Directive Response Recorded Date/ Time Advance Directives No April 20, 2015 9:15am Living Will No April 20 9:15am Power of Retouching Operator No April 20, 2015 9:15am Advance Directive Response Recorded Date/ Time Advance Directives No April 20, 2015 8:15am Living Will No April 20 8:15am Power of Retouching Operator No April 20, 2015 8:15am Advance Directive Response Recorded Date/ Time Advance Directives No April 20, 2015 8:15am Living Will No July 13 6:38pm Power of Retouching Operator No July 13, 2023 6:38pm Advance Directive Response Recorded Date/ Time Advance Directives No April 20, 2015 9:15am Advance Directive Response Recorded Date/ Time Do you have a Healthcare Power of Retouching Operator? No December 16, 2024 2:27pm Advance Directives No April 20, 2015 9:15am 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 and Reason for Visit 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 NOB LMP 5/9 Reason for Visit Abnormal Pap smear o f cervix Anxiety Asthma Supervision of high-risk 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 13 WK OB 18 WK OB 22 WK OB 26 WK OB EORDERS 28 WK OB/GLUCOSE Reason for Visit Abnormal Pap smear o f cervix Anxiety Asthma Supervision of high-risk Abnormal Pap smear of cervix Anxiety Asthma Family history of congenital heart defect Supervision of high-risk Abnormal Pap smear of cervix Anxiety Asthma Family history of congenital heart defect Supervision of high-risk Abnormal Pap smear of cervix Anxiety Asthma Family history of congenital heart defect Supervision of high-risk Anxiety Family history of congenital heart defect Supervision of high-risk 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 18 WK OB 22 WK OB 26 WK OB EORDERS 28 WK OB/GLUCOSE 30 WK OB INT LABS 32 WK OB GROWTH, ASTHMA 34 WK OB Reason for Visit Abnormal Pap smear o f cervix Anxiety Asthma Family history of congenital heart defect Supervision of high-risk Abnormal Pap smear of cervix Anxiety Asthma Family history of congenital heart defect Supervision of high-risk Abnormal Pap smear of cervix Anxiety Asthma Family history of congenital heart defect Supervision of high-risk Anxiety Family history of congenital heart defect Supervision of high-risk Abnormal Pap smear of cervix Anemia affecting Anxiety Asthma Family history of congenital heart defect Supervision of high-risk Abnormal Pap smear of cervix Anemia affecting Anxiety Asthma Family history of congenital heart defect Supervision of high-risk Abnormal Pap smear of cervix Anemia affecting Anxiety Asthma Family history of congenital heart defect Supervision of high-risk 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 22 WK OB 26 WK OB EORDERS 28 WK OB/GLUCOSE 30 WK OB INT LABS 32 WK OB GROWTH, ASTHMA 34 WK OB 36 WK OB R/O PRE-E Reason for Visit Abnormal Pap smear o f cervix Anxiety Asthma Family history of congenital heart defect Supervision of high-risk Abnormal Pap smear of cervix Anxiety Asthma Family history of congenital heart defect Supervision of high-risk Anxiety Family history of congenital heart defect Supervision of high-risk Abnormal Pap smear of cervix Anemia affecting Anxiety Asthma Family history of congenital heart defect Supervision of high-risk Abnormal Pap smear of cervix Anemia affecting Anxiety Asthma Family history of congenital heart defect Supervision of high-risk Abnormal Pap smear of cervix Anemia affecting Anxiety Asthma Family history of congenital heart defect Supervision of high-risk Abnormal Pap smear of cervix Anemia affecting Anxiety Asthma Family history of congenital heart defect Supervision of high-risk 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 22 WK OB 26 WK OB EORDERS 28 WK OB/GLUCOSE 30 WK OB INT LABS 32 WK OB GROWTH, ASTHMA 34 WK OB 36 WK OB R/O PRE-E R/O PRE-E VAGINAL DELIVERY LABOR LABOR VAGINAL DELIVERY Reason for Visit Abnormal Pap smear o f cervix Anxiety Asthma Family history of congenital heart defect Supervision of high-risk Abnormal Pap smear of cervix Anxiety Asthma Family history of congenital heart defect Supervision of high-risk Anxiety Family history of congenital heart defect Supervision of high-risk Abnormal Pap smear of cervix Anxiety Asthma Anemia affecting Family history of congenital heart defect Supervision of high-risk Abnormal Pap smear of cervix Anxiety Asthma Anemia affecting Family history of congenital heart defect Supervision of high-risk Abnormal Pap smear of cervix Anxiety Asthma Anemia affecting Family history of congenital heart defect Supervision of high-risk Abnormal Pap smear of cervix Anxiety Asthma Anemia affecting Family history of congenital heart defect Supervision of high-risk Elevated blood pressure reading Abnormal Pap smear of cervix Anxiety Asthma Status post vacuum-assisted vaginal delivery Anemia affecting Encounter for induction of labor Family history of congenital heart defect Pre-eclampsia affecting puerperium Supervision of high-risk 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 Admit Date 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 RX HERE December 11, 2024 6: 30pm *EST* NOB LMP 10/08, BLAINE 07/15December 13, 2024 8:45am Reason for Visit Admit Date Breast lump October 16, 2024 9:5 3am Cystocele with rectocele October 16 9:53am CATRACHO (stress urinary incontinence, female ) October 16, 2024 9:53am Encounter for routine gynecological exam ination October 16, 2024 9:53am Anxiety December 13, 2024 8:45 am Asthma December 13, 2024 8:45 am Breast lump December 13, 2024 8:45 am Breast lump on left side at 4 o'clock po sition December 13, 2024 8:45am Cystocele with rectocele December 13, 2024 8:45am H/O delivery by vacuum extraction, currelvie ntly December 13, 2024 8:45am Hx of pre-eclampsia in prior , currently December 13, 2024 8:45am December 13, 2024 8:45 am CATRACHO (stress urinary incontinence, female ) December 13, 2024 8:45am Supervision of high-risk December 13, 2024 8:45am 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 Admit Date 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 RX HERE December 11, 2024 6: 30pm *EST* NOB LMP 10/08, BLAINE 07/15December 13, 2024 8:45am Dilation and Curettage, Suction December 11:04am Dilation and Curettage, Suction December 12:44pm Reason for Visit Admit Date Breast lump October 16, 2024 9:5 3am Cystocele with rectocele October 16 9:53am CATRACHO (stress urinary incontinence, female ) October 16, 2024 9:53am Encounter for routine gynecological exam ination October 16, 2024 9:53am Anxiety December 13, 2024 8:45 am Asthma December 13, 2024 8:45 am Breast lump December 13, 2024 8:45 am Breast lump on left side at 4 o'clock po sition December 13, 2024 8:45am Cystocele with rectocele December 13, 2024 8:45am H/O delivery by vacuum extraction, curre ntly December 13, 2024 8:45am Hx of pre-eclampsia in prior , currently December 13, 2024 8:45am Missed with d emise before 20 completed weeks of gestation December 13, 2024 8:45am December 13, 2024 8:45 am CATRACHO (stress urinary incontinence, female ) December 13, 2024 8:45am Supervision of high-risk December 13, 2024 8:45am Missed with d emise before 20 completed weeks of gestation December 17, 2024 11:04am 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 Admit Date 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 RX HERE December 25, 2024 6:0 0pm 2 wk F/U D&C December 30, 2024 10:1 1am Reason for Visit Admit Date Breast lump October 16, 2024 9:5 3am Cystocele with rectocele October 16 9:53am CATRACHO (stress urinary incontinence, female ) October 16, 2024 9:53am Encounter for routine gynecological exam ination October 16, 2024 9:53am Anxiety December 13, 2024 8:45 am Asthma December 13, 2024 8:45 am Breast lump December 13, 2024 8:45 am Breast lump on left side at 4 o'clock po sition December 13, 2024 8:45am Cystocele with rectocele December 13, 2024 8:45am Missed with d emise before 20 completed weeks of gestation December 13, 2024 8:45am CATRACHO (stress urinary incontinence, female ) December 13, 2024 8:45am H/O delivery by vacuum extractionemmy December 13, 2024 8:45am Hx of pre-eclampsia in prior , currently December 13, 2024 8:45am December 13, 2024 8:45 am Supervision of high-risk December 13, 2024 8:45am Missed with d emise before 20 completed weeks of gestation December 17, 2024 11:04am 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 Admit Date Dilation and Curettage, Suction December 11:04am Dilation and Curettage, Suction December 12:44pm 2 wk F/U D&C December 30, 2024 10:1 1am PELVIC FLOOR. RX HERE March 26, 2025 6:00pm Reason for Visit Admit Date Missed with d emise before 20 completed weeks of gestation December 17, 2024 11:04am Status post dilation and curettage December 30, 2024 10:11am Additional Source Comments Care Team (unrecognized sect ion and content) Care Team Personnel Name: Aurea Pole Sander Operator Valencia PT Position: P3 Scheduling - Refrigerated Cargo Clerk Advanced Member Role: Other Name: JEFF FRANCO MD Position: P4 Physician - Primary Care Member Role: Primary Care Physician Address: Address: [address] [place] [id number] Care Team Related Persons Name: JARRED MANZO Address: Home [address] [place], [place] [id number] [place] Address: Temporary [address] [place] [id number] INFORMATION SOURCE (unrecogn ized section and content) DATE CREATED AUTHOR 04/26/2022 [facility] ([place]) DATE CREATED AUTHOR AUTHOR'S ORGANIZ ATION 03/22/2023 [facility] DATE CREATED AUTHOR AUTHOR'S ORGANIZ ATION 07/20/2023 [facility] DATE CREATED AUTHOR AUTHOR'S ORGANIZ ATION 09/06/2023 [facility] DATE CREATED AUTHOR AUTHOR'S ORGANIZ ATION 01/22/2025 [facility] DATE CREATED AUTHOR AUTHOR'S ORGANIZ ATION 03/29/2025 [facility] Care Teams (unrecognized sec tion and content) Team Status: Active Member Role Status Dates Dr. Jeff Franco MD Family Provider Active Loly Rene NP, MIXER OPERATOR RAW SALT-C Primary Care Provider Active Team Status: Inactive Member Role Status Dates Loly Rene NP, MIXER OPERATOR RAW SALT-C Primary Care Provider, Referr ing Provider Active Luz Maria Haro CNM Attending Provider Active Team Status: Inactive Member Role Status Dates Loly Seffens MIXER OPERATOR RAW SALT, MIXER OPERATOR RAW SALT-C Primary Care Provider Active Luz Maria Haro CNM Attending Provider, Referring Pr ovider Active Team Status: Inactive Member Role Status Dates Loly Rene MIXER OPERATOR RAW SALT, MIXER OPERATOR RAW SALT-C Primary Care Provider, Referr ing Provider Active Aline Gentile MIXER OPERATOR RAW SALT, MIXER OPERATOR RAW SALT-C Attending Provider Active Team Status: Inactive Member Role Status Dates Loly Rene MIXER OPERATOR RAW SALT, MIXER OPERATOR RAW SALT-C Primary Care Provider, Referr ing Provider Active Dr. Lindsay Garay MD Attending Provider Active Team Status: Inactive Member Role Status Dates Loly Rene MIXER OPERATOR RAW SALT, MIXER OPERATOR RAW SALT-C Primary Care Provider, Referr ing Provider Active Leticia Manuel CNM Attending Provider Active Team Status: Inactive Member Role Status Dates Loly Rene MIXER OPERATOR RAW SALT, MIXER OPERATOR RAW SALT-C Primary Care Provider Active Dr. Lindsay Garay MD Attending Provider, Referr ing Provider Active Team Status: Inactive Member Role Status Dates Loly Rene MIXER OPERATOR RAW SALT, MIXER OPERATOR RAW SALT-C Primary Care Provider Active Dr. Tatiana Sue DO Attending Provider, Refe rring Provider Active Team Status: Active Member Role Status Dates Dr. Jeff Franco MD Family Provider Active No Primary Care Physician Primary Care Provider Active Team Status: Inactive Member Role Status Dates Loly Rene MIXER OPERATOR RAW SALT, MIXER OPERATOR RAW SALT-C Referring Provider Active Dr. Tatiana Sue DO Attending Provider Activ e No Primary Care Physician Primary Care Provider Active Team Status: Inactive Member Role Status Dates Loly Rene MIXER OPERATOR RAW SALT, MIXER OPERATOR RAW SALT-C Referring Provider Active Luz Maria Haro CNM Attending Provider Active No Primary Care Physician Primary Care Provider Active Team Status: Inactive Member Role Status Dates Luz Maria Haro CNM Attending Provider, Referring Pr ovider Active No Primary Care Physician Primary Care Provider Active Team Status: Inactive Member Role Status Dates No Primary Care Physician Primary Care Provider Active Dr. Tatiana Sue DO Attending Provider, Refe rring Provider Active Team Status: Inactive Member Role Status Dates No Primary Care Physician Primary Care Provider Active Luz Maria Haro CNM Attending Provider, Referring Pr ovider Active Team Status: Active Member Role Status Dates Dr. Jeff Franco MD Family Provider Active HEATH EDDYNP Primary Care Provider Active Team Status: Active Member Role Status Dates No Primary Care Physician Primary Care Provider Active Luz Maria Haro CNM Attending Provider , Referring Provider, Other Provider Active Team Status: Active Member Role Status Dates NOEMI TREJO , PORTER MARINA Primary Care Provider Active Dr. Lindsay Garay MD Admit Provid er, Attending Provider, Referring Provider, Other Provider Active Team Status: Active Member Role Status Dates NOEMI TREJO PORTER MARINA Primary Care Provider Active Dr. Lindsay Garay MD Admit Provider Active Dr. Tatiana Sue DO Referring Provider, Othe r Provider Active Luz Maria Haro CNM Attending Provider Active Team Status: Inactive Member Role Status Dates NOEMI TREJO PORTER MARINA Primary Care Provider Active Dr. Lindsay Garay MD Admit Provider Active Dr. Tatiana Sue DO Attending Provider, Refe rring Provider Active Digester Cook Relationship Specialty Start Date End Date Jeff Franco PCP - General Family Medicine 04/14/16 Digester Cook Relationship Specialty Start Date End Date Jeff Franco PCP - General Family Medicine 04/14/16 Team Status: Active Member Role Status Dates NOEMI MAST , PORTER MARINA Primary Care Provider Active Team Status: Inactive Member Role Status Dates NOEMI MAST , PORTER MARINA Primary Care Provider Active Start: October 16, 2024 End: October 16, 2024 NOEMI TREJO , PORTER MARINA Referring Provider Active Sta rt: October 16, 2024 End: October 16, 2024 SONIDO Patterson Attending Provider Active Start: October 16, 2024 End: October 16, 2024 Team Status: Inactive Member Role Status Dates NOEMI MAST , PORTER MARINA Primary Care Provider Active Start: November 15, 2024 End: November 15, 2024 SONIDO Patterson Attending Provider Active Start: November 15, 2024 End: November 15, 2024 SONIDO Patterson Referring Provider Active Start: November 15, 2024 End: November 15, 2024 Team Status: Active Member Role Status Dates NOEMI MAST , PORTER MARINA Primary Care Provider Active Start: December 11, 2024 SONIDO Patterson Attending Provider Active Start: December 11, 2024 Rox Barkman , MIXER OPERATOR RAW SALT-C Referring Provider Active Start: December 11, 2024 Team Status: Inactive Member Role Status Dates NOEMI MAST , PORTER MARINA Primary Care Provider Active Start: December 13, 2024 End: December 13, 2024 NOEMI MAST , PORTER MARINA Referring Provider Active Sta rt: December 13, 2024 End: December 13, 2024 Luz Maria Haro CNM Attending Provider Active Start: December 13, 2024 End: December 13, 2024 Team Status: Active Member Role/Relationship Status Dates NOEMI MAST , PORTER MARINA Primary Care Provider Active Team Status: Inactive Member Role/Relationship Status Dates NOEMI MAST , PORTER MARINA Primary Care Provider Active Start: October 16, 2024 End: October 16, 2024 NOEMI MAST , PORTER MARINA Referring Provider Active Sta rt: October 16, 2024 End: October 16, 2024 Rox Reese NP-C Attending Provider Active Start: October 16, 2024 End: October 16, 2024 Team Status: Inactive Member Role/Relationship Status Dates NOEMI MAST , PORTER MARINA Primary Care Provider Active Start: November 15, 2024 End: November 15, 2024 Rox Reese NP-C Attending Provider Active Start: November 15, 2024 End: November 15, 2024 Rox Reese NP-C Referring Provider Active Start: November 15, 2024 End: November 15, 2024 Team Status: Active Member Role/Relationship Status Dates NOEMI MAST , PORTER MARINA Primary Care Provider Active Start: December 11, 2024 Rox Reese NP-C Attending Provider Active Start: December 11, 2024 Rox Reese NP-C Referring Provider Active Start: December 11, 2024 Team Status: Inactive Member Role/Relationship Status Dates NOEMI MAST , PORTER MARINA Primary Care Provider Active Start: December 13, 2024 End: December 13, 2024 NOEMI MAST , PORTER MARINA Referring Provider Active Sta rt: December 13, 2024 End: December 13, 2024 Luz Maria Haro CNM Attending Provider Active Start: December 13, 2024 End: December 13, 2024 Team Status: Inactive Member Role/Relationship Status Dates NOEMI MAST , PORTER MARINA Primary Care Provider Active Start: December 17, 2024 End: December 17, 2024 Dr. Tatiana Sue DO Attending Provider Activ e Start: December 17, 2024 End: December 17, 2024 Dr. Tatiana Sue DO Referring Provider Activ e Start: December 17, 2024 End: December 17, 2024 Team Status: Active Member Role/Relationship Status Dates NOEMI MAST , PORTER MARINA Primary Care Provider Active Start: December 17, 2024 Dr. Tatiana Sue DO Attending Provider Activ e Start: December 17, 2024 Dr. Tatiana Sue DO Referring Provider Activ e Start: December 17, 2024 Dr. Tatiana Sue , Other Provider Active Start: December 17, 2024 Team Status: Inactive Member Role/Relationship Status Dates NOEMI MAST , PORTER MARINA Primary Care Provider Active Start: December 13, 2024 End: December 13, 2024 NOEMI MAST , PORTER MARINA Referring Provider Active Sta rt: December 13, 2024 End: December 13, 2024 Luz Maria Haro CNM Attending Provider Active Start: December 13, 2024 End: December 13, 2024 Team Status: Inactive Member Role/Relationship Status Dates NOEMI MAST , PORTER MARINA Primary Care Provider Active Start: December 17, 2024 End: December 17, 2024 Dr. Tatiana Sue DO Attending Provider Activ e Start: December 17, 2024 End: December 17, 2024 Dr. Tatiana Sue DO Referring Provider Activ e Start: December 17, 2024 End: December 17, 2024 Team Status: Active Member Role/Relationship Status Dates NOEMI MAST , PORTER MARINA Primary Care Provider Active Start: December 17, 2024 Dr. Tatiana Sue DO Attending Provider Activ e Start: December 17, 2024 Dr. Tatiana Sue DO Referring Provider Activ e Start: December 17, 2024 Dr. Tatiana Sue DO Other Provider Active Start: December 17, 2024 Team Status: Active Member Role/Relationship Status Dates NOEMI MAST , PORTER MARINA Primary Care Provider Active Start: December 25, 2024 SONIDO Patterson Attending Provider Active Start: December 25, 2024 SONIDO Patterson Referring Provider Active Start: December 25, 2024 Team Status: Inactive Member Role/Relationship Status Dates NOEMI MAST , PORTER MARINA Primary Care Provider Active Start: December 30, 2024 End: December 30, 2024 NOEMI MAST , PORTER MARINA Referring Provider Active Sta rt: December 30, 2024 End: December 30, 2024 Dr. Tatiana Sue DO Attending Provider Activ e Start: December 30, 2024 End: December 30, 2024 Team Status: Active Member Role/Relationship Status Dates NOEMI TREJO , PORTER MARINA Primary care physician Active Team Status: Inactive Member Role/Relationship Status Dates NOEMI TREJO , PORTER MARINA Primary care physician Active Start: December 17, 2024 End: December 17, 2024 Dr. Tatiana Sue DO Attending physician Acti ve Start: December 17, 2024 End: December 17, 2024 Dr. Tatiana Sue DO Referring Provider Activ e Start: December 17, 2024 End: December 17, 2024 Team Status: Active Member Role/Relationship Status Dates HEATH EDDYNP Primary care physician Active Start: December 17, 2024 Dr. Tatiana Sue DO Attending physician Acti ve Start: December 17, 2024 Dr. Tatiana Sue DO Referring Provider Activ e Start: December 17, 2024 Dr. Tatiana Sue DO Nurse Practitioner Activ e Start: December 17, 2024 Team Status: Inactive Member Role/Relationship Status Dates NOEMI TREJO , PORTER MARINA Primary care physician Active Start: December 30, 2024 End: December 30, 2024 NOEMI MAST , PORTER MARINA Referring Provider Active Sta rt: December 30, 2024 End: December 30, 2024 Dr. Tatiana Sue DO Attending physician Acti ve Start: December 30, 2024 End: December 30, 2024 Team Status: Inactive Member Role/Relationship Status Dates NOEMIGABRIELLE TREJO , PORTER MARINA Primary care physician Active Start: March 26, 2025 End: March 26, 2025 SONIDO Patterson Attending physician Active Start: March 26, 2025 End: March 26, 2025 SONIDO Patterson Referring Provider Active Start: March 26, 2025 End: March 26, 2025 Goals (unrecognized section and content) Goals may be documented in a n alternate section Reason for Visit (unrecogniz ed section and content) Reason Comments Follow-up Swelling. Headache. Sent from OB in [place] Reason Comments Radiology US Source Comments (unrecognize d section and content) In the event this informatio n is protected by the Federal Confidentiality of Alcohol and Drug Abuse Patient Records regulations: The Federal rules restrict any use of the information to criminally investigate or prosecute any alcohol or drug abuse patient.[facility] the event this information is protected by the Federal Confidentiality of Alcohol and Drug Abuse Patient Records regulations: The Federal rules restrict any use of the information to criminally investigate or prosecute any alcohol or drug abuse patient.[facility] FOR RECORDS PERTAINING TO PATIENTS WHO ARE [...] BE BASED ON THE PRIMARY CLINICAL RECORDS. [employer] [facility]. provides no warranty or guarantee of the accuracy or completeness of information in this document.
== END | disposition home or self-care (01) ==
PROVIDERS: PCP Nurse Practitioner Adult Health; Visit Provider Obstetrics & Gynecology
DX: Z34.90 Encounter for supervision of normal pregnancy, unspecified, unspecified trimester (principal)
CPT/HCPCS: 36415; 84702

== ENCOUNTER → 2025-05-28 | Outpatient (CLI) | payer OTHER, SELFPAY ==
[2025-05-28 18:13] LABS: hCG Titer Quant., Serum 14707 mIU/mL (<9 non-preg)
== END | disposition home or self-care (01) ==
PROVIDERS: Obstetrics & Gynecology; PCP Nurse Practitioner Adult Health; Visit Provider Nurse Practitioner Women's Health
DX: Z34.90 Encounter for supervision of normal pregnancy, unspecified, unspecified trimester (principal)
CPT/HCPCS: 36415; 84702

== ENCOUNTER → 2025-06-04 | Outpatient (CLI) | payer OTHER, SELFPAY ==
--- NOTE | 2025-06-04 07:20 | US_ITS ---
PROCEDURE: TRANSVAGINAL W/PREG US 06/04/2025 REASON FOR EXAM: VIABILITY Dating. TECHNIQUE: Procedure Code: [id number] Modality: US Procedure: TRANSVAGINAL W/PREG US COMPARISON: None FINDINGS: Comments: LMP: April 29, 2025. Number of Gestational Sacs: 1 Gestational Sac Shape: Normal Number of Fetuses: 1 Heart Rate: 135 (average) Yolk Sac: Present and unremarkable. Placenta: Presently not well-visualized Amniotic Fluid Volume: Subjectively normal for gestational age. Uterine Abnormalities: There is evidence of a 1.7 cm x 2 cm x 0.9 cm subchorionic hematoma. Ovaries / Adnexa: Both maternal ovaries are visualized and unremarkable.. There is a 2.9 cm 3.1 cm 2.8 cm right ovarian cyst. DIMENSIONS: Parameter Measurement / EGA [place] Length: 8 mm/6 weeks and 6 days Gestational Sac: 2 cm/ Yolk Sac: 4 mm/ ESTIMATED GESTATIONAL AGE: By Ultrasound: 6 weeks and 6 days By LMP: 6 weeks and 4 days ESTIMATED DATE OF DELIVERY: By Ultrasound: January 22, 2026 By LMP: January 24, 2026 US/Transvaginal w/Preg US IMPRESSION: Live intrauterine gestation with a mean gestational age of 6 weeks and 6 days. 1.7 cm x 2 cm x 0.9 cm subchorionic hematoma. 2.9 cm 3.1 cm 2.8 cm right ovarian corpus luteum cyst. Reading Location: [id number]
--- OUTSIDE RECORDS SUMMARY | 2025-06-04 07:20 | XMS RPT_ITS | CCD ---
Author Organization [facility] Care Team Providers Care Crane Mechanic Name Role Phone JOAN OLIVIER, JEFF Maddox Primary Care Physician [phone] Aurea PT, Valencia Unavailable Unavailable ANJU JUNIOR PHP DEVELOPER-ONCOLOGY TECHNICIAN, LOLY Attending Ruthann FRANCO MD., DR. JEFF Maddox Primary Care Ruthann Rene WALL MAN, WALL MAN-C Loly Primary Care Provider Anju WALL MAN, WALL MAN-C Loly Referring Provider [phone] BENNETT Haro Attending Provider [phone] NO PRIMARY CARE, Primary Care Unavailable ROSALINDA MONTERO Attending Unavailable LINDSAY GARAY Referring Unavailabl elvie Rene WALL MAN, WALL MAN-C Loly Primary Care Provider Anju WALL MAN, WALL MAN-C Olly Referring Provider [phone] Krupa ENRIQUEZ, WALL MAN-C Aline Attending Provider [phone] Dr. Lindsay Garay Attending Provider [phone] BENNETT Manuel Attending Provider [phone] Anju WALL MAN, WALL MAN-C Loly Primary Care Provider Anju WALL MAN, WALL MAN-C Loly Referring Provider [phone] Krupa WALL MAN, WALL MAN-C Aline Attending Provider [phone] Dr. Tatiana Sue Attending Provider [phone] Care Physician, Ebony Primary Primary Care Provider Unavailable BENNETT Haro Attending Provider [phone] Anju WALL MAN, WALL MAN-C Loly Primary Care Provider Anju WALL MAN, WALL MAN-C Loly Referring Provider [phone] Dr. Lindsay [...] NAUMJEFF CARMICHAEL Primary Care Unavailab le MAST OWNER OPERATOR TANKER TRUCK DRIVER, NOEMI Primary Care Provider [phone] MAST NOEMI KEBEDE Referring Provider [phone] Hugh WALL MAN-CRox Attending Provider [phone] Hugh WALL MAN-CRox Referring Provider [phone] Luz Maria Haro CNM Attending Provider [phone] Dr. Tatiana Sue DO Attending Provider Dr. Tatiana Sue DO Referring Provider Dr. Tatiana Sue DO Other Provider [phone] MAST JUNIOR PHP DEVELOPER-ONCOLOGY TECHNICIAN, NOEMI Primary Care Physician [phone] MAST JUNIOR PHP DEVELOPER-ONCOLOGY TECHNICIAN, NOEMI Primary Care Unavailabl elvie ZELAYA JUNIOR PHP DEVELOPER-ONCOLOGY TECHNICIAN, BEATRICE Saldivar Attending Tatiana Mann Referring Unavailabl e Tatiana Sue Attending Unavailabl e Tatiana Sue Consulting Unavailabl e MAST, NOEMI Primary Care Unavailable Tatiana uSe Referring Unavailabl e Tatiana Sue Attending Unavailabl [...] e MAST, NOEMI Primary Care Unavailable MAST OWNER OPERATOR TANKER TRUCK DRIVER, NOEMI Primary Care Physician Dr. Tatiana Sue DO Attending Physician Dr. Tatiana Sue DO Nurse Practitioner MAST NOEMI KEBEDE Referring Provider [phone] Rox Chakraborty Attending Physician [phone] Rox Chakraborty Referring Provider [phone] Medications Current Medications Medication Drug Class(es) Dates [...] 0 Refill(s) Start Date: 01/16/20 Status: Ordered [id number] 200 actuat albuterol 0.09 mg/actuat metered dose [...] q4h, # 3 EA, 3 Refill(s), [id number], 164.2, cm, 04/15/21 16:39:00 EDT, Height, kg, 04/15/21 16:39:00 EDT, Dosing Weight Start Date: 04/15/21 Status: Ordered doxycycline hyclate 100 mg oral tablet (1 source) Tetracycline-class Drug Start: 01-21-20 End: 01-31-20 doxycycline hyclate 100 mg oral tablet Dose : 100 mg = 1 tab(s), Oral, BID, X 10 day(s), # 20 tab(s), 0 Refill(s), 01/30/25 6:15:00 PM EDT, Pharmacy: [facility], Persistent fever Headache, 163, cm, [...] qDay, # 90 tab(s), 3 Refill(s), [id number], 161, cm, 03/21/22 16:37:00 EDT, Height [...] C Start: 06-09-2023 End: 08-21-2023 Iron Fum,Ps Resqng-Hc-Ynk C-B3 (Integra F) 125-1-40-3 mg capsule Discontinued [...] BID, # 16 gram(s), 0 Refill(s), Pharmacy: [facility], Rhinosinusitis, 162.6, cm, 04/18/23 9:03:00 [...] for mild pain (1-3). 0 Active Multivit 16-Mbbh-Tnezfv 1-Dh a (Pnv-Dha) 27 mg iron-1 mg -300 mg capsule (14 sources) Start: 11-29-2024 End: 12-30-2024 Multivit 06-Pkds-Elsyzy 1-Dh a (Pnv-Dha) 27 mg iron-1 mg [...] 2024 12:00am Start: 12-27-2022 End: 10-16-2024 Multivit 53-Aejc-Zehpgw 1-Dh a (Pnv-Dha) 27 mg iron-1 mg -300 mg capsule Discontinued 1 NMA PO DAILY December 27, 2022 12:00am October 16, 2024 10:00am Start: 12-27-2022 End: 10-16-2024 Multivit 99-Ypke-Fcuysq 1-Dh a (Pnv-Dha) 27 mg iron-1 mg -300 mg capsule Discontinued 1 NMA PO DAILY December 27, 2022 12:00am October 16, 2024 10:00am Start: 12-27-2022 take 1 capsule by mo [facility] once daily Multivit 40-Jiyj-Jgzhkk 1-Dha (Pnv-Dha) 27 mg iron-1 mg -300 [...] unspecified trimester] 12-27-2022 Episodic Comment on above: [id number], BLAINE 08/01/22 surprise BF Macartaustin , BLAINE [...] /JV. 37 wk. 07/14/23 Boy Mac to [facility] NICU resp issues X 5 days. [...] Summary (1) 025 PT D/C Summary (1) [facility] [place] [address] / REHABILITATION SERVICES DISCHARGE SUMMARY MR#: [id number] Acct: [id number] Name: GASTON MANZO Rep #: [id number] : 1990 34 From: Betty Grace Referring Dr.: SONIDO Reese Status: REG RCR Insurance: [facility] SELF PAY INSURANCE Discharge Summary D/C summary: [...] please feel free to call me at [phone]. Thank you for the referral of this patient. Sincerely, Betty Grace Balance/Gait/Functio nal tests Improvement % Improvement: 70 03/26/25 190 CC: SONIDO Reese; DELIO EDDY MG Signed Normal [facility] LMERLYon 01-21-2025 Lyme Total Antibody CHRISSY Negative Normal Negative A [facility] Comment on above: Result Comment: Lyme [...] 14 days is recommended. Performed At: [facility] [address] [id number] Rama Santos PhD Ph:[phone] Performed By: #### G FR, MONO, CMP, ANEU, [id number], ADIFF, CBC #### [address] [address] .Auto Diffon 01-20-2025 Basophil, Absolute 0.0 10 3/mcL Normal 0.0-0.3 [facility] Comment on above: Performed By: #### G FR, MONO, CMP, ANEU, 279179, ADIFF, CBC #### [address] [address] Basophils/100 WBC (Bld) 0.8 % Normal 0.0-2.5 A [facility] Comment on above: Performed By: #### G FR, MONO, CMP, ANEU, [id number], ADIFF, CBC #### [place] [id number] Eosinophil, Absolute 0.3 10 3/mcL Normal 0.0-0.7 [facility] Comment on above: Performed By: #### G FR, MONO, CMP, ANEU, 128529, ADIFF, CBC #### [address] [address] Eosinophils/100 WBC (Bld) 5.7 % Normal 0.0-6.0 [facility] Comment on above: Performed By: #### G FR, MONO, CMP, ANEU, 945767, ADIFF, CBC #### [address] [address] Lymphocyte, Absolute 1.9 10 3/mcL Normal 0.9-4.3 [facility] Comment on above: Performed By: #### G FR, MONO, CMP, ANEU, 807643, ADIFF, CBC #### [address] [address] Lymphocytes/100 WBC (Bld) 32.6 % Normal 20.0-40.0 [facility] Comment on above: Performed By: #### G FR, MONO, CMP, ANEU, 817883, ADIFF, CBC #### [address] [address] Monocyte, Absolute 0.6 10 3/mcL Normal 0.1-1.4 [facility] Comment on above: Performed By: #### G FR, MONO, CMP, ANEU, 244419, ADIFF, CBC #### [address] [address] Monocytes/100 WBC (Bld) 10.3 % Normal 2.0-13.0 [facility] Comment on above: Performed By: #### G FR, MONO, CMP, ANEU, 299569, ADIFF, CBC #### [address] [address] Neutrophils/100 WBC (Bld) 50.6 % Normal 50.0-75.0 [facility] Comment on above: Performed By: #### G FR, MONO, CMP, ANEU, 853697, ADIFF, CBC #### [address] [address] .GFRon 01-20-2025 Estimated Glomerular Filtration Rate 109 ml/min/1.73sqm Normal [facility] Comment on above: Result Comment: Stages of [...] By: #### G FR, MONO, CMP, ANEU, 900970, ADIFF, CBC #### [place] [address] .NEUABSon 01-20-2025 Neutrophil, Absolute 2.9 10 3/mcL Normal 2.3-8.1 [facility] Comment on above: Performed By: #### G FR, MONO, CMP, ANEU, 440651, ADIFF, CBC #### [place] [address] CBCon 01-20-2025 Erythrocyte distribution width (RBC) [Ratio] 13.3 % Normal 11.5-15.5 [facility] Comment on above: Performed By: #### G FR, MONO, CMP, ANEU, 358739, ADIFF, CBC #### [place] [address] Hematocrit (Bld) [Volume fraction] 37.6 % Normal 34.0-46.0 [facility] Comment on above: Performed By: #### G FR, MONO, CMP, ANEU, 741497, ADIFF, CBC #### [place] [address] Hgb 12.6 G/dL Normal 12.0-16.0 [facility] Comment on above: Performed By: #### G FR, MONO, CMP, ANEU, 233279, ADIFF, CBC #### [address] [address] MCH (RBC) [Entitic mass] 27.3 pg Normal 27.0-33.0 [facility] Comment on above: Performed By: #### G FR, MONO, CMP, ANEU, 474729, ADIFF, CBC #### [address] [address] MCHC 33.4 G/dL Normal 32.0-36.0 [facility] Comment on above: Performed By: #### G FR, MONO, CMP, ANEU, 194166, ADIFF, CBC #### [place] [address] MCV (RBC) [Entitic vol] 81.8 fL Normal 80.0-99.0 [facility] Comment on above: Performed By: #### G FR, MONO, CMP, ANEU, 514580, ADIFF, CBC #### [place] [address] Platelet 255 10 3/mcL Normal 150-450 [facility] Comment on above: Performed By: #### G FR, MONO, CMP, ANEU, 296615, ADIFF, CBC #### [place] [address] Platelet mean volume (Bld) [Entitic vol] 8.7 fL Normal 6.6-10.5 [facility] Comment on above: Performed By: #### G FR, MONO, CMP, ANEU, 705073, ADIFF, CBC #### [address] [address] RBC 4.60 10 6/mcL Normal 4.10-5.30 [facility] Comment on above: Performed By: #### G FR, MONO, CMP, ANEU, 447017, ADIFF, CBC #### [place] [address] WBC 5.8 10 3/mcL Normal 4.5-10.8 [facility] Comment on above: Performed By: #### G FR, MONO, CMP, ANEU, 377724, ADIFF, CBC #### [address] [address] CMPon 01-20-2025 Albumin Level 3.7 G/dL Normal 3.5-5.0 [facility] Comment on above: Performed By: #### G FR, MONO, CMP, ANEU, 564031, ADIFF, CBC #### [place] [address] Albumin/Globulin [Mass ratio] 0.9 {ratio} Low 1.1-2.5 [facility] Comment on above: Performed By: #### G FR, MONO, CMP, ANEU, 090648, ADIFF, CBC #### [place] [address] ALP [Catalytic activity/Vol] 105 U/L Normal 40-135 [facility] Comment on above: Performed By: #### G FR, MONO, CMP, ANEU, 696913, ADIFF, CBC #### [place] [address] ALT [Catalytic activity/Vol] 46 U/L Normal 14-59 [facility] Comment on above: Performed By: #### G FR, MONO, CMP, ANEU, 412890, ADIFF, CBC #### [place] [address] AST [Catalytic activity/Vol] 14 U/L Normal 10-40 [facility] Comment on above: Performed By: #### G FR, MONO, CMP, ANEU, 496632, ADIFF, CBC #### [place] [address] Bili Total 0.3 mg/dL Normal 0.2-1.0 [facility] Comment on above: Result Comment: Use of this assay is not recommended for patients undergoing treatment with eltrombopag due to the potential for falsely elevated results. Performed By: #### G FR, MONO, CMP, ANEU, 024606, ADIFF, CBC #### [place] [address] BUN/Creatinine Ratio 14 ratio Normal 7-27 [facility] Comment on above: Performed By: #### G FR, MONO, CMP, ANEU, 209265, ADIFF, CBC #### [address] [address] Calcium [Mass/Vol] 8.9 mg/dL Normal 8.4-10.2 [facility] Comment on above: Performed By: #### G FR, MONO, CMP, ANEU, 346742, ADIFF, CBC #### [address] [address] Chloride [Moles/Vol] 105 mmol/L Normal 98-107 [facility] Comment on above: Performed By: #### G FR, MONO, CMP, ANEU, 443632, ADIFF, CBC #### [place] [address] CO2 [Moles/Vol] 24 mmol/L Normal 22-29 [facility] Comment on above: Performed By: #### G FR, MONO, CMP, ANEU, 128435, ADIFF, CBC #### [address] [address] Creatinine [Mass/Vol] 0.74 mg/dL Normal 0.51-0.95 [facility] Comment on above: Performed By: #### G FR, MONO, CMP, ANEU, 812975, ADIFF, CBC #### [address] [address] Electrolyte Balance 10.0 mEq/L Normal 4.0-15.0 [facility] Comment on above: Performed By: #### G FR, MONO, CMP, ANEU, 867568, ADIFF, CBC #### [address] [address] Globulin 3.9 G/dL Normal 2.7-4.4 [facility] Comment on above: Performed By: #### G FR, MONO, CMP, ANEU, 311223, ADIFF, CBC #### [address] [address] Glucose [Mass/Vol] 115 mg/dL High 70-105 [facility] Comment on above: Performed By: #### G FR, MONO, CMP, ANEU, 450369, ADIFF, CBC #### [address] [address] Potassium [Moles/Vol] 4.0 mmol/L Normal 3.5-5.1 [facility] Comment on above: Performed By: #### G FR, MONO, CMP, ANEU, 241022, ADIFF, CBC #### [address] [address] Sodium [Moles/Vol] 139 mmol/L Normal 136-145 [facility] Comment on above: Performed By: #### G FR, MONO, CMP, ANEU, 756447, ADIFF, CBC #### [address] [address] Total Protein 7.6 G/dL Normal 6.4-8.2 [facility] Comment on above: Performed By: #### G FR, MONO, CMP, ANEU, 313815, ADIFF, CBC #### [address] [address] Urea nitrogen [Mass/Vol] 10 mg/dL Normal 7-18 [facility] Comment on above: Performed By: #### G FR, MONO, CMP, ANEU, 291232, ADIFF, CBC #### [address] [address] LABORATORYOrdered By: SYSTEM SYSTEM on 01-20-2025 Albumin [...] SS MONOon 01-20-2025 Mononucleosis Negative Normal Negative [facility] Comment on above: Performed By: #### G FR, MONO, CMP, ANEU, 479991, ADIFF, CBC #### [place] [address] [place], [place] [address] Farm Mechanic Apprentice Office Visit Reporton 12-30-2024 Farm Mechanic Apprentice Office Visit Report [facility] [address], [address] [place] [address] OFFICE VISIT Date of Service: 12/30/24 MR#: [id number] Acct: [id number] Name: GASTON MANZO LORI Rep #: [id number] : 1990 Provider: Dr. Tatiana Estrada DO Age/Sex: 34/F Location: [facility] Status: Signed Intake Vital Signs 12/17/24 11:38 12/30/24 10:18 Height 5 ft 4 in 5 ft 4 in Weight: 190 lb 4 oz BMI 32.6 BP 118/81 H Intake Visit Reasons: 2 wk F/U D C 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: 2wk FU D C Office Technologist Required: No Is patient in pain?: No [...] breast cancer Surgical History History of surgery [place] teeth extracted History of lumpectomy of both [...] 1-2 times per week duration: 30-45 minutes/day hilaria/jain: None seatbelt use: always do you feel safe at home: Yes additional social history: - [facility]- [employer] Specialist HPI 2 wk F/U D C Details: [...] spontaneous Delivery Date: 07/14/23 Last Updated by: Barbara Saldivar Camryn Anemia, Pre E ACH-respiratory issues [...] ultrasound. 12/30/24 1101 Date Tatiana Sue DO [facility] Signature: Date (if applicable) CC: Normal [facility] CBC-Complete Blood Cnt No Di ffon 12-17-2024 Erythrocyte distribution width (RBC) [Ratio] 12.8 % Normal 11.6-14.6 [facility] Comment on above: Performed By: #### B TSPAT, L100.0500 #### [facility] [address] [place], [place], [id number] Hematocrit (Bld) [Volume fraction] 35.1 % Low 37-47 [facility] Comment on above: Performed By: #### B TSPAT, L100.0500 #### [facility] [address] [place], [place], [address] Hemoglobin (Bld) [Mass/Vol] 12.0 g/dL Normal 12.0-15.0 [facility] Comment on above: Performed By: #### B TSPAT, L100.0500 #### [facility] [address] [place], [address] MCH (RBC) [Entitic mass] 28.0 pg Normal 27.0-32.0 [facility] Comment on above: Performed By: #### B TSPAT, L100.0500 #### [facility] [address] [place], [address] MCHC (RBC) [Mass/Vol] 34.2 g/dL Normal 32-36 [facility] Comment on above: Performed By: #### B TSPAT, L100.0500 #### [facility] [address] [place], [address] MCV (RBC) [Entitic vol] 81.8 fL Normal 81-99 [facility] Comment on above: Performed By: #### Jacobo TSPAT, L100.0500 #### [facility] [address] [place], [address] Platelet mean volume (Bld) [Entitic vol] 10.6 fL Normal 6.2-12.0 [facility] Comment on above: Performed By: #### B TSPAT, L100.0500 #### [facility] [address] [place], [address] Platelets (Bld) [#/Vol] 281 10*3/uL Normal 150-450 [facility] Comment on above: Performed By: #### B TSPAT, L100.0500 #### [facility] [address] [place], [address] RBC (Bld) [#/Vol] 4.29 10*6/uL Normal 4.2-5.4 [facility] Comment on above: Performed By: #### B TSPAT, L100.0500 #### [facility] [address] [place], [address] RDW SD 38.0 fl Normal 35.1-43.9 [facility] Comment on above: Performed By: #### B TSPAT, L100.0500 #### [facility] [address] [place], [address] WBC (Bld) [#/Vol] 7.0 10*3/uL Normal 4.4-11.0 [facility] Comment on above: Performed By: #### B TSPAT, L100.0500 #### [facility] [address] [place], [address] Discharge Instructionon 07-0 Discharge Instruction [facility] Medical Records Department [address] [place] [address] Instructions for Home/Discharge Instructions 12/17/24 1247 MR#: [id number] Acct: [id number] Name: GASTON MANZO Rep #: [id number] : 1990 34 From: Tatiana Sue DO PCP: DELIO EDDY Status:REG [facility] Discharge Instructions Diet Discharge Diet: No restrictions [...] Up With: Tatiana Sue DO When: Call [phone] to schedule appointment. Test Results: Test results from this visit will be discussed in further detail at your follow-up appointment, if applicable. Discharge Plan Admission Primary Reason for Your Visit: suction D C Attending Provider: Tatiana Sue Primary Care Provider: NOEMI TREJO Print Language: Guyanese Discharge Orders/Prescriptions Prescriptions: New ibuprofen 800 mg [...] Sue DO CC: DELIO EDDY Signed Normal [facility] Erythrocyte distribution wid th ratioOrdered By: Tatiana Bey on 12-17-2024 Erythrocyte distribution width (RBC) [Ratio] 12.8 % 11.6-14.6 [facility] Erythrocyte distribution wid th standard deviationOrdered By: Tatiana Bey on 12-17-2024 Erythrocyte distribution width (RBC) [Ratio] 38.0 fl 35.1-43.9 [facility] Hematocrit Auto (Bld) [Volum e fraction]Ordered By: Tatiana Bey on 12-17-2024 Hematocrit (Bld) [Volume fraction] 35.1 % Low 37-47 [facility] Hemoglobin measurementOrdere d By: Tatiana Bey on 12-17-2024 Hemoglobin (Bld) [Mass/Vol] 12.0 g/dL 12.0-15.0 [facility] MCV (mean corpuscular volume ) determinationOrdered By: Tatiana Bey on 12-17-2024 MCV (RBC) [Entitic vol] 81.8 fL 81-99 [facility] MR/POSTOP.ANEotf 12-17-2024 MR/POSTOP.[facility] Medical Records Department [address] [place] [address] Anesthesia Postop Eval I 12/17/24 1414 MR#: [id number] Acct: [id number] Name: JEOVANYClintGASTON LORI Rep #: [id number] : 1990 34 From: Amada Louis CRNA PCP: DELIO EDDY Status:REG SDC Y Race: C Location: [place] [address] Anesthesia: Postop Eval I Current Vital Signs [...] completed: Yes 12/17/24 1415 Date Amada Louis STORE ADMINISTRATOR Cosigner Signature: Date CC: Signed Normal [facility]/[id number] 12-17-2024 [facility] Medical Records Department [facility] [place] [address] Anesthesia Postop Eval II 12/17/24 1537 MR#: [id number] Acct: [id number] Name: JEOVANYLAI JaramilloGASTONKELLY SANDOVAL Rep #: [id number] : 1990 34 From: Alirio Betancourt MD PCP: DELIO EDYD Status:REG SDC Y Race: C Location: [place] [address] Anesthesia Postop Eval I Sum Postop Eval Completion status Anesthesia document: Postop Eval 1 completed: Yes Anesthesia Postop Eval I Summary Anesthesia Postop Eval I Summary: Anesthesia Postop Eval I: Assessment Summary Airway patent Yes 12/17/24 14:15 STORE ADMINISTRATOR.SKOBY Spontaneous unlabored Yes 12/17/24 14:15 STORE ADMINISTRATOR.SKOBY respirations Mental status Awake,Calm 12/17/24 14:15 STORE ADMINISTRATOR.SKOBY nausea No 12/17/24 14:15 STORE ADMINISTRATOR.SKOBY Vomiting No 12/17/24 14:15 STORE ADMINISTRATOR.SKOBY Anesthesia Postop Eval I: Fluid Summary Crystalloid volume administer 600 12/17/24 14:15 STORE ADMINISTRATOR.SKOBY (ml) Colloids volume administered ( ml) Blood Product volume administered (ml) Total IV fluid infused 600 12/17/24 14:15 STORE ADMINISTRATOR.SKOBY Anesthesia Postop Eval I: Summary Notes Anesthesia Complication No 12/17/24 14:15 STORE ADMINISTRATOR.SKOBY Anesthesia Complication Comment: Post-operative progress note Anesthesia: Postop Eval II Evaluation Mental status: Awake and Calm Pain Level: 2 nausea: No Vomiting: No Complications Anesthesia Complication: No 12/17/24 1537 Date Alirio Betancourt MD Cosigner Signature: Date CC: Signed Normal [facility] Mean corpuscular hemoglobin (MCH) determinationOrdered By: Tatiana Bey on 12-17-2024 MCH (RBC) [Entitic mass] 28.0 pg 27.0-32.0 [facility] Mean corpuscular hemoglobin concentration (MCHC) determinationOrdered By: Tatiana Bey on 12-17-2024 MCHC (RBC) [Mass/Vol] 34.2 g/dL 32-36 [facility] Mean platelet volume determi nationOrdered By: Tatiana Bey on 12-17-2024 Platelet mean volume (Bld) [Entitic vol] 10.6 fL 6.2-12.0 [facility] Operative Reporton Operative Report [facility] Medical Records Department [address] [place] [address] Operative Report 12/17/24 1341 MR#: [id number] Acct: [id number] Name: GASTON MANZO Rep #: [id number] : 1990 34 From: Tatiana Sue DO PCP: DELIO EDDY Status:REG [facility] Location: [place] [address]- Problems Associated Problem List Diagnoses (1) Missed with demise before 20 completed weeks of gestation: Multi Select Codes Urinary/Genital Urinary/Genital CPT Codes: 94129 Surg Trtmt missed Ab 1TM Operative Report (Standard) Operative Information Date of Procedure: 12/17/24 Pre-Operative Diagnosis: 9 weeks, measuring 8 weeks missed Post-Operative Diagnosis: 9 weeks, measuring 8 weeks missed Surgery/Procedure Performed: suction dilation and curettage glove former: No Type of Anesthesia: MAC/Supplemental RN Documented [...] SCD's VTE Pharm Prophylaxis ordered?: No 12/17/24 5492 Cosigner Signature (if applicable): CC: Dr. Tatiana Sue DO; DELIO EDDY Signed Normal [facility] Platelet countOrdered By: Clint Bey on 12-17-2024 Platelets (Bld) [#/Vol] 281 10*3/uL 150-450 [facility] RBC Auto (Bld) [#/Vol]Ordere d By: Tatiana Bey on 12-17-2024 RBC (Bld) [#/Vol] 4.29 10*6/uL 4.2-5.4 [facility] Surgery Specimen Level Ryan 12-17-2024 Surgery Specimen Level IV Patient Age/Sex Location Account Attending Physician GASTON MANZO 34/F [facility] [id number] Abelino Prado Specimen: [id number] Received: 12/17/24 Status: ADAMA Kumar Num: [id number] Spec Type: PROD CONC Subm Dr: Dr. [...] for chorionic villi). parts are not present. Salesperson Burial Needs sections are submitted in 2 cassettes. OK 12/18/2024 [facility]:[id number] Patient Age/Sex Location Account Attending Physician GASTON MANZO 34/ [facility] [id number] Abelino Prado Signed (signature on file) Dr. Shazia Holcomb, DO 12/27/24 1601 Normal [facility] Comment on above: Performed By: #### P SUIV #### [facility] [address] [place], [place], [id number] Type AND Screen - PAT ONLYon 12-17-2024 Ab SCREEN GEL Negative Normal [facility] Comment on above: Order Comment: Reaso n for Laboratory Test PRE-OP [id number] Yes N N S Dilation and Curettage, Suction Performed By: #### B TSPAT, L100.0500 #### [facility] [address] [place], [place], [id number] White blood cell (WBC) count Ordered By: Tatiana Bey on 12-17-2024 WBC (Bld) [#/Vol] 7.0 10*3/uL 4.4-11.0 [facility] Farm Mechanic Apprentice Office Visit Reporton 12-13-2024 Farm Mechanic Apprentice Office Visit Report [facility] [address], [address] [place] [address] OFFICE VISIT Date of Service: 12/13/24 MR#: [id number] Acct: [id number] Name: AGSTON MANZO LORI Rep #: [id number] : 1990 Provider: BENNETT velazquez Age/Sex: 34/F Location: [facility] Status: Signed Intake Vital Signs 04/30/25 09:56 12/13/24 08:48 Height 5 ft 4 in 5 ft 4 in Weight: 184 lb 8 oz 191 lb 2 oz BMI 31.6 32.8 BP 121/83 H 131/85 H Intake Visit Reasons: *EST* NOB LMP 10/08, BLAINE 07/15 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: New OB Office Technologist Required: No Is patient in pain?: No [...] breast cancer Surgical History History of surgery [place] teeth extracted History of lumpectomy of both [...] 1-2 times per week duration: 30-45 minutes/day hilaria/jain: None seatbelt use: always do you feel safe at home: Yes 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 Normal [facility] Inital Evaluation (1) - PTon 11-27-2024 Inital Evaluation (1) - PT [facility] [address] [place] [address] / REHABILITATION SERVICES INITIAL EVALUATION MR#: [id number] Acct: [id number] Name: GSATON MANZO Rep #: [id number] : 1990 34 From: Betty Grace Referring Dr.: SONIDO Patterson Status: REG RCR Insurance: [facility] SELF PAY INSURANCE Patient's Visit Information Visit [...] For Medicar (more content not included)... Normal [facility] Breast Limited Unilateralon 11-15-2024 Breast Limited Unilateral [facility] Imaging Services [address] [place] [address] Breast Limited Unilateral MR#: [id number] Acct: [id number] Name: GASTON MANZO LORI Rep #: [id number] : 1990 F 34 From: Jose moss MD PCP: DELIO EDDY Status: REG CLI Study: Breast Limited Unilateral Date of Exam: Exam# [id number] Ordering Dr: Rox Reese PROCEDURE: BREAST LIMITED [...] BENIGN. RECOMMEND ANNUAL MAMMOGRAPHIC SCREENING. 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 Date Name GA/Weeks Outcome Route Bth Weight Gen Labor Lgth Anesthesia Del Garrickatilya Provider FOB 07/14/23 Mac 37 live - full term vacuum 8lbs 9oz Male epidural [facility] C/JV [facility] Delivery Date: 07/14/23 Last Updated by: Barbara Cowan Anemia, Pre E ACH-respiratory issues x5 days HPI Encounter for routine gynecological examination Details: GASTON MANZO is a 34 year old who presents for annual exam. She reports no issues or concerns today. She does have history of breast lump; biopsy prior at [facility] that were benign with clip placed. [...] discharge Neuro (more content not included)... Normal [facility] DBT Breast - bilateral diagn ostic for implanton 09-05-2023 [facility] DIAG W TRINI BILon 2023 [facility] OPAL aMy TRINI TOREY * * *Final Report* * * DATE OF EXAM: Sep 05 2023 12:01PM WRW 0627 - [facility] OPAL May TRINI TOREY / PROCEDURE REASON: N63.0, N63.23 * * * * Physician Interpretation * * * * RESULT: #[id number] - [facility] OP[facility] May TRINI TOREY #[id number] - [facility] US BREAST LTD LT BILATERAL DIGITAL DIAGNOSTIC [...] Health, Family Medicine, and Medical/Surgical Oncology, the [facility] has carefully reviewed the data and [...] their providers when to stop screening mammograms. Upfitter(s): Kelly Greene, [facility]; RT Alise(R)(M), [facility] OVERALL STUDY BIRADS: 2 Benign finding General Doc: Ana Transcribe Date/Time: Sep 05 2023 11:35A Dictated by: DANIEL ESPINO MD This examination was interpreted and the report reviewed and electronically signed by: DANIEL ESPINO MD on Sep 05 2023 12:49PM EST [id number] CN Normal [facility] US BREAST LTD LTon 09-04 [facility] US BREAST LTD LT * * *Final Report* * * DATE OF EXAM: Sep 05 2023 12:10PM WRU 0593 - [facility] US BREAST LTD LT / PROCEDURE REASON: n63.0 * * * * Physician Interpretation * * * * #[id number] - [facility] DIAG W TRINI TOREY #[id number] - [facility] US BREAST LTD LT BILATERAL DIGITAL DIAGNOSTIC [...] Health, Family Medicine, and Medical/Surgical Oncology, the [facility] has carefully reviewed the data and [...] their providers when to stop screening mammograms. Upfitter(s): Kelly Greene, [facility]; RT Alise(Rajni)(Hollie), [facility] OVERALL STUDY BIRADS: 2 Benign finding General Doc: Ana Transcribe Date/Time: Sep 05 2023 11:35A Dictated by : DANIEL ESPINO MD This examination was interpreted and the report reviewed and electronically signed by: DANIEL ESPINO MD on Sep 05 2023 12:49PM EST [id number] CN Normal [facility] US Breast - left limitedon 0 09-05-2023 [facility] ECG 12-LEADon 07-18-2023 ECG 12-LEAD IMPRESSION: Sinus rhythm Electronically Signed On 07-18-2023 11:28:30 EST by Roma Reid Normal [facility] CBC (HEMOGRAM)on 07-17-2023 Erythrocyte distribution width (RBC) [Ratio] 14.8 % High 11.5-14.5 [facility] Comment on above: Performed By: #### L [id number] #### First Coat Sander: ML MAYNARD ([phone]) [facility]) [address] [place] [address] ERYTHROCYTE MEAN CORPUSCULAR HEMOGLOBIN CONCENTRATION (G/DL) BY AUTOMATED 33.6 % Normal 32.0-36.0 [facility] Comment on above: Performed By: #### L [id number] #### First Coat Sander: ML MAYNARD ([id number]) [facility]) [address] [place] [address] Hematocrit (Bld) [Volume fraction] 27.3 % Low 35.0-47.0 [facility] Comment on above: Performed By: #### L [id number] #### First Coat Sander: ML MAYNARD ([phone]) [facility]) [address] [place] [address] Hemoglobin (Bld) [Mass/Vol] 9.2 g/dL Low 11.7-16.0 [facility] Comment on above: Performed By: #### L [id number] #### First Coat Sander: ML MAYNARD ([id number]) [facility]) [address] [place] [address] MCH (RBC) [Entitic mass] 29.2 pg Normal 26.0-34.0 [facility] Comment on above: Performed By: #### L [id number] #### First Coat Sander: ML MAYNARD ([phone]) [facility]) [address] [place] [address] MCV (RBC) [Entitic vol] 86.9 fL Normal 80.0-98.0 S [facility] Comment on above: Performed By: #### L [id number] #### First Coat Sander: ML MAYNARD ([phone]) [facility]) [address] [place] [address] Platelet mean volume (Bld) [Entitic vol] 9.4 fL Normal 7.4-12.4 [facility] Comment on above: Performed By: #### L [id number] #### First Coat Sander: ML MAYNARD ([id number]) [facility]) [address] [place] [address] Platelets (Bld) [#/Vol] 220 10*3/uL Normal 140-440 [facility] Comment on above: Performed By: #### L [id number] #### First Coat Sander: ML MAYNARD ([id number]) [facility]) [address] [place] [address] RBC (Bld) [#/Vol] 3.14 10*6/uL Low 3.8-5.20 [facility] Comment on above: Performed By: #### L [id number] #### First Coat Sander: ML MAYNARD ([phone]) [facility]) [address] [place] [address] WBC (Bld) [#/Vol] 9.8 10*3/uL Normal 3.6-10.7 [facility] Comment on above: Performed By: #### L [id number] #### First Coat Sander: ML MAYNARD ([phone]) [facility] ([facility]) [address] [place] [address] CBC panel Auto (Bld)Ordered By: Radha Sorto on 07-17-2023 Erythrocyte distribution width (RBC) [Ratio] 14.8 % High 11.5 - 14.5 % [facility] Hematocrit (Bld) [Volume fraction] 27.3 % Low 35.0 - 47.0 % [facility] Hemoglobin (Bld) [Mass/Vol] 9.2 g/dL Low 11.7 - 16.0 g/dL [facility] Interpretation and review of laboratory results Abnormal [facility] MCH (RBC) [Entitic mass] 29.2 pg 26. 0 - 34.0 pg [facility] MCHC (RBC) [Mass/Vol] 33.6 % 32.0 - 36.0 % [facility] MCV (RBC) [Entitic vol] 86.9 fL 80.0 - 98.0 fL [facility] Platelet mean volume (Bld) [Entitic vol] 9.4 fL 7.4 - 12.4 fL [facility] Platelets (Bld) [#/Vol] 220 10*3/uL 140 - 440 10*3/uL [facility] RBC (Bld) [#/Vol] 3.14 10*6/uL Low 3.8 - 5.20 10*6/uL [facility] WBC (Bld) [#/Vol] 9.8 10*3/uL 3.6 - 10.7 10*3/uL [facility] COMPREHENSIVE METABOLIC PANE Eric 07-17-2023 Albumin [Mass/Vol] 3.7 g/dL Normal 3.5-5.0 [facility] Comment on above: Performed By: #### L [id number] #### First Coat Sander: ML MAYNARD ([phone]) [facility]) [address] [place] [address] ALP [Catalytic activity/Vol] 200 U/L High 38-126 [facility] Comment on above: Performed By: #### L [id number] #### First Coat Sander: ML MAYNARD ([phone]) [facility]) [address] [place] [address] [place] ALT [Catalytic activity/Vol] 49 U/L High 0-34 [facility] Comment on above: Performed By: #### L [id number] #### First Coat Sander: ML MAYNARD ([id number]) [facility]) [address] [place] [address] Anion gap [Moles/Vol] 8 mmol/L Normal 3-13 [facility] Comment on above: Performed By: #### L [id number] #### First Coat Sander: ML MAYNARD ([phone]) [facility] [address] [place] [address] [place] AST [Catalytic activity/Vol] 56 U/L High 15-46 [facility] Comment on above: Performed By: #### L [id number] #### First Coat Sander: ML MAYNARD ([phone]) [facility] [address] [place] [address] Bilirubin [Mass/Vol] 0.5 mg/dL Normal 0.2-1.3 [facility] Comment on above: Performed By: #### L [id number] #### First Coat Sander: ML MAYNARD ([phone]) [facility] [address] [place] [address] [place] Calcium [Mass/Vol] 9.5 mg/dL Normal 8.4-10.4 [facility] Comment on above: Performed By: #### L [id number] #### First Coat Sander: ML MAYNARD ([phone]) [facility] [address] [place] [address] [place] Chloride [Moles/Vol] 108 mmol/L High 98-107 [facility] Comment on above: Performed By: #### L [id number] #### First Coat Sander: ML MAYNARD ([phone]) [facility]) [address] [place] [address] [place] CO2 [Moles/Vol] 23 mmol/L Normal 22-30 [facility] Comment on above: Performed By: #### L [id number] #### First Coat Sander: ML MAYNARD ([phone]) [facility]) [address] [place] [address] Creatinine [Mass/Vol] 0.72 mg/dL Normal 0.52-1.04 [facility] Comment on above: Performed By: #### L [id number] #### First Coat Sander: ML MAYNARD ([id number]) [facility] [address] [place] [address] GLOMERULAR FILTRATION RATE ML/MIN/1.73 SQ M.PREDICTED >90.0 Normal >60.0 [facility] Comment on above: Result Comment: Calc ulation based on the Chronic Kidney Disease Epidemiology Collaboration (CKD-EPI) equation refit without adjustment for race Performed By: #### L [id number] #### First Coat Sander: ML MAYNARD ([id number]) [facility]) [address] [place] [address] Glucose [Mass/Vol] 99 mg/dL Normal 70-100 [facility] Comment on above: Performed By: #### L [id number] #### First Coat Sander: ML MAYNARD ([phone]) [facility]) [address] [place] [address] [place] Potassium [Moles/Vol] 3.9 mmol/L Normal 3.5-5.1 [facility] Comment on above: Performed By: #### L [id number] #### First Coat Sander: ML MAYNARD ([id number]) [facility]) [address] [place] [address] Protein [Mass/Vol] 6.7 g/dL Normal 6.3-8.2 [facility] Comment on above: Performed By: #### L [id number] #### First Coat Sander: ML MAYNARD ([id number]) [facility]) [address] [place] [address] [place] Sodium [Moles/Vol] 139 mmol/L Normal 135-145 [facility] Comment on above: Performed By: #### L [id number] #### First Coat Sander: ML MAYNARD ([id number]) [facility]) [address] [place] [address] [place] Urea nitrogen [Mass/Vol] 10 mg/dL Normal 7-17 [facility] Comment on above: Performed By: #### L [id number] #### First Coat Sander: ML MAYNARD ([id number]) [facility]) [address] [place] [address] CREATININE, URINE, RANDOMon 07-17-2023 CREATININE, URINE 74.9 mg/dL Normal No Range [facility] Comment on above: Performed By: #### L [id number], [id number] #### First Coat Sander: ML MAYNARD ([id number]) [facility]) [address] [place] [address] Comprehensive metabolic 1998 panelon 07-17-2023 Albumin [Mass/Vol] 3.7 g/dL 3.5 - 5.0 g/dL [facility] ALP [Catalytic activity/Vol] 200 U/L High 38 - 126 U/L [facility] ALT [Catalytic activity/Vol] 49 U/L High 0 - 34 U/L [facility] Anion gap [Moles/Vol] 8 mmol/L 3 - 13 mmol/L [facility] AST [Catalytic activity/Vol] 56 U/L High 15 - 46 U/L [facility] Bilirubin [Mass/Vol] 0.5 mg/dL 0.2 - 1 .3 mg/dL [facility] Calcium [Mass/Vol] 9.5 mg/dL 8.4 - 10. 4 mg/dL [facility] Chloride [Moles/Vol] 108 mmol/L High 98 - 10 7 mmol/L [facility] CO2 [Moles/Vol] 23 mmol/L 22 - 30 mmol/L [facility] Creatinine [Mass/Vol] 0.72 mg/dL 0.52 - 1.04 mg/dL [facility] GFR/1.73 sq M.predicted MDRD (S/P/Bld) [Vol rate/Area] - PINF [facility] Comment on above: Calculation based on the Chronic Kidney Disease Epidemiology Collaboration (CKD-EPI) equation refit without adjustment for race Glucose [Mass/Vol] 99 mg/dL 70 - 100 mg/dL [facility] Interpretation and review of laboratory results Abnormal [facility] Potassium [Moles/Vol] 3.9 mmol/L 3.5 - 5.1 mmol/L [facility] Protein [Mass/Vol] 6.7 g/dL 6.3 - 8.2 g/dL [facility] Sodium [Moles/Vol] 139 mmol/L 135 - 145 mmol/L [facility] Urea nitrogen [Mass/Vol] 10 mg/dL 7 - 17 mg/d L [facility] Creatinine (U) [Mass/Vol]on 07-17-2023 CREATININE, URINE 74.9 mg/dL No Range [facility] - Urinalysison Protein (U) [Mass/Vol] 17 mg/dL High 0 - 12 mg/dL [facility] No Panel Informationon 07-17 Interpretation and review of laboratory results Abnormal [facility] PROTEIN, URINE, RANDOMon Protein (U) [Mass/Vol] 17 mg/dL High 0-12 [facility] Comment on above: Performed By: #### L [id number], [id number] #### First Coat Sander: ML MAYNARD ([id number]) [facility]) [address] [place] [address] Progress Noteon 07-17-2023 Progress Note Attestation signed [...] complicated by a 3rd degree laceration in [place]. Reports complicated by PreEwoSF, states she never received magnesium and is not on BP meds. Reports light lochia. Denies EDMOND, vision changes, chest pain, SOB, RUQ pain. States she came in for palpitations, swelling, and feeling like her BP is elevated. PAST MEDICAL HISTORY: Past Medical History: Diagnosis Date Preeclampsia, severe, third trimester PAST SURGICAL HISTORY: JOB BOSS is required. Please contact your store administrator to configure this SmartLink. SOCIAL HISTORY: [...] 367 ms QTC Interval 410 ms P [place] 24 degrees QRS [place] -1 degrees T Wave [place] 29 degrees [place] Interval 156 ms TRIAGE COURSE: Pt presented with above. Bps mild range while in triage. Physical exam benign. CBC wnl. CMP demonstrated elevated AST and ALT, less than 2x upper limit of normal. EKG demonstrated s (more content not included)... Normal [facility] Basophil percentageOrdered B y: Lindsay Garay on 07-13-2023 Hemoglobin (Bld) [Mass/Vol] 10.7 g/dL 12.0-15.0 [facility] WBC (Bld) [#/Vol] 9.2 10*3/uL 4.4-11.0 [facility] Determination of erythrocyte mean corpuscular volume (MCV)Ordered By: Lindsay Garay on 07-13-2023 MCV (RBC) [Entitic vol] 85.9 fL 81-99 [facility] Erythrocyte distribution wid th ratioOrdered By: Lindsay Garay on 07-13-2023 Erythrocyte distribution width (RBC) [Ratio] 13.7 % 11.6-14.6 [facility] Erythrocyte distribution wid th standard deviationOrdered By: Lindsay Garay on 07-13-2023 Erythrocyte distribution width (RBC) [Entitic vol] 42.6 fL 35.1-43.9 [facility] Hematocrit Auto (Bld) [Volum e fraction]Ordered By: Lindsay Garay on 07-13-2023 Hematocrit (Bld) [Volume fraction] 32.3 % 37-47 [facility] - Chemistry and C hemistry - challengeOrdered By: Lindsay Garay on 07-13-2023 ALT [Catalytic activity/Vol] 33 U/L 13-56 [facility] - Hematology and Cell countsOrdered By: Lindsay Garay on 07-13-2023 MCH (RBC) [Entitic mass] 28.5 pg 27.0-32.0 [facility] MCHC (RBC) [Mass/Vol] 33.1 g/dL 32-36 [facility] Platelets (Bld) [#/Vol] 193 10*3/uL 150-450 [facility] No Panel InformationOrdered By: Lindsay Garay on 07-13-2023 Estimated GFR (MDRD) Amer 132 mL/min >60 [facility] Comment on above: GFR Calc Estimated GFR (MDRD) Non-Af Amer 109 mL/min >60 [facility] Comment on above: Non- GFR Calc Platelet mean volume Philipp-Ec ker (Bld) [Entitic vol]Ordered By: Lindsay Garay on 07-13-2023 Platelet mean volume (Bld) [Entitic vol] 12.6 fL 6.2-12.0 [facility] RBC Auto (Bld) [#/Vol]Ordere d By: Lindsay Garay on 07-13-2023 RBC (Bld) [#/Vol] 3.76 10*6/uL 4.2-5.4 [facility] Serum Treponema species anti body detectionOrdered By: Lindsay Garay on 07-13-2023 Treponema sp Ab Ql (S) Non-Reactive [facility] Serum or plasma creatinine m easurement (mass/volume)Ordered By: Lindsay Garay on 07-13-2023 Creatinine [Mass/Vol] 0.67 mg/dL 0.55-1.02 [facility] Comment on above: The validity of the calculated GFR & GFRAA in patients over 70 years has not been determined. Clinical correlation is essential. Serum or plasma uric acid me asurement (mass/volume)Ordered By: Lindsay Garay on 07-13-2023 Urate [Mass/Vol] 4.4 mg/dL 2.6-6.0 [facility] Comment on above: The drugs N-Acetylcy steine and Metamizole may falsely depress this assay. Thin prep Papanicolaou smear with manual screeningOrdered By: Lindsay Garay on 07-13-2023 Protein (U) [Mass/Vol] 44.0 mg/dL 0.0-11.8 [facility] Thin prep Papanicolaou smear with manual screening 24 U/L 15-37 [facility] Urine creatinine measurement (mass/volume)Ordered By: Lindsay Garay on 07-13-2023 Creatinine (U) [Mass/Vol] 112.00 mg/dL NO RANGE EST. [facility] Urine protein/creatinine mas s ratioOrdered By: Lindsay Garay on 07-13-2023 Protein/Creatinine (U) [Mass ratio] 393 mg/g CRE 0-200 [facility] Basophil percentageOrdered B y: Luz Maria Haro on 07-03-2023 WBC (Bld) [#/Vol] 8.5 10*3/uL 4.4-11.0 [facility] Blood erythrocytes count (nu mber/volume)Ordered By: Luz Maria Haro on 07-03-2023 RBC (Bld) [#/Vol] 3.61 10*6/uL 4.2-5.4 [facility] Blood hemoglobin measurement (mass/volume)Ordered By: Luz Maria Haro on 07-03-2023 Hemoglobin (Bld) [Mass/Vol] 10.3 g/dL 12.0-15.0 [facility] Blood platelet mean volumeOr dered By: Luz Maria Hrao on 07-03-2023 Platelet mean volume (Bld) [Entitic vol] 12.0 fL 6.2-12.0 [facility] Determination of erythrocyte mean corpuscular volume (MCV)Ordered By: Luz Maria Haro on 07-03-2023 MCV (RBC) [Entitic vol] 86.7 fL 81-99 [facility] Hematocrit Auto (Bld) [Volum e fraction]Ordered By: Luz Maria Haro on 07-03-2023 Hematocrit (Bld) [Volume fraction] 31.3 % 37-47 [facility] - Chemistry and C hemistry - challengeOrdered By: Luz Maria Haro on 07-03-2023 ALT [Catalytic activity/Vol] 24 U/L 13-56 [facility] - Chemistry and C hemistry - challengeon 07-03-2023 Glucose Ql (U) Negative [facility] - Hematology and Cell countsOrdered By: Luz Maria Haro on 07-03-2023 Erythrocyte distribution width (RBC) [Entitic vol] 42.5 fL 35.1-43.9 [facility] Erythrocyte distribution width (RBC) [Ratio] 13.6 % 11.6-14.6 [facility] MCH (RBC) [Entitic mass] 28.5 pg 27.0-32.0 [facility] - Urinalysison Protein Ql (U) Trace [facility] Comment on above: Office Urine Protein previously reported as Negative MCHC Auto (RBC) [Mass/Vol]Or dered By: Luz Maria Haro on 07-03-2023 MCHC (RBC) [Mass/Vol] 32.9 g/dL [facility] No Panel InformationOrdered By: Luz Maria Haro on 07-03-2023 Group B Streptococcus Culture Group B Beta Streptococcus is not isolated. [facility] Estimated Creatinine Clearance Calc 153.44 ml/min [facility] Estimated GFR (MDRD) Amer 146 mL/min >60 [facility] Comment on above: GFR Calc Estimated GFR (MDRD) Non-Af Amer 121 mL/min >60 [facility] Comment on above: Non- GFR Calc Platelets bldOrdered By: Sarah Haro on 07-03-2023 Platelets (Bld) [#/Vol] 189 10*3/uL 150-450 [facility] Serum or plasma creatinine m easurement (mass/volume)Ordered By: Luz Maria Haro on 07-03-2023 Creatinine [Mass/Vol] 0.61 mg/dL 0.55-1.02 [facility] Comment on above: The validity of the calculated GFR & GFRAA in patients over 70 years has not been determined. Clinical correlation is essential. Serum or plasma uric acid me asurement (mass/volume)Ordered By: Luz Maria Haro on 07-03-2023 Urate [Mass/Vol] 4.4 mg/dL 2.6-6.0 [facility] Comment on above: The drugs N-Acetylcy steine and Metamizole may falsely depress this assay. Thin prep Papanicolaou smear with manual screeningOrdered By: Luz Maria Haro on 07-03-2023 Thin prep Papanicolaou smear with manual screening 15 U/L [facility] Urine creatinine measurement (mass/volume)Ordered By: Luz Maria Haro on 07-03-2023 Creatinine (U) [Mass/Vol] 149.00 mg/dL NO RANGE EST. [facility] Urine protein measurement (m ass/volume)Ordered By: Luz Maria Haro on 07-03-2023 Protein (U) [Mass/Vol] 36.1 mg/dL 0.0-11.8 [facility] Urine protein/creatinine mas s ratioOrdered By: Luz Maria Haro on 07-03-2023 Protein/Creatinine (U) [Mass ratio] 242 mg/g CRE 0-200 [facility] Laboratory - Chemistry and C hemistry - challengeon 06-21-2023 Glucose Ql (U) Negative [facility] Laboratory - Urinalysison Protein Ql (U) Negative [facility] Absolute lymphocyte countOrd ered By: Luz Maria Haro on 06-09-2023 Lymphocytes Auto (Unsp spec) [#/Vol] 1.21 10*3/uL 0.83-4.51 [facility] Basophil percentageOrdered B y: Luz Maria Haro on 06-09-2023 Basophils/100 WBC (Bld) 0.3 % 0-1 [facility] Eosinophils/100 WBC (Bld) 2.4 % 0-5 [facility] Neutrophils (Bld) [#/Vol] 7.9 10*3/uL 2.0-7.7 [facility] Neutrophils/100 WBC (Bld) 77.9 % 47-70 [facility] WBC (Bld) [#/Vol] 10.2 10*3/uL 4.4-11.0 [facility] Blood erythrocytes count (nu mber/volume)Ordered By: Luz Maria Haro on 06-09-2023 RBC (Bld) [#/Vol] 3.75 10*6/uL 4.2-5.4 [facility] Blood hemoglobin measurement (mass/volume)Ordered By: Luz Maria Haro on 06-09-2023 Hemoglobin (Bld) [Mass/Vol] 10.6 g/dL 12.0-15.0 [facility] Blood lymphocytes/100 leukoc ytesOrdered By: Luz Maria Haro on 06-09-2023 Lymphocytes/100 WBC (Bld) 11.9 % 19-41 [facility] Blood monocytes/100 leukocyt esOrdered By: Luz Maria Haro on 06-09-2023 Monocytes/100 WBC (Bld) 6.6 % 0-10 [facility] Blood platelet mean volumeOr dered By: Luz Maria Haro on 06-09-2023 Platelet mean volume (Bld) [Entitic vol] 11.0 fL 6.2-12.0 [facility] Determination of erythrocyte mean corpuscular volume (MCV)Ordered By: Luz Maria Haro on 06-09-2023 MCV (RBC) [Entitic vol] 86.4 fL 81-99 [facility] Hematocrit Auto (Bld) [Volum e fraction]Ordered By: Luz Maria Haro on 06-09-2023 Hematocrit (Bld) [Volume fraction] 32.4 % 37-47 [facility] Laboratory - Chemistry and C hemistry - challengeon 06-09-2023 Glucose Ql (U) Negative [facility] - Hematology and Cell countsOrdered By: Luz Maria Haro on 06-09-2023 Erythrocyte distribution width (RBC) [Entitic vol] 40.5 fL 35.1-43.9 [facility] Erythrocyte distribution width (RBC) [Ratio] 13.1 % 11.6-14.6 [facility] Immature granulocytes/100 WBC (Bld) 0.900 % 0.0-0.9 [facility] Comment on above: IG% - Immature Granu locytes (promyelocytes, myelocytes and metamyelocytes) > 1% indicates that a LEFT SHIFT is Present. MCH (RBC) [Entitic mass] 28.3 pg 27.0-32.0 [facility] Nucleated RBC/100 WBC (Bld) [Ratio] 0 % 0-5 [facility] Laboratory - Urinalysison Protein Ql (U) Negative [facility] MCHC Auto (RBC) [Mass/Vol]Or dered By: Luz Maria Haro on 06-09-2023 MCHC (RBC) [Mass/Vol] 32.7 g/dL 32-36 [facility] Platelets bldOrdered By: Sarah Haro on 06-09-2023 Platelets (Bld) [#/Vol] 222 10*3/uL 150-450 [facility] Laboratory - Chemistry and C hemistry - challengeon 05-22-2023 Glucose Ql (U) Negative [facility] - Urinalysison Protein Ql (U) Negative [facility] Absolute lymphocyte countOrd ered By: Tatiana Bey on 05-10-2023 Lymphocytes Auto (Unsp spec) [#/Vol] 0.84 10*3/uL 0.83-4.51 [facility] Basophil percentageOrdered B y: Tatiana Bey on 05-10-2023 Basophils/100 WBC (Bld) 0.3 % 0-1 [facility] Eosinophils/100 WBC (Bld) 1.3 % 0-5 [facility] Neutrophils (Bld) [#/Vol] 9.1 10*3/uL 2.0-7.7 [facility] Neutrophils/100 WBC (Bld) 84.4 % 47-70 [facility] WBC (Bld) [#/Vol] 10.8 10*3/uL 4.4-11.0 [facility] Blood erythrocytes count (nu mber/volume)Ordered By: Tatiana Bey on 05-10-2023 RBC (Bld) [#/Vol] 3.73 10*6/uL 4.2-5.4 [facility] Blood hemoglobin measurement (mass/volume)Ordered By: Tatiana Bey on 05-10-2023 Hemoglobin (Bld) [Mass/Vol] 10.6 g/dL 12.0-15.0 [facility] Blood lymphocytes/100 leukoc ytesOrdered By: Tatiana Bey on 05-10-2023 Lymphocytes/100 WBC (Bld) 7.8 % 19-41 [facility] Blood monocytes/100 leukocyt esOrdered By: Tatiana Bey on 05-10-2023 Monocytes/100 WBC (Bld) 5.7 % 0-10 [facility] Blood platelet mean volumeOr dered By: Tatiana Bey on 05-10-2023 Platelet mean volume (Bld) [Entitic vol] 11.1 fL 6.2-12.0 [facility] Determination of erythrocyte mean corpuscular volume (MCV)Ordered By: Tatiana Bey on 05-10-2023 MCV (RBC) [Entitic vol] 88.2 fL 81-99 [facility] Gestational diabetes screen 1-hour screen with 50g oral glucose loadOrdered By: Tatiana Bey on 05-10-2023 Glucose 1 Hr post 50 g glucose PO [Mass/Vol] 105 mg/dL 70-140 [facility] HIV 1 and HIV-2 antibody ass ay with HIV-1 p24 antigen detectionOrdered By: Tatiana Bey on 05-10-2023 HIV 1+2 Ab+HIV1 p24 Ag IA Ql Non-Reactive Nonreactive [facility] Hematocrit Auto (Bld) [Volum e fraction]Ordered By: Tatiana Bey on 05-10-2023 Hematocrit (Bld) [Volume fraction] 32.9 % 37-47 [facility] - Chemistry and C hemistry - challengeon 05-10-2023 Glucose Ql (U) Negative [facility] - Hematology and Cell countsOrdered By: Tatiana Bey on 05-10-2023 Erythrocyte distribution width (RBC) [Entitic vol] 40.2 fL 35.1-43.9 [facility] Erythrocyte distribution width (RBC) [Ratio] 12.6 % 11.6-14.6 [facility] Immature granulocytes/100 WBC (Bld) 0.500 % 0.0-0.9 [facility] Comment on above: IG% - Immature Granu locytes (promyelocytes, myelocytes and metamyelocytes) > 1% indicates that a LEFT SHIFT is Present. MCH (RBC) [Entitic mass] 28.4 pg 27.0-32.0 [facility] Nucleated RBC/100 WBC (Bld) [Ratio] 0 % 0-5 [facility] Laboratory - Urinalysison Protein Ql (U) Trace [facility] MCHC Auto (RBC) [Mass/Vol]Or dered By: Tatiana Bey on 05-10-2023 MCHC (RBC) [Mass/Vol] 32.2 g/dL 32-36 [facility] Platelets bldOrdered By: Mariam Bey on 05-10-2023 Platelets (Bld) [#/Vol] 257 10*3/uL 150-450 [facility] Serum Treponema species anti body detectionOrdered By: Tatiana Bey on 05-10-2023 Treponema sp Ab Ql (S) Non-Reactive [facility] Laboratory - Chemistry and C hemistry - challengeon 04-28-2023 Glucose Ql (U) Negative [facility] - Urinalysison Protein Ql (U) Negative [facility] - Chemistry and C hemistry - challengeon 03-30-2023 Glucose Ql (U) Negative [facility] - Urinalysison Protein Ql (U) Negative [facility] - Chemistry and C hemistry - challengeon 02-27-2023 Glucose Ql (U) Negative [facility] - Urinalysison Protein Ql (U) Negative [facility] - Chemistry and C hemistry - challengeon 01-31-2023 Glucose Ql (U) Negative [facility] - Urinalysison Protein Ql (U) Negative [facility] Absolute lymphocyte countOrd ered By: Lindsay Garay on 01-19-2023 Lymphocytes Auto (Unsp spec) [#/Vol] 1.25 10*3/uL 0.83-4.51 [facility] Basophil percentageOrdered B y: Lindsay Garay on 01-19-2023 Basophils/100 WBC (Bld) 0.6 % 0-1 [facility] Eosinophils/100 WBC (Bld) 4.2 % 0-5 [facility] Neutrophils (Bld) [#/Vol] 5.1 10*3/uL 2.0-7.7 [facility] Neutrophils/100 WBC (Bld) 71.5 % 47-70 [facility] WBC (Bld) [#/Vol] 7.2 10*3/uL 4.4-11.0 [facility] Blood erythrocytes count (nu mber/volume)Ordered By: Lindsay Garay on 01-19-2023 RBC (Bld) [#/Vol] 3.91 10*6/uL 4.2-5.4 [facility] Blood hemoglobin measurement (mass/volume)Ordered By: Lindsay Garay on 01-19-2023 Hemoglobin (Bld) [Mass/Vol] 11.7 g/dL 12.0-15.0 [facility] Blood lymphocytes/100 leukoc ytesOrdered By: Lindsay Garay on 01-19-2023 Lymphocytes/100 WBC (Bld) 17.5 % 19-41 [facility] Blood monocytes/100 leukocyt esOrdered By: Lindsay Garay on 01-19-2023 Monocytes/100 WBC (Bld) 5.9 % 0-10 [facility] Blood platelet mean volumeOr dered By: Lindsay Garay on 01-19-2023 Platelet mean volume (Bld) [Entitic vol] 10.7 fL 6.2-12.0 [facility] Determination of erythrocyte mean corpuscular volume (MCV)Ordered By: Lindsay Garay on 01-19-2023 MCV (RBC) [Entitic vol] 85.2 fL 81-99 [facility] HIV 1 and HIV-2 antibody ass ay with HIV-1 p24 antigen detectionOrdered By: Lindsay Garay on 01-19-2023 HIV 1+2 Ab+HIV1 p24 Ag IA Ql Non-Reactive Nonreactive [facility] Hematocrit Auto (Bld) [Volum e fraction]Ordered By: Lindsay Garay on 01-19-2023 Hematocrit (Bld) [Volume fraction] 33.3 % 37-47 [facility] - Hematology and Cell countsOrdered By: Lindsay Garay on 01-19-2023 Erythrocyte distribution width (RBC) [Entitic vol] 38.3 fL 35.1-43.9 [facility] Erythrocyte distribution width (RBC) [Ratio] 12.4 % 11.6-14.6 [facility] Immature granulocytes/100 WBC (Bld) 0.300 % 0.0-0.9 [facility] Comment on above: IG% - Immature Granu locytes (promyelocytes, myelocytes and metamyelocytes) > 1% indicates that a LEFT SHIFT is Present. MCH (RBC) [Entitic mass] 29.9 pg 27.0-32.0 [facility] Nucleated RBC/100 WBC (Bld) [Ratio] 0 % 0-5 [facility] MCHC Auto (RBC) [Mass/Vol]Or dered By: Lindsay Garay on 01-19-2023 MCHC (RBC) [Mass/Vol] 35.1 g/dL 32-36 [facility] No Panel InformationOrdered By: Lindsay Garay on 01-19-2023 Hepatitis B Surface Antigen Non-Reactive Nonreactive [facility] Hepatitis C Antibody Non-Reactive Nonreactive [facility] Comment on above: Non Reactive: < 0.8 Equivocal: >/= 0.8 to < 1.0 Reactive: >/= 1.0The CDC recommends that a reactive/equivocal HCV antibody result be followed up by the HCV Nucleic Acid Amplificationtest (441195) Rubella IgG Antibody Reactive Nonreactive [facility] Comment on above: Antibody Results Int erpretation of Immune Status Non Reactive Presumed Non-Immune Equivocal Equivocal Reactive Presumed Immune Platelets bldOrdered By: Hiram Garay on 01-19-2023 Platelets (Bld) [#/Vol] 266 10*3/uL 150-450 [facility] Serum Treponema species anti body detectionOrdered By: Lindsay Garay on 01-19-2023 Treponema sp Ab Ql (S) Non-Reactive [facility] Cervical or vagninal specime n microscopic examination by cytology stain (reported asOrdered By: Luz Maria Haro on 01-02-2023 Cytology report Cyto stain Doc (Cvx/Vag) Comment . [facility] Comment on above: The Pap smear [...] rRNA NOREEN+probe Ql (Unsp spec) Negative Negative [facility] Culture, urineOrdered By: Royal Garay on 01-02-2023 Bacteria identified Cx Nom (U) Culture exhibits no growth. [facility] Detection in cervical specim en of any of human papilloma virus (HPV) 16, 18, 31, 33,Ordered By: Luz Maria Haro on 01-02-2023 HPV 16+18+31+33+35+39+45+51+ 52+56+58+59+66+68 DNA Probe+sig amp Ql (Cvx) Negative Negative [facility] Comment on above: This nucleic acid am plification test detects fourteen high-risk HPV types (16,18,31,33,35,39,45,51,52,56,58,59,66,68)without differentiation. Laboratory - CytologyOrdered By: Luz Maria Haro on 01-02-2023 Rewinder Operator Helper Cyto stain Nom (Cvx/Vag) [ID] Comment . [facility] Comment on above: Lashae Gregg, [employer] hnologist (ASCP) Laboratory - Microbiology an d Antimicrobial susceptibilityOrdered By: Lindsay Garay on 01-02-2023 N. gonorrhoeae DNA NOREEN+probe Ql (Unsp spec) Negative Negative [facility] Comment on above: Performed at: =G - [address] [id number] Director: Odalis Ruvalcaba MD, Phone: [phone] Laboratory - Miscellaneous t estsOrdered By: Luz Maria Haro on 01-02-2023 Service comment (Unsp spec) [Interp] Comment . [facility] Comment on above: This liquid based Th inPrep(R) pap test was screened withthe use of an image guided system. Service comment (Unsp spec) [Interp] . . [facility] Liquid-based cerv Pap + CT/G C by NOREEN w reflex to high-risk HPV for ASCUSOrdered By: Luz Maria Haro on 01-02-2023 Cytology report Cyto stain.thin prep Doc (Cvx/Vag) Comment . [facility] Comment on above: Criteria not met, HP V Genotype not performed.Performed at: - [facility] [id number] Director: Odalis Ruvalcaba MD, Phone: [phone] at: = - [facility] [id number] Director: Odalis Ruvalcaba MD, Phone: [phone] No Panel InformationOrdered By: Luz Maria Haro on 01-02-2023 Pathology report final diagnosis Narrative Comment . [facility] Comment on above: NEGATIVE FOR INTRAEP ITHELIAL LESION OR MALIGNANCY. FT4on 04-21-2022 Free T4 [Mass/Vol] 1.04 ng/dL Normal 0.76-1.46 [facility] ([place]) Comment on above: Performed By: #### T MICHAEL JOYNER, FT4 #### [facility] [address] LABORATORYOrdered By: Lilia Butterfield on 04-21-2022 Free T4 [Mass/Vol] 1.04 ng/dL Invalid Interpretation Code 0.76 - 1.46 ng/dL AO ADM SS TSH Qn 0.94 m[IU]/L Invalid Interpretation Code 0.36 - 3.74 mcIU/mL AO ADM SS Vit. D 25-Hydroxy 38.4 ng/mL Invalid Interpretation Code AO ADM SS TSHon 04-21-2022 TSH Qn 0.94 m[IU]/L Normal 0.36-3.74 [facility] ([place]) Comment on above: Performed By: #### T MICHAEL JOYNER, FT4 #### [address] [address] VIDHon 04-21-2022 Vit. D 25-Hydroxy 38.4 ng/mL Normal [facility] ([place]) Comment on above: Result Comment: Inte rpretive Values Based on Total 25(OH) Vitamin D: Deficient <20 ng/mL Insufficient 20 - <30 ng/mL Sufficient 30-100 ng/mL Performed By: #### T MICHAEL JOYNER, FT4 #### [address] [address] Vital Signs Date Time Vital Sign Value Performing Clinician Serena chicas 12-30-2024 10: Body height 162.56 cm NOEMI MAST OWNER OPERATOR [employer] Work Phone: [facility] 12-30-2024 10: Body mass index (BMI) [Ratio] 32.6 kg/m2 NOEMI MAST OWNER OPERATOR [employer] Work Phone: [facility] 12-30-2024 10: Body weight 86.29 kg NOEMI MAST OWNER OPERATOR [employer] Work Phone: [facility] 12-30-2024 10:18-0400 Diastolic blood pressure 81 mm[Hg] NOEMI MAST OWNER OPERATOR [employer] Work Phone: [facility] 12-30-2024 10:18-0400 Systolic blood pressure 118 mm[Hg] NOEMI MAST OWNER OPERATOR [employer]IVER Work Phone: [facility] 12-17-2024 15:50-0400 Body temperature 97.8 [degF] NOEMI MAST OWNER OPERATOR [employer] Work Phone: [facility] 12-17-2024 15:50-0400 Diastolic blood pressure 67 mm[Hg] NOEMI MAST OWNER OPERATOR [employer] Work Phone: [facility] 12-17-2024 15:50-0400 Heart rate 97 /min NOEMI MAST OWNER OPERATOR [employer] Work Phone: [facility] 12-17-2024 15:50-0400 Respiratory rate 16 /min NOEMI MAST OWNER OPERATOR [employer] Work Phone: [facility] 12-17-2024 15:50-0400 SaO2% (BldA) [Mass fraction] 96 % NOEMI MAST OWNER OPERATOR [employer] Work Phone: [facility] 12-17-2024 15:50-0400 Systolic blood pressure 110 mm[Hg] NOEMI MAST OWNER OPERATOR [employer]IVER Work Phone: [facility] 12-17-2024 11:38-0400 Body height 162.56 cm NOEMI MAST OWNER OPERATOR [employer] Work Phone: [facility] 12-17-2024 11:38-0400 Body mass index (BMI) [Ratio] 32.1 kg/m2 NOEMI MAST OWNER OPERATOR [employer] Work Phone: [facility] 12-17-2024 11:38-0400 Body weight 85 kg NOEMI MAST OWNER OPERATOR [employer] Work Phone: [facility] 12-13-2024 08:48-0400 Body height 162.56 cm NOEMI MAST OWNER OPERATOR [employer]IVER Work Phone: [facility] 12-13-2024 08:48-0400 Body mass index (BMI) [Ratio] 32.8 kg/m2 NOEMI MAST OWNER OPERATOR [employer] Work Phone: [facility] 12-13-2024 08:48-0400 Body weight 86.69 kg NOEMI MAST OWNER OPERATOR [employer] Work Phone: [facility] 12-13-2024 08:48-0400 Diastolic blood pressure 85 mm[Hg] NOEMI MAST OWNER OPERATOR [employer]IVER Work Phone: [facility] 12-13-2024 08:48-0400 Systolic blood pressure 131 mm[Hg] NOEMI MAST OWNER OPERATOR [employer]IVER Work Phone: [facility] 10-16-2024 09:56-0400 Body height 162.56 cm NOEMI MAST OWNER OPERATOR [employer] Work Phone: [facility] 10-16-2024 09:56-0400 Body mass index (BMI) [Ratio] 31.6 kg/m2 NOEMI MAST OWNER OPERATOR [employer] Work Phone: [facility] 10-16-2024 09:56-0400 Body weight 83.68 kg NOEMI MAST OWNER OPERATOR [employer] Work Phone: [facility] 10-16-2024 09:56-0400 Diastolic blood pressure 83 mm[Hg] NOEMI MAST OWNER OPERATOR [employer]IVER Work Phone: [facility] 10-16-2024 09:56-0400 Systolic blood pressure 121 mm[Hg] NOEMI MAST OWNER OPERATOR [employer]IVER Work Phone: [facility] 07-17-2023 17:47-0500 Diastolic blood pressure 81 mm[Hg] Edward Tamirisa DO Work Phone: [facility] [employer] 07-17-2023 17:47-0500 Heart rate 77 /min Edward Tamirisa DO Work Phone: [employer] 07-17-2023 17:47-0500 Systolic blood pressure 134 mm[Hg] Edward Tamirisa DO Work Phone: [facility] [employer] 07-17-2023 17:25-0500 SaO2% (BldA) [Mass fraction] 99 % Edward Tamirisa DO Work Phone: [facility] 07-17-2023 15:22-0500 Body temperature 98.6 [degF] Edward Tamirisa DO Work Phone: [facility] 07-17-2023 15:22-0500 Respiratory rate 16 /min Edward Tamirisa DO Work Phone: [facility] 07-15-2023 10:01-0500 Body temperature 97.4 [degF] [employer] Loly Seffens WALL MAN Work Phone: [facility] 07-15-2023 10:01-0500 Diastolic blood pressure 86 mm[Hg] [employer] Loly Seffens [employer] MAN Work Phone: [facility] 07-15-2023 10:01-0500 Heart rate 94 /min [employer] Loly Seffens [employer] MAN Work Phone: [facility] 07-15-2023 10:01-0500 Respiratory rate 16 /min [employer] Loly Seffens [employer] MAN Work Phone: [facility] 07-15-2023 10:01-0500 SaO2% (BldA) [Mass fraction] 98 % [employer] Loly Seffens [employer]ALL MAN Work Phone: [facility] 07-15-2023 10:01-0500 Systolic blood pressure 122 mm[Hg] W[employer] Loly Seffens WALL MAN Work Phone: [facility] 07-13-2023 17:19-0500 Body height 162.56 cm WALL [employer] Loly Seffens [employer] MAN Work Phone: [facility] 07-13-2023 17:19-0500 Body mass index (BMI) [Ratio] 38.4 kg/m2 [employer] Loly Seffens [employer] MAN Work Phone: [facility] 07-13-2023 17:19-0500 Body weight 101.6 kg [employer] Loly Seffens [employer]ALL MAN Work Phone: [facility] 07-03-2023 12:27-0500 Diastolic blood pressure 77 mm[Hg] [employer] Loly Seffens [employer] MAN Work Phone: [facility] 07-03-2023 12:27-0500 Heart rate 92 /min [employer] Loly Seffens [employer] MAN Work Phone: [facility] 07-03-2023 12:27-0500 Systolic blood pressure 118 mm[Hg] W[employer] Loly Seffens [employer]ALL MAN Work Phone: [facility] 07-03-2023 11:50-0500 Body height 162.56 cm WALL [employer] Loly Seffens [employer] MAN Work Phone: [facility] 07-03-2023 11:50-0500 Body mass index (BMI) [Ratio] 37.8 kg/m2 [employer] Loly Seffens [employer] MAN Work Phone: [facility] 07-03-2023 11:50-0500 Body weight 99.79 kg [employer]ALL [employer] Loly Seffens [employer]ALL MAN Work Phone: [facility] 07-03-2023 11:15-0500 Body temperature 99.3 [degF] [employer] Loly Seffens WALL MAN Work Phone: [facility] 07-03-2023 11:15-0500 SaO2% (BldA) [Mass fraction] 97 % [employer] Loly Seffens [employer] MAN Work Phone: [facility] 07-03-2023 10:27-0500 Diastolic blood pressure 90 mm[Hg] W[employer] Loly Seffens [employer] MAN Work Phone: [facility] 07-03-2023 10:27-0500 Systolic blood pressure 142 mm[Hg] W[employer] Loly Seffens [employer]ALL MAN Work Phone: [facility] 07-03-2023 09:43-0500 Body mass index (BMI) [Ratio] 37.5 kg/m2 [employer] Loly Seffens [employer] MAN Work Phone: [facility] 07-03-2023 09:43-0500 Body weight 99.1 kg [employer] Loly Seffens [employer] MAN Work Phone: [facility] 06-21-2023 10:33-0500 Body height 162.56 cm WALL [employer] Loly Seffens [employer] MAN Work Phone: [facility] 06-21-2023 10:33-0500 Body mass index (BMI) [Ratio] 36.7 kg/m2 [employer] Loly Seffens [employer] MAN Work Phone: [facility] 06-21-2023 10:33-0500 Body weight 97.06 kg WALL [employer] Loly Seffens [employer]ALL MAN Work Phone: [facility] 06-21-2023 10:33-0500 Diastolic blood pressure 84 mm[Hg] W[employer] Loly Seffens [employer] MAN Work Phone: [facility] 06-21-2023 10:33-0500 Systolic blood pressure 116 mm[Hg] W[employer] Loly Seffens [employer] MAN Work Phone: [facility] 06-09-2023 09:49-0500 Body mass index (BMI) [Ratio] 35.7 kg/m2 [employer] Loly Seffens [employer] Work Phone: [facility] 06-09-2023 09:49-0500 Body weight 94.4 kg [employer] Loly Seffens [employer] Work Phone: [facility] 06-09-2023 09:49-0500 Diastolic blood pressure 77 mm[Hg] W[employer] Loly Seffens [employer] Work Phone: [facility] 06-09-2023 09:49-0500 Systolic blood pressure 107 mm[Hg] W[employer] Loly Seffens [employer] Work Phone: [facility] 05-22-2023 08:03-0500 Body mass index (BMI) [Ratio] 34.8 kg/m2 [employer] Loly Seffens [employer] Work Phone: [facility] 05-22-2023 08:03-0500 Body weight 92.07 kg WALL [employer] Loly Seffens [employer] MAN Work Phone: [facility] 05-22-2023 08:03-0500 Diastolic blood pressure 83 mm[Hg] W[employer] Loly Seffens [employer] Work Phone: [facility] 05-22-2023 08:03-0500 Systolic blood pressure 118 mm[Hg] [employer] Loly Seffens [employer] Work Phone: [facility] 05-10-2023 09:41-0500 Body height 162.56 cm WALL [employer] Loly Seffens [employer] Work Phone: [facility] 05-10-2023 09:39-0500 Body mass index (BMI) [Ratio] 34 kg/m2 [employer] Loly Seffens [employer] Work Phone: [facility] 05-10-2023 09:39-0500 Body weight 89.92 kg [employer] Loly Seffens [employer] Work Phone: [facility] 05-10-2023 09:39-0500 Diastolic blood pressure 72 mm[Hg] [employer] Loly Seffens [employer] Work Phone: [facility] 05-10-2023 09:39-0500 Respiratory rate 16 /min [employer] Loly Seffens [employer] Work Phone: [facility] 05-10-2023 09:39-0500 Systolic blood pressure 118 mm[Hg] [employer] Loly Seffens [employer] Work Phone: [facility] 04-28-2023 09:26-0500 Body mass index (BMI) [Ratio] 33.6 kg/m2 [employer] Loly Seffens [employer] Work Phone: [facility] 04-28-2023 09:26-0500 Body weight 88.9 kg [employer] Loly Seffens [employer] Work Phone: [facility] 04-28-2023 09:26-0500 Diastolic blood pressure 76 mm[Hg] [employer] Loly Seffens [employer] Work Phone: [facility] 04-28-2023 09:26-0500 Systolic blood pressure 108 mm[Hg] [employer] Loly Seffens [employer] Work Phone: [facility] 03-30-2023 08:09-0400 Body mass index (BMI) [Ratio] 32.6 kg/m2 [employer] Loly Seffens [employer] Work Phone: [facility] 03-30-2023 08:09-0400 Body weight 86.23 kg WALL [employer] Loly Seffens [employer] Work Phone: [facility] 03-30-2023 08:09-0400 Diastolic blood pressure 82 mm[Hg] [employer] Loly Seffens [employer] Work Phone: [facility] 03-30-2023 08:09-0400 Systolic blood pressure 128 mm[Hg] [employer] Loly Seffens [employer] Work Phone: [facility] 02-27-2023 14:04-0400 Body mass index (BMI) [Ratio] 31 kg/m2 [employer] Loly Seffens WALL MAN Work Phone: [facility] 02-27-2023 14:04-0400 Body weight 82.1 kg WALL MAN-C Loly Seffens WALL MAN Work Phone: [facility] 02-27-2023 14:04-0400 Diastolic blood pressure 73 mm[Hg] WALL MAN-C Loly Seffens WALL MAN Work Phone: [facility] 02-27-2023 14:04-0400 Systolic blood pressure 117 mm[Hg] WALL MAN-C Loly Seffens WALL MAN Work Phone: [facility] 01-31-2023 08:08-0400 Body mass index (BMI) [Ratio] 29.9 kg/m2 WALL MAN-C Loly Seffens WALL MAN Work Phone: [facility] 01-31-2023 08:08-0400 Body weight 79.03 kg WALL MAN-C Loly Seffens WALL MAN Work Phone: [facility] 01-31-2023 08:08-0400 Diastolic blood pressure 78 mm[Hg] WALL MAN-C Loly Seffens WALL MAN Work Phone: [facility] 01-31-2023 08:08-0400 Systolic blood pressure 124 mm[Hg] WALL MAN-C Loly Seffens WALL MAN Work Phone: [facility] 01-02-2023 13:34-0400 Body height 162.56 cm WALL MAN-C Loly Seffens WALL MAN Work Phone: [facility] 01-02-2023 13:31-0400 Body mass index (BMI) [Ratio] 28.9 kg/m2 WALL MAN-C Loly Seffens WALL MAN Work Phone: [facility] 01-02-2023 13:31-0400 Body weight 76.43 kg WALL MAN-C Loly Seffens WALL MAN Work Phone: [facility] 01-02-2023 13:31-0400 Diastolic blood pressure 79 mm[Hg] WALL MAN-C Loly Seffens WALL MAN Work Phone: [facility] 01-02-2023 13:31-0400 Systolic blood pressure 132 mm[Hg] WALL MAN-C Loly Seffens WALL MAN Work Phone: [facility] Encounters Encounter Date Encounter Type Care Provider Facility Start: 03-26-2025 End: 03-26-2025 ambulatory Rox Reese Facility:[facility] Start: 03-26-2025 End: 03-26-2025 Discharged Recurring Rox Reese WALL MAN-C -Physical Therapy Work Phone: Start: 01-20-2025 End: 01-20-2025 ambulatory NOEMI TREJO APRN-ONCOLOGY TECHNICIAN Facility:[facility] Start: 01-20-2025 End: 01-20-2025 Patient encounter procedure BEATRICE Yariel ZELAYA JUNIOR PHP DEVELOPER-ONCOLOGY TECHNICIAN [facility] Start: 12-30-2024 End: 12-30-[address] Tatiana Sue DO -[facility] Work Phone: Start: 12-30-2024 End: 12-30-2024 ambulatory NOEMI MAST OWNER OPERATOR TANKER TRUCK DRIVER Work Phone: -[facility] Start: 12-27-2024 Encounter for other preprocedural examination Tatiana Sue [facility] Start: 12-25-2024 Registered Recurring Rox HEAD -Physical Therapy Work Phone: Start: 12-17-2024 ambulatory Tatiana Caceres cility:[facility] Start: 12-17-2024 Non-patient / Non-visit Dr. Clint Sue DO -[facility] Start: 12-17-2024 End: 12-17-2024 Admission to same day surgery center Dr. Tatiana Sue DO -[facility] Start: 12-17-2024 End: 12-17-2024 ambulatory NOEMI MAST OWNER OPERATOR TANKER TRUCK DRIVER Work Phone: -[facility] Start: 12-13-2024 End: 12-13-2024 Patient encounter procedure Luz Maria Haro CN -[facility] Work Phone: Start: 12-13-2024 End: 12-13-2024 ambulatory NOEMI MAST OWNER OPERATOR TANKER TRUCK DRIVER Work Phone: [facility] Work Phone: Start: 12-11-2024 Registered Recurring Rox HEAD -Physical Therapy Work Phone: Start: 11-15-2024 End: 11-15-2024 ambulatory NOEMI MAST OWNER OPERATOR TANKER TRUCK DRIVER Work Phone: [facility] Work Phone: Start: 11-15-2024 End: 11-15-2024 Patient encounter procedure Rox Barkman WALL MAN-C -Outpatient [facility] Imaging Work Phone: Start: 11-15-2024 End: 11-15-2024 ambulatory Rox Reese Facility:[facility] Start: 10-16-2024 End: 10-16-2024 Patient encounter procedure Rox Reese WALL MAN-C -[facility] Work Phone: Start: 10-16-2024 End: 10-16-2024 Patient encounter status Rox Reese WALL MAN-C [facility] Start: 10-16-2024 End: 10-16-2024 ambulatory Rox Reese Facility:[facility] Start: 09-05-2023 End: 09-05-2023 ambulatory JEFF DEJESUSOME FLOYDAMOL Facility:[facility] Start: 09-05-2023 End: 09-05-2023 Subsequent hospital visit by physician [facility] Work Phone: Radiology Start: 07-17-2023 End: 07-17-2023 ambulatory [facility] Start: 07-17-2023 End: 07-17-2023 [facility] Start: 07-15-2023 Non-patient / Non-visit WALL MAN-C C marisol Rene WALL MAN Work Phone: [facility] Start: 07-14-2023 Non-patient / Non-visit WALL MAN-C Joanne Rene WALL MAN Work Phone: [facility] Start: 07-13-2023 Non-patient / Non-visit WALL MAN-C C mairsol Lewisns WALL MAN Work Phone: [facility] Start: 07-13-2023 End: 07-15-2023 Evaluation and management of inpatient WALL MAN-C Loly Rene WALL MAN Work Phone: [facility] Work Phone: Start: 07-03-2023 Non-patient / Non-visit WALL MAN-C Joanne marisol Rene WALL MAN Work Phone: [facility] Start: 07-03-2023 End: 07-03-2023 ambulatory WALL MAN-C Loly Rene WALL MAN Work Phone: [facility] Work Phone: Start: 07-03-2023 End: 07-03-2023 Patient encounter procedure WALL MAN-C Loly Rene WALL MAN [facility] Work Phone: Start: 07-03-2023 End: 07-03-2023 Patient encounter procedure WALL MAN-C Loly Rene WALL MAN Work Phone: [facility] Work Phone: Start: 06-21-2023 End: 06-21-2023 Patient encounter procedure WALL MAN-C Loly Rene WALL MAN Work Phone: [facility] Work Phone: Start: 06-21-2023 End: 06-21-2023 ambulatory WALL MAN-C Loly Rene WALL MAN Work Phone: [facility] Work Phone: Start: 06-21-2023 End: 06-21-2023 Patient encounter procedure WALL MAN-C Loly Rene WALL MAN Work Phone: [facility] Work Phone: Start: 06-09-2023 End: 06-09-2023 Patient encounter procedure WALL MAN-C Loly Rene WALL MAN Work Phone: [facility] Work Phone: Start: 06-09-2023 End: 06-09-2023 Patient encounter procedure WALL MAN-C Loly Rene WALL MAN Work Phone: [facility] Work Phone: Start: 05-22-2023 End: 05-22-2023 Patient encounter procedure WALL MAN-C Loly Seffens WALL MAN Work Phone: [facility] Work Phone: Start: 05-10-2023 End: 05-10-2023 ambulatory WALL MAN-C Loly Seffens WALL MAN Work Phone: [facility] Work Phone: Start: 05-10-2023 End: 05-10-2023 Patient encounter procedure WALL MAN-C Loly Seffens WALL MAN Work Phone: [facility] Work Phone: Start: 04-28-2023 End: 04-28-2023 Patient encounter procedure WALL MAN-C Loly Seffens WALL MAN Work Phone: [facility] Work Phone: Start: 03-30-2023 End: 03-30-2023 Patient encounter procedure WALL MAN-C Loly Seffens WALL MAN Work Phone: [facility] Work Phone: Start: 03-14-2023 End: 03-14-2023 ambulatory MD PRIMARY CARE [facility] Start: 02-27-2023 End: 02-27-2023 Patient encounter procedure WALL MAN-C Loly Seffens WALL MAN Work Phone: [facility] Work Phone: Start: 01-31-2023 End: 01-31-2023 Patient encounter procedure WALL MAN-C Loly Seffens WALL MAN Work Phone: [facility] Work Phone: Start: 01-19-2023 End: 01-19-2023 Patient encounter procedure WALL MAN-C Loly Seffens WALL MAN Work Phone: [facility] Work Phone: Start: 01-02-2023 End: 01-02-2023 ambulatory WALL MAN-C Loly miguel a WALL MAN Work Phone: [facility] Work Phone: Start: 01-02-2023 End: 01-02-2023 Patient encounter procedure WALL MAN-C Loly Semiguel a WALL MAN Work Phone: [facility], [facility] Work Phone: Start: 01-02-2023 End: 01-02-2023 Patient encounter procedure WALL MAN-C Loly Anju WALL MAN Work Phone: [facility] Work Phone: Start: 04-21-2022 End: 04-26-2022 ambulatory LOLY RENE JUNIOR PHP DEVELOPER-ONCOLOGY TECHNICIAN Facility:B Start: 04-21-2022 End: 04-25-2022 Outreach Lab LOLY ANJU JUNIOR PHP DEVELOPER-ONCOLOGY TECHNICIAN [facility] Procedures Date Procedure Procedure Detail Performing Clinician Start: 12-17-2024 Dilation and curetta ge of uterus NOEMI MAST OWNER OPERATOR TANKER TRUCK DRIVER Work Phone: Start: 11-15-2024 Ultrasonography of breast NOEMI MAST OWNER OPERATOR TANKER TRUCK DRIVER Work Phone: Start: 09-05-2023 Us breast uni [...] Start: 07-03-2023 Group B Streptococcu s Culture WALL MAN-C Loly Rene WALL MAN Work Phone: Start: 06-21-2023 Ultrasound scan for growth WALL MAN-C Loly Rene WALL MAN Work Phone: Start: 01-02-2023 Urine culture WALL MAN-C Evelyn Rene WALL MAN Work Phone: H/O: surgery Status post dila [...] or older (1 - 1-dose 60+ series) [facility] Start: 10-16-2041 Zoster Vaccines (1 of 2) Zoster Vaccines (1 of 2) [facility] Start: 05-22-2033 Urine microalbumin profile DTaP,Tdap,Td Vaccine (2 - Td or Tdap) [facility] Start: 07-07-2025 Screening for malignant neoplasm of cervix [facility] Start: 12-17-2024 Anesthesia incomplete/missed ANES INCOMPL/MISSED AB PX [facility] Start: 12-17-2024 Tx missed first trimester surgical CARE OF MISCARRIAGE [facility] Start: 12-17-2024 Patient discharge [facility] Start: 12-17-2024 Ambulation without limitation [facility] Start: 12-17-2024 Medical regimen orders management [facility] Start: 12-17-2024 Medication education [facility] Start: 12-17-2024 Procedure discontinued [facility] Start: 12-17-2024 Taking patient vital signs [facility] Start: 12-17-2024 Vital signs measurements [facility] Start: 12-17-2024 [facility] Start: 10-16-2024 Patient referral [facility] Work Phone: Start: 07-15-2023 Patient discharge [facility] Start: 07-14-2023 Administration of medication [facility] Start: 07-14-2023 Application of ice collar, cap or bag [facility] Start: 07-14-2023 Catheterization of vein [facility] Start: 07-14-2023 Introduction of urinary catheter [facility] Start: 07-14-2023 Measuring intake and output [facility] Start: 07-14-2023 Notification of physician [facility] Start: 07-14-2023 Procedure discontinued [facility] Start: 07-14-2023 Provision of activity privileges [facility] Start: 07-14-2023 Vital signs measurements [facility] Start: 07-14-2023 [facility] Start: 07-13-2023 Admission procedure [facility] Start: 07-03-2023 Nonstress test [facility] Start: 07-03-2023 Obstetric monitoring [facility] Start: 07-03-2023 Vital signs measurements [facility] Start: 07-03-2023 End: 07-03-2023 [facility] Start: 07-03-2023 Patient discharge [facility] Start: 06-19-2023 Depression Assessment Depression Assessment [facility] Start: 02-17-2023 Covid-19 Vaccine ( season) Covid-19 Vaccine ( season) [facility] Start: 02-17-2023 Influenza vaccination Influenza Vaccine (#1) [facility] Start: 10-16-2021 Screening for malignant neoplasm of cervix [facility] Start: 10-16-2012 Screening for malignant neoplasm of cervix Pap Smear [facility] Start: 10-16-2010 DTaP/Tdap/Td Vaccines (1 - Tdap) DTaP/Tdap/Td Vaccines (1 - Tdap) [facility] Start: 10-16-2010 Hepatitis B Vaccine (1 of 3 - 19+ 3-dose series) Hepatitis B Vaccine (1 of 3 - 19+ 3-dose series) [facility] Start: 10-16-2009 Hepatitis C screening Hepatitis C Screening [facility] Start: 10-16-2009 HIV screening HIV Screening [facility] Start: 2003 Depression Screening Depression Screening [facility] Start: 10-16-1992 MMR Vaccines (1 of 1 - Standard series) MMR Vaccines (1 of 1 - Standard series) [facility] Start: 10-16-1992 Varicella vaccination Varicella Vaccines (1 of 2 - 2-dose childhood series) [facility] Start: 04-17-1992 COVID-19 Vaccine (#1) COVID-19 Vaccine (#1) [facility] Start: 1991 Hepatitis B Vaccines (1 of 3 - 3-dose series) Hepatitis B Vaccines (1 of 3 - 3-dose series) [facility] Start: 1991 HIV screening HIV Screening [facility] CBC W Auto Different ial panel - Blood [facility] CBC W Auto Different ial panel - Blood [facility] CBC W Auto Different ial panel - Blood [facility] Chlamydia deoxyribon ucleic acid detection [facility] Comprehensive metabo lic 2000 panel - Serum or Plasma [facility] ECG 12 lead ECG 12 lead CV E CG STAT 07/17/2023 5:33 PM EST [facility] Work Phone: Hepatitis B surface antigen measurement [facility] Hepatitis C antibody measurement [facility] Hepatitis C antibody measurement [facility] HIV 1+2 Ab+HIV1 p24 Ag [Presence] in Serum or Plasma by Immunoassay [facility] MG Breast - bilatera l Diagnostic [facility] Patient Education [facility] Work Phone: Patient referral [facility] Work Phone: Protein/Creatinine [ Ratio] in Urine [facility] Protein/Creatinine [ Ratio] in Urine [facility] Rubella IgG measurement [facility] Rubella IgG measurement [facility] Serologic test for syphilis [facility] Streptococcus agalac tiae [Presence] in Unspecified specimen by Organism specific culture [facility] Treponema sp Ab [Pre sence] in Serum [facility] Immunizations Immunization Date Immunization Notes Care Provider Thee paulson 05-22-2023 tetanus toxoid, redu delfino diphtheria toxoid, and acellular pertussis vaccine, adsorbed WALL MAN-C Loly Rene NP Work Phone: [facility] Payers Date Payer Category Payer Private Health Insurance [id number] 2024 Self-pay [id number] 2019 Unknown [id number] 2019 Unknown [id number] 2014 Unknown [id number] 1991 Unknown [id number] 2.16.8 [id number] 1991 Unknown [id number] 2.16. [id number] 1991 Unknown [id number] 2.16. [id number] Unknown [id number] 2.16.8 [id number] Unknown [id number] 2.16.8 [id number] Unknown [id number] 2.16.8 [id number] Unknown [id number] 2.16.8 [id number] Unknown [id number] 2.16.8 [id number] Unknown [id number] 2.16.8 [id number] Unknown [id number] 2.16.8 [id number] Social History Date Type Detail Facility Start: 12-30-2019 End: 12-16-2024 Tobacco smoking status Never smoked tobacco (finding) [facility] Sex Assigned At [facility] Start: 01-02-2023 End: 07-13-2023 Tobacco smoking status LAIS Unknown if ever smoked [facility] Start: 1990 Sex Assigned At Female [facility] Start: 07-07-2020 End: 07-17-2023 Tobacco use and exposure Smokeless tobacco non-user [facility] Start: 07-17-2023 Alcohol intake Ex-drinker (finding) [facility] Start: 07-07-2020 End: 07-17-2023 History of Social function [facility] Start: 07-07-2020 End: 07-17-2023 Tobacco use panel [facility] Start: 1990 Sex Assigned At Not on file [facility] Start: 08-09-2021 Alcohol intake Current non-drinker of alcohol (finding) [facility] Do you belong to any clubs or organizations such as cheondoism groups, unions, [employer] or athletic groups, or school groups? Yes [facility] Are you now , , , , never or living with a partner? Never [facility] Do you feel stress - tense, restless, nervous, or anxious, or unable to sleep at night because your mind is troubled all the time - these days [OSQ] Rather much [facility] National Score (1-10 0), lower number is lower risk Not on file [facility] Start: 07-07-2020 Education 18 [facility] Start: 08-09-2021 Gender identity Identifies as female gender (finding) [facility] Start: 07-13-2020 Sexual orientation Heterosexual (finding) [facility] Start: 01-26-2015 Sex Female (finding) [facility] Goals Date Patient Goal Desired Activity /State Mental Status Date Assessment Result Facility 12-17-2024 Cognitive function Voice/Name [facility] Work Phone: Clinical Notes 01-02-2023 to 03-26-2025 Note Date & Type Note Facility 03-26-2025 Discharge summary Note Date/Time March 26, 2025 7:07pm [facility] Physical [facility] [address] [place] [address]. [address] [place] [address] / REHABILITATION SERVICES DISCHARGE SUMMARY MR#: [id number] Acct: [id number] Name: GASTON MANZO Rep #: [id number] : 1990 34 From: Betty Grace Referring Dr.: SONIDO Reese Status: REG RCR Insurance: [facility] SELF PAY INSURANCE Discharge Summary D/C summary: [...] please feel free to call me at [phone]. Thank you for the referral of thispatient. Sincerely, Betty Grace Balance/Gait/Functional tests Improvement % Improvement: 70 <Electronically signed by Betty Grace> 03/26/25 7931 CC: SONIDO Reese; DELIO EDDY ~ MG Signed [facility] Work Phone: 1(404) 904-257510-08-2025 Discharge summary [facility] Physical [facility] [address] [place] [address] / REHABILITATION SERVICES DISCHARGE SUMMARY MR#: [id number] Acct: [id number] Name: GASTON MANZO Rep #: [id number] : 1990 34 From: Betty Grace Referring Dr.: SONIDO Reese Status: REG RCR Insurance: [facility] SELF PAY INSURANCE Discharge Summary D/C summary: [...] please feel free to call me at [phone]. Thank you for the referral of thispatient. Sincerely, Betty Grace Balance/Gait/Functional tests Improvement % Improvement: 70 03/26/25 1907 CC: WALL MAN-C Rox Reese; DELIO EDDY ~ MG Signed [facility]08-04-2025 Evaluation + Plan note Diagnostic Tests Pending * Lyme Disease Serology w/Reflex 01/20/25 [facility] 07-01-2025 Consult note [facility] Medical Records Department [address] [place] [address] Anesthesia Postop Eval II 12/17/24 1537 MR#: [id number] Acct: [id number] Name: GASTON MANZO LORI Rep #:[id number] : 1990 34 From: Alirio Betancourt MD PCP: DELIO EDDY Status:REG SDC Y Race: C Location: [facility]- Anesthesia Postop Eval I Sum Postop Eval Completion status Anesthesia document: Postop Eval 1 completed: Yes Anesthesia Postop Eval I Summary Anesthesia Postop Eval I Summary: Anesthesia Postop Eval I: Assessment Summary Airway patent Yes 12/17/24 14:15 STORE ADMINISTRATOR.[email or web address] Spontaneous unlabored Yes 12/17/24 14:15 STORE ADMINISTRATOR.SKOBY respirations Mental status Awake,Calm 12/17/24 14:15 STORE ADMINISTRATOR.SKOBY nausea No 12/17/24 14:15 STORE ADMINISTRATOR.SKOBY Vomiting No 12/17/24 14:15 STORE ADMINISTRATOR.SKOBY Anesthesia Postop Eval I: Fluid Summary Crystalloid volume administer 600 12/17/24 14:15 STORE ADMINISTRATOR.SKOBY (ml) Colloids volume administered ( ml) Blood Product volume administered (ml) Total IV fluid infused 600 12/17/24 14:15 STORE ADMINISTRATOR.SKOBY Anesthesia Postop Eval I: Summary Notes Anesthesia Complication No 12/17/24 14:15 STORE ADMINISTRATOR.SKOBY Anesthesia Complication Comment: Post-operative progress note Anesthesia: Postop Eval II Evaluation Mental status: Awake and Calm Pain Level: 2 nausea: No Vomiting: No Complications Anesthesia Complication: No 12/17/24 1537 D> Date _ Alirio Betancourt MD Cosigner Signature: Date CC: ~ Signed [facility]07-01-2025 Discharge summary Author Tatiana Bey [facility] Note Date/Time December 17, 2024 12:50 pm [facility] Medical Records Department [address] [place] [address] Instructions for Home/Discharge Instructions 12/17/24 1247 MR#: [id number] Acct: [id number] Name: JEOVANYClintGASTON LORI Rep #:[id number] : 1990 34 From: Tatiana Sue DO [...] Up With: Tatiana Sue DO When: Call [phone] to schedule appointment. Test Results: Test results from this visit will be discussed in further detail at your follow- up appointment, if applicable. Discharge Plan Admission Primary Reason for Your Visit: suction D&C Attending Provider: Tatiana Sue Primary Care Provider: NOEMI TREJO Instructions Print Language: Guyanese Discharge Orders/Prescriptions Prescriptions: New ibuprofen 800 mg [...] Sue DO CC: DELIO EDDY ~ Signed [facility] Work Phone: 1(578) 181-174107-01-2025 History and physical note Author Tatiana Bey [facility] Note Date/Time December 17, 2024 12:47 pm [facility] Medical Records Department [address] [place] [address] [place] [address] History & Physical Exam 12/17/24 1244 MR#: [id number] Acct: [id number] Name: GASTON MANZO Rep #:[id number] : 1990 34 From: Tatiana Sue DO PCP: DELIO EDDY Status:REG [facility] Location: [place] [address] History and Physical Date of Admission: 12/17/24 Intake Vital Signs 10/16/2508:56 12/14/2507:48 Height 5 ft 4 in 5 ft 4 in Weight: 184 lb 8 oz 191 lb 2 oz BMI 31.6 32.8 BP 121/83 H 131/85 H Intake Visit Reasons: *EST* NOB LMP 10/08, BLAINE 07/15 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: New OB Office Technologist Required: No Is patient in pain?: No [...] breast cancer Surgical History History of surgery [place] teeth extracted History of lumpectomy of both [...] 1-2 times per week duration: 30-45 minutes/day hilaria/jain: None seatbelt use: always do you feel safe at home: Yes additional social history: - [facility]- Natural [employer] Specialist History 2 Elective abortions Hx Para 1 [...] (Rh) Sensitized, Seasonal allergies, Drug/latex allergies/reactions, Breast, Director Of Cardiology surgery, Operations/hospitalizations, Anesthetic complications, History of abnormal [...] Circumcision preference, Signs and Symptoms of Preeclampsia, Feeding No and Family Medical Leave or [...] with clip (11) Anxiety: Status: Acute 12/17/24 0627 <Electronically signed by Tatiana Sue DO> Cosigner Signature (if applicable): CC: Dr. Tatiana Sue, DO; DELIO EDDY~ Signed [facility] Work Phone: 1(838) 134-722507-01-2025 Consult note Author Alirio Betancourt [facility] Note Date/Time December 17, 2024 12:18 pm [facility] Medical Records Department [address] [place] [address] Pre-Anesthesia Evaluation 12/17/24 1205 MR#: [id number] Acct: [id number] Name: GASTON MANZO Rep #:[id number] : 1990 34 From: Alirio Betancourt MD PCP: DELIO EDDY Status:REG SDC Y Race: C Location: [place] [address] Alirio Betancourt MD on [...] Curettage, Suction Anesthesia History Anesthesia History - sharemilker: Anesthesia History - sharemilker Hx Hospitalization No 12/16/24 14:27 Any Problems [...] take am of surgery PONV PONV - sharemilker: PONV - sharemilker Female Yes 12/16/24 14:27 HX of Motion [...] 12/17/24 11:38 Respiratory Assessment Respiratory Assessment - sharemilker: Respiratory Tract Infection Hx - sharemilker Hx Respiratory Tract Infection No 12/16/24 14:27 STOP Sleep Apnea STOP Sleep Apnea - sharemilker: STOP Sleep Apnea - sharemilker Hx Hypertension No 12/16/24 14:27 Hx Sleep [...] Tobacco Use History Tobacco Use History - sharemilker: Tobacco Use History - sharemilker Tobacco Use Smoking Status Never smoker 12/16/24 14:27 Hx Tobacco Use No 12/16/24 14:27 Years Smoking Packs Smoked per Day Smoking Cessation Date was within the last 15 years Hx Smoking Cessation Date Hx Smoking Cessation Counseling Hematologic Medial History Hematologic Hx - sharemilker: 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 Hx of Blood Transfusion No 12/16/24 14:27 [...] confused, unrespo /Reproduction History /Reproductive History - sharemilker: /Reproductive Hx- sharemilker Hx Now Yes 12/16/24 14:27 Gestational Age [...] Age: 58 Surgical History History of surgery [place] teeth extracted History of lumpectomy of both [...] 1-2 times per week duration: 30-45 minutes/day hilaria/jain: None seatbelt use: always do you feel safe at home: Yes additional social history: BF- Macarthy- Natural Resources Specialist Review of Systems (Anesthesia) ROS Narrative System [...] MD Cosigner Signature: Date CC: ~ Signed [facility] Work Phone: 1(171) 181-616907-01-2025 Consult note [facility] Medical Records Department [address] [place] [address] Anesthesia Postop Eval I 12/17/24 1414 MR#: [id number] Acct: [id number] Name: GASTON MANZO Rep #:[id number] : 1990 34 From: Amada eng STORE ADMINISTRATOR PCP: DELIO EDDY Status:REG [facility] Y Race: C Location: [address] Anesthesia: Postop Eval I Current Vital [...] Eval 1 completed: Yes 12/17/24 1415 raul STORE ADMINISTRATOR> Date _ Amada Louis STORE ADMINISTRATOR Cosigner Signature: Date CC: ~ Signed [facility]07-01-2025 Procedure note [facility] Medical Records Department [address] [facility] [place] [address] Operative Report 12/17/24 1341 MR#: [id number] Acct: [id number] Name: GASTON MANZO Rep #:[id number] : 1990 34 From: Tatiana Sue DO PCP: DEILO EDDY Status:REG [facility] Location: [place] [address] Problems Associated Problem List Diagnoses (1) Missed with demise before 20 completed weeks of gestation: Multi Select Codes Urinary/Genital Urinary/Genital CPT Codes: 93294 Surg Trtmt missed Ab 1TM Operative Report (Standard) Operative Information Date of Procedure: 12/17/24 Pre-Operative Diagnosis: 9 weeks, measuring 8 weeks missed Post-Operative Diagnosis: 9 weeks, measuring 8 weeks missed Surgery/Procedure Performed: suction dilation and curettage glove former: No Type of Anesthesia: MAC/Supplemental RN Documented [...] Dr. Tatiana Sue DO; DELIO EDDY~ Signed [facility]07-01-2025 Evaluation note* Diagnosis Onset Date Resolution Status Admit Date Missed with demise before 20 completed weeks of gestation acute December 17, 2024 1 1:04am Status post dilation and curettage acute December 30, 2024 10:11am [facility] Work Phone: 1(118) 202-785207-01-2025 Discharge summary [facility] Medical Records Department [address] [place] [address] Instructions for Home/Discharge Instructions 12/17/24 1247 MR#: [id number] Acct: [id number] Name: GASTON MANZO LORI Rep #:[id number] : 1990 34 From: Tatiana Sue DO [...] Up With: Tatiana Sue DO When: Call [phone] to schedule appointment. Test Results: Test results from this visit will be discussed in further detail at your follow- up appointment, if applicable. Discharge Plan Admission Primary Reason for Your Visit: suction D&C Attending Provider: Tatiana Sue Primary Care Provider: NOEMI TREJO Instructions Print Language: Guyanese Discharge Orders/Prescriptions Prescriptions: New ibuprofen 800 mg [...] Bey DO CC: DELIO EDDY ~ Signed [facility]07-01-2025 History and physical note [facility] Medical Records Department [address] [place] [address] History & Physical Exam 12/17/24 1244 MR#: [id number] Acct: [id number] Name: GASTON MANZO Rep #:[id number] : 1990 34 From: Tatiana Sue DO PCP: DELIO EDDY Status:REG [facility] Location: [address] History and Physical Date of Admission: 12/17/24 Intake Vital Signs 10/16/2508:56 12/14/2507:48 Height 5 ft 4 in 5 ft 4 in Weight: 184 lb 8 oz 191 lb 2 oz BMI 31.6 32.8 BP 121/83 H 131/85 H Intake Visit Reasons: *EST* NOB LMP 10/08, BLAINE 07/15 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: New OB Office Technologist Required: No Is patient in pain?: No [...] breast cancer Surgical History History of surgery [place] teeth extracted History of lumpectomy of both [...] 1-2 times per week duration: 30-45 minutes/day hilaria/jain: None seatbelt use: always do you feel safe at home: Yes additional social history: - [facility]- Natural Resources Specialist History 2 Elective abortions Hx Para 1 Spontaneous abortions Hx # Term Pregnancies Ectopic pregnancies Hx # Pregnancies Multiple births # of living children 1 Past Pregnancies Del. Date Name GA/Weeks Outcome Route Bth Weight Gen Labor Lgth Anesthesia Del Locatn Provider FOB 07/14/23 Mac 37 live - full term vacuum 8lbs 9o z Male epidural [facility] Delivery Date: 07/14/23 Last Updated by: Barbara [...] (Rh) Sensitized, Seasonal allergies, Drug/latex allergies/reactions, Breast, Director Of Cardiology surgery, Operations/hospitalizations, Anesthetic complications, History of abnormal [...] Circumcision preference, Signs and Symptoms of Preeclampsia, Feeding No and Family Medical Leave or [...] Dr. Tatiana Sue DO; DELIO EDDY~ Signed [facility]07-01-2025 [facility] Medical Records Department [address] [place] [address] History Physical Exam 12/17/24 1244 MR#: [id number] Acct: [id number] Name: GASTON MANZO Rep #: [id number] : 1990 34 From: Tatiana Sue DO PCP: DELIO EDDY Status:REG [facility] Location: [place] [address] History and Physical Date of Admission: 12/17/24 Intake Vital Signs 10/16/2508:56 12/14/2507:48 Height 5 ft 4 in 5 ft 4 in Weight: 184 lb 8 oz 191 lb 2 oz BMI 31.6 32.8 BP 121/83 H 131/85 H Intake Visit Reasons: *EST* NOB LMP 10/08, BLAINE 07/15 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: New OB Office Technologist Required: No Is patient in pain?: No [...] breast cancer Surgical History History of surgery [place] teeth extracted History of lumpectomy of both [...] 1-2 times per week duration: 30-45 minutes/day hilaria/jain: None seatbelt use: always do you feel safe at home: Yes additional social history: - [facility]- Natural Resources Specialist History 2 Elective abortions Hx Para 1 Spontaneous abortions Hx # Term Pregnancies Ectopic pregnancies Hx # Pregnancies Multiple births # of living children 1 Past Pregnancies Del. Date Name GA/Weeks Outcome Route Bth Weight Gen Labor Lgth Anesthesia Del Locatn Provider FOB 07/14/23 Mac 37 live - full term vacuum 8lbs 9oz Male ep idural [facility] LC/JV [facility] Delivery Date: 07/14/23 Last Updated by: Barbara [...] Recurrent Loss/Stillbirth: Other, Other (more content not included)...[facility]07-01-2025 Consult note [facility] Medical Records Department [address] [place] [address] Pre-Anesthesia Evaluation 12/17/24 1205 MR#: [id number] Acct: [id number] Name: GASTON MANZO Rep #:[id number] : 1990 34 From: Alirio Betancourt MD PCP: DELIO EDDY Status:REG SDC Y Race: C Location: [place] [address] Alirio Betancourt MD on [...] Curettage, Suction Anesthesia History Anesthesia History - sharemilker: Anesthesia History - sharemilker Hx Hospitalization No 12/16/24 14:27 Any Problems [...] take am of surgery PONV PONV - sharemilker: PONV - sharemilker Female Yes 12/16/24 14:27 HX of Motion [...] 12/17/24 11:38 Respiratory Assessment Respiratory Assessment - sharemilker: Respiratory Tract Infection Hx - sharemilker Hx Respiratory Tract Infection No 12/16/24 14:27 STOP Sleep Apnea STOP Sleep Apnea - sharemilker: STOP Sleep Apnea - sharemilker Hx Hypertension No 12/16/24 14:27 Hx Sleep [...] Tobacco Use History Tobacco Use History - sharemilker: Tobacco Use History - sharemilker Tobacco Use Smoking Status Never smoker 12/16/24 14:27 Hx Tobacco Use No 12/16/24 14:27 Years Smoking Packs Smoked per Day Smoking Cessation Date was within the last 15 years Hx Smoking Cessation Date Hx Smoking Cessation Counseling Hematologic Medial History Hematologic Hx - sharemilker: 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 Hx of Blood Transfusion No 12/16/24 14:27 [...] confused, unrespo /Reproduction History /Reproductive History - sharemilker: /Reproductive Hx- sharemilker Hx Now Yes 12/16/24 14:27 Gestational Age [...] 11:15 12/17/24 11:36 IV 15 mls/hr .Q48H AWYNE Administration PFSH Medical History (Updated 12/16/24 @ [...] Age: 58 Surgical History History of surgery [place] teeth extracted History of lumpectomy of both [...] 1-2 times per week duration: 30-45 minutes/day hilaria/jain: None seatbelt use: always do you feel safe at home: Yes additional [facility] history: [facility] Natural Resources Specialist Review of Systems (Anesthesia) ROS Narrative System [...] MD Cosigner Signature: Date CC: ~ Signed [facility]05-30-2025 Radiology Diagnostic study note [facility] Imaging Services [address] [place], [place] [address] Breast Limited Unilateral MR#: [id number] Acct: [id number] Name: GASTON MANZO Rep #: [id number] : 1990 F 34 From: Tremayne Cantu MD PCP: DELIO EDDY Status: REG CLI Study:Breast Limited Unilateral Date of Exam: 11/15/24 Exam# [id number] Ordering Dr: Rox Reese WALL MAN-C PROCEDURE: BREAST LIMITED UNILATERAL 11/15/2024 REASON FOR [...] BENIGN. RECOMMEND ANNUAL MAMMOGRAPHIC SCREENING. Reading Location: [facility] CC: SONIDO Reese; DELIO EDDY ~ General Doc: Signed [facility]04-30-2025 Evaluation note* Diagnosis Onset Date Resolution Status Admit Date Breast lump acute October 16, 025 9:53am Cystocele with rectocele acute October 16, 2024 9:53am CATRACHO (stress urinary incontinence, female) acute September 9:53am Encounter for routine gynecological examination noneactive October 16, 2024 9:53am [facility] Work Phone: 1(894) 340-456304-30-2025 Evaluation note* Diagnosis Onset Date Resolution Status [...] of high-risk acute December 13, 2024 8:45am [facility] Work Phone: 1(330) 769-695204-30-2025 Evaluation note* Diagnosis Onset Date Resolution Status [...] delivery by vacuum extraction, currently acute J [facility] 2024 8:45am Hx of pre-eclampsia in prior , currently acute Ju de 2024 8:45am Missed with demise before 20 completed weeks of gestation acute December 13 8:45am acute December 13 8:45am CATRACHO (stress urinary incontinence, female) acute December 13, 2024 8:45am Supervision of high-risk acute December 13, 2024 8:45am Missed with demise before 20 completed weeks of gestation acute December 17 11:04am [facility] Work Phone: 1(384) 989-292704-30-2025 Evaluation note* Diagnosis Onset Date Resolution Status [...] weeks of gestation acute December 17 11:04am [facility] Work Phone: 1(567) 744-467103-19-2024 NoteHNO ID: [id number] Author: KELLY GREENE RDMS Service: ? Author Type: Credit Director Type: Progress Notes Filed: 09/05/2023 14:10 Note [...] PATIENT PRESENTS WITH AN IMPLANTABLE OR ATTACHED SERGEANT AT ARMS: No RADIOLOGY DEPARTMENT: Ultrasound PERIPHERAL IV DATA: Not applicable SIGNED BY: Kelly Greene RDMS RVT September 05, 2023 2:10 [facility]03-19-2024 NoteHNO ID: [id number] Author: STANFORD WAGNER Mammo Tech Service: ? Author Type: Social Media Executive Type: Progress Notes Filed: 09/05/2023 12:01 Note [...] PATIENT PRESENTS WITH AN IMPLANTABLE OR ATTACHED SERGEANT AT ARMS: No RADIOLOGY DEPARTMENT: Mammography PERIPHERAL IV DATA: Not applicable SIGNED BY: Fatou Carreroo Stephany September 05, 2023 12:01 [facility]03-19-2024 History of Present illness Narrative* Kelly Greene [...] PATIENT PRESENTS WITH AN IMPLANTABLE OR ATTACHED SERGEANT AT ARMS: No RADIOLOGY DEPARTMENT: Ultrasound PERIPHERAL IV DATA: Not applicable SIGNED BY: Kelly Greene RDMS RVT September 05, 2023 2:10 PM [facility] History of Present illness Narrative* Stanford [...] PATIENT PRESENTS WITH AN IMPLANTABLE OR ATTACHED SERGEANT AT ARMS: No RADIOLOGY DEPARTMENT: Mammography PERIPHERAL IV DATA: Not applicable SIGNED BY: Maria Elena Carrero September 05, 2023 12:01 PM documented [facility] History of Present illness Narrative* Laverne [...] VAVD complicated by a 3rddegree laceration in [place]. Reports complicated by PreEwoSF, states she never received magnesium and is not on BP meds. Reports light lochia. Denies EDMOND, vision changes, chest pain, SOB, RUQ pain. States she came in for palpitations, swelling, and feeling like her BP is elevated. PAST MEDICAL HISTORY: Past Medical History: Diagnosis Date Preeclampsia, severe, third trimester PAST SURGICAL HISTORY: JOB BOSS is required. Please contact your store administrator to configure this SmartLink. SOCIAL HISTORY: [...] 367 ms QTC Interval 410 ms P [place] 24 degrees QRS [place] -1 degrees T Wave [place] 29 degrees GA Interval 156 ms TRIAGE COURSE: Pt presented [...] appt. IMPRESSION: Preeclampsia-without severe features DISCUSSED WITH [facility] PROVIDER: Dr. Asha Yan DISPOSITION: Discharge [...] as her baby is improving. documented in [facility]01-27-2024 Progress note Author Luz Maria Haro [facility] July 15, 2023 10:14am Note Date/Time July 15, 2023 1 0:15am [facility] Medical Records Department [address] [place] [address] Progress Note - OBGYN 07/15/23 1012 MR#: [id number] Acct: [id number] Name: GASTON MANZO Rep #:[id number] : 1990 32 From: Luz Maria Haro CNM PCP: NOEMI TREJO Status:ADM IN Location: [place] [address]-1 Subjective Subjective Patient doing well without complaints. [...] Cosigner Signature (if applicable): CC: ~ Signed [facility] Work Phone: 1(469) 142-527101-26-2024 Discharge summary Author Tatiana Bey [facility] July 14, 2023 6:14pm Note Date/Time July 14, 2023 6 :03pm [facility] Medical Records Department [address] [place] [address] Instructions for Home/Discharge Instructions 07/14/23 1803 MR#: [id number] Acct: [id number] Name: GASTON MANZO LORI Rep #:[id number] : 1990 32 From: Tatiana Sue DO [...] Up With: Tatiana Sue DO When: Call [phone] to make an appointment with your doctor [...] Sue DO CC: DELIO EDDY ~ Signed [facility] Work Phone: 1(265) 326-801001-26-[address] [facility] 07-14-2023 Progress note Author Luz Maria Haro [facility] July 14, 2023 7:58am Note Date/Time July 14, 2023 7 :56am [facility] Medical Records Department [address] [place] [address] Progress Note - OBGYN 07/14/23 0752 MR#: [id number] Acct: [id number] Name: GASTON MANZO Rep #:[id number] : 1990 32 From: Luz Maria Haro CNM PCP: NOEMI TREJO Status:ADM IN Location: KP849-6 Subjective Subjective comfortable with epidural Objective Data [...] status PLAN: recheck in 2 hours. 07/14/23 8675 <Electronically signed by Luz Maria Haro CNM> Cosigner Signature (if applicable): CC: ~ Signed [facility] Work Phone: 1([phone]) 853-713801-26-2024 Progress note Author Lindsayotf Juradomichele [facility] July 14, 2023 2:07am Note Date/Time July 14, 2023 2 :07am [facility] Medical Records Department [address] [place] [address] Progress Note 07/14/23206 MR#: [id number] Acct: [id number] Name: GASTON MANZO LORI Rep #:[id number] : 1990 32 From: Lindsay bautista MD PCP: NOEMI TREJO Status:ADM IN Location: LN338-6 Progress Note arom pink tinged fluid 5 cm internals placed, cat I tracing. pit per protocol. 07/14/23206 <Electronically signed by Lindsay Garay MD> Lindsay Garay MD Cosigner Signature (if applicable): CC: ~ Signed [facility] Work Phone: 1(366) 576-729401-26-2024 History and physical note Author Lindsay Adrienmichele [facility] July 13, 2023 10:18pm Note Date/Time July 13, 2023 1 0:18pm [facility] Medical Records Department [address] [place] [address] H&P Exam - PROCESSOR HELPER 07/13/23 2215 MR#: [id number] Acct: [id number] Name: GASTON MANZO LORI Rep #:[id number] : 1990 32 From: Lindsay bautista MD PCP: NOEMI TREJO Status:ADM IN Location: HD316-2 HPI - General General Date of Admission: [...] lumpectomy of both breasts History of surgery [place] teeth extracted Social History adopted: No household [...] 1-2 times per week duration: 30-45 minutes/day hilaria/jain: None seatbelt use: always do you feel safe at home: Yes additional social history: BF- [place]- Natural Resources Specialist History 1 Elective abortions Hx Para 0 [...] high risk , unspecified, second trimester COMMENT: [id number], BLAINE 08/01/22 surprise BF Juan Jose (5) [...] complications: preeclampsia I have reviewed the [facility] and made any clinically relevant updates. 07/13/232217 <Electronically signed by Lindsay Garay MD> Cosigner Signature (if applicable): CC: Dr. Lindsay Garay MD; DELIO EDDY~ Signed [facility] Work Phone: 1(670) 879-845607-17-2023 NotePap Smear Specimen AdequacyJuly 2022 4:29pmComment.Satisfactory for evaluation. Endocervical and/or squamous metaplasticcells (endocervical component)are present.[facility] INTERFACED A#[id number] Ferry HospitalComment on above:Satisfactory for evaluation. Endocervical and/or squamous metaplasticcells (endocervical component)are present.Consult note Author Amada Louis [facility] Note Date/Time December 17, 2024 2:15p m [facility] Medical Records Department [address] [place] [address] Anesthesia Postop Eval I 12/17/24 1414 MR#: [id number] Acct: [id number] Name: GASTON MANZO LORI Rep #:[id number] : 1990 34 From: Amada eng STORE ADMINISTRATOR PCP: DELIO EDDY Status:REG [facility] Y Race: C Location: [place] [address] Anesthesia: Postop Eval I Current Vital Signs [...] 12/17/24 1415 <Electronically signed by Amada carter STORE ADMINISTRATOR> Date _ Amada Louis STORE ADMINISTRATOR Cosigner Signature: Date CC: ~ Signed [facility] Work Phone: Consult note Author Alirio Betancourt [facility] Note Date/Time December 17, 2024 3:51p [facility] Medical Records Department [address] [place] [address] Anesthesia Postop Eval II 12/17/24 1537 MR#: [id number] Acct: [id number] Name: GASTON MANZO LORI Rep #:[id number] : 1990 34 From: Alirio Betancourt MD PCP: DELIO EDDY Status:REG SDC Y Race: C Location: [place] [address] Anesthesia Postop Eval I Sum Postop Eval Completion status Anesthesia document: Postop Eval 1 completed: Yes Anesthesia Postop Eval I Summary Anesthesia Postop Eval I Summary: Anesthesia Postop Eval I: Assessment Summary Airway patent Yes 12/17/24 14:15 STORE ADMINISTRATOR.JOIOBY Spontaneous unlabored Yes 12/17/24 14:15 STORE ADMINISTRATOR.FREDDY respirations Mental status Awake,Calm 12/17/24 14:15 STORE ADMINISTRATOR.SKOBY nausea No 12/17/24 14:15 STORE ADMINISTRATOR.SKOBY Vomiting No 12/17/24 14:15 STORE ADMINISTRATOR.JOIOBY Anesthesia Postop Eval I: Fluid Summary Crystalloid volume administer 600 12/17/24 14:15 STORE ADMINISTRATOR.JOIOBY (ml) Colloids volume administered ( ml) Blood Product volume administered (ml) Total IV fluid infused 600 12/17/24 14:15 STORE ADMINISTRATOR.JOIOBKarol Anesthesia Postop Eval I: Summary Notes Anesthesia Complication No 12/17/24 14:15 STORE ADMINISTRATOR.JOIOBY Anesthesia Complication Comment: Post-operative progress note Anesthesia: Postop Eval II Evaluation Mental status: Awake and Calm Pain Level: 2 nausea: No Vomiting: No Complications Anesthesia Complication: No 12/17/24 1537 <Electronically signed by Alirio Roca> Date _ Alirio Betancourt MD Cosigner Signature: Date CC: ~ Signed [facility] Work Phone: [phone] + Plan note Future Appointments Appointment Date:05/16/2022 04:30:00 PM Scheduled Provider:LOLY RENE Location:[employer] [facility] Appointment Type:PC OV Follow Up [facility] Evaluation note* Diagnosis Onset Date Resolution Status Abnormal Pap smear of cervix acute Anxiety acute Asthma acute acute Supervision of high-risk [facility] Work Phone: [phone] note* Diagnosis Onset Date Resolution Status Abnormal [...] heart defect acute acute Supervision of high-risk [facility] Work Phone: evaluation note* Diagnosis Onset Date [...] defect acute acute Supervision of high-risk acute [facility] Work Phone: Evaluation note* Diagnosis Onset [...] heart defect acute acute Supervision of high-risk [facility] Work Phone: Evaluation note* Diagnosis Onset [...] puerperium resolved resolved Supervision of high-risk resolved [facility] Work Phone: Hospital course Narrative No data available for this section [facility] Hospital Discharge instructions No data available for this section [facility] Hospital Discharge instructions Additional Instructions follow up as [facility] with [facility] Work Phone: Progress note No data available for this section [facility] Reason for referral (narrative)No reason for referral information availableMartins Ferry Hospital Work Phone: Summary Purpose Family History Relationship Condition Age at Onset Recorded Date/T laurie grandmother Malignant neoplasm of breast 61 Diabetes mellitus Unknown Coronary artery disease Unknown father Malignant neoplasm of prostate 58 Advance Directives Advance Directive Response Recorded Date/ Time Advance Directives No April 20, 2015 9:15am Living Will No April 20 9:15am Power of Special Services Agent No April 20, 2015 9:15am Advance Directive Response Recorded Date/ Time Advance Directives No April 20, 2015 8:15am Living Will No April 20 8:15am Power of Special Services Agent No April 20, 2015 8:15am Advance Directive Response Recorded Date/ Time Advance Directives No April 20, 2015 8:15am Living Will No July 13 6:38pm Power of Special Services Agent No July 13, 2023 6:38pm Advance Directive Response Recorded Date/ Time Advance Directives No April 20, 2015 9:15am Advance Directive Response Recorded Date/ Time Do you have a Healthcare Power of Special Services Agent? No December 16, 2024 2:27pm Advance Directives [...] of high-risk 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 Admit Date Annual (ONLINE BANKING SPECIALIST) October 16, 2024 9:5 3am LT BREAST LUMP November 15, 2024 9:01a m Reason for Visit Admit Date Breast lump October 16, 2024 9:5 3am Cystocele with rectocele October 16 9:53am CATRACHO (stress urinary incontinence, female ) October 16, 2024 9:53am Encounter for routine gynecological exam ination October 16, 2024 9:53am 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 Admit Date Annual (ONLINE BANKING SPECIALIST) October 16, 2024 9:5 3am LT BREAST [...] 2024 8:45am 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 Admit Date Annual (ONLINE BANKING SPECIALIST) October 16, 2024 9:5 3am LT BREAST [...] 2024 11:04am 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 Admit Date Annual (ONLINE BANKING SPECIALIST) October 16, 2024 9:5 3am LT BREAST [...] and content) Care Team Personnel Name: Aurea Strapper Valencia PT Position: P3 Scheduling - Toe Lining Closer Advanced Member Role: Other Name: JEFF FRANCO MD Position: P4 Physician - Primary Care Member Role: Primary Care Physician Address: Address: [address] [place] [id number] Care Team Related Persons Name: JARRED MANZO Address: Home [address] [place], [place] [id number] [place] Address: Temporary [address] [place] [phone] INFORMATION SOURCE (unrecogn ized section and content) DATE CREATED AUTHOR 04/26/2022 [facility] [facility] DATE CREATED AUTHOR AUTHOR'S ORGANIZ ATION 03/22/2023 [facility] DATE CREATED AUTHOR AUTHOR'S ORGANIZ ATION 07/20/2023 [facility] DATE CREATED AUTHOR AUTHOR'S ORGANIZ ATION 09/06/2023 [facility] DATE CREATED AUTHOR AUTHOR'S ORGANIZ ATION 01/22/2025 [facility] DATE CREATED AUTHOR AUTHOR'S ORGANIZ ATION 03/29/2025 [facility] Care Teams (unrecognized sec tion and content) Team Status: Active Member Role Status Dates Dr. Jeff Franco MD Family Provider Active Loly Rene NP, WALL MAN-C Primary Care Provider Active Team Status: Inactive Member Role Status Dates Loly Rene NP, WALL MAN-C Primary Care Provider, Referr ing Provider Active Luz Maria Haro CNM Attending Provider Active Team Status: Inactive Member Role Status Dates Loly Seffens WALL MAN, WALL MAN-C Primary Care Provider Active Luz Maria Haro CNM Attending Provider, Referring Pr ovider Active Team Status: Inactive Member Role Status Dates Loly Rene WALL MAN, WALL MAN-C Primary Care Provider, Referr ing Provider Active Aline Gentile WALL MAN, WALL MAN-C Attending Provider Active Team Status: Inactive Member Role Status Dates Loly Rene WALL MAN, WALL MAN-C Primary Care Provider, Referr ing Provider Active Dr. Lindsay Garay MD Attending Provider Active Team Status: Inactive Member Role Status Dates Loly Rene WALL MAN, WALL MAN-C Primary Care Provider, Referr ing Provider Active Leticia Manuel CNM Attending Provider Active Team Status: Inactive Member Role Status Dates Loly Rene WALL MAN, WALL MAN-C Primary Care Provider Active Dr. Lindsay Garay MD Attending Provider, Referr ing Provider Active Team Status: Inactive Member Role Status Dates Loly Rene WALL MAN, WALL MAN-C Primary Care Provider Active Dr. Tatiana Sue DO Attending Provider, Refe rring Provider Active Team Status: Active Member Role Status Dates Dr. Jeff Franco MD Family Provider Active No Primary Care Physician Primary Care Provider Active Team Status: Inactive Member Role Status Dates Loly Rene WALL MAN, WALL MAN-C Referring Provider Active Dr. Tatiana Sue DO Attending Provider Activ e No Primary Care Physician Primary Care Provider Active Team Status: Inactive Member Role Status Dates Loly Rene WALL MAN, WALL MAN-C Referring Provider Active Luz Maria Haro CNM [...] Member Role Status Dates NOEMI TREJO , OWNER OPERATOR T[employer]ER TRUCK DRIVER Primary Care Provider Active Dr. Lindsay Garay MD Admit Provid er, Attending Provider, Referring Provider, Other Provider Active Team Status: Active Member Role Status Dates NOEMI TREJO OWNER OPERATOR [employer] TRUCK DRIVER Primary Care Provider Active Dr. Lindsay Garay MD Admit Provider Active Dr. Tatiana Sue DO Referring Provider, Othe r Provider Active Luz Maria Haro CNM Attending Provider Active Team Status: Inactive Member Role Status Dates NOEMI TREJO OWNER OPERATOR [employer]UCK DRIVER Primary Care Provider Active Dr. Lindsay Garay MD Admit Provider Active Dr. Tatiana Sue DO Attending Provider, Refe rring Provider Active Crane Mechanic Relationship Specialty Start Date End Date Jeff Franco PCP - General Family Medicine 04/14/16 [employer] Mechanic Relationship Specialty Start Date End Date Jeff Franco PCP - General Family Medicine 04/14/16 Team Status: Active Member Role Status Dates NOEMI MAST , OWNER OPERATOR [employer] TR[employer] DRIVER Primary Care Provider Active Team Status: Inactive Member Role Status Dates NOEMI MAST , OWNER OPERATOR [employer] TRUCK DRIVER Primary Care Provider Active Start: October 16, 2024 End: October 16, 2024 NOEMI TREJO , OWNER OPERATOR [employer] TRUCK DRIVER Referring Provider Active Sta rt: October 16, 2024 End: October 16, 2024 SONIDO Patterson Attending Provider Active Start: October 16, 2024 End: October 16, 2024 Team Status: Inactive Member Role Status Dates NOEMI MAST , OWNER OPERATOR [employer] TRUCK DRIVER Primary Care Provider Active Start: November 15, 2024 End: November 15, 2024 SONIDO Patterson Attending Provider Active Start: November 15, 2024 End: November 15, 2024 SONIDO Patterson Referring Provider Active Start: November 15, 2024 End: November 15, 2024 Team Status: Active Member Role Status Dates NOEMI MAST , OWNER OPERATOR [employer] TRUCK DRIVER Primary Care Provider Active Start: December 11, 2024 SONIDO Patterson Attending Provider Active Start: December 11, 2024 Rox Barkman , WALL MAN-C Referring Provider Active Start: December 11, 2024 Team Status: Inactive Member Role Status Dates NOEMI MAST , OWNER OPERATOR [employer] TRUCK DRIVER Primary Care Provider Active Start: December 13, 2024 End: December 13, 2024 NOEMI MAST , OWNER OPERATOR [employer] TRUCK DRIVER Referring Provider Active Sta rt: December 13, 2024 End: December 13, 2024 Luz Maria Haro CNM Attending Provider Active Start: December 13, 2024 End: December 13, 2024 Team Status: Active Member Role/Relationship Status Dates NOEMI MAST , OWNER OPERATOR [employer] TRUCK DRIVER Primary Care Provider Active Team Status: Inactive Member Role/Relationship Status Dates NOEMI MAST , OWNER OPERATOR [employer] TRUCK DRIVER Primary Care Provider Active Start: October 16, 2024 End: October 16, 2024 NOEMI MAST , OWNER OPERATOR T[employer] TRUCK DRIVER Referring Provider Active Sta rt: October 16, 2024 End: October 16, 2024 Rox Reese NP-C Attending Provider Active Start: October 16, 2024 End: October 16, 2024 Team Status: Inactive Member Role/Relationship Status Dates NOEMI MAST , OWNER OPERATOR [employer]UCK DRIVER Primary Care Provider Active Start: November 15, 2024 End: November 15, 2024 Rox Reese NP-C Attending Provider Active Start: November 15, 2024 End: November 15, 2024 Rox Reese NP-C Referring Provider Active Start: November 15, 2024 End: November 15, 2024 Team Status: Active Member Role/Relationship Status Dates NOEMI MAST , OWNER OPERATOR [employer] TRUCK DRIVER Primary Care Provider Active Start: December 11, 2024 Rox Reese NP-C Attending Provider Active Start: December 11, 2024 Rox Reese NP-C Referring Provider Active Start: December 11, 2024 Team Status: Inactive Member Role/Relationship Status Dates NOEMI MAST , OWNER OPERATOR [employer]UCK DRIVER Primary Care Provider Active Start: December 13, 2024 End: December 13, 2024 NOEMI MAST , OWNER OPERATOR T[employer]ER TRUCK DRIVER Referring Provider Active Sta rt: December 13, 2024 End: December 13, 2024 Luz Maria Haro CNM Attending Provider Active Start: December 13, 2024 End: December 13, 2024 Team Status: Inactive Member Role/Relationship Status Dates NOEMI MAST , OWNER OPERATOR [employer] DRIVER Primary Care Provider Active Start: December 17, 2024 End: December 17, 2024 Dr. Tatiana Sue DO Attending Provider Activ e Start: December 17, 2024 End: December 17, 2024 Dr. Tatiana Sue DO Referring Provider Activ e Start: December 17, 2024 End: December 17, 2024 Team Status: Active Member Role/Relationship Status Dates NOEMI MAST , OWNER OPERATOR [employer] DRIVER Primary Care Provider Active Start: December 17, 2024 Dr. Tatiana Sue DO Attending Provider Activ e Start: December 17, 2024 Dr. Tatiana Sue DO Referring Provider Activ e Start: December 17, 2024 Dr. Tatiana Sue , Other Provider Active Start: December 17, 2024 Team Status: Inactive Member Role/Relationship Status Dates NOEMI MAST , OWNER OPERATOR [employer] TRUCK DRIVER Primary Care Provider Active Start: December 13, 2024 End: December 13, 2024 NOEMI MAST , OWNER OPERATOR T[employer]ER TRUCK DRIVER Referring Provider Active Sta rt: December 13, 2024 End: December 13, 2024 Luz Maria Haro CNM Attending Provider Active Start: December 13, 2024 End: December 13, 2024 Team Status: Inactive Member Role/Relationship Status Dates NOEMI MAST , OWNER OPERATOR [employer] TR[employer] DRIVER Primary Care Provider Active Start: December 17, 2024 End: December 17, 2024 Dr. Tatiana Sue DO Attending Provider Activ e Start: December 17, 2024 End: December 17, 2024 Dr. Tatiana Sue DO Referring Provider Activ e Start: December 17, 2024 End: December 17, 2024 Team Status: Active Member Role/Relationship Status Dates NOEMI MAST , OWNER OPERATOR [employer] TRUCK DRIVER Primary Care Provider Active Start: December 17, 2024 Dr. Tatiana Sue DO Attending Provider Activ e Start: December 17, 2024 Dr. Tatiana Sue DO Referring Provider Activ e Start: December 17, 2024 Dr. Tatiana Sue DO Other Provider Active Start: December 17, 2024 Team Status: Active Member Role/Relationship Status Dates NOEMI MAST , OWNER OPERATOR [employer] TRUCK DRIVER Primary Care Provider Active Start: December 25, 2024 SONIDO Patterson Attending Provider Active Start: December 25, 2024 SONIDO Patterson Referring Provider Active Start: December 25, 2024 Team Status: Inactive Member Role/Relationship Status Dates NOEMI MAST , OWNER OPERATOR T[employer] TRUCK DRIVER Primary Care Provider Active Start: December 30, 2024 End: December 30, 2024 NOEMI MAST , OWNER OPERATOR T[employer]ER TRUCK DRIVER Referring Provider Active Sta rt: December 30, 2024 End: December 30, 2024 Dr. Tatiana Sue DO Attending Provider Activ e Start: December 30, 2024 End: December 30, 2024 Team Status: Active Member Role/Relationship Status Dates NOEMI TREJO , OWNER OPERATOR [employer] DRIVER Primary care physician Active Team Status: Inactive Member Role/Relationship Status Dates NOEMI TREJO , OWNER OPERATOR [employer] TR[employer] DRIVER Primary care physician Active Start: December 17, [...] Member Role/Relationship Status Dates NOEMI TREJO , OWNER OPERATOR [employer] TRUCK DRIVER Primary care physician Active Start: December 30, 2024 End: December 30, 2024 NOEMI MAST , OWNER OPERATOR T[employer]ER TRUCK DRIVER Referring Provider Active Sta rt: December 30, 2024 End: December 30, 2024 Dr. Tatiana Sue DO Attending physician Acti ve Start: December 30, 2024 End: December 30, 2024 Team Status: Inactive Member Role/Relationship Status Dates NOEMIGABRIELLE TREJO , OWNER OPERATOR TANKER TRUCK DRIVER Primary care physician Active Start: March 26, [...] or prosecute any alcohol or drug abuse patient.[facility] the event this information is protected by the Federal Confidentiality of Alcohol and Drug Abuse Patient Records regulations: The Federal rules restrict any use of the information to criminally investigate or prosecute any alcohol or drug abuse patient.[facility] FOR RECORDS PERTAINING TO PATIENTS WHO [...] BE BASED ON THE PRIMARY CLINICAL RECORDS. [facility] [facility]. provides no warranty or guarantee of the accuracy or completeness of information in this document.
== END | disposition home or self-care (01) ==
LOC: US 07:18
PROVIDERS: PCP Nurse Practitioner Adult Health; Referring Provider Nurse Practitioner Women's Health; Visit Provider Nurse Practitioner Women's Health
DX: Z34.90 Encounter for supervision of normal pregnancy, unspecified, unspecified trimester (principal); Z87.59 Personal history of other complications of pregnancy, childbirth and the puerperium
CPT/HCPCS: 76817